=== PATIENT | male | born 1960 | race Caucasian/White ===

== ENCOUNTER 2018-04-04 10:37 | Emergency (ER) | payer SELFPAY ==
[2018-04-04 10:41] VITALS: BP 135/67; PULSE 75; RESP 18; TEMP 36.8; O2SAT 100
--- NOTE | 2018-04-04 11:01 | DI.RAD_ITS ---
SYMPTOMS/DIAGNOSIS: RIGHT AND LEFT-SIDED CHEST PAIN S/P FALL 4 DAYS AGO, LEFT LATERAL RIB PAIN, RIGHT MILD ANTERIOR RIB PAIN, ? FX CHEST X-RAY, PA AND LATERAL: Comparison is 06/05/17. The heart size and pulmonary vasculature are within normal limits. The lungs show no evidence of congestive heart failure or pneumonia. There are again seen bilateral old healed rib fractures. Degenerative changes are seen in the spine. IMPRESSION: No acute pulmonary process.
[2018-04-04] MEDS: Bupivacaine 0.25% Pres-Free 30 ML VIAL (12:28)
--- NOTE | 2018-04-04 12:47 | W.ED.GENAD ---
Discharge Plan Disposition Patient Disposition: HOME Condition: Good Discharge Details Chief Complaint: Chest/Rib Clinical Impression: Closed rib fracture, Chest pain, Pneumonia Primary Care Provider: Salvador Cabrera ED Provider: Nathan Nolasco Home Meds and New Rx's Prescriptions: New acetaminophen [Mapap Extra Strength] 500 MG tablet 1,000 mg PO Q6H 5 Days Qty: 60 RF: 0 lidocaine [Lidoderm] 1 PATCH patch 1 patch Topical Q24H Qty: 4 RF: 0 ibuprofen [Motrin IB] 200 MG tablet 600 mg PO Q6H 5 Days Qty: 60 RF: 0 azithromycin 250 mg tablet See Rx Instructions .ROUTE .COMPLEX Qty: 6 RF: 0 No Action esomeprazole magnesium [Nexium] 20 MG capsule,delayed release(DR/EC) 40 mg PO BID RF: 0 ondansetron HCl 4 MG tablet 4 mg PO Q8H PRN Qty: 90 RF: 1 Discharge Instructions Instructions: Rib Fracture (ED), Pneumonia (ED) Additional Instructions: Please take the medication as directed. Please use the incentive spirometer as directed. If you notice any worsening of your symptoms, or any new symptoms such as vomiting, diarrhea, fever, chills, shortness of breath, chest pain, numbness, weakness, or fainting , please return immediately to the emergency department for reevaluation. Please follow up with your primary care provider as soon as possible for reassessment and reevaluation. As always, it was a pleasure participating in your medical care today. Referrals: Salvador Cabrera MD [Primary Care Provider] - Discharge Data Discharge Date/Time-TO BE ENTERED AT DEPARTURE: 04/04/18 13:11 Medical Decision Making This is a very pleasant 57-year-old male who presents with 2 weeks of coughing then subsequent fall, notable bilateral chest pain concerning for rib fracture. Physical exam demonstrates reproducible rib wall tenderness on the lateral aspects bilaterally, some evidence of bruising, no crepitus. Chest x-ray shows no evidence of pneumothorax, or significant infiltrate, however with the patient's crackles and symptoms of productive green sputum and concern for potential community-acquired pneumonia made worse by his rib pain. There is evidence of old rib fractures, and clinically the patient demonstrates concern for acute rib fractures. We will start the patient on an antibiotic for community-acquired pneumonia made worse by his splinting, as well as consult anesthesia for rib block. Anesthesia did come and evaluate the patient performed with rib block, the patient had complete resolution of his rib pain. He feels much better at this time. Respiratory did discuss with the patient incentive spirometry techniques, and the patient was sent home with 1. Patient will be encouraged to continue NSAID therapy, as well as use Lidoderm patch as needed. We discussed red flags which to return, and the importance of taking the antibiotic, and the importance of close follow-up with his PCP. I have extensively reviewed the treatment plan and discharge instructions with the patient. I have addressed all patient concerns at this time. The patient was made aware of what symptoms to monitor for that would warrant a return to the emergency department. Discussed the plan with the patient, they demonstrate verbal understanding and agreement with our assessment and plan at this time. HPI General Date/Time Provider Initiated Documentation: 04/04/18 10:48. HPI Narrative: This is a pleasant 57-year-old male who presents for evaluation of rib pain. Patient states that about 1-2 weeks ago he developed a mild cough, had some productive green sputum, he had no systemic fever chills, chest pain or shortness of breath at that time, however roughly 4-5 days ago he was walking slipped and fell on his anterior chest. He did not hit his head or have any loss of consciousness however he noted significant rib pain on both sides immediately after this event. Since then he has had notable pain with inspiration, reproducible pain and bruising on both sides of his chest, and is concerned for rib fracture. He denies any significant zayra hemoptysis, fever, chills, numbness tingling or weakness. He does admit some continued productive green sputum. He denies any active IV or illicit drug or tobacco use. He denies any other complaints. Symptoms are made worse with palpation, deep breathing, and movement, improved by nothing, including Tylenol or Motrin. 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 He denies any pertinent family history recent surgical history. Related Data Home Medications Medication Instructions Recorded Confirmed esomeprazole magnesium [Nexium] 40 mg PO BID tab-cap 04/06/14 04/04/18 ondansetron HCl 4 mg PO Q8H PRN #90 tab-cap 09/30/17 acetaminophen [Mapap Extra 1,000 mg PO Q6H 5 Days #60 tab 04/04/18 Strength] azithromycin See Rx Instructions .ROUTE 04/04/18 .COMPLEX #6 tab ibuprofen [Motrin Ib] 600 mg PO Q6H 5 Days #60 tab 04/04/18 lidocaine [Lidoderm] 1 patch TOPICAL Q24H #4 patch 04/04/18 Previous Rx's Medication Instructions Recorded ondansetron HCl 4 mg PO Q8H PRN #90 tab-cap 09/30/17 acetaminophen [Mapap Extra 1,000 mg PO Q6H 5 Days #60 tab 04/04/18 Strength] azithromycin See Rx Instructions .ROUTE 04/04/18 .COMPLEX #6 tab ibuprofen [Motrin Ib] 600 mg PO Q6H 5 Days #60 tab 04/04/18 lidocaine [Lidoderm] 1 patch TOPICAL Q24H #4 patch 04/04/18 Allergies Allergy/AdvReac Type Severity Reaction Status Date / Time sertraline AdvReac Severe SEVERE Unverified 04/04/18 10:45 WORSENING OF DEPRESSION General Stated Complaint: Chest/Rib NEEMA: 3 Review of Systems Review of Systems All systems reviewed & are unremarkable except as noted in HPI and below PFSH Repair of inguinal hernia Vasectomy Family History Mother Neoplasm Father Diabetes Essential hypertension Neoplasm Sister No problems noted. Social History Smoking/Tobacco Use Status: Never Exam Narrative Exam Narrative: 1.Const: Well-nourished, Well-developed, appearing stated age 2.Eyes: PERRL, no conjunctival injection, and symmetrical lids. 3.ENT: Atraumatic external nose and ears. Moist MM. Neck: Symmetric, trachea midline, No thyromegaly. 4.CVS: +S1/S2, No murmurs or gallops. Peripheral pulses 2+ and equal in all extremities. Brisk capillary refill in all extremities. 5.RESP: Slightly painful respiratory effort secondary to musculoskeletal lateral rib pain, minimal crackles in the bases bilaterally, reproducible tenderness on the lateral ribs over ribs 7 8 on the left, and 6 and 7 on the right. Bruising is present in these areas. No evidence of crepitus. Airway clear, no obstructions. No abrasions or ecchymosis. Chest movement symmetric with respirations.Trachea midline. No crepitus. No step offs. No paradoxical movements. No rhonchi, wheezing or stridor. Breath sound symmetric. No Sucking chest wounds. 6.GI: Soft, Nontender/Nondistended, No hepatosplenomegaly. No guarding or rebound. 7.MSK: Normocephalic/Atraumatic, Extremities w/o deformity or ttp No cyanosis or clubbing, Normal movement of all extremities 8.Skin: Warm, Dry. No rashes or lesions. 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 Sensation grossly intact, no focal neurologic deficits. 10.Psych: (AAO) x3. Appropriate mood and affect Course Vital Signs Temperature 36.8 C 04/04/18 10:41 Pulse 75 04/04/18 10:41 Respiratory Rate 18 04/04/18 10:41 Blood Pressure 135/67 04/04/18 10:41 Pulse Oximetry 100 04/04/18 10:41 Temperature 36.8 C 04/04/18 10:41 Pulse 75 04/04/18 10:41 Respiratory Rate 18 04/04/18 10:41 Respiratory Effort 04/04/18 10:46 Respiratory Depth Normal 04/04/18 10:46 Respiratory Pattern Normal 04/04/18 10:46 Blood Pressure 135/67 04/04/18 10:41 Blood Pressure Position Sitting 04/04/18 10:41 Pulse Oximetry 100 04/04/18 10:41 Pain Level 8 04/04/18 10:46
[2018-04-04] MEDS: Ketorolac 15 MG/ML VIAL IM (13:00)
[2018-04-04] MEDS: Lidocaine 5% Patch 1 PATCH TP (13:00)
[2018-04-04 13:11] VITALS: BP 135/67; PULSE 75; RESP 18; TEMP 36.8; O2SAT 100
== END 2018-04-04 13:11 | disposition home or self-care (01) ==
PROVIDERS: Emergency Provider Student in an Organized Health Care Education/Training Program; PCP Family Medicine
DX: R07.81 Pleurodynia (principal); J18.9 Pneumonia, unspecified organism; S22.43XD Multiple fractures of ribs, bilateral, subsequent encounter for fracture with routine healing; W01.0XXD Fall on same level from slipping, tripping and stumbling without subsequent striking against object, subsequent encounter
CPT/HCPCS: 99284; 71046; J1885

== ENCOUNTER 2018-04-26 13:27 | Emergency (ER) | payer SELFPAY ==
[2018-04-26 13:48] VITALS: BP 129/76; PULSE 100; RESP 15; TEMP 36.2; O2SAT 99
--- NOTE | 2018-04-26 15:05 | DI.RAD_ITS ---
SYMPTOM/DIAGNOSIS: TRAUMA, LT RIB AND TAILBONE PAIN, H/O FALL LEFT RIBS AND PA AND LATERAL CHEST: Comparison is made with 04/04/18. Heart size and pulmonary vasculature are within normal limits. The lungs are clear and well expanded. No effusions or pneumothoraces are identified. There are old bilateral rib fractures. No acute rib fracture is seen. The spine appears stable with an old compression deformity at T 12. IMPRESSION: No acute abnormality. No acute left rib fracture. SACRUM AND COCCYX: No acute fracture or dislocation is identified. IMPRESSION: No acute abnormality.
--- NOTE | 2018-04-26 15:16 | ED.GENADUL_ITS ---
Discharge Plan Disposition Patient Disposition: HOME Condition: Stable Discharge Details Chief Complaint: Chest/Rib Clinical Impression: Chronic anemia, Elevated bilirubin, Hypokalemia, Rib pain, Coccyx pain Primary Care Provider: Salvador Cabrera ED Provider: Baryden Steinberg Home Meds and New Rx's Prescriptions: Continued esomeprazole magnesium [Nexium] 20 MG capsule,delayed release(DR/EC) 40 mg PO BID RF: 0 lidocaine [Lidoderm] 1 PATCH patch 1 patch Topical Q24H Qty: 4 RF: 0 Discontinued azithromycin 250 mg tablet See Rx Instructions .ROUTE .COMPLEX Qty: 6 RF: 0 Discharge Instructions Instructions: Hypokalemia (ED), Anemia (ED), Chest Wall Pain (ED), Alcohol Use Disorder (ED) Additional Instructions: Please return immediately to the emergency department if you develop any new or worsening symptoms or if you become otherwise concerned. It is extremely important that you make an appointment to be seen by your primary care doctor next week in follow-up for this visit. Please call [phone] if you have any difficulty establishing this appointment for next week. Please stop drinking alcohol. Referrals: Salvador Cabrera MD [Primary Care Provider] - Discharge Data Discharge Date/Time-TO BE ENTERED AT DEPARTURE: 04/26/18 17:34 Medical Decision Making <Vicenta Hoyt MD - Last Filed: 05/01/18 16:02> Jelani Jean-Baptiste is a 57 y/o man with h/o anxiety, depression, heavy etoh use who presented to the emergency department with left rib pain and tailbone after fall one week ago, also with several days of vomiting. Pt is well and non-toxic on exam. Left lateral rib TTP and coccyx TTP without skin changes. Abd exam benign. Concern for pancreatitis, gastritis, metabolic/lyte derangement, dehydration, rib fx, coccyx fx, other. Doubt ACS. Exam/hx not c/w sepsis, significant UGIB, appendicitis, other acute emergent intra-abdominal or intracranial process, PE, acute aortic process. Plan for EKG, CXR/rib films, coccyx film, screening labs, IVF hydration, IV zofran. Will monitor and reassess. Labs show chronic anemia, elevated bilirubin, hypokalemia. KCl administered. xrays okay. Lengthy discussion with Pt that abnl bilirubin, LFTs likely related to alcohol use. Pt counseled to stop drinking etoh immediately, and to RTED for withdrawal symptoms. IVF still running. Pt reports feeling much improved. Plan for PO challenge, finish IVF. Pt signed out to Amilcar Steinberg at time of shift change with IVF, PO challenge pending. Prior to my signout lengthy discussion with Pt re: RTED precautions and importance of outpt f/u with PCP. He verbalizes understanding of the plan and is amenable. Medical Records Medical records reviewed: Yes I reviewed the patient's medical records. Imaging Data Radiologic Study: Attestation: I personally reviewed and interpreted this imaging study as follows: Radiologist's impression: LEFT RIBS AND PA AND LATERAL CHEST: Comparison is made with 04/04/18. Heart size and pulmonary vasculature are within normal limits. The lungs are clear and well expanded. No effusions or pneumothoraces are identified. There are old bilateral rib fractures. No acute rib fracture is seen. The spine appears stable with an old compression deformity at T 12. IMPRESSION: No acute abnormality. No acute left rib fracture. SACRUM AND COCCYX: No acute fracture or dislocation is identified. IMPRESSION: No acute abnormality. Lab Data Lab results reviewed: Yes I reviewed the patient's lab results. Laboratory Tests Range/Units 04/26/18 04/26/18 04/26/18 15:35 15:35 15:45 WBC (4.4-10.8) k/cumm 7.40 RBC (4.50-6.00) m/cumm 4.78 Hgb (13.5-17.5) g/dL 9.3 L Hct (40.0-50.0) % 33.3 L MCV (80-95) fL 69.7 L MCH (27.0-33.0) pg 19.5 L MCHC (32.0-36.0) g/dL 27.9 L RDW (11.8-14.1) % 19.8 H Plt Count (130-400) x1000/uL 117 L MPV Not Applicable Immature Gran % 0.0 Neutrophils % 60.0 Lymphocytes % 25.0 Monocytes % 9.0 Eosinophils % 0.0 Basophils % 0.0 Absolute Neutrophils (1.2-6.7) k/cumm 4.66 Band Neutrophils % 3.0 Absolute Lymphocytes (1.2-3.4) k/cumm 2.00 Absolute Monocytes (0.11-0.7) k/cumm 0.67 Absolute Eosinophils (0.0-0.7) k/cumm 0.00 Absolute Basophils (0.0-0.2) k/cumm 0.00 Metamyelocytes % 1.0 Differential Comment Manual differential Atypical Lymphocytes 2 RBC Morphology See below Polychromasia Present Hypochromasia 2+ Poikilocytosis 2+ Anisocytosis 2+ Microcytosis 3+ Sodium (136-145) mmol/L 135 L Potassium (3.5-5.1) mmol/L 3.2 L Chloride (98-107) mmol/L 96 L Carbon Dioxide (21.0-32.0) mmol/L 30.7 Anion Gap (3-11) mmol/L 8.3 BUN (7-18) mg/dL 11 Creatinine (0.70-1.30) mg/dL 0.96 Estimated GFR/1.73 m2 (mL/min/1.73m2) >= 60.00 Glucose (70-100) mg/dL 91 Calcium (8.5-10.1) mg/dL 9.3 Total Bilirubin (0.2-1.0) mg/dL 2.0 H AST (15-37) U/L 50 H ALT (12-78) U/L 44 Alkaline Phosphatase (46-116) U/L 137 H Troponin I (0.00-0.06) ng/mL < 0.02 Total Protein (6.4-8.2) g/dL 8.6 H Albumin (3.4-5.0) g/dL 3.9 Lipase (73-393) U/L 158 Urine Color (Yellow) Vanessa Urine Clarity Clear Urine pH (5-8) 7.0 Ur Specific [place] (1.005-1.025) 1.015 Urine Protein (Negative) mg/dL 30 H Urine Ketones (Negative) mg/dL Trace H Urine Blood (Negative) Negative Urine Nitrite (Negative) Negative Urine Bilirubin (Negative) Moderate H Urine Urobilinogen (Up TO 0.2) EU/dL 4.0 H Ur Leukocyte Esterase (Negative) Negative Urine RBC (0-2) 0-2 Urine WBC (0-5) HPF 3-5 Ur Epithelial Cells (Negative) HPF Rare Urine Crystals (Negative) HPF Negative Urine Bacteria (Negative) HPF Rare Urine Casts (Negative) LPF 10-20 hyaline Urine Mucus (Negative) Moderate Urine Other (Negative) Negative Ur Culture Indicated? No Urine Glucose (Negative) mg/dL Negative Path Cons Comment ECG Data Attestation: I personally reviewed and interpreted this ECG (s) as follows: Interpretation: EKG shows sinus rhythm at 84 with normal axis, no acute ischemic changes, nondiagnostic EKG HPI <Vicenta Hoyt MD - Last Filed: 05/01/18 16:02> General Mode of arrival: ambulatory . Date/Time Provider Initiated Documentation: 04/26/18 14:19 . Limitations to Documentation: no limitations . Information obtained by: patient, RN notes reviewed and old records reviewed . HPI Narrative: Jelani Jean-Baptiste is a 57 y/o man with h/o anxiety, depression, GERD, heavy etoh use presenting to the emergency department with rib pain and vomiting. Pt reports that he was seen here 04/04 after fall on ice, diagnosed with rib fx. Pt reports that approx one week ago he again slipped on ice, and has been having new left-sided rib pain since fall. Also cedillo been having tail bone pain since fall. Pt also reports that in the past few days he has been vomiting multiple times. Pt reports that he had several episodes of bloody vomit, but has had no blood in his vomit since, last emesis today. Pt reports that he has not been able to keep food down. He denies diarrhea. Drinks several vodka drinks per night, but denies withdrawal symptoms or dependence when he stops drinking. He denies abd pain, chest pain, headache, fevers, SOB, cough. No recent travel. Related Data Home Medications Medication Instructions Recorded Confirmed esomeprazole magnesium [Nexium] 40 mg PO BID tab-cap 04/06/14 04/04/18 lidocaine [Lidoderm] 1 patch TOPICAL Q24H #4 patch 04/04/18 Previous Rx's Medication Instructions Recorded lidocaine [Lidoderm] 1 patch TOPICAL Q24H #4 patch 04/04/18 Allergies Allergy/AdvReac Type Severity Reaction Status Date / Time sertraline AdvReac Severe SEVERE Unverified 04/26/18 13:56 WORSENING OF DEPRESSION General Stated Complaint: Chest/Rib NEEMA: 3 Review of Systems <Vicenta Hoyt MD - Last Filed: 05/01/18 16:02> Review of Systems Constitutional: denies fevers Eyes: denies eye pain ENT: denies facial pain, dental pain, sore throat Cardiovascular: denies chest pain, edema, reports left rib pain Respiratory: denies SOB, cough GI: denies abdominal pain, diarrhea, reports vomiting : denies flank pain MSK: denies back pain, neck pain, arthralgias, myalgias, reports tailbone pain Skin: denies rash Neuro: denies headaches, n/t, weakness PFSH <Vicenta Hoyt MD - Last Filed: 05/01/18 16:02> Surgical History Repair of inguinal hernia Vasectomy Family History Mother Neoplasm Father Diabetes Essential hypertension Neoplasm Sister No problems noted. Social History Smoking/Tobacco Use Status: Never Exam <Vicenta Hoyt MD - Last Filed: 05/01/18 16:02> Narrative Exam Narrative: Constitutional: well and [id number], pleasant, conversing normally HENT: head atraumatic, normocephalic normal inspection, mucous membranes moist Eyes: conjunctiva normal, sclera normal, pupils 3mm b/l Neck: no stridor, normal ROM, trachea midline Chest: normal inspection, TTP over left lateral ribs without crepitus, skin changes, or deformity Resp: normal work of breathing, LCTAB Cardio: normal rate, normal rhythm, no murmur appreciated GI: abdomen soft, non-tender, non-distended Back: normal inspection, no rash, no lumbar TTP, TTP over inferior sacrum/coccyx, no deformity or skin changes Skin: warm, dry, normal color, no rash Neuro: alert, not altered, grossly non-focal, normal tone Ext: no edema Psych: normal mood, normal affect, normal behavior Course <Vicenta Hoyt MD - Last Filed: 05/01/18 16:02> Vital Signs Temperature 36.2 C L 04/26/18 13:48 Pulse 100 H 04/26/18 13:48 Respiratory Rate 15 04/26/18 13:48 Blood Pressure 129/76 04/26/18 13:48 Pulse Oximetry 99 04/26/18 13:48 Temperature 36.2 C L 04/26/18 13:48 Temperature Source Temporal Artery Scan 04/26/18 13:48 Pulse 100 H 04/26/18 13:48 Respiratory Rate 15 04/26/18 13:48 Respiratory Effort Non-Labored 04/26/18 13:55 Blood Pressure 129/76 04/26/18 13:48 Blood Pressure Position Sitting 04/26/18 13:48 Pulse Oximetry 99 04/26/18 13:48 Oxygen Delivery Method Room Air 04/26/18 13:48 Oxygen Flow Rate 0 04/26/18 13:48 Pain Level 8 04/26/18 13:48 Sign Out <Vicenta Hoyt MD - Last Filed: 05/01/18 16:02> Sign Out Data: Sign Out Comment: Patient signed out to Amilcar Steinberg at time of shift change with remainder of IV fluid hydration, p.o. challenge pending. Anticipate discharge home as already discussed with patient. Last updated by Vicenta Hoyt MD at 04/26/18 17:11 Post-Handoff Eval: IV fluids were finished by staff midwife/apprenticeship director and a p.o. challenge patient. Patient states that p.o. challenge went well and states improvement of symptoms. Discharge already prepared by Maria Alejandra Hoyt and see her note for physical exam and previous care and workup.
[2018-04-26] MEDS: Normal Saline 1,000 ML 1000 ML IV (15:33)
[2018-04-26] MEDS: Ondansetron 4 MG/2 ML VIAL IVP (15:33)
--- NOTE | 2018-04-26 15:36 | NUR.NOTE ---
patient medicated per MD order Nursing Note:
[2018-04-26 15:42] LABS: Abs Immature Grans 0.01 k/cumm (0.0-0.09); HCT 33.3 % (40.0-50.0); HGB 9.3 g/dL (13.5-17.5); Mean Corp. HGB Concentration 27.9 g/dL (32.0-36.0); Mean Corpuscular Hemoglobin 19.5 pg (27.0-33.0); Mean Corpuscular Volume 69.7 fL (80-95); RBC 4.78 m/cumm (4.50-6.00); RBC Distribution Width 19.8 % (11.8-14.1)
[2018-04-26 15:53] LABS: Bilirubin Moderate (Negative); Blood Negative (Negative); Clarity Clear; Glucose Negative (Negative); Ketones Trace mg/dL (Negative); Leukocyte Esterase Negative (Negative); Nitrite Negative (Negative); Specific Gravity 1.015 (1.005-1.025)
[2018-04-26 16:05] LABS: ALT 44 U/L (12-78); AST 50 U/L (15-37); Albumin 3.9 g/dL (3.4-5.0); Alkaline Phosphatase 137 U/L (46-116); Anion Gap 8.3 mmol/L (3-11); BUN 11 mg/dL (7-18); CO2 30.7 mmol/L (21.0-32.0); CREATININE 0.96 mg/dL (0.70-1.30); Calcium 9.3 mg/dL (8.5-10.1); Chloride 96 mmol/L (98-107); Glucose 91 mg/dL (70-100); Lipase 158 U/L (73-393); Potassium 3.2 mmol/L (3.5-5.1); Sodium 135 mmol/L (136-145); Total Protein 8.6 g/dL (6.4-8.2)
[2018-04-26 16:06] LABS: Troponin I < 0.02 ng/mL (0.00-0.06)
[2018-04-26 16:14] LABS: Absolute Monocyte Count 0.67 k/cumm (0.11-0.7); Absolute Neutrophil Count 4.66 k/cumm (1.2-6.7); Atypical Lymphocytes % 2
[2018-04-26 16:15] LABS: Anisocytosis 2+; Diff Comment Manual Differential
[2018-04-26 16:16] LABS: Hypochromasia 2+; Microcytosis 3+; Poikilocytes 2+; Polychromasia Present
[2018-04-26 16:18] LABS: Platelet Count 117 x1000/uL (130-400)
[2018-04-26 16:22] LABS: Bacteria Rare HPF (Negative); Crystals Negative HPF (Negative); Epithelial Cells Rare HPF (Negative); Mucus Moderate (Negative); Other Cells Negative (Negative); RBC 0-2 (0-2)
[2018-04-26 16:23] LABS: C & S Indicated? No; Casts 10-20 Hyaline LPF (Negative)
[2018-04-26 16:26] VITALS: BP 133/77; PULSE 78; RESP 18; TEMP 37; O2SAT 96
--- NOTE | 2018-04-26 16:37 | DI.VRAD_ITS ---
EXAM: XR Left Ribs, 2 Views EXAM DATE/TIME: 04/26/2018 4:10 PM CLINICAL HISTORY: 57 years old, male; Pain; Chest wall pain; Left; Patient HX: Trauma, left rib pain TECHNIQUE: XR Left ribs 2 views. COMPARISON: CR LEFT RIBS TO INCLUDE CXR 05/12/2013 8:13 AM FINDINGS: Bones/joints: No displaced acute fracture. Bilateral old rib fractures. Soft tissues: Normal. IMPRESSION: No displaced acute fractures. EXAM: XR Chest, 2 Views EXAM DATE/TIME: 04/26/2018 4:10 PM CLINICAL HISTORY: 57 years old, male; Pain; Chest wall pain; Left; Patient HX: Trauma, left rib pain TECHNIQUE: XR of the chest, 2 views. COMPARISON: CR LEFT RIBS TO INCLUDE CXR 05/12/2013 8:13 AM FINDINGS: Lungs: 2 mm calcified granuloma in the left upper lobe. Pleural space: No pneumothorax. No consolidations. Heart/Mediastinum: Unremarkable. No cardiomegaly. Bones/joints: Chronic right sixth and seventh rib fractures. Mild degenerative changes of the spine. Old left fourth, fifth, sixth, seventh and eighth rib fractures. Other findings: IMPRESSION: No acute abnormality. Chronic bilateral rib fractures. Dictated and Authenticated by: Curtis Rothman MD. Ordering:FER Yadav MD
--- NOTE | 2018-04-26 16:40 | DI.VRAD_ITS ---
EXAM: XR Sacrum and Coccyx, 2 or More Views EXAM DATE/TIME: 04/26/2018 4:13 PM CLINICAL HISTORY: 57 years old, male; Pain; Pain in coccyx area; Patient HX: Trauma, tailbone pain TECHNIQUE: XR XR of the sacrum and coccyx, 2 or more views. COMPARISON: CT CHEST ABD PELVIS WITH CONTRAST 06/06/2017 12:59 AM FINDINGS: Bones/joints: Degenerative changes of bilateral hip joints. No acute fracture. No dislocation. Soft tissues: Normal. IMPRESSION: No acute abnormality. Dictated and Authenticated by: Curtis Rothman MD. Ordering:FER Yadav MD
[2018-04-26] MEDS: Potassium Chloride 20 MEQ TABCR 40 MEQ PO (16:51)
--- NOTE | 2018-04-26 16:53 | NUR.NOTE ---
patient medicated per MD order Nursing Note:
[2018-04-26] MEDS: Pantoprazole 40 MG VIAL IVP (17:01)
--- NOTE | 2018-04-26 17:02 | NUR.NOTE ---
patient medicated per MD order Nursing Note:
[2018-04-26] MEDS: Ondansetron O.D.T. 4 MG TABEF PO (17:04)
--- NOTE | 2018-04-26 17:21 | NUR.NOTE ---
patient tolerating po challenge Nursing Note:
--- NOTE | 2018-04-29 07:47 | PDOC.ERCMPRO ---
Care Management Progress Note 05/01-Dr. Prosper Hoyt requested assistance with PCP f/u (Dr Perez) within one week for anemia/bilirubin. Referral faxed to [facility] this morning.
== END 2018-04-26 17:34 | disposition home or self-care (01) ==
PROVIDERS: Student in an Organized Health Care Education/Training Program; Emergency Provider Nurse Practitioner Family; PCP Family Medicine
DX: D64.9 Anemia, unspecified (principal); R52 Pain, unspecified; E80.7 Disorder of bilirubin metabolism, unspecified; E87.6 Hypokalemia; R07.81 Pleurodynia; R10.10 Upper abdominal pain, unspecified
CPT/HCPCS: 80053; 83690; 93005; 96361; 96374; 96375; 99285; 71046; 71100; 72220; 81003; 81015; 84484; 85025; 93010; J2405

== ENCOUNTER 2018-09-22 09:32 | Emergency (ER) | payer SELFPAY ==
[2018-09-22] VITALS (57 sets, daily range): BP systolic 145–177; BP diastolic 71–117; PULSE 81–123; RESP 11–31; TEMP 37; O2SAT 91–100
--- NOTE | 2018-09-22 09:35 | DI.COMBO_ITS ---
SYMPTOM/DIAGNOSIS: LT CHEST PAIN, ELEVATED D DIMER, ? PE PA AND LATERAL CHEST: There are multiple old bilateral healed rib fractures and left proximal clavicle fracture. The lungs are clear and well expanded. No pleural effusion is seen. CONCLUSION: No evidence of acute disease. PE CHEST CT: CT angiography was performed with multi slice acquisition and multi planar and 3D reconstruction. CT angiography of the chest was performed with intravenous infusion of 70 cc's of Omnipaque 350. Images obtained through the upper abdomen show apparent hepatic steatosis. There is a hiatal hernia and there is questionable wall thickening of the esophagus. No mediastinal or hilar adenopathy. Lungs are generally clear with mild dependent atelectasis. No evidence of pulmonary embolic disease or major thoracic aortic abnormality. Tracheobronchial tree appears intact. CONCLUSION: No evidence of pulmonary embolic disease. Incidental note of hepatic steatosis.
--- NOTE | 2018-09-22 09:35 | W.ED.GENAD ---
Discharge Plan Disposition Patient Disposition: HOME Condition: Stable Discharge Details Chief Complaint: Chest Pain Clinical Impression: Chest wall pain, Alcohol abuse, Depression, Chronic anemia, Thrombocytopenia Primary Care Provider: Salvador Cabrera ED Provider: Beba Davila Home Meds and New Rx's Prescriptions: New lidocaine [Lidoderm] 5 % adhesive patch,medicated 1 patch TP DAILY PRN (Reason: pain) Qty: 15 RF: 0 Continued esomeprazole magnesium [Nexium] 20 MG capsule,delayed release(DR/EC) 40 mg PO BID RF: 0 Discharge Instructions Instructions: Depression (ED), Abuse of Alcohol (ED), Anemia (ED), Chest Wall Pain (ED) Additional Instructions: Alternate Tylenol and Motrin as needed and directed for pain. Call your primary care doctor tomorrow to schedule follow-up appointment for reevaluation and for recheck of your hemoglobin and platelets. Be sure to safely stop drinking alcohol under the supervision of the physician or detoxification center. Simi from [facility] services will follow up with you on Sunday. Return immediately to the emergency department if you develop any worsening or new concerning symptoms. Discharge Data Discharge Physician: Beba Davila Medical Decision Making 58-year-old male with a history of anxiety, depression, GERD who presents with left anterior chest pain and diarrhea since yesterday. Left-sided chest pain worse with deep breath, movement and palpation. Denies fever, cough, shortness of breath or injury. Also later admitted to depression for the last 5 months and occasional thoughts of suicide. Denies plan or active thoughts of suicide at present. EKG on arrival noted a rate of 106, sinus tachycardia, no acute ST findings. Suspect most likely his chest pain appears musculoskeletal, or may be associated with anxiety or depression. Due to pleuritic component, will check screening labs, d-dimer, chest x-ray, uds. Will give a dose of Ativan, Toradol and bolus IV fluids. Patient is agreeable to mental health screening evaluation after medically cleared. 1050 --labs reviewed. Hemoglobin 9, has been low in the past and appears stable. Platelets 98, low compared to previous. D-dimer 759. Potassium 3.2. Mag 1.5. Troponin negative. Will replete potassium and send for CT chest to rule out PE. 1300 --CT chest negative for PE or dissection. Patient states he feels better. Still complaining of some left-sided chest pain which is worse with movement and palpation. Troponin negative x2. Appears muscular skeletal. Will place a Lidoderm patch. Patient is medically cleared. Will call mental health for evaluation. 1630 --mental health evaluated patient at bedside and feel that he is safe for discharge home. Patient admits to thoughts of suicide but does not have a plan and is not actively suicidal. Patient is not receptive to outpatient therapy but did discuss with Simi at bedside and is open to further discussion with him regarding issues currently in his life including his unemployment and his alcohol abuse. Patient is feeling better and feels good to go home. Patient now relates he was vomiting yesterday which he thinks is due to his alcohol. His chest is tender to palpation and appears musculoskeletal. Repeat EKG no acute findings. Discussed that this could be due to chest wall strain, costochondritis. He is instructed to alternate Tylenol and Motrin. We will send home with Lidoderm patch. Plan is for Simi to follow-up with patient at home on Sunday. Patient is instructed to call his primary care doctor tomorrow to schedule a follow-up appointment for reevaluation and for recheck of his hemoglobin and platelets. Medical Records Medical records reviewed: Yes I reviewed the patient's medical records. Imaging Data Radiologic Study: Radiologist's impression: XR Chest, 2 Views EXAM DATE/TIME: 09/22/2018 9:36 AM CLINICAL HISTORY: 58 years old, male; Signs and symptoms; Other: Chest pain, R/O acute disease TECHNIQUE: Imaging protocol: XR of the chest, 2 views. COMPARISON: CR XR CHEST 2V PA LATERAL 04/04/2018 11:19 AM FINDINGS: Lungs: Unremarkable. No consolidation. Pleural space: Unremarkable. No pleural effusion. No pneumothorax. Heart/Mediastinum: Unremarkable. No cardiomegaly. Bones/joints: Stable bilateral healed rib fractures. IMPRESSION: No acute findings. Radiologic Study #2: Radiologist's impression: CT Angiography Chest With Contrast EXAM DATE/TIME: 09/22/2018 10:57 AM CLINICAL HISTORY: 58 years old, male; Signs and symptoms; Other: L chest pain, elevated d dimer, R/O pe TECHNIQUE: Imaging protocol: Axial computed tomographic angiography images of the chest with intravenous contrast using CT angiography protocol. Coronal and sagittal reformatted images were created and reviewed. 3D rendering: MIP reconstructed images were created and reviewed. Radiation optimization: All CT scans at this facility use at least one of these dose optimization techniques: automated exposure control; mA and/or kV adjustment per patient size (includes targeted exams where dose is matched to clinical indication); or iterative reconstruction. Contrast material: OMNIPAQUE 350; Contrast volume: 70 ml; Contrast route: IV; COMPARISON: CR XR CHEST 2V PA LATERAL 09/22/2018 10:54 AM FINDINGS: Pulmonary arteries: No pulmonary embolus or aortic dissection. Aorta: Normal. No aortic aneurysm. No aortic dissection. Lungs: Normal. No consolidation. No masses. Pleural space: Normal. No pneumothorax. No pleural effusion. Heart: Normal. No cardiomegaly. No pericardial effusion. Liver: Fatty infiltration of the liver. Lymph nodes: Unremarkable. No enlarged lymph nodes. Bones/joints: Stable bilateral healed rib fractures. Soft tissues: Unremarkable. Other findings: Examination is limited secondary to motion artifact. IMPRESSION: 1. Examination is limited secondary to motion artifact. 2. No pulmonary embolus or aortic dissection. 3. Fatty infiltration of the liver. ECG Data Attestation: I personally reviewed and interpreted this ECG (s) as follows: Interpretation: #1 -- Rate of 106, sinus, no acute ST elevation or depression. QTc 459. QRS 104. #2 -- Rate of 81, sinus, no acute ST elevation or depression, QTC 457, QRS 104. HPI General Mode of arrival: ambulatory. Date/Time Provider Initiated Documentation: 09/22/18 09:33. Limitations to Documentation: no limitations. Information obtained by: patient. HPI Narrative: Patient is a 58-year-old male with a history of anxiety, depression, GERD who presents with left-sided chest pain since yesterday. Describes pain as constant, sharp, without radiation and worse with deep breath, movement and palpation and better with rest. He also admits the pain is worse with coughing. States the pain is currently 9/10. He denies any fever, significant cough, shortness of breath, nausea, vomiting or dizziness. He denies any known injury. Denies any recent travel, recent surgery, leg pain or swelling. He also states he started with diarrhea yesterday and has had 3 episodes of watery brown diarrhea yesterday and 3 episodes today. Patient states he has not been eating and drinking as much as usual due to depression for the last 5 months. He states he has occasional thoughts of suicide but denies any active suicidality and denies any plan. He states he had a previous suicide attempt 4 to 5 years ago which he attempted to hang himself, but states he was not able to follow through with the plan due to thinking of his family and the repercussions. Related Data Home Medications Medication Instructions Recorded Confirmed esomeprazole magnesium [Nexium] 40 mg PO BID tab-cap 04/06/14 09/22/18 lidocaine [Lidoderm] 1 patch TP DAILY PRN #15 each 09/22/18 Previous Rx's Medication Instructions Recorded lidocaine [Lidoderm] 1 patch TP DAILY PRN #15 each 09/22/18 Allergies Allergy/AdvReac Type Severity Reaction Status Date / Time sertraline AdvReac Severe SEVERE Verified 09/22/18 09:40 WORSENING OF DEPRESSION General NEEMA: 3 Review of Systems Review of Systems All systems reviewed & are unremarkable except as noted in HPI and below Constitutional Reports as per HPI, Denies chills and Denies fever(s) Eyes Denies blurry vision ENT Denies dizziness, Denies sore throat and Denies throat swelling Cardiovascular Reports chest pain and Denies dyspnea Respiratory Denies cough and Denies dyspnea Gastrointestinal Denies abdominal pain, Reports diarrhea and Denies vomiting Genitourinary Denies hematuria and Denies dysuria Musculoskeletal Denies back pain and Denies numbness Integumentary/Breasts Denies lesions and Denies rash Neurologic Denies dizziness, Denies focal weakness and Denies numbness Psychiatric Reports depression Allergic/Immunologic Denies throat swelling [facility] Medical History Anxiety (Chronic) Depression (Chronic) GERD (gastroesophageal reflux disease) (Chronic) Surgical History H/O vasectomy (Acute) History of colon resection (Chronic) History of hernia repair (Chronic) Repair of inguinal hernia Vasectomy Family History Mother Neoplasm Father Diabetes Essential hypertension Neoplasm Sister No problems noted. Social History Smoking/Tobacco Use Status: Never Alcohol Intake: current Alcohol Intake frequency: 3 or more drinks per day Drug use: Occasionally Substance use type: marijuana Do you feel safe at home: Yes Do you feel safe in your relationship?: Yes Exam Const General: cooperative, healthy appearing and no acute distress [facility] Head: normal to inspection Face and sinus: normal facial exam Eyes General: appearance normal, both eyes and all related structures EOM: EOM intact bilaterally Neck Neck: normal visual inspection and No submandibular swelling Lymphatic: no lymphadenopathy noted Chest Chest: normal inspection of the chest and tenderness (Tenderness to palp left anterior chest. No trauma, infection, or rash) Resp Effort & Inspection: normal respiratory effort and able to speak in complete sentences Auscultation: clear to auscultation bilaterally Cardio Rate: regular rate Rhythm: regular rhythm GI Inspection: normal to inspection Palpation: soft, not firm, not rigid and nontender Auscultation: normal bowel sounds Back/Spine/Pelvis Thoracic/Lumbar Spine: thoracic and lumbar spine normal to inspection Skin General skin exam: no rashes or lesions noted Neuro General: alert, awake and oriented x3 Cognition: normal cognition Speech: speech normal Motor: muscle tone normal throughout Sensory Exam: no sensory deficits noted Extrem General: normal to inspection, full ROM, normal capillary refill, no calf tenderness bilaterally and no edema Psych Appearance: grossly normal Mental Status: mental status grossly normal Speech and Movement: speech and movement normal Affect: blunted
--- NOTE | 2018-09-22 09:36 | NUR.NOTE ---
yesterday morning pt developed left sided chest pain that has gradually progressed to an 8/10 pt describes pain as sharp and states that deep breaths make pain worse. pt also notes that he developed lose stools yesterday
[2018-09-22 10:11] LABS: Abs Immature Grans 0.02 k/cumm (0.0-0.09); Absolute Basophil Count 0.04 k/cumm (0.0-0.2); Absolute Eosinophil Count 0.01 k/cumm (0.0-0.7); Absolute Lymphocyte Count 0.87 k/cumm (1.2-3.4); Absolute Monocyte Count 0.96 k/cumm (0.11-0.7); Absolute Neutrophil Count 6.87 k/cumm (1.2-6.7); Basophils % 0.5; Eosinophils % 0.1; Immature Grans % 0.2; Lymphocytes % 9.9; Mean Corp. HGB Concentration 28.1 g/dL (32.0-36.0); Mean Corpuscular Hemoglobin 19.6 pg (27.0-33.0); Mean Corpuscular Volume 69.7 fL (80-95); Monocytes % 10.9; Neutrophils % 78.4; RBC 4.59 m/cumm (4.50-6.00); RBC Distribution Width 20.9 % (11.8-14.1); White Blood Cell Count 8.77 k/cumm (4.4-10.8)
[2018-09-22 10:19] LABS: ALT 51 U/L (12-78); AST 104 U/L (15-37); Albumin 3.4 g/dL (3.4-5.0); Alkaline Phosphatase 210 U/L (46-116); Anion Gap 16.8 mmol/L (3-11); BUN 5 mg/dL (7-18); Bilirubin, Total 1.2 mg/dL (0.2-1.0); CO2 23.2 mmol/L (21.0-32.0); CREATININE 0.89 mg/dL (0.70-1.30); Calcium 8.4 mg/dL (8.5-10.1); Chloride 98 mmol/L (98-107); Glucose 176 mg/dL (70-100); Magnesium 1.5 mg/dL (1.8-2.4); Potassium 3.2 mmol/L (3.5-5.1); Sodium 138 mmol/L (136-145); Total Protein 8.1 g/dL (6.4-8.2)
[2018-09-22 10:25] LABS: Troponin I < 0.02 ng/mL (0.00-0.06)
[2018-09-22] MEDS: Normal Saline 1,000 ML 1000 ML IV (10:38)
[2018-09-22] MEDS: LORazepam 0.5 MG TAB PO (10:38)
[2018-09-22] MEDS: Ketorolac 30 MG/ML VIAL IVP (10:38)
[2018-09-22 10:39] LABS: ETHANOL BLOOD 19.4 mg/dL (<3); Platelet Count 98 x1000/uL (130-400)
--- NOTE | 2018-09-22 10:39 | NUR.NOTE ---
pt states that he currently has no plan to harm himself and feels safe in room. PT in highly visible room Nursing Note:
[2018-09-22 10:42] LABS: D-Dimer 759 ng/mlFEU (<500)
[2018-09-22 10:46] LABS: Hypochromasia 3+; Microcytosis 3+
[2018-09-22] MEDS: Omnipaque 350 MG/ML 100 ML BTL IJ (11:16)
[2018-09-22] MEDS: Normal Saline Flush 10 ML SYR IVP (11:17)
--- NOTE | 2018-09-22 11:35 | DI.VRAD_ITS ---
EXAM: XR Chest, 2 Views EXAM DATE/TIME: 09/22/2018 9:36 AM CLINICAL HISTORY: 58 years old, male; Signs and symptoms; Other: Chest pain, R/O acute disease TECHNIQUE: Imaging protocol: XR of the chest, 2 views. COMPARISON: CR XR CHEST 2V PA LATERAL 04/04/2018 11:19 AM FINDINGS: Lungs: Unremarkable. No consolidation. Pleural space: Unremarkable. No pleural effusion. No pneumothorax. Heart/Mediastinum: Unremarkable. No cardiomegaly. Bones/joints: Stable bilateral healed rib fractures. IMPRESSION: No acute findings. Dictated and Authenticated by: Huseyin Bey MD. Ordering:BRIDGER Yoder MD
[2018-09-22] MEDS: Potassium Chloride 20 MEQ TABCR 40 MEQ PO (11:38)
--- NOTE | 2018-09-22 11:39 | DI.VRAD_ITS ---
EXAM: CT Angiography Chest With Contrast EXAM DATE/TIME: 09/22/2018 10:57 AM CLINICAL HISTORY: 58 years old, male; Signs and symptoms; Other: L chest pain, elevated d dimer, R/O pe TECHNIQUE: Imaging protocol: Axial computed tomographic angiography images of the chest with intravenous contrast using CT angiography protocol. Coronal and sagittal reformatted images were created and reviewed. 3D rendering: MIP reconstructed images were created and reviewed. Radiation optimization: All CT scans at this facility use at least one of these dose optimization techniques: automated exposure control; mA and/or kV adjustment per patient size (includes targeted exams where dose is matched to clinical indication); or iterative reconstruction. Contrast material: OMNIPAQUE 350; Contrast volume: 70 ml; Contrast route: IV; COMPARISON: CR XR CHEST 2V PA LATERAL 09/22/2018 10:54 AM FINDINGS: Pulmonary arteries: No pulmonary embolus or aortic dissection. Aorta: Normal. No aortic aneurysm. No aortic dissection. Lungs: Normal. No consolidation. No masses. Pleural space: Normal. No pneumothorax. No pleural effusion. Heart: Normal. No cardiomegaly. No pericardial effusion. Liver: Fatty infiltration of the liver. Lymph nodes: Unremarkable. No enlarged lymph nodes. Bones/joints: Stable bilateral healed rib fractures. Soft tissues: Unremarkable. Other findings: Examination is limited secondary to motion artifact. IMPRESSION: 1. Examination is limited secondary to motion artifact. 2. No pulmonary embolus or aortic dissection. 3. Fatty infiltration of the liver. Dictated and Authenticated by: Huseyin Bey MD. Ordering:BRIDGER Yoder MD
[2018-09-22 12:39] LABS: *AMPHETAMINES SCREEN URINE Negative (Negative); *BARBITURATES SCREEN URINE Negative (Negative); *BENZODIAZEPINES SCREEN URINE Negative (Negative); Cannabinoids THC POSITIVE (Negative); Cocaine Screen,Urine Negative (Negative); METHADONE URINE SCREEN Negative (Negative); OPIATES URINE SCREEN Negative (Negative); Tricyclic Antidepressants Negative (Negative)
[2018-09-22 13:05] LABS: Troponin I < 0.02 ng/mL (0.00-0.06)
[2018-09-22] MEDS: Lidocaine 5% Patch 1 PATCH TP (13:45)
--- NOTE | 2018-09-22 15:18 | PDOC.MHCN ---
Date of service: 09/22/18 Time of Service: 15:19 Mental Health Crisis Note Presenting Issue How did you arrive at the ED and why did you come: Patient drives himself to the ER due to chest pains. Once at the hospital, he shares with the ER doctor that he has been depressed and has been having suicidal thoughts for several months. Precipitating Factors Patient admits to a history of intermittent depression. He states that his depression has worsened since winter when he became unable to work due to an injury to his ribs. He admits that he now thinks of suicide on a regular basis but denies intent or plan and is able to contract for safety. He talks about several stressors in his life but is future-oriented, has good support from his mom and his adult son, and names his two grandsons (2 and 3 years old) as a reason to live, saying that he wants to be around to see them grow up. Disposition BEHAVIOR: Cooperative. EYE CONTACT: Good. MOOD: Depressed. AFFECT: Anxious. APPETITE: Reported as ok. SLEEP(trouble falling/staying asleep: Reports difficulty sleeping at night. Plan Patient is returning home. Patient is not interested in a voluntary psych placement at this time. He also has no interest in outpatient therapy, as he has been in therapy in the past and has not found it particularly helpful. He does, however, accept case management services, so at my request Simi Mcclellan, [facility] embedded mend worker, comes by the hospital to meet with patient, as he will be providing the case management. Patient is also given contact information for [facility] emergency services and he agrees to call as needed. Signature Clinician's Name/Title: Yvonne Pavon BA, [facility] L[employer] G[employer]er
--- NOTE | 2018-09-22 15:31 | PDOC.MHCN_ITS ---
Date of service: 09/22/18 Time of Service: 15:19 Mental Health Crisis Note Presenting Issue How did you arrive at the ED and why did you come: Patient drives himself to the ER due to chest pains. Once at the hospital, he shares with the ER doctor that he has been depressed and has been having suicidal thoughts for several months. Precipitating Factors Patient admits to a history of intermittent depression. He states that his depression has worsened since winter when he became unable to work due to an injury to his ribs. He admits that he now thinks of suicide on a regular basis but denies intent or plan and is able to contract for safety. He talks about several stressors in his life but is future-oriented, has good support from his mom and his adult son, and names his two grandsons (2 and 3 years old) as a reason to live, saying that he wants to be around to see them grow up. Disposition BEHAVIOR: Cooperative. EYE CONTACT: Good. MOOD: Depressed. AFFECT: Anxious. APPETITE: Reported as ok. SLEEP(trouble falling/staying asleep: Reports difficulty sleeping at night. Plan Patient is returning home. Patient is not interested in a voluntary psych placement at this time. He also has no interest in outpatient therapy, as he has been in therapy in the past and has not found it particularly helpful. He does, however, accept case management services, so at my request Simi Mcclellan, [facility] embedded fat pressroom worker, comes by the hospital to meet with patient, as he will be providing the case management. Patient is also given contact information for [facility] emergency services and he agrees to call as needed. Signature Clinician's Name/Title: Yvonne Pavon BA, [facility] Consulting Utility [employer]
== END 2018-09-22 18:30 | disposition home or self-care (01) ==
PROVIDERS: Emergency Provider Physician Assistant; PCP Family Medicine
DX: R07.81 Pleurodynia (principal); F41.8 Other specified anxiety disorders; F10.10 Alcohol abuse, uncomplicated; R45.851 Suicidal ideations; D69.6 Thrombocytopenia, unspecified; D64.9 Anemia, unspecified
CPT/HCPCS: 36415; 71275; 80053; 80307; 93005; 96361; 96374; 99285; 71046; 80320; 83735; 84484; 85025; 85379; 93010; J1885; J3490

== ENCOUNTER 2019-10-02 17:59 | Inpatient (IN) | payer MEDICAID, SELFPAY ==
[2019-10-02] VITALS (54 sets, daily range): BP systolic 88–127; BP diastolic 34–111; PULSE 107–151; RESP 12–30; TEMP 36.4–37.1; O2SAT 86–100
[2019-10-02 18:31] LABS: Abs Immature Grans 0.02 k/cumm (0.0-0.09); Absolute Monocyte Count 2.14 k/cumm (0.11-0.7); Basophils % 0.2; Immature Grans % 0.1 %; Lymphocytes % 12.2; Mean Corp. HGB Concentration 27.4 g/dL (32.0-36.0); Mean Corpuscular Hemoglobin 19.8 pg (27.0-33.0); Mean Corpuscular Volume 72.2 fL (80-95); Monocytes % 11.6; Neutrophils % 75.9; RBC 2.73 m/cumm (4.50-6.00); RBC Distribution Width 24.8 % (11.8-14.1); White Blood Cell Count 18.42 k/cumm (4.4-10.8)
[2019-10-02 18:42] LABS: Absolute Basophil Count 0.04 k/cumm (0.0-0.2); Absolute Lymphocyte Count 2.25 k/cumm (1.2-3.4); Absolute Neutrophil Count 13.98 k/cumm (1.2-6.7)
[2019-10-02 18:44] LABS: INR 1.5 (0.9-1.1); PTT Activated 22.5 sec (21.0-31.4)
[2019-10-02 18:45] LABS: HCT 19.7 % (40.0-50.0); HGB 5.4 g/dL (13.5-17.5); Platelet Count 282 x1000/uL (130-400)
--- NOTE | 2019-10-02 18:45 | DI.CT_ITS ---
EXAM: CT CHEST PE ABD PELVIS W CLINICAL HISTORY: vomiting blood, black tarry stools TECHNIQUE: Imaging Protocol: Axial computed tomography images with coronal and sagittal reformatted images were created and reviewed CONTRAST MATERIAL: Intravenous: Omnipaque 350 Contrast volume:100 mL Oral: No COMPARISON: CT CHEST ABD PELVIS WITH CONTRAST from 06/05/2017 CT CHEST ABD PELVIS WITH CONTRAST from 06/05/[address] CHEST PE CTA from 09/22/2018 FINDINGS: CHEST: Tracheobronchial tree: Patent where visualized. Mediastinum and Shreya: No dominant adenopathy or fluid collection. There is a small hiatal hernia. Pulmonary parenchyma: No consolidation or dominant measurable mass. No architectural distortion. Mini mal basilar atelectasis. Pleura: No effusion or pneumothorax. Heart: The heart is not dilated. No coronary artery calcifications are seen. No significant pericardi al effusion. Aorta: Thoracic aorta non-dilated. No aneurysm or dissection. Pulmonary arteries: Examination is limited by patient motion artifact. No central pulmonary embolus is identified. Lymph nodes: Within normal limits. Bones:Old left rib fractures. No acute abnormality. ABDOMEN: Liver: Liver has a nodular contour suggesting hepatic cirrhosis. Hepatomegaly. Also are scattered a reas of decreased attenuation throughout the liver and multiple hepatic masses are suspected. There is a 1.5 discrete mass in the lateral segment of the left lobe of the liver. Portal, Superior Mesenteric, and Splenic Veins: Unremarkable. Gallbladder and Biliary Tract: No radiodense calculus or dilation. Pancreas: Normal density, no abnormal calcifications or inflammatory process. Spleen: Splenomegaly. No splenic mass. Adrenals: No masses seen. Kidneys: Normal size, contour and axis. No radiodense stones or obstructive uropathy. No masses seen. Abdominal Aorta: Abdominal portion non-dilated. Atherosclerosis. Bowel: Postsurgical changes are seen in the mid sigmoid colon. There is colonic diverticulosis but n o evidence of acute diverticulitis. There is a duodenal diverticulum adjacent to the head of the rhoades creas. There is mild asymmetric wall thickening at the right posterolateral rectum (series 11, image 80). No evidence of bowel obstruction. Appendix is unremarkable. Peritoneal Cavity: No ascites, collection or mesenteric inflammatory response. Abdominal varices are present. There is mild fat stranding in the periaortic retroperitoneal region at the level of the ce liac axis and inferior mesenteric artery takeoff. Small retroperitoneal lymph nodes are seen. Lymph Nodes: Within normal limits. Bones: Degenerative changes are present. Scattered lucencies are seen in the bones particularly the pelvis. Soft Tissues: Findings of a prior right inguinal hernia repair are seen. PELVIS: Bladder: There is diffuse mild thickening of the wall of the urinary bladder. This may be due to und erdistention or chronic bladder outlet obstruction secondary to the enlarged prostate gland. Reproductive Organs: The prostate gland is enlarged and impinges upon the base of the urinary bladder . There is a 0.8 cm hypodense nodule in the superior aspect of the prostate gland. Lymph Nodes: Please see above. Bones: Please see above. IMPRESSION: 1. No evidence of pulmonary embolus, thoracic aortic dissection or aneurysm. 2. Findings of hepatic cirrhosis, splenomegaly and abdominal varices. 3. Hypodensities seen within the liver suspicious for metastatic disease. Primary hepatocellular car cinoma cannot be excluded. 4. Question of asymmetric mural thickening in the rectal wall. Mass versus adherent stool. Barium e nema and/or colonoscopy may be considered for further evaluation. 5. Questionable lucency seen within the bones and metastatic disease should be considered. 6. Enlarged prostate gland with findings suggestive of chronic bladder outlet obstruction. Urology c onsult may be considered. RADIATION DOSE DELIVERED: 839.5mGy.cm Total DLP 839.5mGy.cm Total DLP DATA REPOSITORY: All CT scans at this facility are submitted to the National Radiology Data Registry (NRDR) Dose Index Registry (DIR) with the [employer] [employer] (A[employer]). RADIATION OPTIMIZATION: All CT scans at this facility use at least one of these dose optimization te chniques: automated exposure control; mA and/or kV adjustment per patient size (includes targeted exa ms where dose is matched to clinical indication); or iterative reconstruction.
[2019-10-02 18:47] LABS: ALT 48 U/L (16-63); AST 75 U/L (15-37); Alkaline Phosphatase 101 U/L (46-116); BUN 23 mg/dL (7-18); Bilirubin, Total 3.8 mg/dL (0.2-1.0); Calcium 8.6 mg/dL (8.5-10.1); Chloride 94 mmol/L (98-107); Glucose 171 mg/dL (74-106); Magnesium 1.5 mg/dL (1.8-2.4); Potassium 3.1 mmol/L (3.5-5.1); Sodium 134 mmol/L (136-145); Total Protein 6.9 g/dL (6.4-8.2); Troponin I < 0.05 ng/mL (<0.06)
--- NOTE | 2019-10-02 18:51 | W.ED.GENAD ---
Discharge Plan Disposition Patient Disposition: [facility] INPATIENT Condition: Serious Discharge Details Chief Complaint: GI Bleed Clinical Impression: Acute GI bleeding, Acute anemia, Alcohol withdrawal, Abdominal malignancy Admit Date/Time: 10/02/19 20:54 Admit Provider: Schuyler Goodman Attending Provider: Schuyler Goodman Primary Care Provider: Salvador Cabrera ED Provider: Nathan Nolasco Discharge Data Discharge Date/Time-TO BE ENTERED AT DEPARTURE: 10/02/19 21:50 Medical Decision Making <Beba Davila DO - Last Filed: 10/04/19 19:28> 59-year-old male with a history of chronic daily alcohol abuse, anxiety, depression, GERD presents for hematemesis and black tarry stools for the past 2 days. Last hematemesis 2 days ago. Last alcoholic drink 2 days ago. He appears jaundiced. He is tachycardic. Patient had small amount of mucus spit up which was Gastroccult negative. Guaiac noted brown stool and negative. He has mild lower abdominal tenderness no rigidity or guarding. EKG notes a rate of 138, sinus with no acute ST ischemic changes. Differential diagnosis includes esophageal varices, alcoholic gastritis, anemia, diverticulitis, alcohol withdrawal, etc. Will place an IV, screening labs, CT chest abdomen pelvis, Protonix bolus and drip, Zofran, Ativan as needed for signs of alcohol withdrawal. Labs reviewed and note a white blood cell count of 18. Hemoglobin 5.4, hematocrit 19.7. Normal platelets. INR 1.5. Potassium 3.1. Anion gap 15. Magnesium 1.5. Normal troponin and lipase. Alcohol level negative. 2 units of PRBCs ordered. Case discussed with hospitalist Dr. Goodman regarding plan for admission for acute anemia in setting of GI bleed and suspected alcohol withdrawal. Admission pending results of CT chest abdomen and pelvis. Case endorsed to Dr. Nolasco to follow-up on CT results and call Dr. Goodman with results. Medical Records Medical records reviewed: Yes I reviewed the patient's medical records. ECG Data Attestation: I personally reviewed and interpreted this ECG (s) as follows: Interpretation: Rate of 138, sinus, no acute ST elevation or depression. DC 112. QTc 461. QRS 104. <aNthan Nolasco DO - Last Filed: 10/02/19 21:02> Patient was signed out to me by my colleague Dr. Beba Davila for final reassessment after CT scan results. CT scan results have returned which demonstrate notable concern for potential malignancy with metastases. No signs of an acute surgical process though. The patient remained stable and is currently receiving blood. The results were discussed with the patient as well as the hospitalist Dr. Goodman. The patient will be admitted to the ICU. Dr. Goodman will be placing orders. I have extensively reviewed the treatment plan with the patient. I have addressed all patient concerns at this time. I have also discussed the plan with the admitting physician and they agree with the current assessment and plan and have agreed to assume responsibility for the patient. All parties demonstrate verbal understanding and agreement with our assessment and plan at this time. IMPRESSION: 1. Motion artifact limits evaluation of the bibasilar subsegmental pulmonary arteries. Otherwise no pulmonary embolism. 2. No acute intrathoracic finding. 3. Irregular attenuation of the liver concerning for malignancy/metastases, better evaluated on CT of the abdomen and pelvis acquired concurrently 1. Nodular contour of the liver suggestive for cirrhosis with scattered mosaic hyperattenuation with multiple scattered areas of irregular hypodensity. Finding is concerning for malignancy to include hepatocellular carcinoma versus metastases. 2. Questionable asymmetric mural thickening versus adherent stool within the right posterolateral wall of the rectum. Correlation with colonoscopy as clinically warranted. Also noted are other possible areas of colonic mural thickening, however predominantly are associated with areas of underdistention and nonspecific. 3. Stranding of the periaortic retroperitoneal fat with few scattered areas of focal irregular retroperitoneal soft tissue concerning for adenopathy suggestive for retroperitoneal metastatic involvement. Correlate clinically. 4. Questionable areas of focal osseous lucency could represent focal osteopenia, however osseous lytic disease is not excluded. Correlate clinically. 5. Focal irregular soft tissue within the proximal right inguinal canal concerning for metastatic disease. 6. Splenomegaly with mild gastroesophageal varices. 7. Prostatomegaly with evidence of chronic bladder outlet obstruction. Correlate for history of BPH. Correlate with PSA to exclude malignancy. Thank you for allowing us to participate in the care of your patient. Dictated and Authenticated by: Alon Peters MD 10/02/2019 8:34 PM Eastern Time ([place] & [place] HPI <Beba Davila, - Last Filed: 10/04/19 19:28> General Mode of arrival: ambulatory. Date/Time Provider Initiated Documentation: 10/02/19 17:59. Limitations to Documentation: no limitations. Information obtained by: patient. HPI Narrative: Patient is a 59-year-old male with a history of alcohol abuse, anxiety, depression, GERD who presents for vomiting bright red blood with black stools for the past 3 days. Patient states he has been drinking 1/5 of vodka daily for the past year. He does admit to a chronic history of alcohol abuse but states I am done . He was last in rehab last summer. Patient states his last drink was 2 days ago. He denies any fever, chest pain, shortness of breath, abdominal pain, drug use. Related Data Home Medications Medication Instructions Recorded Confirmed esomeprazole magnesium [Nexium] 40 mg PO BID tab-cap 04/06/14 10/02/19 Allergies Allergy/AdvReac Type Severity Reaction Status Date / Time sertraline AdvReac Severe SEVERE Verified 10/02/19 18:11 WORSENING OF DEPRESSION General Stated Complaint: GI Bleed NEEMA: 3 Review of Systems <Beba Davila DO - Last Filed: 10/04/19 19:28> All systems reviewed & are unremarkable except as noted in HPI and below Constitutional Constitutional: Reports as per HPI, Denies chills and Denies fever(s) Eyes Eyes: Denies blurry vision ENT Ears, Nose, Mouth, and Throat: Denies dizziness, Denies sore throat and Denies throat swelling Cardiovascular Cardiovascular: Denies chest pain and Denies dyspnea Respiratory Respiratory: Denies cough and Denies dyspnea Gastrointestinal Gastrointestinal: Denies abdominal pain, Reports melena, Reports diarrhea, Reports vomiting and Reports hematemesis (bright red blood) Genitourinary Genitourinary: Denies hematuria and Denies dysuria Musculoskeletal Musculoskeletal: Denies back pain and Denies numbness Integumentary/Breasts Skin/Breast: Denies lesions and Denies rash Neurologic Neurologic: Denies dizziness, Denies localized weakness and Denies numbness Allergic/Immunologic Allergic/Immunologic: Denies throat swelling PFSH <Beba Davila DO - Last Filed: 10/04/19 19:28> Medical History Advanced hepatic cirrhosis (Acute) Alcohol abuse (Chronic) Alcohol dependence with withdrawal with complication (Acute) Alcoholic liver failure (Acute) Anxiety (Chronic) Depression (Chronic) GERD (gastroesophageal reflux disease) (Chronic) Metastatic neoplastic disease (Acute) Surgical History H/O vasectomy (Acute) History of colon resection (Chronic) due to diverticulitis; sigmoid History of hernia repair (Chronic) Repair of inguinal hernia Vasectomy Family History Mother Neoplasm Father Diabetes Essential hypertension Neoplasm Sister No problems noted. Social History Smoking/Tobacco Use Status: Never Alcohol Intake: current Alcohol Intake frequency: 3 or more drinks per day Drug use: Daily Substance use type: marijuana Do you feel safe at home: Yes Do you feel safe in your relationship?: Yes Exam <Beba Davila DO - Last Filed: 10/04/19 19:28> Const General: cooperative, uncomfortable and ill appearing chronically Orientation: alert, awake and oriented x3 HENMT Head: normal to inspection Face and sinus: normal facial exam Eyes General: appearance normal, both eyes and all related structures Sclera: scleral abnormality bilaterally other (icterus) EOM: EOM intact bilaterally Neck Neck: normal visual inspection and No submandibular swelling Lymphatic: no lymphadenopathy noted Chest Chest: normal inspection of the chest and no tenderness Resp Effort & Inspection: normal respiratory effort and able to speak in complete sentences Auscultation: clear to auscultation bilaterally Cardio Rate: regular rate Rhythm: regular rhythm GI Inspection: normal to inspection Palpation: soft, not firm, not rigid and tender suprapubicly Auscultation: hypoactive bowel sounds Rectal Exam: heme positive stool (brown colored stool) trace Skin General skin exam: jaundice Neuro General: patient alert, patient awake, patient oriented x3, moves all extremities, no meningeal signs and no focal motor deficits Cognition: normal cognition Speech: speech normal Motor: muscle tone normal throughout Sensory Exam: no sensory deficits noted Extrem General: normal to inspection, full ROM, capillary refill normal, no calf tenderness bilaterally and no edema Psych Appearance: grossly normal Mental Status: mental status grossly normal Speech and Movement: speech and movement normal Affect: normal affect Course <Beba Velasqueze, DO - Last Filed: 10/04/19 19:28> Vital Signs Vital signs: Vital Signs Temperature 97.5 F L 10/02/19 18:05 Pulse 142 H 10/02/19 18:05 Respiratory Rate 18 10/02/19 18:05 Blood Pressure 109/76 10/02/19 18:05 Pulse Oximetry 100 10/02/19 18:05 Temperature 97.5 F L 10/02/19 18:05 Temperature Source Tympanic 10/02/19 18:05 Pulse 142 H 10/02/19 18:05 Respiratory Rate 18 10/02/19 18:05 Respiratory Effort 10/02/19 18:11 Blood Pressure 109/76 10/02/19 18:05 Pulse Oximetry 100 10/02/19 18:05 Oxygen Delivery Method Room Air 10/02/19 18:05 Oxygen Flow Rate 0 10/02/19 18:05 Pain Level 1 10/02/19 18:05 Lab/Test Results Lab/Test Results: Laboratory Tests Range/Units 10/02/19 10/02/19 10/02/19 18:19 18:19 18:19 WBC (4.4-10.8) k/cumm 18.42 H RBC (4.50-6.00) m/cumm 2.73 L Hgb (13.5-17.5) g/dL 5.4 L* Hct (40.0-50.0) % 19.7 L* MCV (80-95) fL 72.2 L MCH (27.0-33.0) pg 19.8 L MCHC (32.0-36.0) g/dL 27.4 L RDW (11.8-14.1) % 24.8 H Plt Count (130-400) x1000/uL 282 MPV (8.0-11.0) fL Sodium (136-145) mmol/L 134 L Potassium (3.5-5.1) mmol/L 3.1 L Chloride (98-107) mmol/L 94 L Carbon Dioxide (21.0-32.0) mmol/L 25.0 Anion Gap (3-11) mmol/L 15.0 H BUN (7-18) mg/dL 23 H Creatinine (0.70-1.30) mg/dL 1.50 H Estimated GFR/1.73 m2 (mL/min/1.73m2) 47.90 Glucose (74-106) mg/dL 171 H Calcium (8.5-10.1) mg/dL 8.6 Magnesium (1.8-2.4) mg/dL 1.5 L Total Bilirubin (0.2-1.0) mg/dL 3.8 H AST (15-37) U/L 75 H ALT (16-63) U/L 48 Alkaline Phosphatase (46-116) U/L 101 Troponin I (<0.06) ng/mL < 0.05 Total Protein (6.4-8.2) g/dL 6.9 Albumin (3.4-5.0) g/dL 3.0 L Crossmatch See Detail Sign Out <Beba Davila DO - Last Filed: 10/04/19 19:28> Sign Out Data: Sign Out Comment: Follow-up on CT chest abdomen and pelvis. If negative for any acute surgical process requiring transfer, plan for admission here to ICU for acute GI bleed and alcohol withdrawal. Last updated by Beba Davila DO at 10/02/19 19:41
[2019-10-02 19:03] LABS: ETHANOL BLOOD < 3.0 mg/dL (<3)
[2019-10-02] MEDS: Normal Saline 1,000 ML 1000 ML IV (19:11)
[2019-10-02] MEDS: Ondansetron 4 MG/2 ML VIAL IVP (19:11)
[2019-10-02] MEDS: Pantoprazole 40 MG VIAL IVP (19:11)
[2019-10-02] MEDS: LORazepam 2 MG/ML VIAL 0.5 MG IVP (19:28)
[2019-10-02 19:36] LABS: Lipase 156 U/L (73-393)
[2019-10-02] MEDS: Omnipaque 350 MG/ML 100 ML BTL IJ (19:36)
[2019-10-02] MEDS: Normal Saline - Diluent 50 ML VIAL IV (19:37)
--- NOTE | 2019-10-02 20:35 | DI.VRAD_ITS ---
Addendum created by Alon Peters MD on 10/02/2019 8:46:17 PM EDT Findings were discussed with Dr. Nolasco at 10/02/2019 8:46 PM EDT. Initial report created on 10/02/2019 8:34:48 PM EDT PROCEDURE INFORMATION: Exam: CT Angiography Chest With Contrast Exam date and time: 10/02/2019 7:43 PM Age: 59 years old Clinical indication: Other: Vomiting blood, black tarry stool TECHNIQUE: Imaging protocol: Computed tomographic angiography of the chest with intravenous contrast. 3D rendering: MIP and/or 3D reconstructed images were created by the technologist. Radiation optimization: All CT scans at this facility use at least one of these dose optimization techniques: automated exposure control; mA and/or kV adjustment per patient size (includes targeted exams where dose is matched to clinical indication); or iterative reconstruction. Contrast material: OMNIPAQUE 350; Contrast volume: 100 ml; Contrast route: IV; COMPARISON: CT CHEST PE CTA 09/22/2018 11:05 AM FINDINGS: Pulmonary arteries: Pulmonary artery opacification is adequate. Motion artifact limits evaluation of the bibasilar subsegmental pulmonary arteries. Otherwise no pulmonary embolism. Aorta: No aortic aneurysm. No aortic dissection. Thyroid: No mass. Lungs: Evaluation of the lung bases is mildly limited secondary to motion or fact with suggestion of mild bibasilar atelectasis. Motion limits evaluation for small pulmonary nodule. Otherwise no pulmonary consolidation or mass. Pleural space: No pneumothorax. No pleural effusion. Heart: No cardiomegaly. No pericardial effusion. Mediastinal space: There is small hiatal hernia. Lymph nodes: Unremarkable. No pathologically enlarged thoracic lymph nodes. Liver: Diffuse hypoattenuation of the liver suggestive for fatty infiltration with mosaic attenuation as well as scattered areas of irregular hypoattention. Spleen: Spleen appears enlarged but incompletely visualized. Bones/joints: Multiple old, healed mildly displaced left posterolateral rib fractures. No acute osseous finding. Soft tissues: No focal abnormality. IMPRESSION: 1. Motion artifact limits evaluation of the bibasilar subsegmental pulmonary arteries. Otherwise no pulmonary embolism. 2. No acute intrathoracic finding. 3. Irregular attenuation of the liver concerning for malignancy/metastases, better evaluated on CT of the abdomen and pelvis acquired concurrently. PROCEDURE INFORMATION: Exam: CT Angiography Abdomen and Pelvis With Contrast Exam date and time: 10/02/2019 7:43 PM Age: 59 years old Clinical indication: Other: Vomiting blood, black tarry stool TECHNIQUE: Imaging protocol: Computed tomographic angiography of the abdomen and pelvis with intravenous contrast material. 3D rendering: MIP and/or 3D reconstructed images were created by the technologist. Radiation optimization: All CT scans at this facility use at least one of these dose optimization techniques: automated exposure control; mA and/or kV adjustment per patient size (includes targeted exams where dose is matched to clinical indication); or iterative reconstruction. COMPARISON: CT CHEST PE CTA 09/22/2018 11:05 AM FINDINGS: Mediastinum: Small hiatal hernia. Aorta: There are moderate scattered atherosclerotic calcifications of the abdominal aorta, no abdominal aortic aneurysm. Celiac trunk and mesenteric arteries: Mild scattered vascular calcifications proximally without significant stenosis or occlusion. No dissection. Renal arteries: No occlusion or significant stenosis. Mild vascular calcifications of the left renal artery. Right iliac arteries: No occlusion or significant stenosis. Mild to moderate vascular calcifications of the common right iliac artery. Left iliac arteries: No occlusion or significant stenosis. Mild to moderate vascular calcifications of the common left iliac artery. Other vascular: Mild gastroesophageal varices. Liver: There is diffuse hypoattenuation of the liver suggestive for fatty infiltration with nodular contour. There is mosaic attenuation of the liver with irregular enhancement and several scattered areas of more focal irregular hypodensity, for example within the medial left hepatic lobe. There is more focal ovoid hypodensity within the lateral left hepatic lobe measuring 1.5 cm. Gallbladder and bile ducts: Unremarkable. No calcified stones. No ductal dilation. Pancreas: Unremarkable. No mass. No ductal dilation. Spleen: Spleen is enlarged measuring up to 14.8 cm craniocaudad. No splenic mass. Adrenals: Unremarkable. No mass. Kidneys and ureters: Unremarkable. No solid mass. No hydronephrosis. Stomach and bowel: Duodenal diverticulum is present measuring up to approximately 2.2 cm in diameter. Postsurgical changes of prior left hemicolectomy with anastomosis in the left lower quadrant. There is mild focal mural thickening at the anastomosis, no evidence of obstruction. There is mild asymmetric mural thickening of the right posterolateral rectum (series 11, image 80) which could represent soft tissue mural thickening versus adherent stool. Mild scattered areas of mural thickening in the remainder of the colon, however corresponding to areas of underdistention, nonspecific finding. No bowel obstruction. Appendix: Within normal limits. Intraperitoneal space: No free air. No significant fluid collection. Retroperitoneal space: There is stranding of the periaortic retroperitoneal fat at the level of the celiac access with focal irregular soft tissue at the superior mesenteric artery axis (series 11, image 34). Additional stranding of the retroperitoneal fat is noted extending along the inferior mesenteric artery and within the retroperitoneal pelvic fat. Lymph nodes: No pathologically enlarged mesenteric lymph nodes. See retroperitoneal space findings for additional discussion. Bladder: There is diffuse nonfocal mural thickening of the bladder suggestive for chronic bladder outlet obstruction, correlate with history. Reproductive: Prostate gland is enlarged measuring 5.4 cm transverse by 4.0 cm AP by 5.0 cm craniocaudad with prominent impression upon the posterior, inferior bladder. Within the superior left anterior prostate gland there is focal oval hypodense nodule measuring 8 mm (series 11, image 82) Bones/joints: There are subtle scattered areas of focal trabecular lucency involving the pelvis (for example right ilium series 11, image 63) and left maryse sacrum (series 11, image 66). No acute fracture. Soft tissues: There is focal irregular soft tissue within the proximal right inguinal canal with surrounding stranding measuring approximately 2.3 cm long axis by 1.7 cm short axis. Trace/mild fat projects within the inguinal canals. IMPRESSION: 1. Nodular contour of the liver suggestive for cirrhosis with scattered mosaic hyperattenuation with multiple scattered areas of irregular hypodensity. Finding is concerning for malignancy to include hepatocellular carcinoma versus metastases. 2. Questionable asymmetric mural thickening versus adherent stool within the right posterolateral wall of the rectum. Correlation with colonoscopy as clinically warranted. Also noted are other possible areas of colonic mural thickening, however predominantly are associated with areas of underdistention and nonspecific. 3. Stranding of the periaortic retroperitoneal fat with few scattered areas of focal irregular retroperitoneal soft tissue concerning for adenopathy suggestive for retroperitoneal metastatic involvement. Correlate clinically. 4. Questionable areas of focal osseous lucency could represent focal osteopenia, however osseous lytic disease is not excluded. Correlate clinically. 5. Focal irregular soft tissue within the proximal right inguinal canal concerning for metastatic disease. 6. Splenomegaly with mild gastroesophageal varices. 7. Prostatomegaly with evidence of chronic bladder outlet obstruction. Correlate for history of BPH. Correlate with PSA to exclude malignancy. Dictated and Authenticated by: Alon Peters MD. Ordering:BRIDGER Yoder MD
[2019-10-02] MEDS: MAGNESIUM SULFATE 1 GM/100 ML BAG IVPB (20:38)
[2019-10-02] MEDS: POTASSIUM CHLORIDE 20 MEQ/100 ML BAG 50 MEQ IVPB (20:39)
--- NOTE | 2019-10-02 20:51 | W.PM.HP.N ---
Date of service: 10/02/19 Time of Service: 20:51 Assessment and Plan Assessment and plan (1) Acute GI bleeding: Start date: 10/02/19 Status: Acute Assessment and plan: This is a 59-year-old gentleman with an acute upper GI bleed and acute blood loss anemia which is symptomatic upon admission to the ED but improving with now receiving his second unit of packed red blood cells. He will receive 4 units of packed red blood cells per surgery recommendations with follow-up lab in the morning. Surgery was consulted and will see the patient with probable EGD at least to evaluate his upper GI bleed and whether he has esophageal varices with his chronic alcohol use and liver changes on imaging. He appears to not be actively bleeding with brown a negative stool tested in the ED and slides but being a negative in the ED. His tachycardia has resolved and her blood pressure is more stable. He also feels better. We will continue treatment of his nausea and advance to clear fluids at the patient's request but he should minimize the volume of his intake overnight. He is a full code. (2) Acute anemia: Start date: 10/02/19 Status: Acute Assessment and plan: Transfused with 4 units of packed red blood cells with surgical consultation for the morning. Follow-up lab as we transfuse. (3) Alcohol withdrawal: Start date: 10/02/19 Status: Acute Assessment and plan: Patient will be placed on a CIWA protocol and electrolyte replacement will be ongoing with follow-up lab. Qualifiers: Complication of substance-induced condition: with unspecified complication Qualified Code(s): F10.239 - Alcohol dependence with withdrawal, unspecified (4) Metastatic neoplastic disease: Start date: 10/02/19 Status: Acute Assessment and plan: Patient has no previous history of neoplasms and imaging is suggestive of an intra-abdominal metastatic process possibly also involving bone. Surgery has done some screening cancer markers and ordered hep C screening. I will add a PSA to the testing. Eventually once patient stabilizes we need to try to obtain tissue diagnosis which will aid in follow-up. The patient is a full code and wants to pursue treatment and states that he will will stop drinking alcohol at this point having gone through rehabilitation last summer and motivation increased with his recent events. Prognosis is still poor for change in behavior and with the extent of the metastatic disease on initial imaging. History of Present Illness History of Present Illness Chief Complaint: Weakness with recent hematemesis Narrative: This is a 59-year-old gentleman who chronically drinks vodka and had been drinking 1/5 of vodka daily for the past year. 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 He states that 2 days prior to admission a vomited copious amounts of blood filling the toilet several times. His last drink of alcohol was 2 days ago as well. Since that episode he has been passing dark tarry stools but in the ED he had brown heme-negative stool tested. He also had slight spit up but was heme-negative. He denies any abdominal discomfort but is nauseated and felt very weak as if he was having a stroke on the day of admission. He was very orthostatic but denies any diaphoresis. Was short of breath. He has had no peripheral edema. He has not noted any bleeding in his stool prior to this other than occasional emesis after drinking with strings of mucus blood-tinged. He has had about a 10 pound weight loss which is unexplained over the last couple of months but thought this was secondary to drinking and not eating as well as not working with some decreased appetite. He denies any abdominal pain, no change in urinary or bowel habits and denies any significant bloating. In the ED he received 1 unit of packed red blood cells and had to receive O+ rather than O- because of blood bank shortages. He to have some slight nausea but has been keeping clear fluids down. He has noted that his skin appears more jaundiced recently and especially over the last 2 days after his bout of hematemesis. He is a non-smoker. He did increase his Nexium recently because of his symptoms. Patient denies any focal neurological symptoms though he did feel that he was having a stroke but was more of a presyncopal sensation with his blood loss. Review of Systems Narrative: 13 point review of systems otherwise unrevealing or stable. The patient denies any heartburn with his nausea. [facility] Medical History Advanced hepatic cirrhosis (Acute) Alcohol abuse (Chronic) Alcohol dependence with withdrawal with complication (Acute) Alcoholic liver failure (Acute) Anxiety (Chronic) Depression (Chronic) GERD (gastroesophageal reflux disease) (Chronic) Metastatic neoplastic disease (Acute) Surgical History H/O vasectomy (Acute) History of colon resection (Chronic) due to diverticulitis; sigmoid History of hernia repair (Chronic) Repair of inguinal hernia Vasectomy Family History Mother Neoplasm Father Diabetes Essential hypertension Neoplasm Sister No problems noted. Social History Smoking/Tobacco Use Status: Never Alcohol Intake: current Alcohol Intake frequency: 3 or more drinks per day Drug use: Daily Substance use type: marijuana Do you feel safe at home: Yes Do you feel safe in your relationship?: Yes Meds Home Medications and Allergies Home Medications Medication Instructions Recorded Confirmed Type esomeprazole magnesium [Nexium] 40 mg PO BID tab-cap 04/06/14 10/02/19 History Allergies Allergy/AdvReac Type Severity Reaction Status Date / Time sertraline AdvReac Severe SEVERE Verified 10/02/19 18:11 WORSENING OF DEPRESSION Exam Narrative Exam Narrative: General: Patient appears appropriate for age but with flattened affect and monotonous slow voice. He is in no acute distress. He has good eye contact. He is alert and oriented to person place and time. Skin: Slightly icteric and pale, warm and dry with no rashes noted. HEENT: Normocephalic, eyes with pupils equal and reactive to light symmetrically, extraocular movement intact and sclera slightly icteric with pale conjunctival. Oropharynx with slightly dry oral mucosa which is pale without exudates or lesions. Dentition fair. External ears normal. External nose normal. Neck: Supple without JVD. Lungs: Clear to auscultation and percussion with adventitious sounds. Normal inspiratory to expiratory phase ratio. Back: Stooped posture without CVA tenderness. Heart: Tachycardic rate with normal rhythm, 2/6 systolic ejection murmur over left sternal border with no gallops or rubs. Abdomen: Slightly protuberant in contour, soft and nontender to palpation without palpable hepatosplenomegaly. Bowel sounds are positive but decreased in all quadrants. No guarding. No palpable masses. Genitalia: Circumcised penis, testicles appear normal with normal scrotum. Rectal: Exam deferred. Brown stool was obtained in the ED and tested heme negative. Extremities: Without clubbing, cyanosis or edema with peripheral pulses intact. No joint swelling with fair range of motion all joints. Neuro: Cranial nerves II through XII was intact, no focal motor deficits and no tremors. Psych: Depressed mood,the patient not appearing anxious but slightly pressured speech with monotonous tone as mentioned, remote and recent memory intact. Results Imaging Imaging Studies: Exam: CT Angiography Chest With Contrast Exam date and time: 10/02/2019 7:43 PM Age: 59 years old Clinical indication: Other: Vomiting blood, black tarry stool TECHNIQUE: Imaging protocol: Computed tomographic angiography of the chest with intravenous contrast. 3D rendering: MIP and/or 3D reconstructed images were created by the technologist. Radiation optimization: All CT scans at this facility use at least one of these dose optimization techniques: automated exposure control; mA and/or kV adjustment per patient size (includes targeted exams where dose is matched to clinical indication); or iterative reconstruction. Contrast material: OMNIPAQUE 350; Contrast volume: 100 ml; Contrast route: IV; COMPARISON: CT CHEST PE CTA 09/22/2018 11:05 AM FINDINGS: Pulmonary arteries: Pulmonary artery opacification is adequate. Motion artifact limits evaluation of the bibasilar subsegmental pulmonary arteries. Otherwise no pulmonary embolism. Aorta: No aortic aneurysm. No aortic dissection. Thyroid: No mass. Lungs: Evaluation of the lung bases is mildly limited secondary to motion or fact with suggestion of mild bibasilar atelectasis. Motion limits evaluation for small pulmonary nodule. Otherwise no pulmonary consolidation or mass. Pleural space: No pneumothorax. No pleural effusion. Heart: No cardiomegaly. No pericardial effusion. Mediastinal space: There is small hiatal hernia. Lymph nodes: Unremarkable. No pathologically enlarged thoracic lymph nodes. Liver: Diffuse hypoattenuation of the liver suggestive for fatty infiltration with mosaic attenuation as well as scattered areas of irregular hypoattention. Spleen: Spleen appears enlarged but incompletely visualized. Bones/joints: Multiple old, healed mildly displaced left posterolateral rib fractures. No acute osseous finding. Soft tissues: No focal abnormality. IMPRESSION: 1. Motion artifact limits evaluation of the bibasilar subsegmental pulmonary arteries. Otherwise no pulmonary embolism. 2. No acute intrathoracic finding. 3. Irregular attenuation of the liver concerning for malignancy/metastases, better evaluated on CT of the abdomen and pelvis acquired concurrently. PROCEDURE INFORMATION: Exam: CT Angiography Abdomen and Pelvis With Contrast Exam date and time: 10/02/2019 7:43 PM Age: 59 years old Clinical indication: Other: Vomiting blood, black tarry stool TECHNIQUE: Imaging protocol: Computed tomographic angiography of the abdomen and pelvis with intravenous contrast material. 3D rendering: MIP and/or 3D reconstructed images were created by the technologist. Radiation optimization: All CT scans at this facility use at least one of these dose optimization techniques: automated exposure control; mA and/or kV adjustment per patient size (includes targeted exams where dose is matched to clinical indication); or iterative reconstruction. COMPARISON: CT CHEST PE CTA 09/22/2018 11:05 AM FINDINGS: Mediastinum: Small hiatal hernia. Aorta: There are moderate scattered atherosclerotic calcifications of the abdominal aorta, no abdominal aortic aneurysm. Celiac trunk and mesenteric arteries: Mild scattered vascular calcifications proximally without significant stenosis or occlusion. No dissection. Renal arteries: No occlusion or significant stenosis. Mild vascular calcifications of the left renal artery. Right iliac arteries: No occlusion or significant stenosis. Mild to moderate vascular calcifications of the common right iliac artery. Left iliac arteries: No occlusion or significant stenosis. Mild to moderate vascular calcifications of the common left iliac artery. Other vascular: Mild gastroesophageal varices. Liver: There is diffuse hypoattenuation of the liver suggestive for fatty infiltration with nodular contour. There is mosaic attenuation of the liver with irregular enhancement and several scattered areas of more focal irregular hypodensity, for example within the medial left hepatic lobe. There is more focal ovoid hypodensity within the lateral left hepatic lobe measuring 1.5 cm. Gallbladder and bile ducts: Unremarkable. No calcified stones. No ductal dilation. Pancreas: Unremarkable. No mass. No ductal dilation. Spleen: Spleen is enlarged measuring up to 14.8 cm craniocaudad. No splenic mass. Adrenals: Unremarkable. No mass. Kidneys and ureters: Unremarkable. No solid mass. No hydronephrosis. Stomach and bowel: Duodenal diverticulum is present measuring up to approximately 2.2 cm in diameter. Postsurgical changes of prior left hemicolectomy with anastomosis in the left lower quadrant. There is mild focal mural thickening at the anastomosis, no evidence of obstruction. There is mild asymmetric mural thickening of the right posterolateral rectum (series 11, image 80) which could represent soft tissue mural thickening versus adherent stool. Mild scattered areas of mural thickening in the remainder of the colon, however corresponding to areas of underdistention, nonspecific finding. No bowel obstruction. Appendix: Within normal limits. Intraperitoneal space: No free air. No significant fluid collection. Retroperitoneal space: There is stranding of the periaortic retroperitoneal fat at the level of the celiac access with focal irregular soft tissue at the superior mesenteric artery axis (series 11, image 34). Additional stranding of the retroperitoneal fat is noted extending along the inferior mesenteric artery and within the retroperitoneal pelvic fat. Lymph nodes: No pathologically enlarged mesenteric lymph nodes. See retroperitoneal space findings for additional discussion. Bladder: There is diffuse nonfocal mural thickening of the bladder suggestive for chronic bladder outlet obstruction, correlate with history. Reproductive: Prostate gland is enlarged measuring 5.4 cm transverse by 4.0 cm AP by 5.0 cm craniocaudad with prominent impression upon the posterior, inferior bladder. Within the superior left anterior prostate gland there is focal oval hypodense nodule measuring 8 mm (series 11, image 82) Bones/joints: There are subtle scattered areas of focal trabecular lucency involving the pelvis (for example right ilium series 11, image 63) and left maryse sacrum (series 11, image 66). No acute fracture. Soft tissues: There is focal irregular soft tissue within the proximal right inguinal canal with surrounding stranding measuring approximately 2.3 cm long axis by 1.7 cm short axis. Trace/mild fat projects within the inguinal canals. IMPRESSION: 1. Nodular contour of the liver suggestive for cirrhosis with scattered mosaic hyperattenuation with multiple scattered areas of irregular hypodensity. Finding is concerning for malignancy to include hepatocellular carcinoma versus metastases. 2. Questionable asymmetric mural thickening versus adherent stool within the right posterolateral wall of the rectum. Correlation with colonoscopy as clinically warranted. Also noted are other possible areas of colonic mural thickening, however predominantly are associated with areas of underdistention and nonspecific. 3. Stranding of the periaortic retroperitoneal fat with few scattered areas of focal irregular retroperitoneal soft tissue concerning for adenopathy suggestive for retroperitoneal metastatic involvement. Correlate clinically. 4. Questionable areas of focal osseous lucency could represent focal osteopenia, however osseous lytic disease is not excluded. Correlate clinically. 5. Focal irregular soft tissue within the proximal right inguinal canal concerning for metastatic disease. 6. Splenomegaly with mild gastroesophageal varices. 7. Prostatomegaly with evidence of chronic bladder outlet obstruction. Correlate for history of BPH. Correlate with PSA to exclude malignancy. Dictated and Authenticated by: Alon Peters MD. Labs Result diagrams: 10/02/19 18:19 10/02/19 18:19 Labs: Laboratory Results - last 24 hr 10/02/19 10/02/19 10/02/19 18:19 18:19 18:19 WBC 18.42 H RBC 2.73 L Hgb 5.4 L* Hct 19.7 L* MCV 72.2 L MCH 19.8 L MCHC 27.4 L RDW 24.8 H Plt Count 282 MPV PT 15.0 H INR 1.5 H APTT 22.5 Sodium 134 L Potassium 3.1 L Chloride 94 L Carbon Dioxide 25.0 Anion Gap 15.0 H BUN 23 H Creatinine 1.50 H Estimated GFR/1.73 m2 47.90 Glucose 171 H Calcium 8.6 Magnesium 1.5 L Total Bilirubin 3.8 H AST 75 H ALT 48 Alkaline Phosphatase 101 Troponin I < 0.05 Total Protein 6.9 Albumin 3.0 L Lipase Ethyl Alcohol Patient ABO/Rh Antibody Screen Crossmatch 10/02/19 10/02/19 10/02/19 18:19 18:19 18:19 WBC RBC Hgb Hct MCV MCH MCHC RDW Plt Count MPV PT INR APTT Sodium Potassium Chloride Carbon Dioxide Anion Gap BUN Creatinine Estimated GFR/1.73 m2 Glucose Calcium Magnesium Total Bilirubin AST ALT Alkaline Phosphatase Troponin I Total Protein Albumin Lipase 156 Ethyl Alcohol < 3.0 Patient ABO/Rh O Negative Antibody Screen Negative Crossmatch See Detail Last Vital Signs Temp 36.6 C 10/02/19 20:18 Pulse 126 H 10/02/19 20:18 Resp 20 10/02/19 20:18 BP 115/60 10/02/19 20:18 Pulse Ox 100 10/02/19 20:18 COVID-19 Screening In the past 14 days, have you traveled outside of [place] or [place]?: YES Had IN PERSON contact w/suspected or confirmed C-19 person: No
[2019-10-02 20:59] LABS: Anisocytosis 3+; Diff Comment RBC Morph Reviewed; Hypochromasia 2+; Microcytosis 3+
[2019-10-02 21:47] LABS: PHOSPHORUS 2.6 mg/dL (2.6-4.7)
[2019-10-02] MEDS: Acetaminophen 325 MG TAB PO (22:15)
--- NOTE | 2019-10-02 22:37 | W.SURGCON ---
Date of service: 10/03/19 Time of Service: 09:51 Assessment and Plan Assessment and plan (1) Metastatic neoplastic disease: Status: Acute (2) Acute GI bleeding: Status: Acute Assessment and plan: PPI drip Vit K EGD in am if hemodynamically stable/not w/ drawing- pt is already in w/drawls. Will see how his clinical condition is doing. prognosis is abysmal- between liver failure and cancer. Consider palliative consult will continue supportive care /resuscitation at this time. from a gi bleed standpoint- pt has been stable overnight. no active bleeding. received 4 units. labs are pd. plan egd w/ GETA for airway protection. Informed consent is obtained for the procedural (explained in simple layman's terms that the pt and/or family could understand) explaining risks vs benefits and alternatives to the procedure and consequences if we do not do the procedure and need/rational for the procedure. Risks include but are not limited to: bleeding, infection, perforation of esophagus, stomach, colon, small intestines, bronchus or trachea, or PTX. This would necessitate emergency surgery to repair the damage w/ possible ostomy; and other associated complications w/ the required surgery. Also complications of anesthesia including aspiration, CT/CVA/. (3) Acute anemia: Status: Acute (4) Alcohol withdrawal: Status: Acute Qualifiers: Complication of substance-induced condition: with unspecified complication Qualified Code(s): F10.239 - Alcohol dependence with withdrawal, unspecified (5) Gastroesophageal reflux disease: Status: Chronic (6) Hiatal hernia: Status: Chronic (7) Diverticulitis: Status: Resolved (8) Alcoholic liver failure: Status: Acute (9) Advanced hepatic cirrhosis: Status: Acute (10) Alcohol dependence with withdrawal with complication: Status: Acute History of Present Illness Narrative: pt admitted for GI bleed. Pt was vomiting BRB at home for 2 days. He has not vomited in 2 days. He had a stool in the ED that was hem neg. BP has been stable. From viewing his CT's- he appears to have lg tumor burden in the liver- primary is unknown. It does not appear to have been tested for Hep C . Patient did well overnight and had no active bleeding. He received 4 units of packed RBCs. Labs are pending this morning. He is not throwing up blood or passing any stools. His stool in the ER was guaiac negative. He is actively withdrawing from alcohol and cannot really give any history. I did have him sign consent for endoscopy today. From a bleeding standpoint he is hemodynamically stable for surgery. He is going to need general anesthesia for airway protection because he is withdrawing. From 2013 Gross Pathology: 1. Colonoscopy showed a widely-patent anastomosis. There was one sigmoid diverticulum in the remnant of the sigmoid, proximal to the anastomosis, but certainly no inflammation, no stricture, no polyps, no masses. Prep was adequate. 2. Upper endoscopy. Normal duodenum. The stomach was grossly unremarkable other than a small hiatal hernia. The EG junction was 34cm from the incisors. There was what appeared to be possible Varela's esophagus extending from 34cm to 25cm. There was no open ulceration. I did do circumferential biopsies extending up the length of this area, for a total of 10 biopsies. I then took additional biopsies in the proximal esophagus. Path: severe ulceration and esohpagitis He has a hx of gerd. He has had a sigmoid resection for diverticular dx. Consults Consult date: 10/02/19 Requesting physician: Nathan Nolasco Review of Systems Unobtainable due to mental status [facility] Medical History Advanced hepatic cirrhosis (Acute) Alcohol abuse (Chronic) Alcohol dependence with withdrawal with complication (Acute) Alcoholic liver failure (Acute) Anxiety (Chronic) Depression (Chronic) GERD (gastroesophageal reflux disease) (Chronic) Metastatic neoplastic disease (Acute) Surgical History H/O vasectomy (Acute) History of colon resection (Chronic) due to diverticulitis; sigmoid History of hernia repair (Chronic) Repair of inguinal hernia Vasectomy Family History Mother Neoplasm Father Diabetes Essential hypertension Neoplasm Sister No problems noted. Social History Smoking/Tobacco Use Status: Never Alcohol Intake: current Alcohol Intake frequency: 3 or more drinks per day Drug use: Daily Substance use type: marijuana Do you feel safe at home: Yes Do you feel safe in your relationship?: Yes Exam Const General: disheveled, frail appearing and ill appearing Nutritional Appearance: well nourished Orientation: awake and oriented to person [facility] Face and sinus: normal facial exam Mouth: oral mucosae normal Teeth and gingiva: poor dentition Eyes Sclera: scleral abnormality (Jaundiced and red) Resp Effort & Inspection: normal respiratory effort Other: Patient is nonverbal. He nodded understanding. He appears to understand. But is not speaking Cardio Rate: regular rate Rhythm: regular rhythm Skin Other: intact Neuro General: patient awake, oriented, moves all extremities and no focal motor deficits Cognition: abnormal cognition Speech: abnormal speech Gait: staggering Sensory Exam: graphesthesia intact bilaterally Other: tremulous. non verbal Extrem Other: no edema. muscle wasting. moving both arms. no focal neuro defitics. Results Last Vital Signs Temp 36.6 C 10/02/19 21:46 Pulse 116 H 10/02/19 21:46 Resp 18 10/02/19 21:46 BP 127/60 10/02/19 21:46 Pulse Ox 98 10/02/19 21:46 Labs Result diagrams: 10/03/19 09:00 10/03/19 01:35 Labs: Laboratory Results - last 24 hr 10/02/19 10/02/19 10/02/19 18:19 18:19 18:19 WBC 18.42 H RBC 2.73 L Hgb 5.4 L* Hct 19.7 L* MCV 72.2 L MCH 19.8 L MCHC 27.4 L RDW 24.8 H Plt Count 282 MPV Immature Gran % 0.1 Neutrophils % 75.9 Lymphocytes % 12.2 Monocytes % 11.6 Eosinophils % 0.0 Basophils % 0.2 Absolute Neutrophils 13.98 H Absolute Lymphocytes 2.25 Absolute Monocytes 2.14 H Absolute Eosinophils 0.00 Absolute Basophils 0.04 Differential Comment Rbc morph reviewed RBC Morphology See below Hypochromasia 2+ Anisocytosis 3+ Microcytosis 3+ PT 15.0 H INR 1.5 H APTT 22.5 Sodium 134 L Potassium 3.1 L Chloride 94 L Carbon Dioxide 25.0 Anion Gap 15.0 H BUN 23 H Creatinine 1.50 H Estimated GFR/1.73 m2 47.90 Glucose 171 H Calcium 8.6 Phosphorus Magnesium 1.5 L Total Bilirubin 3.8 H AST 75 H ALT 48 Alkaline Phosphatase 101 Troponin I < 0.05 Total Protein 6.9 Albumin 3.0 L Lipase Ethyl Alcohol Patient ABO/Rh Antibody Screen Crossmatch 10/02/19 10/02/19 10/02/19 18:19 18:19 18:19 WBC RBC Hgb Hct MCV MCH MCHC RDW Plt Count MPV Immature Gran % Neutrophils % Lymphocytes % Monocytes % Eosinophils % Basophils % Absolute Neutrophils Absolute Lymphocytes Absolute Monocytes Absolute Eosinophils Absolute Basophils Differential Comment RBC Morphology Hypochromasia Anisocytosis Microcytosis PT INR APTT Sodium Potassium Chloride Carbon Dioxide Anion Gap BUN Creatinine Estimated GFR/1.73 m2 Glucose Calcium Phosphorus Magnesium Total Bilirubin AST ALT Alkaline Phosphatase Troponin I Total Protein Albumin Lipase 156 Ethyl Alcohol < 3.0 Patient ABO/Rh O Negative Antibody Screen Negative Crossmatch See Detail 10/02/19 10/02/19 18:19 20:57 WBC RBC Hgb Hct MCV MCH MCHC RDW Plt Count MPV Immature Gran % Neutrophils % Lymphocytes % Monocytes % Eosinophils % Basophils % Absolute Neutrophils Absolute Lymphocytes Absolute Monocytes Absolute Eosinophils Absolute Basophils Differential Comment RBC Morphology Hypochromasia Anisocytosis Microcytosis PT Cancelled INR Cancelled APTT Sodium Potassium Chloride Carbon Dioxide Anion Gap BUN Creatinine Estimated GFR/1.73 m2 Glucose Calcium Phosphorus 2.6 Magnesium Total Bilirubin AST ALT Alkaline Phosphatase Troponin I Total Protein Albumin Lipase Ethyl Alcohol Patient ABO/Rh Antibody Screen Crossmatch
[2019-10-02] MEDS: Mylanta Suspension 30 ML CUP PO (22:38)
[2019-10-03] VITALS (73 sets, daily range): BP systolic 92–146; BP diastolic 32–75; PULSE 83–114; RESP 12–220; TEMP 36.1–37.5; O2SAT 14–100
[2019-10-03] MEDS: PHYTONADIONE 10 MG in Normal Saline 50 ML 200 MG IVPB (00:31)
[2019-10-03] MEDS: PANTOPRAZOLE 80 MG in Normal Saline 100 ML 10 MG IV ×3 (00:50→22:00)
[2019-10-03] MEDS: Mylanta Suspension 30 ML CUP PO (01:39)
[2019-10-03] MEDS: Ondansetron 4 MG/2 ML VIAL IVP (01:39)
[2019-10-03] MEDS: Normal Saline Flush 10 ML SYR IVP ×3 (01:40→22:03)
[2019-10-03 01:50] LABS: Mean Corp. HGB Concentration 29.9 g/dL (32.0-36.0); Mean Corpuscular Hemoglobin 21.5 pg (27.0-33.0); RBC 2.79 m/cumm (4.50-6.00); RBC Distribution Width 22.2 % (11.8-14.1); White Blood Cell Count 10.29 k/cumm (4.4-10.8)
[2019-10-03 01:59] LABS: HCT 20.1 % (40.0-50.0)
[2019-10-03] MEDS: POTASSIUM CHLORIDE 20 MEQ/100 ML BAG 50 MEQ IVPB ×2 (02:00→02:23)
[2019-10-03 02:02] LABS: Anion Gap 9.1 mmol/L (3-11); BUN 22 mg/dL (7-18); CO2 27.9 mmol/L (21.0-32.0); CREATININE 1.25 mg/dL (0.70-1.30); Calcium 7.4 mg/dL (8.5-10.1); Chloride 97 mmol/L (98-107); Estimated GFR 59.12 (mL/min/1.73m2); Glucose 113 mg/dL (74-106); Magnesium 1.7 mg/dL (1.8-2.4); Potassium 3.1 mmol/L (3.5-5.1); Sodium 134 mmol/L (136-145)
[2019-10-03 02:03] LABS: Platelet Count 119 x1000/uL (130-400)
[2019-10-03] MEDS: Normal Saline 1,000 ML 150 ML IV ×2 (02:24→18:54)
[2019-10-03 02:41] LABS: Bilirubin Negative (Negative); Blood Negative (Negative); Clarity Clear (Clear); Glucose Negative (Negative); Ketones Negative (Negative); Leukocyte Esterase Negative (Negative); Nitrite Negative (Negative); Specific Gravity <= 1.005 (1.005-1.025)
[2019-10-03] MEDS: LORazepam 2 MG/ML VIAL IVP ×2 (03:46→06:26)
[2019-10-03 04:21] LABS: *AMPHETAMINES SCREEN URINE Negative (Negative); *BARBITURATES SCREEN URINE Negative (Negative); *BENZODIAZEPINES SCREEN URINE Negative (Negative); Cannabinoids THC POSITIVE (Negative); Cocaine Screen,Urine POSITIVE (Negative); METHADONE URINE SCREEN Negative (Negative); OPIATES URINE SCREEN Negative (Negative)
[2019-10-03 04:24] LABS: Tricyclic Antidepressants Negative (Negative)
--- NOTE | 2019-10-03 08:17 | W.PM.PROGNOT ---
Date of Service Date of service: 10/03/19 Time of Service: 12:38 Assessment and Plan Assessment and plan (1) Anemia due to acute blood loss: Status: Acute Assessment and plan: S/p transfusion of 4 units of pRBCs. Checking H/H at 2 pm. Continue PPI. As above (2) Acute GI bleeding: Status: Resolved Assessment and plan: EGD without evidence of acute bleeding, though does have esophageal varices. For this reason, would benefit from being initiated on beta blockers once more hemodynamically stable. Will need GI referral. For now, continue PPI. No indication for octreotide at this time, per general surgery. Should he rebleed, an emergent transfer to a tertiary care facility should be pursued. (3) Alcoholic hepatitis without ascites: Status: Acute Assessment and plan: Maddrey score of 14.8 indicated good prognosis. No benefit from prednisolone at this time. Continue to monitor PT, Bili. (4) Alcohol withdrawal delirium: Status: Acute Assessment and plan: Continue to monitor in the ICU on CIWA with banana bag, prn ativan. (5) Hypoxia: Status: Acute Assessment and plan: Check CXR. (6) Metastatic neoplastic disease: Status: Acute Assessment and plan: Tumor markers ordered, pending, including PSA. Will need referral to [facility] for bx. (7) Cirrhosis of liver: Status: Chronic Assessment and plan: Alcoholic cirrhosis with portal hypertension, esophageal varices, coagulopathy, thrombocytopenia. Will check ammonia level. Absolutely must stop drinking. Will need GI follow up. (8) Esophageal varices: Status: Acute Assessment and plan: As above (9) Portal hypertension: Status: Chronic Assessment and plan: Will need to be started on beta blockers once more hemodynamically stable. (10) Urinary retention: Status: Acute Assessment and plan: S/p moya by urology. PSA pending. Start proscar. Add flomax once hemodynamically stable. (11) Enlarged prostate: Status: Acute Assessment and plan: As above (12) DVT prophylaxis: Status: Acute Assessment and plan: TEDs/SCDs. Chemical DVT ppx is contraindicated in setting of acute bleeding (13) Discharge planning issues: Status: Acute Assessment and plan: Full code. Consult palliative care. Poor prognosis. Keep in ICU. Total Critical Care Time 45 minutes. Will need malignancy workup on discharge and referral to GI on discharge. Subjective Subjective Interval history since last seen: S/p EGD today - no active bleeding, but does have esophageal varices. Recommended to be started on beta blockers when able, but if rebleeds, will need transfer. Esophageal biopsies were obtained. S/p 4 units pRBCs. No fever so far. Nursing notes O2 sats going down to 80's on room air - obtaining CXR. CIWA - 12 this am. 3 mg of IV ativan given. Sedated this am. Did not receive benadryl as premed. No vomiting or BM since being in the ICU. Denies dizziness, chest pain, shortness of breath, nausea, abdominal pain. Exam Narrative Exam Narrative: General: Sedated, arousable middle-aged male, confused, A&Ox2. He appears intoxicated. HEENT: EOMI, MMM Heart: RRR, no m/r/g Lungs: CTAB Abdomen: soft, nontender, nondistended Extremities: no e/c/c BLE's Objective Objective Clinical Data: Abnormal lab results 10/02/19 10/02/19 10/02/19 Range/Units 18:19 18:19 18:19 WBC 18.42 H (4.4-10.8) k/cumm RBC 2.73 L (4.50-6.00) m/cumm Hgb 5.4 L* (13.5-17.5) g/dL Hct 19.7 L* (40.0-50.0) % MCV 72.2 L (80-95) fL MCH 19.8 L (27.0-33.0) pg MCHC 27.4 L (32.0-36.0) g/dL RDW 24.8 H (11.8-14.1) % Plt Count (130-400) x1000/uL Absolute Neutrophils 13.98 H (1.2-6.7) k/cumm Absolute Monocytes 2.14 H (0.11-0.7) k/cumm PT 15.0 H (9.3-11.0) sec INR 1.5 H (0.9-1.1) Sodium 134 L (136-145) mmol/L Potassium 3.1 L (3.5-5.1) mmol/L Chloride 94 L (98-107) mmol/L Anion Gap 15.0 H (3-11) mmol/L BUN 23 H (7-18) mg/dL Creatinine 1.50 H (0.70-1.30) mg/dL Glucose 171 H (74-106) mg/dL Calcium (8.5-10.1) mg/dL Magnesium 1.5 L (1.8-2.4) mg/dL Total Bilirubin 3.8 H (0.2-1.0) mg/dL AST 75 H (15-37) U/L Albumin 3.0 L (3.4-5.0) g/dL Urine Urobilinogen (Up TO 0.2) EU/dL Urine Cocaine Screen (Negative) Ur THC Screen (Negative) Crossmatch 10/02/19 10/03/19 10/03/19 Range/Units 18:19 01:15 01:15 WBC (4.4-10.8) k/cumm RBC (4.50-6.00) m/cumm Hgb (13.5-17.5) g/dL Hct (40.0-50.0) % MCV (80-95) fL MCH (27.0-33.0) pg MCHC (32.0-36.0) g/dL RDW (11.8-14.1) % Plt Count (130-400) x1000/uL Absolute Neutrophils (1.2-6.7) k/cumm Absolute Monocytes (0.11-0.7) k/cumm PT (9.3-11.0) sec INR (0.9-1.1) Sodium (136-145) mmol/L Potassium (3.5-5.1) mmol/L Chloride (98-107) mmol/L Anion Gap (3-11) mmol/L BUN (7-18) mg/dL Creatinine (0.70-1.30) mg/dL Glucose (74-106) mg/dL Calcium (8.5-10.1) mg/dL Magnesium (1.8-2.4) mg/dL Total Bilirubin (0.2-1.0) mg/dL AST (15-37) U/L Albumin (3.4-5.0) g/dL Urine Urobilinogen 2.0 H (Up TO 0.2) EU/dL Urine Cocaine Screen Positive A (Negative) Ur THC Screen Positive A (Negative) Crossmatch See Detail 10/03/19 10/03/19 Range/Units 01:35 01:35 WBC (4.4-10.8) k/cumm RBC 2.79 L (4.50-6.00) m/cumm Hgb 6.0 L* (13.5-17.5) g/dL Hct 20.1 L* (40.0-50.0) % MCV 72.0 L (80-95) fL MCH 21.5 L (27.0-33.0) pg MCHC 29.9 L (32.0-36.0) g/dL RDW 22.2 H (11.8-14.1) % Plt Count 119 L D (130-400) x1000/uL Absolute Neutrophils (1.2-6.7) k/cumm Absolute Monocytes (0.11-0.7) k/cumm PT (9.3-11.0) sec INR (0.9-1.1) Sodium 134 L (136-145) mmol/L Potassium 3.1 L (3.5-5.1) mmol/L Chloride 97 L (98-107) mmol/L Anion Gap (3-11) mmol/L BUN 22 H (7-18) mg/dL Creatinine (0.70-1.30) mg/dL Glucose 113 H (74-106) mg/dL Calcium 7.4 L (8.5-10.1) mg/dL Magnesium 1.7 L (1.8-2.4) mg/dL Total Bilirubin (0.2-1.0) mg/dL AST (15-37) U/L Albumin (3.4-5.0) g/dL Urine Urobilinogen (Up TO 0.2) EU/dL Urine Cocaine Screen (Negative) Ur THC Screen (Negative) Crossmatch Vital Signs Temperature 37.0 C 10/03/19 03:17 Temperature Source Temporal Artery Scan 10/02/19 22:40 Pulse 98 H 10/03/19 04:31 Pulse 102 H 10/03/19 04:50 Respiratory Rate 13 10/03/19 03:46 Respiratory Effort 10/03/19 03:17 Respiratory Depth Normal 10/03/19 03:17 Respiratory Pattern Normal 10/03/19 03:17 Blood Pressure 101/67 10/03/19 04:31 Blood Pressure Mean 74 10/03/19 04:31 Pulse Oximetry 91 L 10/03/19 04:50 Oxygen Delivery Method Nasal Cannula 10/03/19 04:45 Oxygen Flow Rate 1 10/03/19 04:45 Pain Level 3 10/03/19 03:17 Intake & Output 10/02/19 10/02/19 10/03/19 11:59 23:59 11:59 Intake Total 483 / 483 930 / 930 Output Total 150 / 150 Balance 483 / 483 780 / 780 Weight 67.9 kg 69.1 kg Intake: IV 200 / 200 200 / 200 Oral 480 / 480 Blood Product 283 / 283 250 / 250 Rbc Leuko Reduced Unit 0 / 0 250 / 250 [id number] Rbc Leuko Reduced Unit 283 / 283 [id number] Output: Urine 150 / 150 Other: Urine Color Light Vanessa Urine Appearance Clear Urine Odor None Comment Pt says he feels too out of it to stand up to void. Emesis Description Bright Red Blood Voiding Methods Urinal Laboratory Results WBC 10.29 k/cumm (4.4-10.8) D 10/03/19 01:35 RBC 2.79 m/cumm (4.50-6.00) L 10/03/19 01:35 Hgb 6.0 g/dL (13.5-17.5) L* 10/03/19 01:35 Hct 20.1 % (40.0-50.0) L* 10/03/19 01:35 MCV 72.0 fL (80-95) L 10/03/19 01:35 MCH 21.5 pg (27.0-33.0) L 10/03/19 01:35 MCHC 29.9 g/dL (32.0-36.0) L 10/03/19 01:35 RDW 22.2 % (11.8-14.1) H 10/03/19 01:35 Plt Count 119 x1000/uL (130-400) L D 10/03/19 01:35 MPV fL (8.0-11.0) 10/03/19 01:35 Immature Gran % 0.1 % 10/02/19 18:19 Neutrophils % 75.9 10/02/19 18:19 Lymphocytes % 12.2 10/02/19 18:19 Monocytes % 11.6 10/02/19 18:19 Eosinophils % 0.0 10/02/19 18:19 Basophils % 0.2 10/02/19 18:19 Absolute Neutrophils 13.98 k/cumm (1.2-6.7) H 10/02/19 18:19 Absolute Lymphocytes 2.25 k/cumm (1.2-3.4) 10/02/19 18:19 Absolute Monocytes 2.14 k/cumm (0.11-0.7) H 10/02/19 18:19 Absolute Eosinophils 0.00 k/cumm (0.0-0.7) 10/02/19 18:19 Absolute Basophils 0.04 k/cumm (0.0-0.2) 10/02/19 18:19 Differential Comment Rbc morph reviewed 10/02/19 18:19 RBC Morphology See below 10/02/19 18:19 Hypochromasia 2+ 10/02/19 18:19 Anisocytosis 3+ 10/02/19 18:19 Microcytosis 3+ 10/02/19 18:19 PT Cancelled 10/02/19 20:57 INR Cancelled 10/02/19 20:57 APTT 22.5 sec (21.0-31.4) 10/02/19 18:19 Sodium 134 mmol/L (136-145) L 10/03/19 01:35 Potassium 3.1 mmol/L (3.5-5.1) L 10/03/19 01:35 Chloride 97 mmol/L (98-107) L 10/03/19 01:35 Carbon Dioxide 27.9 mmol/L (21.0-32.0) 10/03/19 01:35 Anion Gap 9.1 mmol/L (3-11) 10/03/19 01:35 BUN 22 mg/dL (7-18) H 10/03/19 01:35 Creatinine 1.25 mg/dL (0.70-1.30) 10/03/19 01:35 Estimated GFR/1.73 m2 59.12 (mL/min/1.73m2) 10/03/19 01:35 Glucose 113 mg/dL (74-106) H 10/03/19 01:35 Calcium 7.4 mg/dL (8.5-10.1) L 10/03/19 01:35 Phosphorus 2.6 mg/dL (2.6-4.7) 10/02/19 18:19 Magnesium 1.7 mg/dL (1.8-2.4) L 10/03/19 01:35 Total Bilirubin 3.8 mg/dL (0.2-1.0) H 10/02/19 18:19 AST 75 U/L (15-37) H 10/02/19 18:19 ALT 48 U/L (16-63) 10/02/19 18:19 Alkaline Phosphatase 101 U/L (46-116) 10/02/19 18:19 Troponin I < 0.05 ng/mL (<0.06) 10/02/19 18:19 Total Protein 6.9 g/dL (6.4-8.2) 10/02/19 18:19 Albumin 3.0 g/dL (3.4-5.0) L 10/02/19 18:19 Lipase 156 U/L (73-393) 10/02/19 18:19 Urine Color Yellow (Yellow) 10/03/19 01:15 Urine Clarity Clear (Clear) 10/03/19 01:15 Urine pH 5.0 (5-8) 10/03/19 01:15 Ur Specific [place] <= 1.005 (1.005-1.025) 10/03/19 01:15 Urine Protein Negative mg/dL (Negative) 10/03/19 01:15 Urine Ketones Negative mg/dL (Negative) 10/03/19 01:15 Urine Blood Negative (Negative) 10/03/19 01:15 Urine Nitrite Negative (Negative) 10/03/19 01:15 Urine Bilirubin Negative (Negative) 10/03/19 01:15 Urine Urobilinogen 2.0 EU/dL (Up TO 0.2) H 10/03/19 01:15 Ur Leukocyte Esterase Negative (Negative) 10/03/19 01:15 Urine Glucose Negative mg/dL (Negative) 10/03/19 01:15 Urine Opiates Screen Negative (Negative) 10/03/19 01:15 Urine Methadone Screen Negative (Negative) 10/03/19 01:15 Ur Barbiturates Screen Negative (Negative) 10/03/19 01:15 Ur Tricyclics Screen Negative (Negative) 10/03/19 01:15 Ur Amphetamines Screen Negative (Negative) 10/03/19 01:15 U Benzodiazepines Scrn Negative (Negative) 10/03/19 01:15 Urine Cocaine Screen Positive (Negative) A 10/03/19 01:15 Ur THC Screen Positive (Negative) A 10/03/19 01:15 Ethyl Alcohol < 3.0 mg/dL (<3) 10/02/19 18:19 Patient ABO/Rh O Negative 10/02/19 18:19 Antibody Screen Negative 10/02/19 18:19 Crossmatch See Detail 10/02/19 18:19
[2019-10-03 09:21] LABS: HCT 26.5 % (40.0-50.0); HGB 8.2 g/dL (13.5-17.5); Mean Corp. HGB Concentration 30.9 g/dL (32.0-36.0); Mean Corpuscular Hemoglobin 23.5 pg (27.0-33.0); Mean Corpuscular Volume 75.9 fL (80-95); RBC 3.49 m/cumm (4.50-6.00); RBC Distribution Width 23.9 % (11.8-14.1); White Blood Cell Count 7.48 k/cumm (4.4-10.8)
[2019-10-03 09:31] LABS: Platelet Count 102 x1000/uL (130-400)
[2019-10-03] MEDS: MULTIVITAMIN 10 ML, THIAMINE 100 MG, FOLIC ACID 1 MG in DEXTROSE 5%-0.45% SALINE 1,000 ML 150 ML IV (09:31)
[2019-10-03 09:45] LABS: INR 1.3 (0.9-1.1); Prothrombin Time 13.2 sec (9.3-11.0)
[2019-10-03] MEDS: Lidocaine 2% Jelly 11 ML SYR UR (09:47)
[2019-10-03 09:50] LABS: ALT 47 U/L (16-63); AST 73 U/L (15-37); Albumin 2.6 g/dL (3.4-5.0); Alkaline Phosphatase 86 U/L (46-116); Anion Gap 6.7 mmol/L (3-11); BUN 19 mg/dL (7-18); Bilirubin, Total 4.7 mg/dL (0.2-1.0); CO2 28.3 mmol/L (21.0-32.0); CREATININE 1.01 mg/dL (0.70-1.30); Calcium 7.5 mg/dL (8.5-10.1); Chloride 101 mmol/L (98-107); GGT 419 U/L (15-85); Glucose 107 mg/dL (74-106); Magnesium 1.8 mg/dL (1.8-2.4); Potassium 3.5 mmol/L (3.5-5.1); Sodium 136 mmol/L (136-145); Total Protein 5.9 g/dL (6.4-8.2)
--- NOTE | 2019-10-03 10:20 | INITIAL_ITS ---
- If Service Date Differs Date of service: 10/03/19 Time of Service: 10:20 Care Management Initial Assess REASON FOR HOSPITALIZATION:: Acute GI bleed with acute blood loss, anemia PAST MEDICAL HISTORY/PAST SURGICAL HISTORY:: Medical History . Advanced hepatic cirrhosis (Acute). Alcohol abuse (Chronic). Alcohol dependence with withdrawal with complication (Acute). Alcoholic liver failure (Acute). Anxiety (Chronic). Depression (Chronic). GERD (gastroesophageal reflux disease) (Chronic). Metastatic neoplastic disease (Acute). Surgical History . H/O vasectomy (Acute). History of colon resection (Chronic). due to diverticulitis; sigmoid. History of hernia repair (Chronic). Repair of inguinal hernia. Vasectomy PREVIOUS FUNCTIONAL STATUS/SOCIAL/FAMILY SUPPORTS:: Jelani lives in [place] with his son, Marlon. 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 He is indpendent with his ADL's currently. CURRENT FUNCTIONAL STATUS:: Jelani was in a procedure when CM attempted to meet with him. Later, he was somulent and was not able to engage in conversation with CM. CM spoke with his son, Marlon, who is not on a current HIPPA, therefore CM was unable to share information with him. Marlon reported that his father recently moved in with him and has not been doing well at home. He stated that his father has been unmotivated and acting depressed lately. He also stated that he wished his father did not drink so much. CM will complete a HIPPA with Jelani when he is able to communicate. CM will continue to follow. ADVANCE DIRECTIVES:: None on file. Has patient been provided with info about the portal/API?: No Did the patient sign up for the portal?: No CODE STATUS:: Full Code INSURANCE COVERAGE / FINANCIAL ISSUES:: Self Pay CURRENT HOME/COMMUNITY SERVICES/EQUIPMENT:: Jelani currently does not have equipment or services in the community. PRIMARY CARE PHYSICIAN:: Salvador Cabrera MD. [facility]. POTENTIAL DISCHARGE NEEDS:: Evaluations for further needs, follow up appointments. PATIENT/FAMILY EDUCATION NEEDS:: Review discharge instructions regarding activity levels and medications, discussion of self care needs including ask me three ANTICIPATED BARRIERS TO DISCHARGE:: None identified at this time. TRANSPORTATION:: Via private vehicle by family when ready. PLAN:: Jelani is being monitored in the ICU currently. He had an EGD today, which indicated no active bleeding, but he does have esophageal varices. He is actively withdrawing, and was not able to communicate with CM today. His plan is to be determined. It is recommended, per report, that he stop drinking alcohol. CM will discuss options and call livestock judging coach once he is able to communicate. CM will continue to follow.
[2019-10-03] MEDS: Lactated Ringers 1,000 ML 80 ML IV (11:20)
--- NOTE | 2019-10-03 11:40 | STOM_PTH ---
PATIENT: Jelani Jean-Baptiste LOC: ICU U#:[id number] AGE/SX: 59/M ROOM: ICU.222 RE10/02/[address]: Salvador Narayan : 1960 BED: A DIS: 10/06/2019 SPEC #: [id number] RECD: 10/03/19 12:46 STATUS: SOUMichelle REQ #: [id number] AMISH: 10/03/19 11:[address]: Schuyler Goodman DEPT: Surgical Specimen RECD BY: Giana Gold ENTERED: 10/03/19 12:47 SP TYPE: STOMACH OTHR DR: MD Zaid Carrasco Laura M Tissues: 1 - STOMACH BIOPSY 2 - ESOPHAGUS BIOPSY Procedures: GROSS AND MICRO LEVEL 4 Comments: [id number]
--- NOTE | 2019-10-03 11:51 | W.PM.ENDDOP ---
Date of service: 10/03/19 Time of Service: 11:51 Endoscopy Report DATE OF PROCEDURE: 10/03/19 PRE-OP DIAGNOSIS: Upper GI bleed POST-OP DIAGNOSIS: other (Esophageal varices. Mild esophagitis. Portal hypertensive gastropathy) PROCEDURE: EGD with gastric and distal esophageal biopsies SURGEON: Ira Chavez ANESTHESIA: JENN DISPOSITION: PACU INDICATIONS: This patient presented with hematemesis and a HgB of 5.4 He does consume alcohol. PROCEDURE DESCRIPTION: The patient was placed under general anesthetic. COVID testing is pending so full PPE was used. The endoscope was advanced into the esophagus under direct visualization. The scope was passed through the stomach and into the duodenum. There was no duodenitis or ulceration noted. The stomach showed generalized portal hypertensive gastropathy. No other abnormalities were seen on retroflexed view of the fundus and lesser curvature. Routine biopsies were taken from the gastric antrum. No old blood was present in the stomach. The GE junction was inspected and showed Grade II esophageal varices. There was no clot or active bleeding present. There was evidence of mild esophagitis and a small biopsy was carefully taken from the region without significant bleeding. There was no obvious malignancy. The scope was slowly withdrawn with no other esophageal lesions found. The patient tolerated the procedure well and was stable to recovery.
--- NOTE | 2019-10-03 12:22 | UCONE_ITS ---
Date of service: 10/03/19 Time of Service: 10:22 Assessment and Plan Assessment and plan (1) Urinary retention: Status: Acute Assessment and plan: We should be able to safely remove the catheter whenever it is no longer needed for his acute management. History of Present Illness History of Present Illness Chief Complaint: Urinary retention Narrative: This is a 59-year-old gentleman who is currently hospitalized with GI bleed. He has been identified as having urinary retention and the staff attempted to place a Heller catheter. Catheterization was not successful, so they asked if I could attempt to pass a Heller catheter. He has no prior history of urologic surgery. FORMERLY [facility] Medical History Advanced hepatic cirrhosis (Acute) Alcohol abuse (Chronic) Alcohol dependence with withdrawal with complication (Acute) Alcoholic liver failure (Acute) Anxiety (Chronic) Depression (Chronic) GERD (gastroesophageal reflux disease) (Chronic) Metastatic neoplastic disease (Acute) Surgical History H/O vasectomy (Acute) History of colon resection (Chronic) due to diverticulitis; sigmoid History of hernia repair (Chronic) Repair of inguinal hernia Vasectomy Family History Mother Neoplasm Father Diabetes Essential hypertension Neoplasm Sister No problems noted. Social History Smoking/Tobacco Use Status: Never Alcohol Intake: current Alcohol Intake frequency: 3 or more drinks per day Drug use: Daily Substance use type: marijuana Do you feel safe at home: Yes Do you feel safe in your relationship?: Yes Exam Narrative Exam Narrative: The patient was seen in his ICU bed. His genitalia was prepped. 2% Xylocaine jelly was instilled into the urethra to act as a local anesthetic. A 16 Korean coud? tipped catheter was passed through the urethra into the bladder. The catheter balloon was inflated with 10 cc of sterile water. Clear urine was obtained in the catheter bag. He tolerated the procedure well Results Last Vital Signs Temp 36.1 C L 10/03/19 08:00 Pulse 98 H 10/03/19 04:31 Resp 13 10/03/19 03:46 BP 101/67 10/03/19 04:31 Pulse Ox 91 L 10/03/19 04:50 Labs Result diagrams: 10/03/19 09:00 10/03/19 09:00 Labs: Laboratory Results - last 24 hr 10/02/19 10/02/19 10/02/19 18:19 18:19 18:19 WBC 18.42 H RBC 2.73 L Hgb 5.4 L* Hct 19.7 L* MCV 72.2 L MCH 19.8 L MCHC 27.4 L RDW 24.8 H Plt Count 282 MPV Immature Gran % 0.1 Neutrophils % 75.9 Lymphocytes % 12.2 Monocytes % 11.6 Eosinophils % 0.0 Basophils % 0.2 Absolute Neutrophils 13.98 H Absolute Lymphocytes 2.25 Absolute Monocytes 2.14 H Absolute Eosinophils 0.00 Absolute Basophils 0.04 Differential Comment Rbc morph reviewed RBC Morphology See below Hypochromasia 2+ Anisocytosis 3+ Microcytosis 3+ PT 15.0 H INR 1.5 H APTT 22.5 Sodium 134 L Potassium 3.1 L Chloride 94 L Carbon Dioxide 25.0 Anion Gap 15.0 H BUN 23 H Creatinine 1.50 H Estimated GFR/1.73 m2 47.90 Glucose 171 H Calcium 8.6 Phosphorus Magnesium 1.5 L Total Bilirubin 3.8 H GGT AST 75 H ALT 48 Alkaline Phosphatase 101 Troponin I < 0.05 Total Protein 6.9 Albumin 3.0 L Lipase Urine Color Urine Clarity Urine pH Ur Specific [place] Urine Protein Urine Ketones Urine Blood Urine Nitrite Urine Bilirubin Urine Urobilinogen Ur Leukocyte Esterase Urine Glucose Urine Opiates Screen Urine Methadone Screen Ur Barbiturates Screen Ur Tricyclics Screen Ur Amphetamines Screen U Benzodiazepines Scrn Urine Cocaine Screen Ur THC Screen Ethyl Alcohol Patient ABO/Rh Antibody Screen Crossmatch 10/02/19 10/02/19 10/02/19 18:19 18:19 18:19 WBC RBC Hgb Hct MCV MCH MCHC RDW Plt Count MPV Immature Gran % Neutrophils % Lymphocytes % Monocytes % Eosinophils % Basophils % Absolute Neutrophils Absolute Lymphocytes Absolute Monocytes Absolute Eosinophils Absolute Basophils Differential Comment RBC Morphology Hypochromasia Anisocytosis Microcytosis PT INR APTT Sodium Potassium Chloride Carbon Dioxide Anion Gap BUN Creatinine Estimated GFR/1.73 m2 Glucose Calcium Phosphorus Magnesium Total Bilirubin GGT AST ALT Alkaline Phosphatase Troponin I Total Protein Albumin Lipase 156 Urine Color Urine Clarity Urine pH Ur Specific [place] Urine Protein Urine Ketones Urine Blood Urine Nitrite Urine Bilirubin Urine Urobilinogen Ur Leukocyte Esterase Urine Glucose Urine Opiates Screen Urine Methadone Screen Ur Barbiturates Screen Ur Tricyclics Screen Ur Amphetamines Screen U Benzodiazepines Scrn Urine Cocaine Screen Ur THC Screen Ethyl Alcohol < 3.0 Patient ABO/Rh O Negative Antibody Screen Negative Crossmatch See Detail 10/02/19 10/02/19 10/03/19 18:19 20:57 01:15 WBC RBC Hgb Hct MCV MCH MCHC RDW Plt Count MPV Immature Gran % Neutrophils % Lymphocytes % Monocytes % Eosinophils % Basophils % Absolute Neutrophils Absolute Lymphocytes Absolute Monocytes Absolute Eosinophils Absolute Basophils Differential Comment RBC Morphology Hypochromasia Anisocytosis Microcytosis PT Cancelled INR Cancelled APTT Sodium Potassium Chloride Carbon Dioxide Anion Gap BUN Creatinine Estimated GFR/1.73 m2 Glucose Calcium Phosphorus 2.6 Magnesium Total Bilirubin GGT AST ALT Alkaline Phosphatase Troponin I Total Protein Albumin Lipase Urine Color Urine Clarity Urine pH Ur Specific [place] Urine Protein Urine Ketones Urine Blood Urine Nitrite Urine Bilirubin Urine Urobilinogen Ur Leukocyte Esterase Urine Glucose Urine Opiates Screen Negative Urine Methadone Screen Negative Ur Barbiturates Screen Negative Ur Tricyclics Screen Negative Ur Amphetamines Screen Negative U Benzodiazepines Scrn Negative Urine Cocaine Screen Positive A Ur THC Screen Positive A Ethyl Alcohol Patient ABO/Rh Antibody Screen Crossmatch 10/03/19 10/03/19 10/03/19 01:15 01:35 01:35 WBC 10.29 D RBC 2.79 L Hgb 6.0 L* Hct 20.1 L* MCV 72.0 L MCH 21.5 L MCHC 29.9 L RDW 22.2 H Plt Count 119 L D MPV Immature Gran % Neutrophils % Lymphocytes % Monocytes % Eosinophils % Basophils % Absolute Neutrophils Absolute Lymphocytes Absolute Monocytes Absolute Eosinophils Absolute Basophils Differential Comment RBC Morphology Hypochromasia Anisocytosis Microcytosis PT INR APTT Sodium 134 L Potassium 3.1 L Chloride 97 L Carbon Dioxide 27.9 Anion Gap 9.1 BUN 22 H Creatinine 1.25 Estimated GFR/1.73 m2 59.12 Glucose 113 H Calcium 7.4 L Phosphorus Magnesium 1.7 L Total Bilirubin GGT AST ALT Alkaline Phosphatase Troponin I Total Protein Albumin Lipase Urine Color Yellow Urine Clarity Clear Urine pH 5.0 Ur Specific [place] <= 1.005 Urine Protein Negative Urine Ketones Negative Urine Blood Negative Urine Nitrite Negative Urine Bilirubin Negative Urine Urobilinogen 2.0 H Ur Leukocyte Esterase Negative Urine Glucose Negative Urine Opiates Screen Urine Methadone Screen Ur Barbiturates Screen Ur Tricyclics Screen Ur Amphetamines Screen U Benzodiazepines Scrn Urine Cocaine Screen Ur THC Screen Ethyl Alcohol Patient ABO/Rh Antibody Screen Crossmatch 10/03/19 10/03/19 10/03/19 09:00 09:00 09:00 WBC 7.48 RBC 3.49 L Hgb 8.2 L D Hct 26.5 L D MCV 75.9 L D MCH 23.5 L MCHC 30.9 L RDW 23.9 H Plt Count 102 L MPV Immature Gran % Neutrophils % Lymphocytes % Monocytes % Eosinophils % Basophils % Absolute Neutrophils Absolute Lymphocytes Absolute Monocytes Absolute Eosinophils Absolute Basophils Differential Comment RBC Morphology Hypochromasia Anisocytosis Microcytosis PT 13.2 H INR 1.3 H APTT Sodium 136 Potassium 3.5 Chloride 101 Carbon Dioxide 28.3 Anion Gap 6.7 BUN 19 H Creatinine 1.01 Estimated GFR/1.73 m2 >= 60.00 Glucose 107 H Calcium 7.5 L Phosphorus Magnesium 1.8 Total Bilirubin 4.7 H GGT 419 H AST 73 H ALT 47 Alkaline Phosphatase 86 Troponin I Total Protein 5.9 L Albumin 2.6 L Lipase Urine Color Urine Clarity Urine pH Ur Specific [place] Urine Protein Urine Ketones Urine Blood Urine Nitrite Urine Bilirubin Urine Urobilinogen Ur Leukocyte Esterase Urine Glucose Urine Opiates Screen Urine Methadone Screen Ur Barbiturates Screen Ur Tricyclics Screen Ur Amphetamines Screen U Benzodiazepines Scrn Urine Cocaine Screen Ur THC Screen Ethyl Alcohol Patient ABO/Rh Antibody Screen Crossmatch
--- NOTE | 2019-10-03 12:36 | DI.RAD_ITS ---
EXAM: XR PORTABLE CHEST AP CLINICAL HISTORY: hypoxia, question of aspiration TECHNIQUE: 2D digital imaging was performed. COMPARISON: CR XR CHEST 2V PA LATERAL from 09/22/[address] CHEST PE ABD PELVIS W from 10/02/2019 FINDINGS: Limited examination due to poor inspiration and patient positioning. Cardiac silhouette is within normal limits. No pleural effusion or pneumothorax is identified. A left basilar infiltrate cannot be excluded. The right lung is clear. No acute osseous abnormality is identified. IMPRESSION: 1. Suboptimal examination. 2. Left basilar infiltrate cannot be excluded. DATA REPOSITORY: RADIATION DOSE DELIVERED:
--- NOTE | 2019-10-03 13:16 | W.NUTRFU ---
Date of service: 10/03/19 Time of Service: 13:16 Nutritional Follow up NOTE: 59 year old male admitted with acute GI bleed, acute anemia with ETOH withdrawl with advanced hepatic stenosis. Meds include MVI, thiamin, folic acid, D5. Labs include improving Hgb after blood transfution. Following clear liquid diet. At risk for nutritional decline. Will follow and make recommendations as warranted. Time Spent in Nutritional Counseling and Treatment: 0 time
[2019-10-03 14:18] LABS: HCT 23.8 % (40.0-50.0); HGB 7.3 g/dL (13.5-17.5)
[2019-10-03 14:20] LABS: COVID-19 RT-PCR UVMMC Result Negative (Negative)
[2019-10-03 14:31] LABS: Ammonia 33 umol/L (11-32)
[2019-10-03] MEDS: diphenhydrAMINE 25 MG CAP PO (18:24)
[2019-10-03] MEDS: Acetaminophen 325 MG TAB 650 MG PO (18:25)
[2019-10-04] VITALS (45 sets, daily range): BP systolic 107–143; BP diastolic 56–83; PULSE 83–118; RESP 14–32; TEMP 36.7–37.3; O2SAT 90–99
[2019-10-04] MEDS: Normal Saline 1,000 ML 150 ML IV ×2 (03:01→19:37)
[2019-10-04 07:10] LABS: Abs Immature Grans 0.01 k/cumm (0.0-0.09); Absolute Basophil Count 0.03 k/cumm (0.0-0.2); Absolute Eosinophil Count 0.05 k/cumm (0.0-0.7); Absolute Lymphocyte Count 1.39 k/cumm (1.2-3.4); Absolute Monocyte Count 0.73 k/cumm (0.11-0.7); Absolute Neutrophil Count 3.33 k/cumm (1.2-6.7); Basophils % 0.5; Eosinophils % 0.9; HCT 27.3 % (40.0-50.0); HGB 8.4 g/dL (13.5-17.5); Immature Grans % 0.2 %; Lymphocytes % 25.1; Mean Corp. HGB Concentration 30.8 g/dL (32.0-36.0); Monocytes % 13.2; Neutrophils % 60.1; RBC Distribution Width 23.1 % (11.8-14.1); White Blood Cell Count 5.54 k/cumm (4.4-10.8)
[2019-10-04 07:24] LABS: ALT 65 U/L (16-63); AST 127 U/L (15-37); Albumin 2.4 g/dL (3.4-5.0); Alkaline Phosphatase 90 U/L (46-116); Anion Gap 6.5 mmol/L (3-11); BUN 9 mg/dL (7-18); Bilirubin, Direct 2.32 mg/dL (0.00-0.20); CO2 25.5 mmol/L (21.0-32.0); CREATININE 0.89 mg/dL (0.70-1.30); Calcium 7.2 mg/dL (8.5-10.1); Chloride 100 mmol/L (98-107); Glucose 89 mg/dL (74-106); Magnesium 1.7 mg/dL (1.8-2.4); Potassium 3.2 mmol/L (3.5-5.1); Sodium 132 mmol/L (136-145); Total Protein 5.7 g/dL (6.4-8.2)
[2019-10-04 07:28] LABS: Anisocytosis 3+; Diff Comment Diff Reviewed; Hypochromasia 2+; Microcytosis 2+; Platelet Count 79 x1000/uL (130-400); Polychromasia Present
[2019-10-04 07:29] LABS: Poikilocytes 2+
[2019-10-04] MEDS: PANTOPRAZOLE 80 MG in Normal Saline 100 ML 10 MG IV ×2 (08:45→19:37)
[2019-10-04] MEDS: Finasteride 5 MG TAB PO (08:54)
[2019-10-04] MEDS: MAGNESIUM SULFATE 2 GM/50 ML BAG IVPB (10:01)
[2019-10-04] MEDS: Potassium Chloride 20 MEQ TABCR 40 MEQ PO ×2 (10:01→19:36)
[2019-10-04] MEDS: MULTIVITAMIN 10 ML, THIAMINE 100 MG, FOLIC ACID 1 MG in DEXTROSE 5%-0.45% SALINE 1,000 ML 150 ML IV (10:05)
--- NOTE | 2019-10-04 11:03 | W.PM.PROGNOT ---
Date of Service Date of service: 10/04/19 Time of Service: 11:04 Assessment and Plan Assessment and plan (1) Anemia due to acute blood loss: Status: Acute Assessment and plan: S/p transfusion of 4 units of pRBCs after admission on 10/02/2019. Hemoglobin and hematocrit stable since yesterday morning. Source appears to be upper GI bleed that has stopped, see below. (2) Acute GI bleeding: Status: Resolved Assessment and plan: EGD without evidence of acute bleeding, though does have esophageal varices. Given his history of vomiting large amount of blood in the presence of these varices, have to assume the major source of bleeding was variceal. Hypertension would benefit from beta blockers once more hemodynamically stable, though evidence suggest with decompensated cirrhosis beta-blockers may increase mortality. Will consult with GI, as he will need a plan for further assessment of a possible malignancy as well. For now, continue PPI. No indication for octreotide at this time, per general surgery. Should he rebleed, an emergent transfer to a tertiary care facility should be pursued as he would need a banding or coiling procedure for his varices. (3) Alcoholic hepatitis without ascites: Status: Acute Assessment and plan: I am not sure how much acute hepatitis there is, as labs do not seem to be improving with cessation of alcohol. His laboratory abnormalities may be due to chronic alcoholic cirrhosis Maddrey score of 14.8 indicated good prognosis either way. No benefit from prednisolone at this time. (4) Alcohol withdrawal delirium: Status: Acute Assessment and plan: Continue to monitor in the ICU on CIWA with banana bag, prn ativan. I am adding oxazepam per the withdrawal protocol orally now that his mental status has improved. (5) Hypoxia: Status: Acute Assessment and plan: Hypoxia has resolved. Chest x-ray could not exclude left basilar infiltrate, but does not have symptoms of pneumonia or pneumonitis currently. Continue to monitor. (6) Metastatic neoplastic disease: Status: Acute Assessment and plan: Tumor markers ordered, pending, including PSA. There is some suggestion of colonic thickening on the CAT scan, per make more sense with liver metastases and prostate cancer. I think we will start by having GI review CAT scan to assess the possibility of colonoscopy with biopsy, versus interventional radiology. (7) Cirrhosis of liver: Status: Chronic Assessment and plan: Alcoholic cirrhosis with portal hypertension, esophageal varices, coagulopathy, thrombocytopenia. Ammonia mildly elevated, but his mental status has improved and he does not clinically look like acute encephalopathy. We do not have recent lab testing to distinguish acute versus chronic liver disease, but the stability of his labs of the past 3 days do suggest that he does have stable chronic decompensated cirrhosis. His current child Romi Schmitz score is 9 or 10 depending on if you count mild encephalopathy. (8) Esophageal varices: Status: Acute Assessment and plan: As above (9) Portal hypertension: Status: Chronic Assessment and plan: Will consider beta-blockers now that more hemodynamically stable. (10) Urinary retention: Status: Acute Assessment and plan: S/p moya by urology. PSA pending. Finasteride was started yesterday but will take months for an effect. Will add tamsulosin hemodynamically stable. (11) Enlarged prostate: Status: Acute Assessment and plan: As above (12) DVT prophylaxis: Status: Acute Assessment and plan: TEDs/SCDs. Chemical DVT ppx is contraindicated in setting of acute bleeding (13) Discharge planning issues: Status: Acute Assessment and plan: Full code. Consult palliative care. Poor prognosis. He may be able to come out of the ICU if continues stable, by tomorrow morning Total Critical Care Time 50 minutes. Will need malignancy workup on discharge and referral to GI on discharge. Subjective Subjective Patient reports: tolerating liquids well; denies nausea, vomiting, shortness of breath and fever Interval history since last seen: 24-hour events: Continues black stools, no further vomiting blood. Patient states he is feeling a little better feels like he is getting over withdrawal. He is taking a clear diet and he is hungry. He needs to feel mildly lightheaded when sitting up. He is not feeling chest pain or palpitations or shortness of breath. Per nursing mental status is much improved. He states he does have a history of withdrawal seizure. He has had hallucinations in the setting of withdrawal in the past, not currently. He states he is very motivated to quit alcohol. He did have a therapist in [place] previously when he was living there with his mother. He states he had not been previously told he had cirrhosis. Exam Narrative Exam Narrative: General: Alert and oriented, able to have a coherent conversation, no slurring of speech or confusion evident. HEENT: EOMI, MMM, mild icterus Heart: RRR, no m/r/g Lungs: CTAB, normal effort Abdomen: soft, nontender, nondistended. No shifting dullness or other obvious signs of ascites. Extremities: no e/c/c BLE's Skin: Some bruises, no periumbilical varices or other vascular abnormalities. Subtle jaundice. Neurologic: No tremor or asterixis. Normal speech and coordination grossly this morning. Objective Objective Clinical Data: Abnormal lab results 10/02/19 10/03/19 10/03/19 Range/Units 18:19 14:09 14:09 RBC (4.50-6.00) m/cumm Hgb 7.3 L (13.5-17.5) g/dL Hct 23.8 L (40.0-50.0) % MCV (80-95) fL MCH (27.0-33.0) pg MCHC (32.0-36.0) g/dL RDW (11.8-14.1) % Plt Count (130-400) x1000/uL Absolute Monocytes (0.11-0.7) k/cumm Sodium (136-145) mmol/L Potassium (3.5-5.1) mmol/L Calcium (8.5-10.1) mg/dL Magnesium (1.8-2.4) mg/dL Total Bilirubin (0.2-1.0) mg/dL Conjugated Bilirubin (0.00-0.20) mg/dL AST (15-37) U/L ALT (16-63) U/L Ammonia 33 H (11-32) umol/L Total Protein (6.4-8.2) g/dL Albumin (3.4-5.0) g/dL Crossmatch See Detail 10/04/19 10/04/19 Range/Units 06:20 06:20 RBC 3.50 L (4.50-6.00) m/cumm Hgb 8.4 L (13.5-17.5) g/dL Hct 27.3 L (40.0-50.0) % MCV 78.0 L (80-95) fL MCH 24.0 L (27.0-33.0) pg MCHC 30.8 L (32.0-36.0) g/dL RDW 23.1 H (11.8-14.1) % Plt Count 79 L (130-400) x1000/uL Absolute Monocytes 0.73 H (0.11-0.7) k/cumm Sodium 132 L (136-145) mmol/L Potassium 3.2 L (3.5-5.1) mmol/L Calcium 7.2 L (8.5-10.1) mg/dL Magnesium 1.7 L (1.8-2.4) mg/dL Total Bilirubin 4.0 H (0.2-1.0) mg/dL Conjugated Bilirubin 2.32 H (0.00-0.20) mg/dL AST 127 H (15-37) U/L ALT 65 H (16-63) U/L Ammonia (11-32) umol/L Total Protein 5.7 L (6.4-8.2) g/dL Albumin 2.4 L (3.4-5.0) g/dL Crossmatch Vital Signs Temperature 36.7 C 10/04/19 07:42 Temperature Source Temporal Artery Scan 10/04/19 07:42 Pulse 93 H 10/04/19 08:20 Pulse 100 H 10/04/19 08:01 Respiratory Rate 23 10/04/19 08:20 Respiratory Effort 10/04/19 08:20 Respiratory Depth Normal 10/04/19 08:20 Respiratory Pattern Normal 10/04/19 08:20 Blood Pressure 136/78 10/04/19 08:00 Blood Pressure Mean 90 10/04/19 08:00 Blood Pressure Position Supine 10/04/19 07:15 Pulse Oximetry 95 10/04/19 08:20 Oxygen Delivery Method Room Air 10/04/19 08:20 Oxygen Flow Rate 0 10/04/19 08:20 Pain Level 1 10/04/19 07:15 Intake & Output 10/03/19 10/03/19 10/04/19 11:59 23:59 11:59 Intake Total 2212.333 / 4863.533 2651.2 / 4863.533 2340 / 2340 Output Total 650 / 1275 625 / 1275 250 / 250 Balance 1562.333 / 3588.533 2026.2 / 3588.533 2089 / 2089 Weight 69.1 kg Intake: IV 1482.333 / 3393.533 1911.2 / 3393.533 2100 / 2100 Oral 480 / 720 240 / 720 240 / 240 Blood Product 250 / 750 500 / 750 Rbc Leuko Reduced Unit 500 / 500 [id number] Rbc Leuko Reduced Unit 250 / 250 [id number] Other 0 / 0 Rbc Leuko Reduced Unit 0 / 0 [id number] Output: Urine 650 / 1275 625 / 1275 250 / 250 Other: Urine Color Dark Vanessa Dark Vanessa Dark Vanessa Urine Appearance Clots Sediment Clear Urine Odor None Comment Pt says he feels too out of it to stand up to void. bladder scan 50 ml moya cath patent and draining. Stool Occult Blood Positive Stool Size Small Stool Characteristics Soft Black Voiding Methods Urinal Laboratory Results WBC 5.54 k/cumm (4.4-10.8) 10/04/19 06:20 RBC 3.50 m/cumm (4.50-6.00) L 10/04/19 06:20 Hgb 8.4 g/dL (13.5-17.5) L 10/04/19 06:20 Hct 27.3 % (40.0-50.0) L 10/04/19 06:20 MCV 78.0 fL (80-95) L 10/04/19 06:20 MCH 24.0 pg (27.0-33.0) L 10/04/19 06:20 MCHC 30.8 g/dL (32.0-36.0) L 10/04/19 06:20 RDW 23.1 % (11.8-14.1) H 10/04/19 06:20 Plt Count 79 x1000/uL (130-400) L 10/04/19 06:20 MPV fL (8.0-11.0) 10/04/19 06:20 Immature Gran % 0.2 % 10/04/19 06:20 Neutrophils % 60.1 10/04/19 06:20 Lymphocytes % 25.1 10/04/19 06:20 Monocytes % 13.2 10/04/19 06:20 Eosinophils % 0.9 10/04/19 06:20 Basophils % 0.5 10/04/19 06:20 Absolute Neutrophils 3.33 k/cumm (1.2-6.7) 10/04/19 06:20 Absolute Lymphocytes 1.39 k/cumm (1.2-3.4) 10/04/19 06:20 Absolute Monocytes 0.73 k/cumm (0.11-0.7) H 10/04/19 06:20 Absolute Eosinophils 0.05 k/cumm (0.0-0.7) 10/04/19 06:20 Absolute Basophils 0.03 k/cumm (0.0-0.2) 10/04/19 06:20 Differential Comment Diff reviewed 10/04/19 06:20 RBC Morphology See below 10/04/19 06:20 Polychromasia Present 10/04/19 06:20 Hypochromasia 2+ 10/04/19 06:20 Poikilocytosis 2+ 10/04/19 06:20 Anisocytosis 3+ 10/04/19 06:20 Microcytosis 2+ 10/04/19 06:20 PT 13.2 sec (9.3-11.0) H 10/03/19 09:00 INR 1.3 (0.9-1.1) H 10/03/19 09:00 APTT 22.5 sec (21.0-31.4) 10/02/19 18:19 Sodium 132 mmol/L (136-145) L 10/04/19 06:20 Potassium 3.2 mmol/L (3.5-5.1) L 10/04/19 06:20 Chloride 100 mmol/L (98-107) 10/04/19 06:20 Carbon Dioxide 25.5 mmol/L (21.0-32.0) 10/04/19 06:20 Anion Gap 6.5 mmol/L (3-11) 10/04/19 06:20 BUN 9 mg/dL (7-18) D 10/04/19 06:20 Creatinine 0.89 mg/dL (0.70-1.30) 10/04/19 06:20 Estimated GFR/1.73 m2 >= 60.00 (mL/min/1.73m2) 10/04/19 06:20 Glucose 89 mg/dL (74-106) 10/04/19 06:20 Calcium 7.2 mg/dL (8.5-10.1) L 10/04/19 06:20 Phosphorus 2.6 mg/dL (2.6-4.7) 10/02/19 18:19 Magnesium 1.7 mg/dL (1.8-2.4) L 10/04/19 06:20 Total Bilirubin 4.0 mg/dL (0.2-1.0) H 10/04/19 06:20 Conjugated Bilirubin 2.32 mg/dL (0.00-0.20) H 10/04/19 06:20 GGT 419 U/L (15-85) H 10/03/19 09:00 AST 127 U/L (15-37) H 10/04/19 06:20 ALT 65 U/L (16-63) H 10/04/19 06:20 Alkaline Phosphatase 90 U/L (46-116) 10/04/19 06:20 Ammonia 33 umol/L (11-32) H 10/03/19 14:09 Troponin I < 0.05 ng/mL (<0.06) 10/02/19 18:19 Total Protein 5.7 g/dL (6.4-8.2) L 10/04/19 06:20 Albumin 2.4 g/dL (3.4-5.0) L 10/04/19 06:20 Lipase 156 U/L (73-393) 10/02/19 18:19 Urine Color Yellow (Yellow) 10/03/19 01:15 Urine Clarity Clear (Clear) 10/03/19 01:15 Urine pH 5.0 (5-8) 10/03/19 01:15 Ur Specific [place] <= 1.005 (1.005-1.025) 10/03/19 01:15 Urine Protein Negative mg/dL (Negative) 10/03/19 01:15 Urine Ketones Negative mg/dL (Negative) 10/03/19 01:15 Urine Blood Negative (Negative) 10/03/19 01:15 Urine Nitrite Negative (Negative) 10/03/19 01:15 Urine Bilirubin Negative (Negative) 10/03/19 01:15 Urine Urobilinogen 2.0 EU/dL (Up TO 0.2) H 10/03/19 01:15 Ur Leukocyte Esterase Negative (Negative) 10/03/19 01:15 Urine Glucose Negative mg/dL (Negative) 10/03/19 01:15 Urine Opiates Screen Negative (Negative) 10/03/19 01:15 Urine Methadone Screen Negative (Negative) 10/03/19 01:15 Ur Barbiturates Screen Negative (Negative) 10/03/19 01:15 Ur Tricyclics Screen Negative (Negative) 10/03/19 01:15 Ur Amphetamines Screen Negative (Negative) 10/03/19 01:15 U Benzodiazepines Scrn Negative (Negative) 10/03/19 01:15 Urine Cocaine Screen Positive (Negative) A 10/03/19 01:15 Ur THC Screen Positive (Negative) A 10/03/19 01:15 Ethyl Alcohol < 3.0 mg/dL (<3) 10/02/19 18:19 COVID-19 PCR Negative (Negative) 10/02/19 21:37 Nasopharyn COVID-19 PCR Not Applicable 10/02/19 21:37 Ref Test Perform Site [facility] lab 10/02/19 21:37 Patient ABO/Rh O Negative 10/02/19 18:19 Antibody Screen Negative 10/02/19 18:19 Crossmatch See Detail 10/02/19 18:19
[2019-10-04] MEDS: Tamsulosin 0.4 MG CAPCR PO (11:51)
--- NOTE | 2019-10-04 12:05 | PGE_ITS ---
Date of Service Date of service: 10/04/19 Time of Service: 12:05 Assessment and Plan Assessment and plan (1) Esophageal varices: Status: Acute Assessment and plan: No evidence of ongoing bleeding Will advance to soft diet Tentative plan is for evaluation of liver abnormality as outpatient. Next step will be based on hospitalist discussion with GI. Subjective Subjective Interval history since last seen: Patient has no new complaints No significant abdominal pain Tolerating clears No hematemesis Stools are still dark Exam Narrative Exam Narrative: No distress, more alert than yesterday Abdomen soft, non tender Objective Objective Clinical Data: Abnormal lab results 10/02/19 10/03/19 10/03/19 Range/Units 18:19 14:09 14:09 RBC (4.50-6.00) m/cumm Hgb 7.3 L (13.5-17.5) g/dL Hct 23.8 L (40.0-50.0) % MCV (80-95) fL MCH (27.0-33.0) pg MCHC (32.0-36.0) g/dL RDW (11.8-14.1) % Plt Count (130-400) x1000/uL Absolute Monocytes (0.11-0.7) k/cumm Sodium (136-145) mmol/L Potassium (3.5-5.1) mmol/L Calcium (8.5-10.1) mg/dL Magnesium (1.8-2.4) mg/dL Total Bilirubin (0.2-1.0) mg/dL Conjugated Bilirubin (0.00-0.20) mg/dL AST (15-37) U/L ALT (16-63) U/L Ammonia 33 H (11-32) umol/L Total Protein (6.4-8.2) g/dL Albumin (3.4-5.0) g/dL Crossmatch See Detail 10/04/19 10/04/19 Range/Units 06: 06:20 RBC 3.50 L (4.50-6.00) m/cumm Hgb 8.4 L (13.5-17.5) g/dL Hct 27.3 L (40.0-50.0) % MCV 78.0 L (80-95) fL MCH 24.0 L (27.0-33.0) pg MCHC 30.8 L (32.0-36.0) g/dL RDW 23.1 H (11.8-14.1) % Plt Count 79 L (130-400) x1000/uL Absolute Monocytes 0.73 H (0.11-0.7) k/cumm Sodium 132 L (136-145) mmol/L Potassium 3.2 L (3.5-5.1) mmol/L Calcium 7.2 L (8.5-10.1) mg/dL Magnesium 1.7 L (1.8-2.4) mg/dL Total Bilirubin 4.0 H (0.2-1.0) mg/dL Conjugated Bilirubin 2.32 H (0.00-0.20) mg/dL AST 127 H (15-37) U/L ALT 65 H (16-63) U/L Ammonia (11-32) umol/L Total Protein 5.7 L (6.4-8.2) g/dL Albumin 2.4 L (3.4-5.0) g/dL Crossmatch Vital Signs Temperature 98.1 F 10/04/19 07:42 Temperature Source Temporal Artery Scan 10/04/19 07:42 Pulse 93 H 10/04/19 08:20 Pulse 100 H 10/04/19 08:01 Respiratory Rate 23 10/04/19 08:20 Respiratory Effort 10/04/19 08:20 Respiratory Depth Normal 10/04/19 08:20 Respiratory Pattern Normal 10/04/19 08:20 Blood Pressure 136/78 10/04/19 08:00 Blood Pressure Mean 90 10/04/19 08:00 Blood Pressure Position Supine 10/04/19 07:15 Pulse Oximetry 95 10/04/19 08:20 Oxygen Delivery Method Room Air 10/04/19 08:20 Oxygen Flow Rate 0 10/04/19 08:20 Pain Level 1 10/04/19 07:15 Intake & Output 10/03/19 10/04/19 10/04/19 23:59 11:59 23:59 Intake Total 2651.2 / 4863.533 2340 / 2340 Output Total 625 / 1275 250 / 250 Balance 2026.2 / 3588.533 2089 / 2089 Intake: IV 1911.2 / 3393.533 2100 / 2100 Oral 240 / 720 240 / 240 Blood Product 500 / 750 Rbc Leuko Reduced Unit 500 / 500 [id number] Other 0 / 0 Rbc Leuko Reduced Unit 0 / 0 [id number] Output: Urine 625 / 1275 250 / 250 Other: Urine Color Dark Vanessa Dark Vanessa Urine Appearance Sediment Clear Comment bladder scan 50 ml moya cath patent and draining. Stool Occult Blood Positive Stool Size Small Stool Characteristics Soft Black Laboratory Results WBC 5.54 k/cumm (4.4-10.8) 10/04/19 06:20 RBC 3.50 m/cumm (4.50-6.00) L 10/04/19 06:20 Hgb 8.4 g/dL (13.5-17.5) L 10/04/19 06:20 Hct 27.3 % (40.0-50.0) L 10/04/19 06:20 MCV 78.0 fL (80-95) L 10/04/19 06:20 MCH 24.0 pg (27.0-33.0) L 10/04/19 06:20 MCHC 30.8 g/dL (32.0-36.0) L 10/04/19 06:20 RDW 23.1 % (11.8-14.1) H 10/04/19 06:20 Plt Count 79 x1000/uL (130-400) L 10/04/19 06:20 MPV fL (8.0-11.0) 10/04/19 06:20 Immature Gran % 0.2 % 10/04/19 06:20 Neutrophils % 60.1 10/04/19 06:20 Lymphocytes % 25.1 10/04/19 06:20 Monocytes % 13.2 10/04/19 06:20 Eosinophils % 0.9 10/04/19 06:20 Basophils % 0.5 10/04/19 06:20 Absolute Neutrophils 3.33 k/cumm (1.2-6.7) 10/04/19 06:20 Absolute Lymphocytes 1.39 k/cumm (1.2-3.4) 10/04/19 06:20 Absolute Monocytes 0.73 k/cumm (0.11-0.7) H 10/04/19 06:20 Absolute Eosinophils 0.05 k/cumm (0.0-0.7) 06/13/20 06:20 Absolute Basophils 0.03 k/cumm (0.0-0.2) 10/04/19 06:20 Differential Comment Diff reviewed 10/04/19 06:20 RBC Morphology See below 10/04/19 06:20 Polychromasia Present 10/04/19 06:20 Hypochromasia 2+ 10/04/19 06:20 Poikilocytosis 2+ 10/04/19 06:20 Anisocytosis 3+ 10/04/19 06:20 Microcytosis 2+ 10/04/19 06:20 PT 13.2 sec (9.3-11.0) H 10/03/19 09:00 INR 1.3 (0.9-1.1) H 10/03/19 09:00 APTT 22.5 sec (21.0-31.4) 10/02/19 18:19 Sodium 132 mmol/L (136-145) L 10/04/19 06:20 Potassium 3.2 mmol/L (3.5-5.1) L 10/04/19 06:20 Chloride 100 mmol/L (98-107) 10/04/19 06:20 Carbon Dioxide 25.5 mmol/L (21.0-32.0) 10/04/19 06:20 Anion Gap 6.5 mmol/L (3-11) 10/04/19 06:20 BUN 9 mg/dL (7-18) D 10/04/19 06:20 Creatinine 0.89 mg/dL (0.70-1.30) 10/04/19 06:20 Estimated GFR/1.73 m2 >= 60.00 (mL/min/1.73m2) 10/04/19 06:20 Glucose 89 mg/dL (74-106) 10/04/19 06:20 Calcium 7.2 mg/dL (8.5-10.1) L 10/04/19 06:20 Phosphorus 2.6 mg/dL (2.6-4.7) 10/02/19 18:19 Magnesium 1.7 mg/dL (1.8-2.4) L 10/04/19 06:20 Total Bilirubin 4.0 mg/dL (0.2-1.0) H 10/04/19 06:20 Conjugated Bilirubin 2.32 mg/dL (0.00-0.20) H 10/04/19 06:20 GGT 419 U/L (15-85) H 10/03/19 09:00 AST 127 U/L (15-37) H 10/04/19 06:20 ALT 65 U/L (16-63) H 10/04/19 06:20 Alkaline Phosphatase 90 U/L (46-116) 10/04/19 06:20 Ammonia 33 umol/L (11-32) H 10/03/19 14:09 Troponin I < 0.05 ng/mL (<0.06) 10/02/19 18:19 Total Protein 5.7 g/dL (6.4-8.2) L 10/04/19 06:20 Albumin 2.4 g/dL (3.4-5.0) L 10/04/19 06:20 Lipase 156 U/L (73-393) 10/02/19 18:19 Urine Color Yellow (Yellow) 10/03/19 01:15 Urine Clarity Clear (Clear) 10/03/19 01:15 Urine pH 5.0 (5-8) 10/03/19 01:15 Ur Specific [place] <= 1.005 (1.005-1.025) 10/03/19 01:15 Urine Protein Negative mg/dL (Negative) 10/03/19 01:15 Urine Ketones Negative mg/dL (Negative) 10/03/19 01:15 Urine Blood Negative (Negative) 10/03/19 01:15 Urine Nitrite Negative (Negative) 10/03/19 01:15 Urine Bilirubin Negative (Negative) 10/03/19 01:15 Urine Urobilinogen 2.0 EU/dL (Up TO 0.2) H 10/03/19 01:15 Ur Leukocyte Esterase Negative (Negative) 10/03/19 01:15 Urine Glucose Negative mg/dL (Negative) 10/03/19 01:15 Urine Opiates Screen Negative (Negative) 10/03/19 01:15 Urine Methadone Screen Negative (Negative) 10/03/19 01:15 Ur Barbiturates Screen Negative (Negative) 10/03/19 01:15 Ur Tricyclics Screen Negative (Negative) 10/03/19 01:15 Ur Amphetamines Screen Negative (Negative) 10/03/19 01:15 U Benzodiazepines Scrn Negative (Negative) 10/03/19 01:15 Urine Cocaine Screen Positive (Negative) A 10/03/19 01:15 Ur THC Screen Positive (Negative) A 10/03/19 01:15 Ethyl Alcohol < 3.0 mg/dL (<3) 10/02/19 18:19 COVID-19 PCR Negative (Negative) 10/02/19 21:37 Nasopharyn COVID-19 PCR Not Applicable 10/02/19 21:37 Ref Test Perform Site [facility] lab 10/02/19 21:37 Patient ABO/Rh O Negative 10/02/19 18:19 Antibody Screen Negative 10/02/19 18:19 Crossmatch See Detail 10/02/19 18:19
--- NOTE | 2019-10-04 14:34 | CMPROGNOTE_ITS ---
- If Service Date Differs Date of service: 10/04/19 Time of Service: 14:34 Care Management Progress Note S/O: Jelani was sitting up in bed when CM met with him. He reported that he is not feeling great, and he expressed regret for his actions that have attributed to his current medical state. CM expressed empathy, and also discussed options in the community to help him stop drinking alcohol. He reported that he is not planning to drink again. CM offered a resource recovery engineer, and other local resources. He stated that he has a connection with someone from a previous hospital admission in [facility], and he has his business card in his wallet. He plans to reach out to him once he is discharged. CM will continue to offer support and options while he remains at [facility]. CM assisted him in completing a new HIPPA form, as his on file was out dated. CM will continue to follow. A: Jelani is a 59 year old male admitted to [facility] on 10/02/19 with Acute GI bleeding, anemia, alcohol withdrawal. P: Jelani continues to be monitored at ICU level of care. Per report, his GI bleed has stopped. If he begins to bleed again, he will need an emergent transfer, per report. He is being observed while actively withdrawing from alcohol use. Anticipate he will discharge once medically cleared. CM faxed a referral to [employer] for assistance with insurance, as he is in self pay status. He will follow up with his PCP and discharge plan of care. CM will continue to follow and support discharge planning considerations.
--- NOTE | 2019-10-04 14:40 | PHA.REVIEW ---
Pharmacy Admission Review - Admission Clinical Review (Last Reviewed 10/03/19 @ 09:51 by Tracy Mar DO) Hypoxia (Acute) Discharge planning issues (Acute) DVT prophylaxis (Acute) Alcoholic hepatitis without ascites (Acute) Alcohol withdrawal delirium (Acute) Enlarged prostate (Acute) Anemia due to acute blood loss (Acute) Esophageal varices (Acute) Urinary retention (Acute) Alcohol dependence with withdrawal with complication (Acute) Advanced hepatic cirrhosis (Acute) Alcoholic liver failure (Acute) Metastatic neoplastic disease (Acute) Acute anemia (Acute) Alcohol withdrawal (Acute) sertraline Adverse Reaction (Severe, Verified 10/02/19 18:11) SEVERE WORSENING OF DEPRESSION Height 5 ft 6 in Weight 69.1 kg - Renal Dosing Renal Dosing: BUN 9 mg/dL (7-18) D 10/04/19 06:20 Creatinine 0.89 mg/dL (0.70-1.30) 10/04/19 06:20 Medications needing adjustments: Reviewed - Anticoagulation Anticoagulation: Hgb 8.4 g/dL (13.5-17.5) L 10/04/19 06:20 Hct 27.3 % (40.0-50.0) L 10/04/19 06:20 Plt Count 79 x1000/uL (130-400) L 10/04/19 06:20 INR 1.3 (0.9-1.1) H 10/03/19 09:00 Creatinine 0.89 mg/dL (0.70-1.30) 10/04/19 06:20 DVT Prohphylaxis: N/A (C/I in setting of acute GI bleed; TEDs/SCDs only) Therapeutic Anticoagulation: N/A - Opiate Usage Evaluate Pain Scale/Pains Meds: N/A - Relevant Labs Sodium 132 mmol/L (136-145) L 10/04/19 06:20 Potassium 3.2 mmol/L (3.5-5.1) L 10/04/19 06:20 Chloride 100 mmol/L (98-107) 10/04/19 06:20 Phosphorus 2.6 mg/dL (2.6-4.7) 10/02/19 18:19 Magnesium 1.7 mg/dL (1.8-2.4) L 10/04/19 06:20 Electrolytes, C-Reactive P, ESR: Reviewed (40 meq K+ given orraly; 2 grams Mag given IV; receving daily banana bag + NS IV fluids) - DM Control DM Control: Glucose 89 mg/dL (74-106) 10/04/19 06:20 Insulin Dosing: N/A - Heart Failure/OH Heart Failure/OH: Troponin I < 0.05 ng/mL (<0.06) 10/02/19 18:19 EF%, TRUNG's, B-Blockers, Diuretics: Reviewed (metoprolol to be started once hemodynamically stable (for portal htn)) - BP Control BP Control: Blood Pressure [Right Arm] 118/82 Blood Pressure 114/75 Blood Pressure 113/78 Blood Pressure 107/63 Blood Pressure 136/78 Blood Pressure 130/69 Blood Pressure 135/78 Blood Pressure 134/73 Blood Pressure 143/76 Blood Pressure 131/64 If elevated: Reviewed - IV to PO Switch IV Medications: Reviewed (just restarting PO meds today 10/03, will inquire about switching banana bag to PO components 10/04) - Home Meds Home Med List reviewed: Reviewed - Current meds Current Medication Order Review: Intervened (dc'd some ANES orders) - Comments Comments/Follow Ups: Protonix drip continues as of 10/03
[2019-10-04] MEDS: Ondansetron 4 MG/2 ML VIAL IVP (19:37)
[2019-10-04] MEDS: Normal Saline Flush 10 ML SYR IVP (19:37)
[2019-10-04] MEDS: Mylanta Suspension 30 ML CUP PO (19:37)
[2019-10-04] MEDS: Acetaminophen 325 MG TAB PO (19:48)
[2019-10-05] VITALS (26 sets, daily range): BP systolic 113–136; BP diastolic 59–79; PULSE 87–105; RESP 12–28; TEMP 36.6–37; O2SAT 84–97
[2019-10-05] MEDS: Normal Saline 1,000 ML 150 ML IV (02:33)
[2019-10-05] MEDS: PANTOPRAZOLE 80 MG in Normal Saline 100 ML 10 MG IV (05:30)
[2019-10-05 07:18] LABS: HCT 28.1 % (40.0-50.0); HGB 8.5 g/dL (13.5-17.5); Mean Corp. HGB Concentration 30.2 g/dL (32.0-36.0); Mean Corpuscular Hemoglobin 24.4 pg (27.0-33.0); Mean Corpuscular Volume 80.5 fL (80-95); RBC 3.49 m/cumm (4.50-6.00); White Blood Cell Count 4.72 k/cumm (4.4-10.8)
[2019-10-05 07:23] LABS: Anion Gap 7.7 mmol/L (3-11); BUN 6 mg/dL (7-18); CO2 24.3 mmol/L (21.0-32.0); CREATININE 0.81 mg/dL (0.70-1.30); Calcium 7.4 mg/dL (8.5-10.1); Chloride 102 mmol/L (98-107); Glucose 102 mg/dL (74-106); Magnesium 2.1 mg/dL (1.8-2.4); Potassium 3.4 mmol/L (3.5-5.1); Sodium 134 mmol/L (136-145)
[2019-10-05 07:54] LABS: Platelet Count 67 x1000/uL (130-400)
[2019-10-05] MEDS: Potassium Chloride 20 MEQ TABCR 40 MEQ PO ×2 (08:31→21:11)
[2019-10-05] MEDS: Finasteride 5 MG TAB PO (08:31)
[2019-10-05] MEDS: Tamsulosin 0.4 MG CAPCR PO (08:32)
--- NOTE | 2019-10-05 10:10 | PDOC.CMPRO ---
- If Service Date Differs Date of service: 10/05/19 Time of Service: 10:10 Care Management Progress Note S/O: Jelani was lying in bed when CM met with him. He reported that he is improving, but that he feels very bloated today. Per report, he will be transferred to the med/surge floor today. CM will follow up on [employer] referral tomorrow in order to obtain health insurance for access to care. CM will continue to follow. A: Jelani is a 59 year old male admitted to [facility] on 10/02/19 with Acute GI bleeding, anemia, alcohol withdrawal. P: Jelani continues to be monitored at ICU level of care. Per report, his GI bleed has stopped. If he begins to bleed again, he will need an emergent transfer, per report. He is being observed while actively withdrawing from alcohol use. Anticipate he will discharge once medically cleared. CM faxed a referral to [employer] for assistance with insurance, as he is in self pay status. He will follow up with his PCP and discharge plan of care. CM will continue to follow and support discharge planning considerations.
[2019-10-05] MEDS: Thiamine 100 MG TAB PO (10:17)
[2019-10-05] MEDS: Folic Acid 1 MG TAB PO (10:18)
[2019-10-05] MEDS: Multivitamin TAB 1 TAB PO (10:18)
--- NOTE | 2019-10-05 11:19 | PGE_ITS ---
Date of Service Date of service: 10/05/19 Time of Service: 11:19 Assessment and Plan Assessment and plan (1) Anemia due to acute blood loss: Status: Acute Assessment and plan: S/p transfusion of 4 units of pRBCs after admission on 10/02/2019. Hemoglobin and hematocrit to be stable since then. Source appears to be upper GI bleed that has stopped, see below. (2) Alcohol dependence with withdrawal with complication: Status: Acute Assessment and plan: Is highly motivated to stop drinking. We will try to connect him with mental health resources here. Of the medical therapies, acamprosate may be the only medical option given his liver disease, but he feels like he will be able to stay sober on his own. (3) Acute GI bleeding: Status: Resolved Assessment and plan: EGD without evidence of acute bleeding, though does have esophageal varices. Given his history of vomiting large amount of blood in the presence of these varices, have to assume the major source of bleeding was variceal. Given his lack of ascites and high risk for bleeding, I will initiate nonselective beta-daniela therapy. For now, continue PPI, who twice daily dosing. Should he rebleed, an emergent transfer to a tertiary care facility should be pursued as he would need a banding or coiling procedure for his varices. (4) Alcoholic hepatitis without ascites: Status: Acute Assessment and plan: I am not sure how much acute hepatitis there is, as labs do not seem to be improving with cessation of alcohol. His laboratory abnormalities may be due to chronic alcoholic cirrhosis Maddrey score of 14.8 indicated good prognosis either way. No benefit from prednisolone at this time. (5) Alcohol withdrawal delirium: Status: Acute Assessment and plan: He is no longer scoring on CIWA while this morning. We will continue to monitor over the next day before discontinuation of the protocol, but I do not think he is at high risk for going into delirium tremens or having a seizure. (6) Hypoxia: Status: Acute Assessment and plan: Hypoxia has resolved. Chest x-ray could not exclude left basilar infiltrate, but does not have symptoms of pneumonia or pneumonitis currently. Continue to monitor. (7) Metastatic neoplastic disease: Status: Acute Assessment and plan: Tumor markers ordered, pending, including PSA. There is some suggestion of colonic thickening on the CAT scan, per make more sense with liver metastases and prostate cancer. I think we will start by having GI review CAT scan to assess the possibility of colonoscopy with biopsy, versus interventional radiology. (8) Cirrhosis of liver: Status: Chronic Assessment and plan: Alcoholic cirrhosis with portal hypertension, esophageal varices, coagulopathy, thrombocytopenia. Ammonia mildly elevated, but his mental status has improved and he does not clinically look like acute encephalopathy. We do not have recent lab testing to distinguish acute versus chronic liver disease, but the stability of his labs of the past 3 days do suggest that he does have stable chronic decompensated cirrhosis. His current child Romi Schmitz score is 9 or 10 depending on if you count mild encephalopathy. (9) Esophageal varices: Status: Acute Assessment and plan: As above (10) Portal hypertension: Status: Chronic Assessment and plan: Will start beta-blockers now that more hemodynamically stable. (11) Urinary retention: Status: Acute Assessment and plan: Now on finasteride and tamsulosin. We were able to remove the Moya and he is voiding on his own currently. Continue to monitor. (12) Enlarged prostate: Status: Acute Assessment and plan: As above (13) DVT prophylaxis: Status: Acute Assessment and plan: TEDs/SCDs. Chemical DVT ppx is contraindicated in setting of acute bleeding (14) Discharge planning issues: Status: Acute Assessment and plan: Full code. Consult palliative care. Poor prognosis. Transfer to floor today. We will get a PT consult for safety. For discharge. He also needs to apply for medical insurance. Will need malignancy workup on discharge and referral to GI on discharge. Subjective Subjective Patient reports: tolerating liquids well; denies nausea, vomiting, shortness of breath and fever Interval history since last seen: 24 hours: No longer scoring on alcohol withdrawal protocol Jelani states he is feeling a little better. He still feels generally fatigued. Stools are still black, but more formed this morning. No gross blood in the stool. His stomach feels full no little bloated after eating well yesterday, but not nauseous and not vomiting. He had some burning in the left groin after Moya removed, but not severe. No fevers. No chest pain or shortness of breath. He still little lightheaded when getting up. He is hesitant about being able to take care of himself when he goes home due to his weakness. Exam Narrative Exam Narrative: General: Alert and oriented, able to have a coherent conversation, no slurring of speech or confusion evident. HEENT: EOMI, MMM, mild icterus Heart: RRR, no m/r/g Lungs: CTAB, normal effort Abdomen: soft, nontender, softly distended. No shifting dullness or other obvious signs of ascites. Extremities: no e/c/c BLE's Skin: Some bruises, no periumbilical varices or other vascular abnormalities. Subtle jaundice. Neurologic: No tremor or asterixis. Normal speech and coordination grossly this morning. Objective Objective Clinical Data: Abnormal lab results 10/05/19 10/05/19 Range/Units 06:15 06:15 RBC 3.49 L (4.50-6.00) m/cumm Hgb 8.5 L (13.5-17.5) g/dL Hct 28.1 L (40.0-50.0) % MCH 24.4 L (27.0-33.0) pg MCHC 30.2 L (32.0-36.0) g/dL RDW 24.0 H (11.8-14.1) % Plt Count 67 L (130-400) x1000/uL Sodium 134 L (136-145) mmol/L Potassium 3.4 L (3.5-5.1) mmol/L BUN 6 L (7-18) mg/dL Calcium 7.4 L (8.5-10.1) mg/dL Vital Signs Temperature 36.8 C 10/05/19 08:38 Temperature Source Temporal Artery Scan 10/05/19 08:38 Pulse 101 H 10/05/19 08:13 Pulse 105 H 10/05/19 08:13 Respiratory Rate 28 H 10/05/19 08:13 Respiratory Effort 10/05/19 08:38 Respiratory Depth Normal 10/05/19 08:38 Respiratory Pattern Normal 10/05/19 08:38 Blood Pressure 119/75 10/05/19 08:13 Blood Pressure Mean 84 10/05/19 08:13 Blood Pressure Position Supine 10/05/19 08:38 Pulse Oximetry 96 10/05/19 08:38 Oxygen Delivery Method Room Air 10/05/19 08:38 Oxygen Flow Rate 0 10/05/19 08:38 Pain Level 1 10/05/19 08:38 Intake & Output 10/04/19 10/04/19 10/05/19 11:59 23:59 11:59 Intake Total 2340 / 4111.200 1771.200 / 4111.200 2235.0 / 2235.0 Output Total 250 / 730 480 / 730 500 / 500 Balance 0 / 3381.200 1291.200 / 3381.200 1735.0 / 1735.0 Weight 69.1 kg Intake: IV 2100 / 3261.200 1161.200 / 3261.200 2235.0 / 2235.0 Oral 240 / 850 610 / 850 Output: Urine 250 / 730 480 / 730 500 / 500 Other: Urine Color Dark Vanessa Dark Vanessa Dark Vanessa Brown Urine Appearance Clear Clear Urine Odor None Comment moya cath patent and draining. est urine- mixed with stool - cath removed as pt had increasing lower abdomen\lt side groin pain and demanded cath removal. pain has decreased since removal. bladder scanned for ammounts 150-under three hundred Stool Occult Blood Positive Positive Stool Size Small Small Small Stool Characteristics Soft Soft Soft Black Formed Formed Black Laboratory Results WBC 4.72 k/cumm (4.4-10.8) 10/05/19 06:15 RBC 3.49 m/cumm (4.50-6.00) L 10/05/19 06:15 Hgb 8.5 g/dL (13.5-17.5) L 10/05/19 06:15 Hct 28.1 % (40.0-50.0) L 10/05/19 06:15 MCV 80.5 fL (80-95) 10/05/19 06:15 MCH 24.4 pg (27.0-33.0) L 10/05/19 06:15 MCHC 30.2 g/dL (32.0-36.0) L 10/05/19 06:15 RDW 24.0 % (11.8-14.1) H 10/05/19 06:15 Plt Count 67 x1000/uL (130-400) L 10/05/19 06:15 MPV fL (8.0-11.0) 10/05/19 06:15 Immature Gran % 0.2 % 10/04/19 06:20 Neutrophils % 60.1 10/04/19 06:20 Lymphocytes % 25.1 10/04/19 06:20 Monocytes % 13.2 10/04/19 06:20 Eosinophils % 0.9 10/04/19 06:20 Basophils % 0.5 10/04/19 06:20 Absolute Neutrophils 3.33 k/cumm (1.2-6.7) 10/04/19 06:20 Absolute Lymphocytes 1.39 k/cumm (1.2-3.4) 10/04/19 06:20 Absolute Monocytes 0.73 k/cumm (0.11-0.7) H 10/04/19 06:20 Absolute Eosinophils 0.05 k/cumm (0.0-0.7) 10/04/19 06:20 Absolute Basophils 0.03 k/cumm (0.0-0.2) 10/04/19 06:20 Differential Comment Diff reviewed 10/04/19 06:20 RBC Morphology See below 10/04/19 06:20 Polychromasia Present 10/04/19 06:20 Hypochromasia 2+ 10/04/19 06:20 Poikilocytosis 2+ 10/04/19 06:20 Anisocytosis 3+ 10/04/19 06:20 Microcytosis 2+ 10/04/19 06:20 PT 13.2 sec (9.3-11.0) H 10/03/19 09:00 INR 1.3 (0.9-1.1) H 10/03/19 09:00 APTT 22.5 sec (21.0-31.4) 10/02/19 18:19 Sodium 134 mmol/L (136-145) L 10/05/19 06:15 Potassium 3.4 mmol/L (3.5-5.1) L 10/05/19 06:15 Chloride 102 mmol/L (98-107) 10/05/19 06:15 Carbon Dioxide 24.3 mmol/L (21.0-32.0) 10/05/19 06:15 Anion Gap 7.7 mmol/L (3-11) 10/05/19 06:15 BUN 6 mg/dL (7-18) L 10/05/19 06:15 Creatinine 0.81 mg/dL (0.70-1.30) 10/05/19 06:15 Estimated GFR/1.73 m2 >= 60.00 (mL/min/1.73m2) 10/05/19 06:15 Glucose 102 mg/dL (74-106) 10/05/19 06:15 Calcium 7.4 mg/dL (8.5-10.1) L 10/05/19 06:15 Phosphorus 2.6 mg/dL (2.6-4.7) 10/02/19 18:19 Magnesium 2.1 mg/dL (1.8-2.4) 10/05/19 06:15 Total Bilirubin 4.0 mg/dL (0.2-1.0) H 10/04/19 06:20 Conjugated Bilirubin 2.32 mg/dL (0.00-0.20) H 10/04/19 06:20 GGT 419 U/L (15-85) H 10/03/19 09:00 AST 127 U/L (15-37) H 10/04/19 06:20 ALT 65 U/L (16-63) H 10/04/19 06:20 Alkaline Phosphatase 90 U/L (46-116) 10/04/19 06:20 Ammonia 33 umol/L (11-32) H 10/03/19 14:09 Troponin I < 0.05 ng/mL (<0.06) 10/02/19 18:19 Total Protein 5.7 g/dL (6.4-8.2) L 10/04/19 06:20 Albumin 2.4 g/dL (3.4-5.0) L 10/04/19 06:20 Lipase 156 U/L (73-393) 10/02/19 18:19 Urine Color Yellow (Yellow) 10/03/19 01:15 Urine Clarity Clear (Clear) 10/03/19 01:15 Urine pH 5.0 (5-8) 10/03/19 01:15 Ur Specific [place] <= 1.005 (1.005-1.025) 10/03/19 01:15 Urine Protein Negative mg/dL (Negative) 10/03/19 01:15 Urine Ketones Negative mg/dL (Negative) 10/03/19 01:15 Urine Blood Negative (Negative) 10/03/19 01:15 Urine Nitrite Negative (Negative) 10/03/19 01:15 Urine Bilirubin Negative (Negative) 10/03/19 01:15 Urine Urobilinogen 2.0 EU/dL (Up TO 0.2) H 10/03/19 01:15 Ur Leukocyte Esterase Negative (Negative) 10/03/19 01:15 Urine Glucose Negative mg/dL (Negative) 10/03/19 01:15 Urine Opiates Screen Negative (Negative) 10/03/19 01:15 Urine Methadone Screen Negative (Negative) 10/03/19 01:15 Ur Barbiturates Screen Negative (Negative) 10/03/19 01:15 Ur Tricyclics Screen Negative (Negative) 10/03/19 01:15 Ur Amphetamines Screen Negative (Negative) 10/03/19 01:15 U Benzodiazepines Scrn Negative (Negative) 10/03/19 01:15 Urine Cocaine Screen Positive (Negative) A 10/03/19 01:15 Ur THC Screen Positive (Negative) A 10/03/19 01:15 Ethyl Alcohol < 3.0 mg/dL (<3) 10/02/19 18:19 COVID-19 PCR Negative (Negative) 10/02/19 21:37 Nasopharyn COVID-19 PCR Not Applicable 10/02/19 21:37 Ref Test Perform Site [facility] lab 10/02/19 21:37 Patient ABO/Rh O Negative 10/02/19 18:19 Antibody Screen Negative 10/02/19 18:19 Crossmatch See Detail 10/02/19 18:19
[2019-10-05] MEDS: Acetaminophen 325 MG TAB PO ×3 (11:25→21:11)
[2019-10-05] MEDS: Simethicone 80 MG CHEW PO ×2 (15:46→21:11)
[2019-10-05] MEDS: Normal Saline Flush 10 ML SYR IVP ×2 (15:46→21:11)
[2019-10-05] MEDS: Pantoprazole 40 MG VIAL IVP (21:11)
[2019-10-06 07:03] LABS: HCT 31.4 % (40.0-50.0); HGB 9.2 g/dL (13.5-17.5); Mean Corp. HGB Concentration 29.3 g/dL (32.0-36.0); Mean Corpuscular Hemoglobin 24.1 pg (27.0-33.0); Mean Corpuscular Volume 82.2 fL (80-95); RBC 3.82 m/cumm (4.50-6.00); RBC Distribution Width 25.4 % (11.8-14.1); White Blood Cell Count 6.86 k/cumm (4.4-10.8)
[2019-10-06 07:45] LABS: Platelet Count 95 x1000/uL (130-400)
[2019-10-06 08:00] VITALS: TEMP 36.9; O2SAT 98
[2019-10-06] MEDS: Pantoprazole 40 MG VIAL IVP (08:04)
[2019-10-06] MEDS: Multivitamin TAB 1 TAB PO (08:05)
[2019-10-06] MEDS: Finasteride 5 MG TAB PO (08:05)
[2019-10-06] MEDS: Tamsulosin 0.4 MG CAPCR PO (08:05)
[2019-10-06] MEDS: Thiamine 100 MG TAB PO (08:05)
[2019-10-06] MEDS: Normal Saline Flush 10 ML SYR IVP (08:05)
[2019-10-06] MEDS: Folic Acid 1 MG TAB PO (08:05)
[2019-10-06 08:18] VITALS: BP 129/74; PULSE 93; O2SAT 96
--- NOTE | 2019-10-06 08:35 | IN_ITS ---
Date of service: 10/06/19 Time of Service: 08:35 PT Notes Visit Reasons: ACUTE GI BLEED W/ACUTE BLOOD LOSS ANEMIA,ALCOHOL W Physical Therapy Inpatient Initial Evaluation Date: 10/06/2019 Referring Doctor: Salvador Narayan MD PT Orders: PT CONSULT: 59-year-old with GI bleed, cirrhosis, weak. Considering discharge 10/05, safety? Precautions: Fall. Standard. Activity as tolerated. Patient Profile/Admitting Diagnosis: Jelani is a 59-year-old male who presented to the ED on 10/02/2019 which complains of vomiting with blood, black tarry stools that started 2 days prior to admission. Patient is diagnosed with acute GI bleed, acute anemia due to acute blood loss, EtOH withdrawal delirium, metastatic neoplastic disease, EtOH dependence, EtOH hepatitis, hypoxia, esophageal varices, urinary retention and enlarged prostate. Referral for skilled physical therapy is received today to assess for safety of discharge planning. PMHX: Medical History Advanced hepatic cirrhosis (Acute) Alcohol abuse (Chronic) Alcohol dependence with withdrawal with complication (Acute) Alcoholic liver failure (Acute) Anxiety (Chronic) Depression (Chronic) GERD (gastroesophageal reflux disease) (Chronic) Metastatic neoplastic disease (Acute) Surgical History H/O vasectomy (Acute) History of colon resection (Chronic) due to diverticulitis; sigmoid History of hernia repair (Chronic) Repair of inguinal hernia Vasectomy Social History/Home Situation: Lives alone in a private home with 4 steps to enter with rails on both sides. Son prepares meals and helps with laundry. . 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 He is independent with all aspects of ADLs prior to admissio n. Equipment Owned/DME: None Subjective: Patient is agreeable to a PT evaluation today. He denies pain, chest pain, and dizziness throughout PT session. Objective: General Observation: Telemetry monitoring in place. Mental Status: Alert and oriented x4 Pain: None reported ROM: Right Upper Extremity: Shoulder Flexion WFL. Shoulder abduction WFL. Elbow flexion WFL. Wrist flexion WFL. Opening and closing of hand WFL. Left Upper Extremity: Shoulder Flexion WFL. Shoulder abduction WFL. Elbow flexion WFL. Wrist flexion WFL. Opening and closing of hand WFL. Right Lower Extremity: Hip flexion WFL. Hip abduction WFL. Knee flexion WFL. Ankle dorsiflexion WFL. Ankle plantarflexion WFL. Left Lower Extremity: Hip flexion WFL. Hip abduction WFL. Knee flexion WFL. Ankle dorsiflexion WFL. Ankle plantarflexion WFL. Strength: Right Upper Extremity: Shoulder flexors 5/5. Shoulder abductors 5/5. Elbow flexors 5/5. Elbow extensors 5/5. Corporate Webmaster strong. Left Upper Extremity: Shoulder flexors 5/5. Shoulder abductors 5/5. Elbow flexors 5/5. Elbow extensors 5/5. Corporate Webmaster strong. Right Lower Extremity: Hip flexors 5/5. Hip abductors 5/5. Knee flexors 5/5. Knee extensors 5/5. Ankle dorsiflexors 5/5. Ankle plantarflexors 5/5. Left Lower Extremity:Hip flexors 5/5. Hip abductors 5/5. Knee flexors 5/5. Knee extensors 5/5. Ankle dorsiflexors 5/5. Ankle plantarflexors 5/5. Sensation: Intact as to pain and pressure on bilateral lower extremities. Bed Mobility/Transfers: Rolling independent Supine to sit independent Sit to supine independent Sit to stand independent Stand to sit independent Bed to chair independent Chair to bed independent Gait: Patient tolerated level surface ambulation of 520 feet without an assistive device with normal gait pattern. No SOB. No LOB. Balance: Static Sitting: Normal Dynamic Sitting: Normal Static Standing: Normal Dynamic Standing: Good Special Tests: Mobility Limitations Standardized Measure [facility] 6 clicks Basic Mobility Inpatient Short Form: Raw Score: 24 CMS Score: 0% deficit Informed Consent/Education: Patient instructed in purpose of PT consult and plan of care. Assessment: Jelani has symmetric range of motion and strength level on both sides. He is independent with all mobility ADL performance without the need of an assistive ambulatory device. No skilled services are needed. Patient may di scharge once medically cleared with no equipment needs at this time Patient is assessed as a 03891 low complexity based on the following: History: 59 [id number] with impairment level findings, functional limitations, and past medical history as indicated above Examination: No demonstrable impairment in strength, balance, and mobility level with underlying impairments and functional limitations as documented above Presentation: Stable Decision Makin low complexity Goals: N/A. PT consult only. Plan of Care/Treatment Plan: N/A. PT consult only. DISCHARGE RECOMMENDATIONS: Home when medically cleared. No equipment needs at this time TREATMENT CODE/TIME: 60985 x 26 minutes beginning at 8:35 AM. Thank you very much for this referral. Mary Dickinson PT, DPT, CLT [facility] [place], [place]
[2019-10-06 10:16] LABS: CEA 1.5 ng/mL (See Note)
[2019-10-06 10:18] LABS: PSA, Diagnostic 5.6 ng/mL (0.0-3.5)
[2019-10-06] MEDS: Nadolol 40 MG TAB PO (11:00)
[2019-10-06] MEDS: Potassium Chloride 20 MEQ TABCR 40 MEQ PO (11:00)
[2019-10-06 11:37] LABS: Hepatitis C Ab w Rflx HCV PCR Negative (Negative)
[2019-10-06 11:45] LABS: AFP Tumor Marker <2.5 ng/mL (<8.1)
--- NOTE | 2019-10-06 12:39 | DSE_ITS ---
Date of service: 10/06/19 Time of Service: 12:39 DS: Diagnosis Discharge Diagnosis (1) Anemia due to acute blood loss: Status: Acute (2) Alcohol dependence with withdrawal with complication: Status: Acute (3) Acute GI bleeding: Status: Resolved (4) Alcoholic hepatitis without ascites: Status: Acute (5) Alcohol withdrawal delirium: Status: Acute (6) Hypoxia: Status: Acute (7) Metastatic neoplastic disease: Status: Acute (8) Cirrhosis of liver: Status: Chronic (9) Esophageal varices: Status: Acute (10) Portal hypertension: Status: Chronic (11) Urinary retention: Status: Acute (12) Enlarged prostate: Status: Acute (13) DVT prophylaxis: Status: Acute (14) Discharge planning issues: Status: Acute Discharge Plan Disposition Patient Disposition: HOME Condition: Serious Discharge Details Chief Complaint: GI Bleed Clinical Impression: Acute GI bleeding, Acute anemia, Alcohol withdrawal, Abdominal malignancy Reason For Visit: ACUTE GI BLEED W/ACUTE BLOOD LOSS ANEMIA,ALCOHOL W Admit Date/Time: 10/02/19 20:54 Admit Provider: Schuyler Goodman Attending Provider: Schuyler Goodman Primary Care Provider: Salvador Cabrera ED Provider: Nathan Nolasco Hospital Course Hospital Course: 59-year-old gentleman with active severe alcohol use disorder who presented after vomiting large amounts of red blood for 2 days. He also had tarry stools. Hemoglobin on admission was 5.4, and he was transfused 4 units packed red blood cells. Endoscopy was performed and showed gastric and esophageal varices, but no active bleed. His hemoglobin was stable around 8-9 after the initial transfusion. Continue to pass black stools, but they became more normal- appearing. Patient was treated for alcohol withdrawal with lorazepam per protocol. His symptoms resolved after about 48 hours. His cocaine was also positive. He felt, he could avoid alcohol and other liver toxins, and understands the severity of his disease. He was not previously aware of a cirrhosis diagnosis. Patient was abuse of the first 2 days of admission. This was likely related to acute alcohol intoxication and his illness. His ammonia was slightly elevated at 33, and he may have mild hepatic cephalopathy. An of the abdomen pelvis was done which confirmed the clinical picture of cirrhosis. It also showed likely metastatic disease with multiple irregularities in the liver, possible mural thickening in the rectum, bladder wall thickening, retroperitoneal adenopathy, osseous lucencies in the spine, soft tissue irregularity in the right inguinal canal, and prostate enlargement with an 8 mm nodule. Patient understands he likely has some sort of malignancy, and will need a biopsy and follow-up appropriate with hematology/oncology. PSA was 5.6. CEA was 1.5, low risk. AFP and hepatitis C antibody with reflex was pending. The patient's Child Romi Schmitz score was 10 based on his labs and mild encephalopathy. He should have follow-up with gastroenterology to consider banding or other intervention on his varices, and help guide management of his cirrhosis and liver masses. He was started on nadolol to treat the portal hypertension, this can be titrated up as tolerated. He did not have ascites or significant peripheral edema. Exam was consistently low and was replaced along with magnesium. He was discharged on oral supplementation. He had some mild burning discomfort in the left groin after Heller removed. Was moving his bowels and urinating. He does have what feels like an inguinal hernia, but this did not seem to be the source of his pain. Holter a couple of service but no like she wants she does have noninfected mood, blood 7 state when overtreated most worried, tiny subsegmental I question reason to be tachycardic and not like I would remind you Concerns and started a new counselor and so you could you could message will benefit note but I would feel has been starting carvedilol I started the Cardizem on top of can hold off on the that he possibly had. He did not know he will be yes otitis has had been eating for 5 days and like clear calcific procalcitonin is below this count is this is like and is been on IV Dilaudid per week is under slight ventilator still here she had seen no problem he I think probably worse case that would be that no current heart block denial because 3. Try to treat this may best be to I probably would start this for and make sure skin appointments were wounds Home Meds and New Rx's Prescriptions: New acetaminophen [Tylenol] 325 mg Tablet 650 mg PO Q4H PRN PRNQty: 100 RF: 0 multivitamin [Multiple Vitamins] Tablet 1 tab PO DAILY Qty: 90 RF: 3 potassium chloride [Klor-Con M20] 20 mEq Tablet,Er Particles/Crystals 20 meq PO DAILY Qty: 30 RF: 1 tamsulosin 0.4 mg Capsule 0.4 mg PO DAILY Qty: 30 RF: 2 nadolol [Corgard] 40 mg Tablet 40 mg PO DAILY Qty: 30 RF: 2 finasteride 5 mg Tablet 5 mg PO DAILY Qty: 30 RF: 2 Continued esomeprazole magnesium [Nexium] 20 MG capsule,delayed release(DR/EC) 40 mg PO BID Qty: 60 RF: 0 Discharge Instructions Instructions: Gastrointestinal Bleeding (DC), Cirrhosis (DC) Additional Instructions: Avoid all alcohol. It is important to continue the stomach medication at least until you are seen by the specialist at [facility]. You should also avoid ibuprofen and other similar medications called NSAIDs. You can take up to 2000 mg of acetaminophen (Tylenol) a day. Nadolol is to decrease risk of bleeding. On the ambulance immediately if you vomit blood or get new blood in your stools again. The finasteride and tamsulosin are to shrink your prostate and help you urinate. [place] [place] (Esophageal varices with acute hemorrhage, need to banding. New diagnosis alcoholic cirrhosis, liver masses. HCC versus metastatic disease.) Activity:: Activity as Tolerated Equipment/Supplies:: No Equipment Needed Diet:: As Tolerated Discharge Orders Discharge Orders: Discharge Order (Routine); Ordered 10/06/19 Ordered By: Salvador Narayan Other Ambulatory Orders: Complete Blood Count w/Diff (Routine) Location: None Selected Ordered By: Salvador Narayan Comprehensive Metabolic Panel (Routine) Timeframe: 1 Week Location: None Selected Ordered By: Salvador Narayan Discharge Data Discharge Date/Time-TO BE ENTERED AT DEPARTURE: 10/06/19 11:50 DS: Summary Status at Discharge Functional status at discharge: independent ambulation Overall status at discharge: patient is back to baseline Mental Status: mental status grossly normal Speech and Movement: speech and movement normal Mood: congruent mood Affect: normal affect Exam Narrative Exam Narrative: General: Alert and oriented, able to have a coherent conversation, no slurring of speech or confusion. HEENT: EOMI, MMM, mild icterus Heart: RRR, no m/r/g Lungs: CTAB, normal effort Abdomen: soft, nontender, softly and mildly distended. No fluid wave or other obvious signs of ascites. Left inguinal exam with bulge with Valsalva, nontender. Normal genitals. Extremities: no e/c/c BLE's Skin: Some bruises, no periumbilical varices or other vascular abnormalities. Subtle jaundice. Neurologic: No tremor or asterixis. Normal speech and coordination grossly this morning. Psych Mental Status: mental status grossly normal Speech and Movement: speech and movement normal Mood: congruent mood Affect: normal affect DS: Data Vitals/I&O Vitals and I&O: Vital Signs Temperature 36.9 C 10/06/19 08:00 Temperature Source Temporal Artery Scan 10/06/19 08:00 Pulse 93 H 10/06/19 08:18 Pulse Rhythm Regular 10/06/19 08:00 Pulse 94 H 10/05/19 11:00 Respiratory Rate 12 10/05/19 16:05 Respiratory Effort 10/06/19 08:00 Respiratory Depth Normal 10/06/19 08:00 Respiratory Pattern Normal 10/06/19 08:00 Blood Pressure 129/74 10/06/19 08:18 Blood Pressure Mean 87 10/06/19 08:18 Blood Pressure Position Supine 10/05/19 08:38 Pulse Oximetry 96 10/06/19 08:18 Oxygen Delivery Method Room Air 10/06/19 08:00 Oxygen Flow Rate 0 10/06/19 08:00 Pain Level 0 10/05/19 16:46 Intake & Output 10/05/19 10/06/19 10/06/19 23:59 11:59 23:59 Intake Total 620 / 2855.0 Output Total 250 / 850 1000 / 1000 Balance 370 / 2005.0 -1000 / -1000 Intake: IV 20 / 2255.0 Oral 600 / 600 Output: Urine 250 / 850 1000 / 1000 Other: Urine Color Dark Vanessa Light Vanessa Urine Appearance Clear Clear Urine Odor None Stool Occult Blood Negative Negative Stool Size Moderate Moderate Stool Characteristics Soft Soft Formed Formed Brown Voiding Methods Urinal Data Completed and Pending Labs on day of discharge: Labs from last 24 hours 10/06/19 10/03/19 10/03/19 06:40 09:00 09:00 WBC 6.86 D RBC 3.82 L Hgb 9.2 L Hct 31.4 L MCV 82.2 MCH 24.1 L MCHC 29.3 L RDW 25.4 H Plt Count 95 L MPV Tumor Marker AFP Carcinoembryonic Ag Prostate Specific Ag 5.6 H Hepatitis C Antibody Negative 10/03/19 09:00 WBC RBC Hgb Hct MCV MCH MCHC RDW Plt Count MPV Tumor Marker AFP <2.5 Carcinoembryonic Ag 1.5 Prostate Specific Ag Hepatitis C Antibody PFS Medical History Advanced hepatic cirrhosis (Acute) Alcohol abuse (Chronic) Alcohol dependence with withdrawal with complication (Acute) Alcoholic liver failure (Acute) Anxiety (Chronic) Depression (Chronic) GERD (gastroesophageal reflux disease) (Chronic) Metastatic neoplastic disease (Acute) Surgical History H/O vasectomy (Acute) History of colon resection (Chronic) due to diverticulitis; sigmoid History of hernia repair (Chronic) Repair of inguinal hernia Vasectomy Family History Mother Neoplasm Father Diabetes Essential hypertension Neoplasm Sister No problems noted. Social History Smoking/Tobacco Use Status: Never Alcohol Intake: current Alcohol Intake frequency: 3 or more drinks per day Drug use: Daily Substance use type: marijuana Do you feel safe at home: Yes Do you feel safe in your relationship?: Yes
--- NOTE | 2019-10-06 14:29 | PDOC.CMDIS ---
- If Service Date Differs Date of service: 10/06/19 Time of Service: 14:29 LACE Index Scoring Tool - Questions: Length of Stay (in days): 4 - 6 Acuity (Admit via E.D.?): Yes Comorbidities: Liver or Renal Disease, Metastatic Solid Tumor E.D. Visits: 1 - Answers: Total Score: 13 Risk of Readmission: High Risk Care Management Discharge Reason for Hospitalization: Acute GI bleed with acute blood loss, anemia Discharge Plan: Jelani will return home with his son, Marlon. Marlon will drive him home via private vehicle. LAVERN followed up with Leanna today, and assisted by having him sign a consent form in order for them to complete and send in his [facility] application. Due to access to care, they anticipate that he will have his policy in place by tomorrow. Jelani declined talking to the assistant women's basketball coach, as he stated that he is already connected to a assistant women's basketball coach. Jelani will follow up with his PCP and discharge plan of care. Jelani is happy to be returning home. Patient/Family Education Needs: Review discharge instructions regarding activity levels and medications, discussion of self care needs and goals of care.
== END 2019-10-06 11:50 | disposition home or self-care (01) | DRG 378 ==
LOC: ER 21:51 → ICU 21:53
PROVIDERS: Internal Medicine; Physician Assistant; Surgery; Admitting Provider Family Medicine; Emergency Provider Student in an Organized Health Care Education/Training Program; PCP Family Medicine; Visit Provider Family Medicine
PROC: 0DJ68ZZ Inspection of Stomach, Via Natural or Artificial Opening Endoscopic (ICD-10-PCS; CPT 43235; principal; 2019-10-03 10:30)
DX: K92.2 Gastrointestinal hemorrhage, unspecified (principal); D62 Acute posthemorrhagic anemia; F10.239 Alcohol dependence with withdrawal, unspecified; C79.89 Secondary malignant neoplasm of other specified sites; K76.6 Portal hypertension; F10.231 Alcohol dependence with withdrawal delirium; K70.30 Alcoholic cirrhosis of liver without ascites; K72.90 Hepatic failure, unspecified without coma; K70.10 Alcoholic hepatitis without ascites; I85.10 Secondary esophageal varices without bleeding; K31.89 Other diseases of stomach and duodenum; R09.02 Hypoxemia; Z03.818 Encounter for observation for suspected exposure to other biological agents ruled out; E83.42 Hypomagnesemia; E87.6 Hypokalemia; R33.9 Retention of urine, unspecified; N40.0 Benign prostatic hyperplasia without lower urinary tract symptoms; K21.0 Gastro-esophageal reflux disease with esophagitis; Z71.3 Dietary counseling and surveillance; I10 Essential (primary) hypertension; Y90.0 Blood alcohol level of less than 20 mg/100 ml
CPT/HCPCS: 43239; 36415; 36430; 71275; 74177; 80048; 80053; 80076; 80307; 83690; 85027; 86803; 86850; 86900; 86901; 86920; 88305; 93005; 96361; 96365; 96368; 96375; 97162; 99223; 99231; 99233; 99239; 99254; 99285; 99291; U0003; 71045; 80320; 81003; 82105; 82140; 82378; 82977; 83735; 84100; 84153; 84484; 85014; 85018; 85025; 85610; 85730; 93010; J2001; J2060; J2405; J2704; J3430; J3475; J3480; J3490; P9016

== ENCOUNTER 2020-01-02 08:54 | Inpatient (IN) | payer MEDICAID, SELFPAY ==
[2020-01-02] VITALS (160 sets, daily range): BP systolic 93–167; BP diastolic 52–110; PULSE 81–138; RESP 11–46; TEMP 36–37.1; O2SAT 90–100
--- NOTE | 2020-01-02 09:00 | RT.EKG_ITS ---
APPROVED REPORT Exam: Resting ECG Patient Location: E HR:120 bpm ECG Measurements Heart Rate 120 AXIS [place] 160 P 29 QRSd 94 QRS -29 QT 331 T 33 QTc 468 Conclusion Sinus tachycardia...rate> 99 Low voltage, precordial leads...precordial leads <1.0mV
--- NOTE | 2020-01-02 09:09 | DI.CT_ITS ---
EXAM: CT CHEST/ABD/PEL W CLINICAL HISTORY: Left rib pain, GI bleed. TECHNIQUE: Imaging Protocol: Axial computed tomography images with coronal and sagittal reformatted images were created and reviewed CONTRAST MATERIAL: Intravenous: Omnipaque 350 Contrast volume:100 Oral: no COMPARISON: CT CT CHEST PE ABD PELVIS W from 10/02/2019 FINDINGS: CHEST: The heart size is normal. There are no pleural or pericardial effusions. There are multiple old and subacute left rib fractures. No acute fracture is identified. There is no evidence of pneumothorax , pleural or pericardial effusion. No infiltrate is seen. Tracheobronchial tree appears intact. ABDOMEN: Liver: Enlarged heterogeneous, cirrhotic appearing liver. Stable low-density lesion left lobe. Gallbladder and biliary tract: No radiodense calculus or dilation. Pancreas: Normal density, no abnormal calcifications or inflammatory process. Spleen: Stable splenic enlargement. Kidneys: Normal size, contour and axis. No radiodense stones or obstructive uropathy. No masses seen. Adrenal glands: No masses seen. Aorta: Abdominal portion non-dilated. Lymph nodes: Within normal limits. PELVIS: Bladder: Symmetric distention, no gross wall thickening. Bowel: No obstruction or bowel wall thickening. Esophageal varices. Thickened distal esophagus. Div erticulum of the descending duodenum. Normal appendix. Mild colonic diverticulosis. No evidence of diverticulitis. Peritoneal cavity: Increased ascites seen around the liver when compared to the previous exam. Soft tissues: Prior right inguinal hernia repair. Small fatty containing left inguinal hernia. Bones: Stable mild L1 compression fracture. No acute fractures in the spine or pelvis. Reproductive organs: Enlarged prostate. IMPRESSION: Small amount of ascites. Cirrhotic appearing liver. Esophageal varices. Old left rib fractures. N o acute abnormality in the chest. RADIATION DOSE DELIVERED: Total DLP DATA REPOSITORY: All CT scans at this facility are submitted to the National Radiology Data Registry (NRDR) Dose Index Registry (DIR) with the [employer] (ACR). RADIATION OPTIMIZATION: All CT scans at this facility use at least one of these dose optimization te chniques: automated exposure control; mA and/or kV adjustment per patient size (includes targeted exa ms where dose is matched to clinical indication); or iterative reconstruction.
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
[2020-01-02] MEDS: Normal Saline 100 ML 500 ML (09:36)
[2020-01-02] MEDS: Ondansetron 4 MG/2 ML VIAL IVP (09:36)
[2020-01-02] MEDS: Normal Saline 1,000 ML 1000 ML IV (09:36)
[2020-01-02] MEDS: Pantoprazole 40 MG VIAL 80 MG IVP (09:36)
[2020-01-02 09:37] LABS: Abs Immature Grans 0.04 10^3/uL (0.0-0.06); Absolute Basophil Count 0.08 10^3/uL (0.0-0.2); Absolute Eosinophil Count 0.02 10^3/uL (0.0-0.7); Absolute Lymphocyte Count 1.33 10^3/uL (1.2-3.4); Absolute Monocyte Count 0.96 10^3/uL (0.1-0.8); Absolute Neutrophil Count 8.94 10^3/uL (1.2-6.7); Basophils % 0.7; Eosinophils % 0.2; HCT 29.3 % (40.0-50.0); HGB 8.4 g/dL (13.5-17.5); Immature Grans % 0.4; Lymphocytes % 11.7; MCHC 28.7 % (32.0-36.0); MCV 80.3 fL (80-95); Monocytes % 8.4; Neutrophils % 78.6; Nucleated RBC 0 %; RBC 3.65 10^6/uL (4.36-5.78); RDW 24.4 % (11.8-14.1); RDW-SD 67.5 fL; WBC 11.37 10^3/uL (4.4-10.8)
[2020-01-02 09:47] LABS: INR 1.4 (0.9-1.1); Prothrombin Time 13.8 sec (9.3-11.0)
[2020-01-02 09:53] LABS: Anisocytosis 3+; Diff Comment RBC Morph Reviewed; Hypochromasia 3+; Macrocytosis 1+; Microcytosis 1+; Platelet Count 97 10^3/uL (130-400); Polychromasia Present
[2020-01-02 09:54] LABS: Poikilocytes 1+
[2020-01-02 09:56] LABS: ALT 30 U/L (16-63); AST 67 U/L (15-37); Albumin 2.7 g/dL (3.4-5.0); Alkaline Phosphatase 199 U/L (46-116); Anion Gap 8.9 mmol/L (3-11); BUN 13 mg/dL (7-18); Bilirubin, Total 4.3 mg/dL (0.2-1.0); CO2 26.1 mmol/L (21.0-32.0); CREATININE 0.87 mg/dL (0.70-1.30); Calcium 8.5 mg/dL (8.5-10.1); Chloride 95 mmol/L (98-107); Glucose 136 mg/dL (74-106); Lipase 75 U/L (73-393); Magnesium 1.2 mg/dL (1.8-2.4); Potassium 3.2 mmol/L (3.5-5.1); Sodium 130 mmol/L (136-145)
[2020-01-02 09:57] LABS: Troponin I < 0.05 ng/mL (<0.06)
[2020-01-02] MEDS: Normal Saline Flush 10 ML SYR IVP (10:00)
[2020-01-02] MEDS: Normal Saline - Diluent 50 ML VIAL IV (10:01)
[2020-01-02] MEDS: Omnipaque 350 MG/ML 100 ML BTL IJ (10:02)
--- NOTE | 2020-01-02 12:30 | RT.EKG_ITS ---
APPROVED REPORT Exam: Resting ECG Patient Location: E HR:109 bpm ECG Measurements Heart Rate 109 AXIS [place] 159 P 42 QRSd 101 QRS -10 QT 351 T 42 QTc 472 Conclusion Sinus tachycardia...rate 109, narrow complex qrs without st elev
[2020-01-02 13:20] LABS: Troponin I < 0.05 ng/mL (<0.06)
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
--- NOTE | 2020-01-02 15:41 | INITIAL_ITS ---
- If Service Date Differs Date of service: 01/02/20 Time of Service: 16:01 Care Management Initial Assess REASON FOR HOSPITALIZATION:: GI Bleed PAST MEDICAL HISTORY/PAST SURGICAL HISTORY:: acute GI bleeding, advanced hepatic cirrhosis, alcohol abuse, alcohol dependence with withdrawal with complication, alcoholic liver failure, anxiety, depression, GERD, vasectomy, colon resection, hernia repair, inguinal repair, vasectomy PREVIOUS FUNCTIONAL STATUS/SOCIAL/FAMILY SUPPORTS:: Jelani lives in [place] with his son, Marlon. 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 He is independent with ADLs in the community. CURRENT FUNCTIONAL STATUS:: Jelani was lying in bed when CM met with him. He remembered working with Care Management earlier in the year and reported [facility] saved my life, as he was unable to afford extremely expensive medications. He was pleasant in interaction and shared no additional concerns at this time. ADVANCE DIRECTIVES:: None on file. Has patient been provided with info about the portal/API?: No Did the patient sign up for the portal?: No CODE STATUS:: Full Code INSURANCE COVERAGE / FINANCIAL ISSUES:: Self Pay CURRENT HOME/COMMUNITY SERVICES/EQUIPMENT:: Jelani currently does not have equipment or services in the community. PRIMARY CARE PHYSICIAN:: Salvador Cabrera MD. [facility]. POTENTIAL DISCHARGE NEEDS:: Evaluations for further needs, follow up appointments. PATIENT/FAMILY EDUCATION NEEDS:: Review discharge instructions regarding activity levels and medications, discussion of self care needs including ask me three ANTICIPATED BARRIERS TO DISCHARGE:: None identified at this time. TRANSPORTATION:: Via private vehicle by family when ready. PLAN:: Jelani is being monitored in the ICU currently. He is on CIWA protocol at this time due to prior withdrawal at [facility]. It is recommended, per report, that he stop drinking alcohol. CM will discuss options and call resource recovery engineer in the event Jelani is agreeable.
[2020-01-02 16:03] LABS: HCT 23.1 % (40.0-50.0)
[2020-01-02 16:05] LABS: HGB 6.6 g/dL (13.5-17.5)
[2020-01-02] MEDS: MAGNESIUM SULFATE 2 GM/50 ML BAG IVPB (16:42)
[2020-01-02] MEDS: Acetaminophen 325 MG TAB 650 MG PO (17:36)
[2020-01-02] MEDS: Propranolol 10 MG TAB PO (21:54)
[2020-01-02] MEDS: Magnesium Oxide 400 MG TAB PO (21:54)
[2020-01-02] MEDS: LORazepam 1 MG TAB PO/SL (22:10)
[2020-01-02 22:54] LABS: Bilirubin Small (Negative); Blood Negative (Negative); Clarity Clear (Clear); Glucose Negative (Negative); Ketones Negative (Negative); Leukocyte Esterase Negative (Negative); Nitrite Negative (Negative); Specific Gravity 1.015 (1.005-1.025); pH 5.5 (5-8)
[2020-01-02 23:34] LABS: HCT 24.1 % (40.0-50.0); HGB 7.1 g/dL (13.5-17.5)
[2020-01-03] VITALS (43 sets, daily range): BP systolic 97–119; BP diastolic 47–80; PULSE 77–98; RESP 16–30; TEMP 36.3–36.8; O2SAT 85–98
[2020-01-03] MEDS: LORazepam 1 MG TAB PO/SL (00:52)
[2020-01-03 06:13] LABS: Abs Immature Grans 0.02 10^3/uL (0.0-0.06); Absolute Basophil Count 0.04 10^3/uL (0.0-0.2); Absolute Eosinophil Count 0.15 10^3/uL (0.0-0.7); Absolute Lymphocyte Count 1.09 10^3/uL (1.2-3.4); Absolute Monocyte Count 0.72 10^3/uL (0.1-0.8); Basophils % 0.7; Eosinophils % 2.7; HCT 22.7 % (40.0-50.0); Immature Grans % 0.4; Lymphocytes % 19.4; MCH 24.4 pg (27.0-33.0); MCV 81.4 fL (80-95); Monocytes % 12.8; Nucleated RBC 0 %; Platelet Count 65 10^3/uL (130-400); RBC 2.79 10^6/uL (4.36-5.78); RDW 24.6 % (11.8-14.1); RDW-SD 71.5 fL; WBC 5.62 10^3/uL (4.4-10.8)
[2020-01-03 06:22] LABS: HGB 6.8 g/dL (13.5-17.5); INR 1.4 (0.9-1.1); Prothrombin Time 13.8 sec (9.3-11.0)
[2020-01-03 06:30] LABS: ALT 24 U/L (16-63); AST 96 U/L (15-37); Albumin 2.1 g/dL (3.4-5.0); Alkaline Phosphatase 140 U/L (46-116); Anion Gap 7.5 mmol/L (3-11); BUN 9 mg/dL (7-18); Bilirubin, Total 3.8 mg/dL (0.2-1.0); CO2 24.5 mmol/L (21.0-32.0); CREATININE 0.84 mg/dL (0.70-1.30); Calcium 7.5 mg/dL (8.5-10.1); Chloride 101 mmol/L (98-107); Glucose 92 mg/dL (74-106); Magnesium 1.7 mg/dL (1.8-2.4); Potassium 3.6 mmol/L (3.5-5.1); Sodium 133 mmol/L (136-145)
[2020-01-03] MEDS: diphenhydrAMINE 50 MG/ML VIAL 25 MG IVP (06:50)
[2020-01-03] MEDS: Acetaminophen 500 MG TAB 1000 MG PO (06:50)
[2020-01-03 06:51] LABS: Anisocytosis 3+; Diff Comment RBC Morph Reviewed; Hypochromasia 2+; Macrocytosis 1+; Microcytosis 1+; Polychromasia Present
[2020-01-03 06:52] LABS: Poikilocytes 1+
[2020-01-03 07:44] LABS: COVID-19 RT-PCR UVMMC Result Negative (Negative)
[2020-01-03] MEDS: Magnesium Oxide 400 MG TAB PO (09:02)
[2020-01-03] MEDS: Tamsulosin 0.4 MG CAPCR PO (09:02)
[2020-01-03] MEDS: Propranolol 10 MG TAB PO (09:02)
[2020-01-03] MEDS: Spironolactone 50 MG TAB 100 MG PO (09:02)
[2020-01-03] MEDS: Normal Saline Flush 10 ML SYR IVP (09:03)
[2020-01-03] MEDS: Finasteride 5 MG TAB PO (09:03)
--- NOTE | 2020-01-03 10:49 | PHA.REVIEW ---
Pharmacy Admission Review - Admission Clinical Review (Last Reviewed 01/02/20 @ 14:30 by Migue Saravia MD) Hypokalemia (Acute) Hypomagnesemia (Acute) Upper GI bleed (Acute) Alcoholism (Acute) Anemia due to acute blood loss (Acute) Alcoholic liver failure (Acute) sertraline Adverse Reaction (Severe, Verified 01/02/20 09:03) SEVERE WORSENING OF DEPRESSION Height 5 ft 6 in Weight 69.4 kg - Renal Dosing Renal Dosing: BUN 9 mg/dL (7-18) 01/03/20 05:40 Creatinine 0.84 mg/dL (0.70-1.30) 01/03/20 05:40 Medications needing adjustments: Reviewed (CRCL ~85ML/MIN) - Anticoagulation Anticoagulation: Hgb 6.8 g/dL (13.5-17.5) L* 01/03/20 05:40 Hct 22.7 % (40.0-50.0) L 01/03/20 05:40 Plt Count 65 10^3/uL (130-400) L 01/03/20 05:40 INR 1.4 (0.9-1.1) H 01/03/20 05:40 Creatinine 0.84 mg/dL (0.70-1.30) 01/03/20 05:40 DVT Prohphylaxis: N/A (ANEMIA) Therapeutic Anticoagulation: N/A - Opiate Usage Scheduled Bowel Reg ordered if on Opiates?: No - Relevant Labs Sodium 133 mmol/L (136-145) L 01/03/20 05:40 Potassium 3.6 mmol/L (3.5-5.1) 01/03/20 05:40 Chloride 101 mmol/L (98-107) 01/03/20 05:40 Magnesium 1.7 mg/dL (1.8-2.4) L 01/03/20 05:40 Electrolytes, C-Reactive P, ESR: Reviewed (Na and Mag coming up) - DM Control DM Control: Glucose 92 mg/dL (74-106) 01/03/20 05:40 Insulin Dosing: N/A - Heart Failure/RI Heart Failure/RI: Troponin I < 0.05 ng/mL (<0.06) 01/02/20 12:46 - BP Control BP Control: Blood Pressure [Left Arm] 110/72 Blood Pressure 99/47 Blood Pressure 110/70 Blood Pressure 105/59 Blood Pressure 104/66 Blood Pressure 103/62 Blood Pressure 114/66 Blood Pressure 106/60 Blood Pressure 103/64 Blood Pressure 99/59 Blood Pressure 119/60 Blood Pressure 113/60 Blood Pressure 108/56 Blood Pressure 107/56 Blood Pressure 110/54 Blood Pressure 102/61 Blood Pressure 110/63 Blood Pressure 102/60 Blood Pressure 102/60 Blood Pressure 108/51 Blood Pressure 110/60 Blood Pressure 97/80 Blood Pressure 97/59 Blood Pressure 107/76 Blood Pressure 113/67 Blood Pressure 102/78 Blood Pressure 111/66 Blood Pressure 99/67 Blood Pressure 167/110 Blood Pressure 100/52 Blood Pressure 148/87 If elevated: N/A - Qtc Review If Elevated: N/A - IV to PO Switch IV Medications: Reviewed (octreotide infusion, CIWA med IV/PO) - Home Meds Home Med List reviewed: Reviewed (esomeprazole, furosemide not ordered) - Current meds Current Medication Order Review: Reviewed - Comments Comments/Follow Ups: octreotide infusion continues for now. to consult with [facility] pt may need procedure that requires transfer to another facility
[2020-01-03 12:01] LABS: HCT 27.8 % (40.0-50.0)
--- NOTE | 2020-01-03 13:12 | PGE_ITS ---
Date of Service Date of service: 01/03/20 Time of Service: 13:12 Assessment and Plan Assessment and plan (1) Upper GI bleed: Status: Acute Assessment and plan: Awaiting callback from [facility] but does not sound hopeful that there will be a bed available for transfer. I will reach out to [facility]. Repeat hemoglobin came up to 8 g after another unit of packed red cells given this morning. He continues to have melanotic stools which suggest continued upper GI bleeding. Patient remains on octreotide drip along with IV Protonix. (2) Anemia due to acute blood loss: Status: Acute Assessment and plan: See upper GI bleed (3) Alcoholism: Status: Acute Assessment and plan: Long-standing Last drink was the day prior to admission H/O withdrawal + cirrhosis CIWA precautions. (4) Alcoholic liver failure: Status: Acute Assessment and plan: CT shows mild ascites. Bilirubin 4.4 (4.7 on 10/03/2019) No evidence of SBP Child-Schmitz score of 10 (same as previous admission) (5) Hypomagnesemia: Status: Acute Assessment and plan: Magnesium is better today at 1.7 but still below normal. We will start him on oral supplementation along with another dose of IV magnesium. (6) Hypokalemia: Status: Acute Assessment and plan: Oral replacement and monitor repeat potassium is now up to 3.6. (7) Depressive disorder: Status: Chronic Assessment and plan: On no current psychiatric medications No clinical evidence of severe depression currently Subjective Subjective Interval history since last seen: 59-year-old male with a history of alcoholism and cirrhosis and portal hypertension along with history of varices for which she has had multiple EGD and banding. Patient is a known patient [facility] and last had an EGD with banding of his varices approximately 4 weeks ago. He was admitted yesterday with a acute GI bleeding. Onset was evening 2 days ago when she had hematemesis and subsequent melanotic stools. Patient continues to pass melanotic stools he has had 4 bowel movements this morning. His hemoglobin on admission yesterday was 6.6 g and he was transfused 1 unit of packed red blood cells yesterday which only brought his hemoglobin up to 7.1 g yesterday evening. This morning his hemoglobin dropped down to 6.8 g. Nurses transfuse him another unit of packed red blood cells bring his hemoglobin up to 8 g. He is still mildly hypotensive with systolic pressures in the high 90s. However he is asymptomatic from this. He does have some left-sided chest wall pain along the left posterior lateral upper rib cage. He states that a friend his was horsing around with him and tackled him landing on top of him and the patient landed on top of his grandchild Spring galvan. Patient denies any shortness of breath or dizziness. He does describe some intermittent left-sided chest pains with left arm pain that has had off and on for years. He reportedly had a stress test in the remote past that was negative. His EKG on admission demonstrated sinus tachycardia with no ischemic ST or T wave changes. Troponin I levels were normal x2 sets yesterday both being less than 0.05. Since admission he has not had a hematemesis. I spoke with the transfer center at [facility] to discuss potential transfer for evaluation by GI service as I feel the patient is going to need another EGD and esophageal banding. [facility] transfer center indicated that they have no medical or ICU beds available at this time. However they will talk with their supervisor money room and get back to me. In the event that they do not have a bed I will reach out to [facility] for transfer. Until that time patient will be maintained on an octreotide drip as well as IV Protonix. Exam Narrative Exam Narrative: Middle-age male who appears to be jaundiced and icteric. He is alert and oriented person place time circumstance in no acute distress. Lungs are clear to auscultation Heart regular rate and rhythm Abdomen is soft nontender no guarding or rebound tenderness. He has active bowel sounds. His abdomen is distended and firm. There is suggestion of ascites. I could not palpate hepatosplenomegaly. Extremities without peripheral cyanosis or edema. No asterixis Objective Objective Clinical Data: Abnormal lab results 01/02/20 01/02/20 01/02/20 Range/Units 09:19 15:50 22:49 RBC (4.36-5.78) 10^6/uL Hgb 6.6 L* (13.5-17.5) g/dL Hct 23.1 L D (40.0-50.0) % MCH (27.0-33.0) pg MCHC (32.0-36.0) % RDW (11.8-14.1) % Plt Count (130-400) 10^3/uL Absolute Lymphocytes (1.2-3.4) 10^3/uL PT (9.3-11.0) sec INR (0.9-1.1) Sodium (136-145) mmol/L Calcium (8.5-10.1) mg/dL Magnesium (1.8-2.4) mg/dL Total Bilirubin (0.2-1.0) mg/dL AST (15-37) U/L Alkaline Phosphatase (46-116) U/L Total Protein (6.4-8.2) g/dL Albumin (3.4-5.0) g/dL Urine Bilirubin Small H (Negative) Urine Urobilinogen 2.0 H (Up TO 0.2) EU/dL Crossmatch See Detail 01/02/20 01/03/20 01/03/20 Range/Units 23:27 05:40 05:40 RBC 2.79 L (4.36-5.78) 10^6/uL Hgb 7.1 L 6.8 L* (13.5-17.5) g/dL Hct 24.1 L 22.7 L (40.0-50.0) % MCH 24.4 L (27.0-33.0) pg MCHC 30.0 L (32.0-36.0) % RDW 24.6 H (11.8-14.1) % Plt Count 65 L (130-400) 10^3/uL Absolute Lymphocytes 1.09 L (1.2-3.4) 10^3/uL PT (9.3-11.0) sec INR (0.9-1.1) Sodium 133 L (136-145) mmol/L Calcium 7.5 L (8.5-10.1) mg/dL Magnesium 1.7 L (1.8-2.4) mg/dL Total Bilirubin 3.8 H (0.2-1.0) mg/dL AST 96 H (15-37) U/L Alkaline Phosphatase 140 H (46-116) U/L Total Protein 6.0 L (6.4-8.2) g/dL Albumin 2.1 L (3.4-5.0) g/dL Urine Bilirubin (Negative) Urine Urobilinogen (Up TO 0.2) EU/dL Crossmatch 01/03/20 01/03/20 Range/Units 05:40 11:55 RBC (4.36-5.78) 10^6/uL Hgb 8.0 L (13.5-17.5) g/dL Hct 27.8 L D (40.0-50.0) % MCH (27.0-33.0) pg MCHC (32.0-36.0) % RDW (11.8-14.1) % Plt Count (130-400) 10^3/uL Absolute Lymphocytes (1.2-3.4) 10^3/uL PT 13.8 H (9.3-11.0) sec INR 1.4 H (0.9-1.1) Sodium (136-145) mmol/L Calcium (8.5-10.1) mg/dL Magnesium (1.8-2.4) mg/dL Total Bilirubin (0.2-1.0) mg/dL AST (15-37) U/L Alkaline Phosphatase (46-116) U/L Total Protein (6.4-8.2) g/dL Albumin (3.4-5.0) g/dL Urine Bilirubin (Negative) Urine Urobilinogen (Up TO 0.2) EU/dL Crossmatch Vital Signs Temperature 36.4 C L 01/03/20 11:43 Temperature Source Temporal Artery Scan 01/03/20 11:43 Pulse 78 01/03/20 11:40 Pulse 80 01/03/20 11:00 Respiratory Rate 21 01/03/20 11:40 Respiratory Effort Non-Labored 01/03/20 11:43 Respiratory Depth Normal 01/03/20 11:43 Respiratory Pattern Normal 01/03/20 11:43 Blood Pressure 99/47 L 01/03/20 10:37 Blood Pressure Mean 60 01/03/20 10:37 Blood Pressure Position Supine 01/03/20 03:02 Pulse Oximetry 97 01/03/20 11:40 Oxygen Delivery Method Room Air 01/03/20 11:40 Oxygen Flow Rate 0 01/03/20 11:40 Pain Level 7 01/03/20 11:43 Comment 01/02/20 08:59 Intake & Output 01/02/20 01/03/20 01/03/20 23:59 11:59 23:59 Intake Total 725.5 / 1975.5 1356 / 1356 Output Total 400 / 500 150 / 150 Balance 325.5 / 1475.5 1206 / 1206 Weight 69.4 kg Intake: IV 300.5 / 1550.5 505 / 505 Oral 75 / 75 477 / 477 Blood Product 250 / 250 274 / 274 Rbc Leuko Reduced Unit 274 / 274 [id number] Rbc Leuko Reduced Unit 250 / 250 [id number] Other 100 / 100 100 / 100 Rbc Leuko Reduced Unit 100 / 100 [id number] Rbc Leuko Reduced Unit 100 / 100 [id number] Output: Urine 350 / 350 150 / 150 Stool 50 / 50 Other: Urine Color Dark Vanessa Light Vanessa Urine Appearance Clear Clear Urine Odor Strong Comment Collecting UA now. Denies issues at this time Pt reports burning with urination when starting a stream. Has been going on at home also Stool Occult Blood Positive Positive Positive Stool Size Small Moderate Moderate Stool Characteristics Soft Soft Soft Black Black Voiding Methods Urinal Bedside Commode Laboratory Results WBC 5.62 10^3/uL (4.4-10.8) D 01/03/20 05:40 RBC 2.79 10^6/uL (4.36-5.78) L 01/03/20 05:40 Hgb 8.0 g/dL (13.5-17.5) L 01/03/20 11:55 Hct 27.8 % (40.0-50.0) L D 01/03/20 11:55 MCV 81.4 fL (80-95) 01/03/20 05:40 MCH 24.4 pg (27.0-33.0) L 01/03/20 05:40 MCHC 30.0 % (32.0-36.0) L 01/03/20 05:40 RDW 24.6 % (11.8-14.1) H 01/03/20 05:40 Plt Count 65 10^3/uL (130-400) L 01/03/20 05:40 MPV fL (8.0-11.0) 01/03/20 05:40 Immature Gran % 0.4 01/03/20 05:40 Neutrophils % 64.0 01/03/20 05:40 Lymphocytes % 19.4 01/03/20 05:40 Monocytes % 12.8 01/03/20 05:40 Eosinophils % 2.7 01/03/20 05:40 Basophils % 0.7 01/03/20 05:40 Nucleated RBC % 0 % 01/03/20 05:40 Absolute Neutrophils 3.60 10^3/uL (1.2-6.7) 01/03/20 05:40 Absolute Lymphocytes 1.09 10^3/uL (1.2-3.4) L 01/03/20 05:40 Absolute Monocytes 0.72 10^3/uL (0.1-0.8) 01/03/20 05:40 Absolute Eosinophils 0.15 10^3/uL (0.0-0.7) 01/03/20 05:40 Absolute Basophils 0.04 10^3/uL (0.0-0.2) 01/03/20 05:40 RBC Morphology See below 01/03/20 05:40 Polychromasia Present 01/03/20 05:40 Hypochromasia 2+ 01/03/20 05:40 Poikilocytosis 1+ 01/03/20 05:40 Anisocytosis 3+ 01/03/20 05:40 Microcytosis 1+ 01/03/20 05:40 Macrocytosis 1+ 01/03/20 05:40 PT 13.8 sec (9.3-11.0) H 01/03/20 05:40 INR 1.4 (0.9-1.1) H 01/03/20 05:40 Sodium 133 mmol/L (136-145) L 01/03/20 05:40 Potassium 3.6 mmol/L (3.5-5.1) 01/03/20 05:40 Chloride 101 mmol/L (98-107) 01/03/20 05:40 Carbon Dioxide 24.5 mmol/L (21.0-32.0) 01/03/20 05:40 Anion Gap 7.5 mmol/L (3-11) 01/03/20 05:40 BUN 9 mg/dL (7-18) 01/03/20 05:40 Creatinine 0.84 mg/dL (0.70-1.30) 01/03/20 05:40 Estimated GFR/1.73 m2 >= 60.00 (mL/min/1.73m2) 01/03/20 05:40 Glucose 92 mg/dL (74-106) 01/03/20 05:40 Calcium 7.5 mg/dL (8.5-10.1) L 01/03/20 05:40 Magnesium 1.7 mg/dL (1.8-2.4) L 01/03/20 05:40 Total Bilirubin 3.8 mg/dL (0.2-1.0) H 01/03/20 05:40 AST 96 U/L (15-37) H 01/03/20 05:40 ALT 24 U/L (16-63) 01/03/20 05:40 Alkaline Phosphatase 140 U/L (46-116) H 01/03/20 05:40 Troponin I < 0.05 ng/mL (<0.06) 01/02/20 12:46 Total Protein 6.0 g/dL (6.4-8.2) L 01/03/20 05:40 Albumin 2.1 g/dL (3.4-5.0) L 01/03/20 05:40 Lipase 75 U/L (73-393) 01/02/20 09:19 Urine Color Yellow (Yellow) 01/02/20 22:49 Urine Clarity Clear (Clear) 01/02/20 22:49 Urine pH 5.5 (5-8) 01/02/20 22:49 Ur Specific [place] 1.015 (1.005-1.025) 01/02/20 22:49 Urine Protein Negative mg/dL (Negative) 01/02/20 22:49 Urine Ketones Negative mg/dL (Negative) 01/02/20 22:49 Urine Blood Negative (Negative) 01/02/20 22:49 Urine Nitrite Negative (Negative) 01/02/20 22:49 Urine Bilirubin Small (Negative) H 01/02/20 22:49 Urine Urobilinogen 2.0 EU/dL (Up TO 0.2) H 01/02/20 22:49 Ur Leukocyte Esterase Negative (Negative) 01/02/20 22:49 Urine Glucose Negative mg/dL (Negative) 09/11/20 22:49 COVID-19 PCR Negative (Negative) 01/02/20 11:44 Nasopharyn COVID-19 PCR Not Applicable 01/02/20 11:44 Ref Test Perform Site [facility] lab 01/02/20 11:44 Patient ABO/Rh O Negative 01/02/20 09:19 Antibody Screen Negative 01/02/20 09:19 Crossmatch See Detail 01/02/20 09:19
[2020-01-03] MEDS: Pantoprazole 40 MG VIAL IVP (14:07)
[2020-01-03] MEDS: MAGNESIUM SULFATE 2 GM/50 ML BAG IVPB (14:08)
--- NOTE | 2020-01-03 14:54 | W.PM.DS.N ---
Date of service: 01/03/20 Time of Service: 14:54 DS: Diagnosis Discharge Diagnosis (1) Upper GI bleed: Status: Acute Asessment and Plan: Presumably secondary to variceal bleeding. Patient to be kept n.p.o. and arrangements have been made for transfer to [facility] to the ICU Blue team under the service of Dr. Donohue. GI service will be consulted for EGD and potential variceal banding. Patient has been maintained on octreotide drip along with IV Protonix. (2) Anemia due to acute blood loss: Status: Acute Asessment and Plan: Hemoglobin improved after second unit of packed red cells was given today. Will need close monitoring as the patient is continued to have frequent melanotic stools. (3) Alcoholism: Status: Chronic Asessment and Plan: Upon discharge patient should be referred into an outpatient abstinence program (4) Alcoholic liver failure: Status: Acute (5) Hypomagnesemia: Status: Acute Asessment and Plan: Patient was treated with IV and oral potassium replacement with correction of his magnesium level to 1.7 from his admission level 1.2. (6) Hypokalemia: Status: Acute Asessment and Plan: Patient presented with a potassium level of 3.2 on admission that is been corrected to a level of 3.6 with IV and oral replacement. (7) Depressive disorder: Status: Chronic Asessment and Plan: Patient is not currently exhibiting any depression symptoms and not having any suicidal ideation. This is been a chronic issue and he is not currently on any antidepressants. He previously had side effects from sertraline. Discharge Plan Disposition Patient Disposition: [facility] Condition: Stable Discharge Details Reason For Visit: GI BLEED Admit Date/Time: 01/02/20 11:32 Admit Provider: Migue Saravia Attending Provider: Migue Saravia Primary Care Provider: [facility] Course Hospital Course: 59-year-old male with a history of alcoholic cirrhosis, portal hypertension, esophageal varices, previous upper GI bleed with subsequent variceal banding, depression, anxiety. Patient had been admitted to [facility] October 01/2020 through October 13, 2019 for upper GI bleeding for which she was transfused and transferred to [facility] where he underwent esophageal banding. Subsequently underwent repeat EGD with banding about 4 weeks ago. He now presented to the emergency department with episode of hematemesis and watery melanotic stools. See admission H&P for details. He also reports an incidental episode when she was horsing around with a roommate 2 days prior to admission and fell and landed on his grandsons [employer] truck causing some chest wall injury. Evaluation emergency department demonstrated a significant anemia with a hemoglobin of 8.4 g which later dropped down to 6.6 g. He was transfused 1 unit of packed red cells and came up to a hemoglobin of 7.1 g last night. This morning his hemoglobin dropped down to 6.8 g and he was transfused another unit of packed red cells bringing his hemoglobin up to 8 g. He is continued to have watery melanotic stools but has had no further episodes of hematemesis. He denies any abdominal pain or nausea or vomiting. He has had no fever or rigors. CBC on admission demonstrated normal white count of 11,300 but is since dropped down to 5600. He has a thrombocytopenia of 65,000 this morning his baseline level is 97,000. CT of his abdomen and pelvis were remarkable for small amount ascites along with cirrhosis of the liver and esophageal varices and old left rib fractures. Because of his recurrent drop in his hemoglobin along with continued melanotic stools concern is been raised that he still has some active upper GI bleeding ongoing. I spoke with [facility] transfer center and discussed the case with the ICU fellow as well as the GI fellow on-call. They are in agreement with accepting the patient for transfer for an EGD and potential variceal banding. Patient's been maintained on octreotide drip and IV Protonix and after my discussion with the GI fellow ceftriaxone 1 g IV was given prophylactically for SBP although he has no evidence for peritonitis. Patient is agreeable to transfer to [facility]. Patient is currently stable although with blood pressures are running on the lower side running 99/50. After transfusion his heart rate is in the 80s in sinus rhythm. He remains afebrile with a pulse oximetry 97% on room air. Home Meds and New Rx's Prescriptions: No Action propranolol 10 mg tablet 10 mg PO BID Qty: 60 RF: 3 spironolactone 100 mg tablet 100 mg PO DAILY Qty: 30 RF: 2 furosemide 40 mg tablet 40 mg PO DAILY Qty: 90 RF: 4 acetaminophen [Tylenol] 325 mg Tablet 650 mg PO Q4H PRN PRNQty: 100 RF: 0 multivitamin [Multiple Vitamins] Tablet 1 tab PO DAILY Qty: 90 RF: 3 potassium chloride [Klor-Con M20] 20 mEq Tablet,Er Particles/Crystals 20 meq PO DAILY Qty: 30 RF: 1 tamsulosin 0.4 mg Capsule 0.4 mg PO DAILY Qty: 30 RF: 2 finasteride 5 mg Tablet 5 mg PO DAILY Qty: 30 RF: 2 esomeprazole magnesium [Nexium] 20 MG capsule,delayed release(DR/EC) 40 mg PO BID Qty: 60 RF: 0 Discharge Instructions Instructions: Gastrointestinal Bleeding (DC), Alcohol Dependence (DC), Esophageal Banding (DC) Activity:: Bedrest Diet:: Other Discharge Orders Discharge Orders: Discharge Order (Routine); Ordered 01/03/20 Ordered By: Joey Macias DS: Summary Status at Discharge Functional status at discharge: independent ambulation Overall status at discharge: patient is not back to baseline Mental Status: mental status grossly normal Speech and Movement: speech and movement normal Mood: congruent mood Affect: normal affect Exam Narrative Exam Narrative: Middle-age male who appears to be jaundiced and icteric. He is alert and oriented person place time circumstance in no acute distress. Lungs are clear to auscultation Heart regular rate and rhythm Abdomen is soft nontender no guarding or rebound tenderness. He has active bowel sounds. His abdomen is distended and firm. There is suggestion of ascites. I could not palpate hepatosplenomegaly. Extremities without peripheral cyanosis or edema. No asterixis Psych Mental Status: mental status grossly normal Speech and Movement: speech and movement normal Mood: congruent mood Affect: normal affect DS: Data Vitals/I&O Vitals and I&O: Vital Signs Temperature 36.4 C L 01/03/20 11:43 Temperature Source Temporal Artery Scan 01/03/20 11:43 Pulse 78 01/03/20 11:40 Pulse 87 01/03/20 14:00 Respiratory Rate 25 H 01/03/20 14:00 Respiratory Effort Non-Labored 01/03/20 11:43 Respiratory Depth Normal 01/03/20 11:43 Respiratory Pattern Normal 01/03/20 11:43 Blood Pressure 99/47 L 01/03/20 10:37 Blood Pressure Mean 60 01/03/20 10:37 Blood Pressure Position Supine 01/03/20 03:02 Pulse Oximetry 97 01/03/20 11:40 Oxygen Delivery Method Room Air 01/03/20 11:40 Oxygen Flow Rate 0 01/03/20 11:40 Pain Level 7 01/03/20 11:43 Comment 01/02/20 08:59 Intake & Output 01/02/20 01/03/20 01/03/20 23:59 11:59 23:59 Intake Total 725.5 / 1975.5 1356 / 1356 Output Total 400 / 500 150 / 150 Balance 325.5 / 1475.5 1206 / 1206 Weight 69.4 kg Intake: IV 300.5 / 1550.5 505 / 505 Oral 75 / 75 477 / 477 Blood Product 250 / 250 274 / 274 Rbc Leuko Reduced Unit 274 / 274 [id number] Rbc Leuko Reduced Unit 250 / 250 [id number] Other 100 / 100 100 / 100 Rbc Leuko Reduced Unit 100 / 100 [id number] Rbc Leuko Reduced Unit 100 / 100 [id number] Output: Urine 350 / 350 150 / 150 Stool 50 / 50 Other: Urine Color Dark Vanessa Light Vanessa Urine Appearance Clear Clear Urine Odor Strong Comment Collecting UA now. Denies issues at this time Pt reports burning with urination when starting a stream. Has been going on at home also Stool Occult Blood Positive Positive Positive Stool Size Small Moderate Moderate Stool Characteristics Soft Soft Soft Black Black Voiding Methods Urinal Bedside Commode Data Completed and Pending Labs on day of discharge: Labs from last 24 hours 01/03/20 01/03/20 01/03/20 11:55 05:40 05:40 WBC RBC Hgb 8.0 L Hct 27.8 L D MCV MCH MCHC RDW Plt Count MPV Immature Gran % Neutrophils % Lymphocytes % Monocytes % Eosinophils % Basophils % Nucleated RBC % Absolute Neutrophils Absolute Lymphocytes Absolute Monocytes Absolute Eosinophils Absolute Basophils RBC Morphology Polychromasia Hypochromasia Poikilocytosis Anisocytosis Microcytosis Macrocytosis PT 13.8 H INR 1.4 H Sodium 133 L Potassium 3.6 Chloride 101 Carbon Dioxide 24.5 Anion Gap 7.5 BUN 9 Creatinine 0.84 Estimated GFR/1.73 m2 >= 60.00 Glucose 92 Calcium 7.5 L Magnesium 1.7 L Total Bilirubin 3.8 H AST 96 H ALT 24 Alkaline Phosphatase 140 H Total Protein 6.0 L Albumin 2.1 L Urine Color Urine Clarity Urine pH Ur Specific [place] Urine Protein Urine Ketones Urine Blood Urine Nitrite Urine Bilirubin Urine Urobilinogen Ur Leukocyte Esterase Urine Glucose COVID-19 [facility] COVID-[facility] Ref Test Perform Site Patient ABO/Rh Antibody Screen Crossmatch 01/03/20 01/02/20 01/02/20 05:40 23:27 22:49 WBC 5.62 D RBC 2.79 L Hgb 6.8 L* 7.1 L Hct 22.7 L 24.1 L MCV 81.4 MCH 24.4 L MCHC 30.0 L RDW 24.6 H Plt Count 65 L MPV Immature Gran % 0.4 Neutrophils % 64.0 Lymphocytes % 19.4 Monocytes % 12.8 Eosinophils % 2.7 Basophils % 0.7 Nucleated RBC % 0 Absolute Neutrophils 3.60 Absolute Lymphocytes 1.09 L Absolute Monocytes 0.72 Absolute Eosinophils 0.15 Absolute Basophils 0.04 RBC Morphology See below Polychromasia Present Hypochromasia 2+ Poikilocytosis 1+ Anisocytosis 3+ Microcytosis 1+ Macrocytosis 1+ PT INR Sodium Potassium Chloride Carbon Dioxide Anion Gap BUN Creatinine Estimated GFR/1.73 m2 Glucose Calcium Magnesium Total Bilirubin AST ALT Alkaline Phosphatase Total Protein Albumin Urine Color Yellow Urine Clarity Clear Urine pH 5.5 Ur Specific [place] 1.015 Urine Protein Negative Urine Ketones Negative Urine Blood Negative Urine Nitrite Negative Urine Bilirubin Small H Urine Urobilinogen 2.0 H Ur Leukocyte Esterase Negative Urine Glucose Negative COVID-19 PCR [facility] COVID-19 PCR Ref Test Perform Site Patient ABO/Rh Antibody Screen Crossmatch 01/02/20 01/02/20 01/02/20 15:50 11:44 09:19 WBC RBC Hgb 6.6 L* Hct 23.1 L D MCV MCH MCHC RDW Plt Count MPV Immature Gran % Neutrophils % Lymphocytes % Monocytes % Eosinophils % Basophils % Nucleated RBC % Absolute Neutrophils Absolute Lymphocytes Absolute Monocytes Absolute Eosinophils Absolute Basophils RBC Morphology Polychromasia Hypochromasia Poikilocytosis Anisocytosis Microcytosis Macrocytosis PT INR Sodium Potassium Chloride Carbon Dioxide Anion Gap BUN Creatinine Estimated GFR/1.73 m2 Glucose Calcium Magnesium Total Bilirubin AST ALT Alkaline Phosphatase Total Protein Albumin Urine Color Urine Clarity Urine pH Ur Specific [place] Urine Protein Urine Ketones Urine Blood Urine Nitrite Urine Bilirubin Urine Urobilinogen Ur Leukocyte Esterase Urine Glucose COVID-19 PCR Negative Nasopharyn COVID-19 PCR Not Applicable Ref Test Perform Site [facility] lab Patient ABO/Rh O Negative Antibody Screen Negative Crossmatch See Detail PFSH Medical History Acute GI bleeding Advanced hepatic cirrhosis Alcohol abuse Alcohol dependence with withdrawal with complication Alcoholic liver failure Anxiety Depression GERD (gastroesophageal reflux disease) Surgical History H/O vasectomy History of colon resection due to diverticulitis; sigmoid History of hernia repair Repair of inguinal hernia Vasectomy Family History Mother Neoplasm Father Diabetes Essential hypertension Neoplasm Sister No problems noted. Social History Smoking/Tobacco Use Status: Never Alcohol Intake: current Alcohol Intake frequency: 3 or more drinks per day Drug use: Daily Substance use type: marijuana Do you feel safe at home: Yes Do you feel safe in your relationship?: Yes
[2020-01-03] MEDS: cefTRIAXone 1 GM/50 ML BAG IVPB (15:00)
== END 2020-01-03 17:01 | disposition short-term general hospital (02) | DRG 432 ==
LOC: ER 09:36 → ICU 13:03
PROVIDERS: Internal Medicine; Admitting Provider Family Medicine; Emergency Provider Registered Nurse Emergency; PCP Nurse Practitioner; Visit Provider Family Medicine
DX: K70.31 Alcoholic cirrhosis of liver with ascites (principal); I85.11 Secondary esophageal varices with bleeding; D62 Acute posthemorrhagic anemia; F10.20 Alcohol dependence, uncomplicated; E83.42 Hypomagnesemia; E87.6 Hypokalemia; K70.40 Alcoholic hepatic failure without coma; F32.9 Major depressive disorder, single episode, unspecified; I95.9 Hypotension, unspecified; R07.89 Other chest pain
CPT/HCPCS: 36415; 36430; 74177; 80053; 83690; 86850; 86900; 86901; 86920; 93005; 96361; 96365; 96366; 96368; 96375; 99223; 99233; 99239; 99285; U0003; 71260; 81003; 82272; 83735; 84484; 85014; 85018; 85025; 85610; 93010; J0696; J1200; J2354; J2405; J3490; P9016

== ENCOUNTER 2020-01-20 13:33 | Emergency (ER) | payer MEDICAID, SELFPAY ==
[2020-01-20] VITALS (14 sets, daily range): BP systolic 103–139; BP diastolic 60–98; PULSE 116–140; RESP 12–34; TEMP 36.3; O2SAT 85–99
--- NOTE | 2020-01-20 13:30 | RT.EKG_ITS ---
APPROVED REPORT Exam: Resting ECG Patient Location: E HR:137 bpm ECG Measurements Heart Rate 137 AXIS SC 143 P 46 QRSd 96 QRS -41 QT 293 T 32 QTc 444 Conclusion Sinus tachycardia...rate 137. Multiform ventricular premature complexes...short R-R, variable morphology Left axis deviation. Low voltage, precordial leads.. poor baseline
[2020-01-20] MEDS: Normal Saline 1,000 ML 1000 ML IV (14:04)
[2020-01-20] MEDS: FAMOTIDINE 20 MG/50 ML BAG 100 MG IVPB (14:05)
[2020-01-20] MEDS: Ondansetron 4 MG/2 ML VIAL IVP (14:10)
[2020-01-20] MEDS: Pantoprazole 40 MG VIAL 80 MG IVP (14:10)
--- NOTE | 2020-01-20 14:13 | NUR.NOTE ---
pt updated on plan of care. Dark colored red/black emesis noted,Nursing Note:
[2020-01-20 14:14] LABS: ETHANOL BLOOD 162.3 mg/dL (<3)
[2020-01-20] MEDS: LORazepam 2 MG/ML VIAL 1 MG IVP (14:20)
[2020-01-20 14:22] LABS: INR 1.4 (0.9-1.1); Prothrombin Time 13.9 sec (9.3-11.0)
[2020-01-20 14:25] LABS: ALT 34 U/L (16-63); AST 106 U/L (15-37); Albumin 2.5 g/dL (3.4-5.0); Alkaline Phosphatase 253 U/L (46-116); Anion Gap 15.7 mmol/L (3-11); BUN 11 mg/dL (7-18); Bilirubin, Total 3.1 mg/dL (0.2-1.0); CO2 21.3 mmol/L (21.0-32.0); CREATININE 0.82 mg/dL (0.70-1.30); Chloride 101 mmol/L (98-107); Glucose 162 mg/dL (74-106); Lipase 173 U/L (73-393); Magnesium 1.5 mg/dL (1.8-2.4); Potassium 3.5 mmol/L (3.5-5.1); Sodium 138 mmol/L (136-145); Total Protein 7.6 g/dL (6.4-8.2)
[2020-01-20 14:26] LABS: Troponin I < 0.05 ng/mL (<0.06)
[2020-01-20 14:27] LABS: Abs Immature Grans 0.05 10^3/uL (0.0-0.06); Absolute Basophil Count 0.08 10^3/uL (0.0-0.2); Absolute Eosinophil Count 0.01 10^3/uL (0.0-0.7); Absolute Lymphocyte Count 1.59 10^3/uL (1.2-3.4); Absolute Monocyte Count 0.69 10^3/uL (0.1-0.8); Absolute Neutrophil Count 8.16 10^3/uL (1.2-6.7); Basophils % 0.8; Eosinophils % 0.1; HCT 27.2 % (40.0-50.0); HGB 8.1 g/dL (13.5-17.5); Immature Grans % 0.5; MCH 24.2 pg (27.0-33.0); MCHC 29.8 % (32.0-36.0); MCV 81.2 fL (80-95); Monocytes % 6.5; Neutrophils % 77.1; Nucleated RBC 0 %; RBC 3.35 10^6/uL (4.36-5.78); RDW-SD 65.2 fL; WBC 10.58 10^3/uL (4.4-10.8)
[2020-01-20 14:33] LABS: Anisocytosis 3+; Diff Comment PLT Morph Reviewed; Hypochromasia 2+; Microcytosis 2+; Platelet Count 78 10^3/uL (130-400); Polychromasia Present
[2020-01-20 14:34] LABS: Poikilocytes 1+
--- NOTE | 2020-01-20 14:39 | W.ED.GENAD ---
Discharge Plan Disposition Patient Disposition: [facility] Condition: Serious Discharge Details Clinical Impression: Upper GI bleed Primary Care Provider: Angella Deal ED Provider: Joey Macedo Home Meds and New Rx's Prescriptions: No Action propranolol 10 mg tablet 10 mg PO BID Qty: 60 RF: 3 spironolactone 100 mg tablet 100 mg PO DAILY Qty: 30 RF: 2 furosemide 40 mg tablet 40 mg PO DAILY Qty: 90 RF: 4 acetaminophen [Tylenol] 325 mg Tablet 650 mg PO Q4H PRN PRNQty: 100 RF: 0 multivitamin [Multiple Vitamins] Tablet 1 tab PO DAILY Qty: 90 RF: 3 potassium chloride [Klor-Con M20] 20 mEq Tablet,Er Particles/Crystals 20 meq PO DAILY Qty: 30 RF: 1 tamsulosin 0.4 mg Capsule 0.4 mg PO DAILY Qty: 30 RF: 2 finasteride 5 mg Tablet 5 mg PO DAILY Qty: 30 RF: 2 esomeprazole magnesium [Nexium] 20 MG capsule,delayed release(DR/EC) 40 mg PO BID Qty: 60 RF: 0 Medical Decision Making 59-year-old gentleman with known cirrhosis, alcohol abuse, varices, presents with bright red vomit x3 today. He appears anxious, pulse in the 140s, and is dry heaving. Will immediately establish 2 lines IV access, give IV fluid, lactated Ringer's, octreotide, Protonix, Zantac, Zofran. Will obtain CBC, CMP, type and screen, lipase, INR, PTT, urinalysis. Case immediately discussed with Dr. Montiel. Patient continues to vomit, given 10 IV Reglan. He has vomited a total of 10 ounces of bright red blood He was also given Ativan for potential withdrawal. Heart rate is now 116, pressure 104/63. Laboratory values reveal a white blood cell count of 10.58 hemoglobin 8.1 hematocrit 27.2 platelet count 78. This appears to be near baseline. INR 1.4. Potassium 3.5, BUN 11 with a creatinine of 0.82, GFR greater than 60. Glucose 162 calcium 8, magnesium 1.5 total bili 3.1 AST 106 ALT 34, alk phosphatase 253. Patient did receive improvement of his symptoms with Reglan. Patient appears to have a upper GI bleed, will require endoscopy and GI consultation. I placed a call to [facility], I was able to speak with the fellow and they recommended initiating 1 g ceftriaxone. Patient will be admitted to the critical care team, Dr. Solis All appropriate paperwork initiated. It appears as though our EMS team cannot transfer a patient with infusion of octreotide. Will DC the octreotide during transfer so that transfer is not delayed. Medical Records Medical records reviewed: Yes I reviewed the patient's medical records. Lab Data Lab results reviewed: Yes I reviewed the patient's lab results. Lab results narrative: Laboratory Tests Range/Units 01/20/20 01/20/20 01/20/20 13:47 13:50 13:50 WBC (4.4-10.8) 10^3/uL 10.58 RBC (4.36-5.78) 10^6/uL 3.35 L Hgb (13.5-17.5) g/dL 8.1 L Hct (40.0-50.0) % 27.2 L MCV (80-95) fL 81.2 MCH (27.0-33.0) pg 24.2 L MCHC (32.0-36.0) % 29.8 L RDW (11.8-14.1) % 22.0 H Plt Count (130-400) 10^3/uL 78 L MPV (8.0-11.0) fL Immature Gran % 0.5 Neutrophils % 77.1 Lymphocytes % 15.0 Monocytes % 6.5 Eosinophils % 0.1 Basophils % 0.8 Nucleated RBC % % 0 Absolute Neutrophils (1.2-6.7) 10^3/uL 8.16 H Absolute Lymphocytes (1.2-3.4) 10^3/uL 1.59 Absolute Monocytes (0.1-0.8) 10^3/uL 0.69 Absolute Eosinophils (0.0-0.7) 10^3/uL 0.01 Absolute Basophils (0.0-0.2) 10^3/uL 0.08 RBC Morphology See below Polychromasia Present Hypochromasia 2+ Poikilocytosis 1+ Anisocytosis 3+ Microcytosis 2+ PT (9.3-11.0) sec INR (0.9-1.1) Sodium Cancelled 138 Potassium Cancelled 3.5 Chloride Cancelled 101 Carbon Dioxide Cancelled 21.3 Anion Gap Cancelled 15.7 H BUN Cancelled 11 Creatinine Cancelled 0.82 Estimated GFR/1.73 m2 Cancelled >= 60.00 Glucose Cancelled 162 H Calcium Cancelled 8.0 L Magnesium (1.8-2.4) mg/dL 1.5 L Total Bilirubin Cancelled 3.1 H AST Cancelled 106 H ALT Cancelled 34 Alkaline Phosphatase Cancelled 253 H Troponin I (<0.06) ng/mL < 0.05 Total Protein Cancelled 7.6 Albumin Cancelled 2.5 L Lipase (73-393) U/L 173 Ethyl Alcohol (<3) mg/dL Patient ABO/Rh Antibody Screen Range/Units 01/20/20 01/20/20 01/20/20 13:50 13:50 13:56 WBC (4.4-10.8) 10^3/uL RBC (4.36-5.78) 10^6/uL Hgb (13.5-17.5) g/dL Hct (40.0-50.0) % MCV (80-95) fL MCH (27.0-33.0) pg MCHC (32.0-36.0) % RDW (11.8-14.1) % Plt Count (130-400) 10^3/uL MPV (8.0-11.0) fL Immature Gran % Neutrophils % Lymphocytes % Monocytes % Eosinophils % Basophils % Nucleated RBC % % Absolute Neutrophils (1.2-6.7) 10^3/uL Absolute Lymphocytes (1.2-3.4) 10^3/uL Absolute Monocytes (0.1-0.8) 10^3/uL Absolute Eosinophils (0.0-0.7) 10^3/uL Absolute Basophils (0.0-0.2) 10^3/uL RBC Morphology Polychromasia Hypochromasia Poikilocytosis Anisocytosis Microcytosis PT (9.3-11.0) sec 13.9 H INR (0.9-1.1) 1.4 H Sodium Potassium Chloride Carbon Dioxide Anion Gap BUN Creatinine Estimated GFR/1.73 m2 Glucose Calcium Magnesium (1.8-2.4) mg/dL Total Bilirubin AST ALT Alkaline Phosphatase Troponin I (<0.06) ng/mL Total Protein Albumin Lipase (73-393) U/L Ethyl Alcohol (<3) mg/dL 162.3 Patient ABO/Rh O Negative Antibody Screen Negative ECG Data Attestation: I personally reviewed and interpreted this ECG (s) as follows: Interpretation: Please see official report by Dr. Montiel. Sinus tachycardia, ventricular rate of 137. HPI General Mode of arrival: ambulatory. Date/Time Provider Initiated Documentation: 01/20/20 13:47. Limitations to Documentation: no limitations. Information obtained by: patient. HPI Narrative: This is a 59-year-old gentleman with history of esophageal varices, GI bleeding, advanced hepatic cirrhosis, alcohol abuse, anxiety, depression, GERD, presenting to the ER today reporting nausea and vomiting that began earlier today. He reports that he has vomited a total of 3 times and the vomiting was associate with bright red blood. He denies any coffee-ground emesis, black tarry stools, or bright red blood in his stools. He reports that his heart feels like it is going fast and he has generalized weakness but denies headache, chest pain, shortness of breath, abdominal pain, constipation, diarrhea, numbness, tingling, weakness. He does report drinking a substantial and of alcohol over the past 24 hours, unsure of his exact consumption. Patient did have banding performed at [facility] over the summer and was recently transferred to [facility] on 01-01 for GI bleeding. Related Data Home Medications Medication Instructions Recorded Confirmed acetaminophen [Tylenol] 650 mg PO Q4H PRN PRN #100 tab 10/06/19 01/02/20 esomeprazole magnesium [Nexium] 40 mg PO BID #60 tab-cap 10/06/19 01/02/20 finasteride 5 mg PO DAILY #30 tab 10/06/19 01/02/20 multivitamin [Multiple Vitamins] 1 tab PO DAILY #90 tab 10/06/19 01/02/20 potassium chloride [Klor-Con M20] 20 meq PO DAILY #30 tab 10/06/19 01/02/20 tamsulosin 0.4 mg PO DAILY #30 cap 10/06/19 01/02/20 propranolol 10 mg tablet 10 mg PO BID #60 tab 10/08/19 01/02/20 spironolactone 100 mg tablet 100 mg PO DAILY #30 tab 10/08/19 01/02/20 furosemide 40 mg tablet 40 mg PO DAILY #90 tab 10/09/19 01/02/20 Previous Rx's Medication Instructions Recorded acetaminophen [Tylenol] 650 mg PO Q4H PRN PRN #100 tab 10/06/19 esomeprazole magnesium [Nexium] 40 mg PO BID #60 tab-cap 10/06/19 finasteride 5 mg PO DAILY #30 tab 10/06/19 multivitamin [Multiple Vitamins] 1 tab PO DAILY #90 tab 10/06/19 potassium chloride [Klor-Con M20] 20 meq PO DAILY #30 tab 10/06/19 tamsulosin 0.4 mg PO DAILY #30 cap 10/06/19 propranolol 10 mg tablet 10 mg PO BID #60 tab 10/08/19 spironolactone 100 mg tablet 100 mg PO DAILY #30 tab 10/08/19 furosemide 40 mg tablet 40 mg PO DAILY #90 tab 10/09/19 Allergies Allergy/AdvReac Type Severity Reaction Status Date / Time sertraline AdvReac Severe SEVERE Verified 01/20/20 13:44 WORSENING OF DEPRESSION General Stated Complaint: GI Bleed NEEMA: 3 Review of Systems Constitutional Constitutional: Denies fatigue, Denies fever(s), Denies headache(s) and Reports weakness (Mild, generalized) Eyes Eyes: Denies change in vision ENT Ears, Nose, Mouth, and Throat: Denies headache(s) and Denies neck pain Cardiovascular Cardiovascular: Denies chest pain and Denies dyspnea Respiratory Respiratory: Denies cough and Denies dyspnea Gastrointestinal Gastrointestinal: Denies abdominal pain, Denies melena, Denies hematochezia, Denies coffee ground emesis, Denies constipation, Denies diarrhea, Reports nausea, Reports vomiting and Reports hematemesis Genitourinary Genitourinary: Denies hematuria Musculoskeletal Musculoskeletal: Denies back pain, Denies neck pain, Denies numbness and Denies tingling Integumentary/Breasts Skin/Breast: Denies rash Neurologic Neurologic: Denies headache(s), Denies numbness, Denies tingling and Reports weakness (Mild, generalized) Endocrine Endocrine: Denies fatigue Hematologic/Lymphatic Hematologic/Lymphatic: Denies easy bleeding and Reports easy bruising [facility] Medical History Acute GI bleeding Advanced hepatic cirrhosis Alcohol abuse Alcohol dependence with withdrawal with complication Alcoholic liver failure Anxiety Depression GERD (gastroesophageal reflux disease) Surgical History H/O vasectomy History of colon resection due to diverticulitis; sigmoid History of hernia repair Repair of inguinal hernia Vasectomy Family History Mother Neoplasm Father Diabetes Essential hypertension Neoplasm Sister No problems noted. Social History Smoking/Tobacco Use Status: Never Alcohol Intake: current Alcohol Intake frequency: 3 or more drinks per day Drug use: Daily Substance use type: marijuana Do you feel safe at home: Yes Do you feel safe in your relationship?: Yes Exam Const General: cooperative, comfortable, no acute distress, in distress and anxious Orientation: alert, awake and oriented x3 HENMT Head: normal to inspection, normocephalic and atraumatic Face and sinus: normal facial exam Mouth: moist mucous membranes Throat: posterior oropharynx normal Eyes Conjunctivae: conjunctivae normal Sclera: sclerae normal Neck Neck: normal visual inspection, full ROM, trachea midline, supple and nontender Resp Effort & Inspection: normal respiratory effort and able to speak in complete sentences Auscultation: clear to auscultation bilaterally Cardio Rate: tachycardic (140s) Rhythm: regular rhythm GI Inspection: normal to inspection and other (Patient dry heaving) Palpation: soft, not firm, no guarding, not rigid and nontender Auscultation: normal bowel sounds Back/Spine/Pelvis Back: No back tenderness Skin General skin exam: no rashes or lesions noted Neuro General: patient alert, patient awake, patient oriented x3, moves all extremities and no focal motor deficits Cognition: normal cognition Speech: speech normal Motor: muscle tone normal throughout and strength 5/5 throughout Sensory Exam: no sensory deficits noted Extrem General: normal to inspection, full ROM and capillary refill normal Psych Appearance: grossly normal Mental Status: mental status grossly normal Course Vital Signs Vital signs: Vital Signs Temperature 36.3 C L 01/20/20 13:40 Pulse 140 H 01/20/20 13:40 Respiratory Rate 16 01/20/20 13:40 Blood Pressure 139/78 01/20/20 13:40 Pulse Oximetry 99 01/20/20 13:40 Temperature 36.3 C L 01/20/20 13:40 Temperature Source Tympanic 09/29/20 13:40 Pulse 132 H 01/20/20 14:28 Pulse 140 H 01/20/20 14:20 Respiratory Rate 18 01/20/20 14:28 Blood Pressure 103/68 01/20/20 14:28 Blood Pressure Mean 76 01/20/20 14:16 Blood Pressure Position Sitting 01/20/20 13:40 Pulse Oximetry 95 01/20/20 14:28 Oxygen Delivery Method Room Air 01/20/20 14:28 Oxygen Flow Rate 0 01/20/20 14:28 Pain Level 0 01/20/20 13:40 Comment 01/20/20 13:40 Lab/Test Results Lab/Test Results: Laboratory Tests Range/Units 01/20/20 01/20/20 01/20/20 13:47 13:50 13:50 WBC (4.4-10.8) 10^3/uL 10.58 RBC (4.36-5.78) 10^6/uL 3.35 L Hgb (13.5-17.5) g/dL 8.1 L Hct (40.0-50.0) % 27.2 L MCV (80-95) fL 81.2 MCH (27.0-33.0) pg 24.2 L MCHC (32.0-36.0) % 29.8 L RDW (11.8-14.1) % 22.0 H Plt Count (130-400) 10^3/uL 78 L MPV (8.0-11.0) fL Immature Gran % 0.5 Neutrophils % 77.1 Lymphocytes % 15.0 Monocytes % 6.5 Eosinophils % 0.1 Basophils % 0.8 Nucleated RBC % % 0 Absolute Neutrophils (1.2-6.7) 10^3/uL 8.16 H Absolute Lymphocytes (1.2-3.4) 10^3/uL 1.59 Absolute Monocytes (0.1-0.8) 10^3/uL 0.69 Absolute Eosinophils (0.0-0.7) 10^3/uL 0.01 Absolute Basophils (0.0-0.2) 10^3/uL 0.08 RBC Morphology See below Polychromasia Present Hypochromasia 2+ Poikilocytosis 1+ Anisocytosis 3+ Microcytosis 2+ PT (9.3-11.0) sec INR (0.9-1.1) Sodium Cancelled 138 Potassium Cancelled 3.5 Chloride Cancelled 101 Carbon Dioxide Cancelled 21.3 Anion Gap Cancelled 15.7 H BUN Cancelled 11 Creatinine Cancelled 0.82 Estimated GFR/1.73 m2 Cancelled >= 60.00 Glucose Cancelled 162 H Calcium Cancelled 8.0 L Magnesium (1.8-2.4) mg/dL 1.5 L Total Bilirubin Cancelled 3.1 H AST Cancelled 106 H ALT Cancelled 34 Alkaline Phosphatase Cancelled 253 H Troponin I (<0.06) ng/mL < 0.05 Total Protein Cancelled 7.6 Albumin Cancelled 2.5 L Lipase (73-393) U/L 173 Ethyl Alcohol (<3) mg/dL Range/Units 01/20/20 01/20/20 13:50 13:50 WBC (4.4-10.8) 10^3/uL RBC (4.36-5.78) 10^6/uL Hgb (13.5-17.5) g/dL Hct (40.0-50.0) % MCV (80-95) fL MCH (27.0-33.0) pg MCHC (32.0-36.0) % RDW (11.8-14.1) % Plt Count (130-400) 10^3/uL MPV (8.0-11.0) fL Immature Gran % Neutrophils % Lymphocytes % Monocytes % Eosinophils % Basophils % Nucleated RBC % % Absolute Neutrophils (1.2-6.7) 10^3/uL Absolute Lymphocytes (1.2-3.4) 10^3/uL Absolute Monocytes (0.1-0.8) 10^3/uL Absolute Eosinophils (0.0-0.7) 10^3/uL Absolute Basophils (0.0-0.2) 10^3/uL RBC Morphology Polychromasia Hypochromasia Poikilocytosis Anisocytosis Microcytosis PT (9.3-11.0) sec 13.9 H INR (0.9-1.1) 1.4 H Sodium Potassium Chloride Carbon Dioxide Anion Gap BUN Creatinine Estimated GFR/1.73 m2 Glucose Calcium Magnesium (1.8-2.4) mg/dL Total Bilirubin AST ALT Alkaline Phosphatase Troponin I (<0.06) ng/mL Total Protein Albumin Lipase (73-393) U/L Ethyl Alcohol (<3) mg/dL 162.3 Critical Care Time Critical Care Time Critical Care Time: Yes Total Critical Care Time: 45 Attestation: Upon my evaluation, this patient had a high probability of clinically significant, life-threatening deterioration due to their current medical conditions, which required my direct attention, intervention, and personal management. I have personally provided greater than 30 minutes of critical care time exclusive of the time spend on separately billable procedures. Time includes obtaining a history, examining the patient, pulse oximetry, review of laboratory data, radiology results, discussion with consultants, arranging urgent treatment with development of a management plan, evaluation of patient's response to treatment, and monitoring for potential decompensation. Interventions were performed as documented above.
[2020-01-20] MEDS: Metoclopramide 10 MG/2 ML VIAL IVP (14:42)
[2020-01-20] MEDS: Lactated Ringers 1,000 ML 1000 ML IV (15:01)
[2020-01-20] MEDS: cefTRIAXone 1 GM/50 ML BAG IVPB (15:19)
== END 2020-01-20 16:00 | disposition short-term general hospital (02) ==
PROVIDERS: Emergency Provider Physician Assistant; PCP Nurse Practitioner
DX: K92.2 Gastrointestinal hemorrhage, unspecified (principal); I85.01 Esophageal varices with bleeding; K92.0 Hematemesis; F10.20 Alcohol dependence, uncomplicated; Y90.6 Blood alcohol level of 120-199 mg/100 ml; K70.30 Alcoholic cirrhosis of liver without ascites
CPT/HCPCS: 36415; 80053; 83690; 86850; 86900; 86901; 93005; 96361; 96365; 96376; 99291; 80320; 83735; 84484; 85025; 85610; 93010; J0696; J2060; J2354; J2405; J2765

== ENCOUNTER 2020-02-04 10:27 | Outpatient (CLI) | payer MEDICAID, SELFPAY ==
[2020-02-04 12:33] LABS: Abs Immature Grans 0.02 10^3/uL (0.0-0.06); Absolute Eosinophil Count 0.12 10^3/uL (0.0-0.7); Absolute Lymphocyte Count 1.45 10^3/uL (1.2-3.4); Absolute Monocyte Count 1.01 10^3/uL (0.1-0.8); Absolute Neutrophil Count 4.19 10^3/uL (1.2-6.7); Basophils % 1.5; Eosinophils % 1.7; HCT 29.6 % (40.0-50.0); HGB 8.8 g/dL (13.5-17.5); Immature Grans % 0.3; MCH 24.6 pg (27.0-33.0); MCHC 29.7 % (32.0-36.0); MCV 82.7 fL (80-95); Monocytes % 14.7; Neutrophils % 60.8; Nucleated RBC 0 %; RBC 3.58 10^6/uL (4.36-5.78); RDW 21.5 % (11.8-14.1); RDW-SD 62.4 fL; WBC 6.89 10^3/uL (4.4-10.8)
[2020-02-04 12:57] LABS: INR 1.2 (0.9-1.1); Prothrombin Time 12.1 sec (9.3-11.0)
[2020-02-04 13:07] LABS: Anisocytosis 2+; Diff Comment PLT Morph Reviewed; Hypochromasia 2+; Microcytosis 2+; Platelet Count 96 10^3/uL (130-400); Poikilocytes 1+; Polychromasia Present
[2020-02-04 13:12] LABS: ALT 36 U/L (16-63); AST 104 U/L (15-37); Alkaline Phosphatase 195 U/L (46-116); Anion Gap 10.6 mmol/L (3-11); BUN 5 mg/dL (7-18); Bilirubin, Total 3.5 mg/dL (0.2-1.0); CO2 27.4 mmol/L (21.0-32.0); CREATININE 0.93 mg/dL (0.70-1.30); Chloride 95 mmol/L (98-107); Glucose 116 mg/dL (74-106); Magnesium 1.6 mg/dL (1.8-2.4); Sodium 133 mmol/L (136-145); Total Protein 8.3 g/dL (6.4-8.2); Vitamin B12 1099 pg/mL (193-986)
== END 2020-02-04 10:47 ==
PROVIDERS: PCP Nurse Practitioner; Visit Provider Emergency Medicine
DX: I10 Essential (primary) hypertension (principal); K92.2 Gastrointestinal hemorrhage, unspecified; F10.20 Alcohol dependence, uncomplicated
CPT/HCPCS: 36415; 80053; 82607; 83735; 85025; 85610

== ENCOUNTER 2020-02-18 08:45 | Emergency (ER) | payer MEDICAID, SELFPAY ==
[2020-02-18] VITALS (32 sets, daily range): BP systolic 118–151; BP diastolic 61–80; PULSE 108–147; RESP 12–28; TEMP 37.1–37.4; O2SAT 94–100
--- NOTE | 2020-02-18 08:45 | RT.EKG_ITS ---
APPROVED REPORT Exam: Resting ECG Patient Location: E HR:90 bpm ECG Measurements Heart Rate 90 AXIS MI 204 P 82 QRSd 103 QRS 60 QT 361 T 208 QTc 441 Conclusion Sinus rhythm...normal P axis, V-rate 60- 99 Ventricular tachycardia, unsustained...sequence of 3 or more V complexes Borderline prolonged MI interval...MI >202, V-rate 50- 90 Left atrial enlargement...P, P'>60mS, <-0.15mV V1 LVH with secondary repolarization abnormality...multi-LVH criteria, abnrm ST-T
--- NOTE | 2020-02-18 08:45 | RT.EKG_ITS ---
APPROVED REPORT Exam: Resting ECG Patient Location: E HR:135 bpm ECG Measurements Heart Rate 135 AXIS LA 140 P 54 QRSd 101 QRS -44 QT 300 T 42 QTc 451 Conclusion Pacemaker spikes or artifacts...timing non-diagnostic Sinus tachycardia...rate> 99 Left axis deviation...QRS axis (-30,-90)
--- NOTE | 2020-02-18 09:11 | ED.GENADUL_ITS ---
Discharge Plan Disposition Patient Disposition: [facility] Condition: Critical Discharge Details Clinical Impression: Esophageal varices, Alcohol withdrawal, Alcoholic liver failure, Upper GI bleed, Hypomagnesemia, Hypokalemia Primary Care Provider: Angella Deal ED Provider: Huseyin Koo Home Meds and New Rx's Prescriptions: No Action propranolol 10 mg tablet 10 mg PO BID Qty: 60 RF: 3 spironolactone 100 mg tablet 100 mg PO DAILY Qty: 30 RF: 2 mirtazapine [Remeron] 15 mg tablet 7.5 mg PO QHS Qty: 60 RF: 4 furosemide 40 mg tablet 40 mg PO DAILY Qty: 90 RF: 4 multivitamin [Multiple Vitamins] Tablet 1 tab PO DAILY Qty: 90 RF: 3 potassium chloride [Klor-Con M20] 20 mEq Tablet,Er Particles/Crystals 20 meq PO DAILY Qty: 30 RF: 1 tamsulosin 0.4 mg Capsule 0.4 mg PO DAILY Qty: 30 RF: 2 esomeprazole magnesium [Nexium] 20 MG capsule,delayed release(DR/EC) 40 mg PO BID Qty: 60 RF: 0 Medical Decision Making 59 yo male with hx of alcoholism, withknown varices and was treated at [facility] after transfer from here within the past month and had egd showing ledy farley tear, esophagitis and nonbleeding varices, who was sober since d/c until 4 days ago when he started to drink vodka again. He last had vodka yesterday morning per patient and later in the day started to have n/v with bright red blood. Denies fevers, abdominal pain, chest pain, dyspnea, cough. Has no abdominal tenderness, does appear anxious on exam and has mild tremors of both arms which I suspect could be from mild alcohol withdrawal. Has melana as well. Arrives with stable BP though tachycardic in the 130's. Will tx with bolus of IVF and also ativan, obtain labs and tx with protonix octreotide and ceftriaxone. labs show hgb of 6.9, mild low K and magnesium, he consents to transfusion of prbc's. Given his known variceal history will discuss transfer with [facility]. His bp remains stable and mental status stable, remains tachycardic with rates in the 120's now spoke with [facility] and they have accepted to their icu, Dr. Ha is accepting provider. Pt remains normotensive, normal mental status with HR in the 120's. He is agreeable with transfer Differential Diagnosis Differential Diagnosis: variceal bleed, esophagitis, ledy farley tear Medical Records Medical records reviewed: Yes I reviewed the patient's medical records. ECG Data Attestation: I personally reviewed and interpreted this ECG (s) as follows: Prior ECG tracings: not available for review Interpretation: sinus tachycardia, rate of 135, pr 140, qtc 451 HPI General Mode of arrival: ambulatory . Date/Time Provider Initiated Documentation: 02/18/20 08:51 . Limitations to Documentation: no limitations . Information obtained by: patient . History of Present Illness 59 year old M presents to the emergency department with the chief complaint of vomit blood, described as moderate, Patient started experiencing this day(s) (1) and it has been constant. No relieving factors improve symptom(s), No exacerbating factors reported . Patient did receive the following treatments prior to arrival, none Related Data Home Medications Medication Instructions Recorded Confirmed esomeprazole magnesium [Nexium] 40 mg PO BID #60 tab-cap 10/06/19 02/18/20 multivitamin [Multiple Vitamins] 1 tab PO DAILY #90 tab 10/06/19 02/18/20 potassium chloride [Klor-Con M20] 20 meq PO DAILY #30 tab 10/06/19 02/18/20 tamsulosin 0.4 mg PO DAILY #30 cap 10/06/19 02/18/20 propranolol 10 mg tablet 10 mg PO BID #60 tab 10/08/19 02/18/20 spironolactone 100 mg tablet 100 mg PO DAILY #30 tab 10/08/19 02/18/20 furosemide 40 mg tablet 40 mg PO DAILY #90 tab 10/09/19 02/18/20 mirtazapine 15 mg tablet 7.5 mg PO QHS #60 tab 02/04/20 02/18/20 Previous Rx's Medication Instructions Recorded esomeprazole magnesium [Nexium] 40 mg PO BID #60 tab-cap 10/06/19 multivitamin [Multiple Vitamins] 1 tab PO DAILY #90 tab 10/06/19 potassium chloride [Klor-Con M20] 20 meq PO DAILY #30 tab 10/06/19 tamsulosin 0.4 mg PO DAILY #30 cap 10/06/19 propranolol 10 mg tablet 10 mg PO BID #60 tab 10/08/19 spironolactone 100 mg tablet 100 mg PO DAILY #30 tab 10/08/19 furosemide 40 mg tablet 40 mg PO DAILY #90 tab 10/09/19 mirtazapine 15 mg tablet 7.5 mg PO QHS #60 tab 02/04/20 Allergies Allergy/AdvReac Type Severity Reaction Status Date / Time sertraline AdvReac Severe SEVERE Verified 02/04/20 09:37 WORSENING OF DEPRESSION General Stated Complaint: GI Bleed NEEMA: 2 Review of Systems All systems reviewed & are unremarkable except as noted in HPI and below Constitutional Constitutional: Denies chills and Denies fever(s) Cardiovascular Cardiovascular: Denies chest pain and Denies dyspnea Respiratory Respiratory: Denies cough and Denies dyspnea Gastrointestinal Gastrointestinal: Denies abdominal pain Musculoskeletal Musculoskeletal: Denies joint swelling Psychiatric Psychiatric: Denies depression [facility] Medical History Acute GI bleeding Advanced hepatic cirrhosis Alcohol abuse Alcohol dependence with withdrawal with complication Alcoholic liver failure Anxiety Depression GERD (gastroesophageal reflux disease) Surgical History H/O vasectomy History of colon resection due to diverticulitis; sigmoid History of hernia repair Repair of inguinal hernia Vasectomy Family History Mother Neoplasm Father Diabetes Essential hypertension Neoplasm Sister No problems noted. Social History Smoking/Tobacco Use Status: Never Smoking risk assessment performed?: Yes Alcohol Intake: current Alcohol Intake frequency: 3 or more drinks per day Alcohol type: hard liquor Drug use: Occasionally Substance use type: marijuana Do you feel safe at home: Yes Do you feel safe in your relationship?: Yes Exam Const General: anxious Orientation: alert HENMT Head: normal to inspection Ears: external ears normal General nose exam: external nose normal Mouth: moist mucous membranes Eyes General: appearance normal, both eyes and all related structures Neck Neck: normal visual inspection Resp Effort & Inspection: normal respiratory effort and able to speak in complete sentences Cardio Jugular venous pressure: no JVD Rate: tachycardic GI Palpation: soft Skin General skin exam: jaundice Neuro General: patient alert and patient oriented x3 Extrem General: normal to inspection Psych Mental Status: mental status grossly normal Course Vital Signs Vital signs: Vital Signs Temperature 37.1 C 02/18/20 08:56 Respiratory Rate 20 02/18/20 08:56 Blood Pressure 150/75 H 02/18/20 08:56 Pulse Oximetry 100 02/18/20 08:56 Temperature 37.1 C 02/18/20 08:56 Temperature Source Tympanic 02/18/20 08:56 Respiratory Rate 20 02/18/20 08:56 Respiratory Effort 02/18/20 09:03 Blood Pressure 150/75 H 02/18/20 08:56 Pulse Oximetry 100 02/18/20 08:56 Pain Level 8 02/18/20 08:56 Critical Care Time Critical Care Time Critical Care Time: Yes Total Critical Care Time: 60 (minutes) Attestation: time spent performing lab review, initiating blood transfusion and frequent reassessments in patient with upper gi bleed and potential to deteriorate at any time
[2020-02-18 09:17] LABS: Abs Immature Grans 0.06 10^3/uL (0.0-0.06); Absolute Basophil Count 0.07 10^3/uL (0.0-0.2); Absolute Lymphocyte Count 1.55 10^3/uL (1.2-3.4); Basophils % 0.5; HCT 24.1 % (40.0-50.0); Immature Grans % 0.4; Lactate 7.2 mmol/L (0.6-1.4); Lymphocytes % 10.6; MCH 23.3 pg (27.0-33.0); MCHC 28.6 % (32.0-36.0); MCV 81.4 fL (80-95); Monocytes % 7.5; Nucleated RBC 0 %; Platelet Count 136 10^3/uL (130-400); RBC 2.96 10^6/uL (4.36-5.78); RDW-SD 60.5 fL; WBC 14.63 10^3/uL (4.4-10.8)
[2020-02-18] MEDS: cefTRIAXone 1 GM/50 ML BAG IVPB (09:20)
[2020-02-18] MEDS: Pantoprazole 40 MG VIAL IVP (09:20)
[2020-02-18] MEDS: LORazepam 2 MG/ML VIAL IVP (09:20)
[2020-02-18] MEDS: Normal Saline 1,000 ML 1000 ML IV (09:21)
[2020-02-18 09:30] LABS: Absolute Neutrophil Count 11.85 10^3/uL (1.2-6.7)
[2020-02-18 09:31] LABS: HGB 6.9 g/dL (13.5-17.5)
[2020-02-18 09:33] LABS: Anisocytosis 2+; Diff Comment Diff Reviewed; Hypochromasia 2+; Microcytosis 1+; Poikilocytes 1+; Polychromasia Present
[2020-02-18 09:39] LABS: Ammonia 39 umol/L (11-32)
[2020-02-18 09:39] LABS: ALT 22 U/L (16-63); AST 54 U/L (15-37); Albumin 2.7 g/dL (3.4-5.0); Alkaline Phosphatase 143 U/L (46-116); BUN 17 mg/dL (7-18); Bilirubin, Direct 1.73 mg/dL (0.00-0.20); Bilirubin, Total 3.9 mg/dL (0.2-1.0); CREATININE 1.08 mg/dL (0.70-1.30); Chloride 100 mmol/L (98-107); Glucose 229 mg/dL (74-106); Lipase 85 U/L (73-393); Magnesium 1.4 mg/dL (1.8-2.4); Sodium 135 mmol/L (136-145); Total Protein 7.5 g/dL (6.4-8.2)
[2020-02-18 09:44] LABS: PTT Activated 26.1 sec (21.0-31.4); Prothrombin Time 14.4 sec (9.3-11.0); Troponin I < 0.05 ng/mL (<0.06)
[2020-02-18 09:46] LABS: ETHANOL BLOOD < 3.0 mg/dL (<3); Potassium 2.9 mmol/L (3.5-5.1)
[2020-02-18 09:51] LABS: INR 1.4 (0.9-1.1)
[2020-02-18] MEDS: MAGNESIUM SULFATE 2 GM/50 ML BAG IVPB (10:26)
[2020-02-18] MEDS: POTASSIUM CHLORIDE 10 MEQ/100 ML BAG 100 MEQ IVPB (10:26)
--- NOTE | 2020-02-18 11:23 | NUR.NOTE ---
PT AWAKE, ALERT. STABLE. 1ST UNIT [facility]BC INFUSING. NO S/SXS OF TRANSFUSION REACTION NOTED. PT AWAITING TRANSPORT TO [facility]. WILL CONT TO MONITOR.
== END 2020-02-18 12:10 | disposition short-term general hospital (02) ==
PROVIDERS: Emergency Provider Emergency Medicine; PCP Nurse Practitioner
DX: I85.01 Esophageal varices with bleeding (principal); F10.20 Alcohol dependence, uncomplicated; K70.40 Alcoholic hepatic failure without coma; K92.2 Gastrointestinal hemorrhage, unspecified; E83.42 Hypomagnesemia; E87.6 Hypokalemia
CPT/HCPCS: 36430; 80053; 83690; 86850; 86900; 86901; 86920; 93005; 96361; 96365; 96366; 96368; 96375; 99291; 80320; 81003; 82140; 82248; 83605; 83735; 84484; 85025; 85610; 85730; 93010; J0696; J2060; J2354; J3480; P9016

== ENCOUNTER 2020-03-15 04:37 | Outpatient (CLI) | payer MEDICAID, SELFPAY ==
[2020-03-15 10:00] LABS: HCT 27.9 % (40.0-50.0); HGB 8.2 g/dL (13.5-17.5); MCH 24.9 pg (27.0-33.0); MCHC 29.4 % (32.0-36.0); MCV 84.8 fL (80-95); RBC 3.29 10^6/uL (4.36-5.78); RDW 23.8 % (11.8-14.1); RDW-SD 71.9 fL; WBC 6.41 10^3/uL (4.4-10.8)
[2020-03-15 10:30] LABS: Platelet Count 87 10^3/uL (130-400)
[2020-03-15 11:36] LABS: ALT 24 U/L (16-63); AST 60 U/L (15-37); Albumin 2.6 g/dL (3.4-5.0); Alkaline Phosphatase 150 U/L (46-116); Anion Gap 11.9 mmol/L (3-11); BUN 4 mg/dL (7-18); Bilirubin, Total 1.6 mg/dL (0.2-1.0); CO2 24.1 mmol/L (21.0-32.0); CREATININE 0.82 mg/dL (0.70-1.30); Calcium 8.1 mg/dL (8.5-10.1); Chloride 109 mmol/L (98-107); Glucose 136 mg/dL (74-106); Potassium 3.7 mmol/L (3.5-5.1); Sodium 145 mmol/L (136-145); Total Protein 7.5 g/dL (6.4-8.2)
== END 2020-03-15 04:57 ==
PROVIDERS: PCP Nurse Practitioner; Visit Provider Physician Assistant Medical
DX: D62 Acute posthemorrhagic anemia (principal); I85.00 Esophageal varices without bleeding; K74.60 Unspecified cirrhosis of liver
CPT/HCPCS: 36415; 80053; 85027

== ENCOUNTER 2020-03-20 17:03 | Emergency (ER) | payer MEDICAID, SELFPAY ==
[2020-03-20] VITALS (34 sets, daily range): BP systolic 111–154; BP diastolic 62–87; PULSE 115–136; RESP 11–23; TEMP 37.2; O2SAT 83–98
--- NOTE | 2020-03-20 17:15 | DI.CT_ITS ---
EXAM: CT HEAD CERVICAL SPINE WO CLINICAL HISTORY: Fall, unknown LOC. TECHNIQUE: Imaging Protocol: Axial computed tomography images with coronal and sagittal reformatted images were created and reviewed COMPARISON: CT HEAD WITHOUT CONTRAST from 06/05/2017 FINDINGS: CT Head: There is a fracture of the right frontal sinus which was evident in May 2017. No acute skull fractures identified. Some fluid is noted in mastoid air cells on the right side. Left masto id air cells are clear. There is no evidence of intracranial hemorrhage, mass-effect, nor shift of m idline structures. There are no extra-axial fluid collections. The ventricles are not enlarged nor shifted in there is no blood within the ventricular system no within the basal cisterns. CT Cervical Spine: Bones: No acute fracture or subluxation. No facet malalignment evident. Multilevel degenerative face t joint changes. Multilevel chronic degenerative disc disease and anterior osteophytes. IMPRESSION: 1. No acute intracranial findings. 2. No evidence of acute cervical spine fracture, malalignment, nor acute compromise of the cervical s anibal canal. RADIATION DOSE DELIVERED: 1,233.63mGy.cm Total DLP DATA REPOSITORY: All CT scans at this facility are submitted to the National Radiology Data Registry (NRDR) Dose Index Registry (DIR) with the [employer] (ACR). RADIATION OPTIMIZATION: All CT scans at this facility use at least one of these dose optimization te chniques: automated exposure control; mA and/or kV adjustment per patient size (includes targeted exa ms where dose is matched to clinical indication); or iterative reconstruction.
--- NOTE | 2020-03-20 17:15 | RT.EKG_ITS ---
APPROVED REPORT Exam: Resting ECG Patient Location: E HR:130 bpm ECG Measurements Heart Rate 130 AXIS MN 147 P 19 QRSd 101 QRS -39 QT 305 T 23 QTc 450 Conclusion Sinus tachycardia...rate> 99 Left axis deviation...QRS axis (-30,-90) Low voltage, precordial leads...precordial leads <1.0mV Abnrm R prog, consider ASMI or lead placement...Q >30mS, diminished R, V1-V2 I have reviewed and interpreted ECG and agree with software generated interpretation.
--- NOTE | 2020-03-20 17:29 | W.ED.GENAD ---
Discharge Plan Disposition Patient Disposition: [facility] Condition: Stable Discharge Details Clinical Impression: Multiple fractures of ribs of right side, Upper GI bleed Primary Care Provider: Angella Deal ED Provider: Priscila Castrejon Home Meds and New Rx's Prescriptions: No Action propranolol 10 mg tablet 10 mg PO BID Qty: 60 RF: 3 finasteride 5 mg tablet 5 mg PO DAILY RF: 0 folic acid 1 mg tablet 1 mg PO DAILY RF: 0 mirtazapine 15 mg tablet 15 mg PO DAILY RF: 0 pantoprazole 40 mg tablet,delayed release (DR/EC) 40 mg PO DAILY RF: 0 potassium, sodium phosphates 280-160-250 mg powder in packet 2 packet PO QID RF: 0 thiamine mononitrate (vit B1) 100 mg tablet 100 mg PO DAILY RF: 0 multivitamin [Multiple Vitamins] Tablet 1 tab PO DAILY Qty: 90 RF: 3 tamsulosin 0.4 mg capsule 0.4 mg PO DAILY RF: 0 spironolactone 50 mg tablet 50 mg PO DAILY RF: 0 acamprosate 333 mg tablet,delayed release (DR/EC) 666 mg PO TID RF: 0 Medical Decision Making 1829: Patient actively having episode of emesis, it appears brown bilious material. Order Phenergan place. staff midwife informed me 300 cc of brown emesis, gastroccult positive. 185: Patient's O2 sats 87% on room air with a good Plath, placed on 2 L nasal cannula, portable chest x-ray called to rule out hemopneumo or pneumothorax, O2 sat on 2 L nasal cannula is 96%. Exam: XR Chest, 1 View Exam date and time: 03/20/2020 6:58 PM Age: 59 years old Clinical indication: Injury or trauma; Other: RT rib pain R/O pneumo; Crushing TECHNIQUE: Imaging protocol: XR of the chest Views: 1 view. COMPARISON: CT CHEST/ABD/PEL W 03/01/2020 09:49 FINDINGS: Lungs: Low lung volumes. Right middle lobe infiltrate. Left lower lobe and left upper lobe infiltrate. Pleural space: Blunted left lateral costophrenic angle. Heart/Mediastinum: Cardiomegaly. Bones/joints: Old right lateral posterior rib fractures. Old left lateral and posterior rib fractures. IMPRESSION: 1. Bilateral pneumonia. 2. Old bilateral rib fractures. Thank you for allowing us to participate in the care of your patient. Dictated and Authenticated by: Temitope Salazar MD CT thorax, Abd, pelvis, CTA IMPRESSION: 1. Cirrhotic liver. Distended gallbladder with pericholecystic fluid and thickened gallbladder wall. Splenomegaly. Ascites. Splenic varices. Esophageal varices. Hiatal hernia. Circumferential thickening of the 2nd and proximal 3rd portion of the duodenum with infiltration of the Periduodenal and peripancreatic fat. These findings are consistent with chronic hepatic disease such as cirrhosis. 2. Circumferential thickening colonic wall with pericolonic fat infiltration and surrounding fluid of concern for colitis. 3. Bibasilar infiltrates versus atelectasis. 4. Gastric fold thickening and enhancement with collapse of the gastric wall. 5. Additional findings as discussed above. TECHNIQUE: Imaging protocol: Computed tomography of the head without contrast. COMPARISON: CT HEAD WITHOUT CONTRAST 06/06/2017 12:37 AM FINDINGS: Brain: There is mild diffuse cerebral atrophy present, consistent with this patient's age. There is mild diffuse heterogeneity of the white matter attenuation, consistent with chronic white matter ischemic changes. Cerebral ventricles: The ventricular system demonstrates mild diffuse compensatory enlargement. Bones/joints: No acute fracture. Anterior right frontal fracture has healed since the comparison study. Paranasal sinuses: There are couple subcentimeter densities in the left maxillary sinus consistent with mucous retention cysts or polyps. Paranasal sinuses are otherwise clear. No air-fluid levels. Mastoid air cells: Visualized mastoid air cells are well aerated. Soft tissues: Unremarkable. IMPRESSION: No acute intracranial abnormality. PROCEDURE INFORMATION: Exam: CT Cervical Spine Without Contrast Exam date and time: 03/20/2020 7:26 PM Age: 59 years old Clinical indication: Injury or trauma; Concussion/head injury; Consciousness not specified; Patient HX: S/P fall unknown loc TECHNIQUE: Imaging protocol: Computed tomography images of the cervical spine without contrast. COMPARISON: CT HEAD WITHOUT CONTRAST 06/06/2017 12:37 AM FINDINGS: Bones/joints: There is reversal of the normal lordotic curvature similar to the comparison study likely due to degenerative changes. Discs/Spinal canal/Neural foramina: There is considerable degenerative disc disease from C3-C4 down through C6-C7. Mild retro listhesis of C3 on C4 and C6 on C7 is unchanged since the comparison study. There is variable mild to moderate neural foraminal narrowing. No marked neural foraminal narrowing or spinal stenosis. Soft tissues: Unremarkable. Lungs: Minimal right apical pleural thickening. IMPRESSION: 1. No acute findings. 2. Degenerative disc disease. 2104: Informed by staff midwife that sat is 93% on RA. [facility] gastroenterology paged for possible transfer. Patient complaining of right-sided rib torso pain, 50 mcg of fentanyl IV push ordered. 2112: Dr. Yuan with trauma does not reccommend blood transfusion at this time, discussed patient case in details with him he agrees to accept patient for transfer to the ED for trauma consult. Will discuss plan with patient. Patient verbalized understanding. HPI General Mode of arrival: ambulatory. Date/Time Provider Initiated Documentation: 03/20/20 17:19. Limitations to Documentation: no limitations (Patient is a poor historian). Information obtained by: patient. HPI Narrative: 59-year-old male presents to the ER chief complaint of fall last night approximately 4 feet onto his right side states that he fell off a deck. He is unsure if he lost consciousness. He said it was witnessed by his son. He does have a past medical history of esophageal varices and alcohol abuse. He is here complaining of right rib pain and hematemesis. He denies any neck or back pain. He does have right-sided abdominal pain. On initial exam he is tachycardic at a heart rate of 137, he is alert and oriented x3. He has a past medical history of decompensated alcoholic cirrhosis, alcoholism, GERD, esophageal varices, Varela's esophagus, portal hypertension, diverticulitis, partial colectomy, acute blood loss anemia, anxiety. Related Data Home Medications Medication Instructions Recorded Confirmed multivitamin [Multiple Vitamins] 1 tab PO DAILY #90 tab 10/06/19 03/20/20 propranolol 10 mg tablet 10 mg PO BID #60 tab 10/08/19 03/20/20 finasteride 5 mg tablet 5 mg PO DAILY 03/02/20 03/20/20 folic acid 1 mg tablet 1 mg PO DAILY 03/02/20 03/20/20 mirtazapine 15 mg tablet 15 mg PO DAILY 03/02/20 03/20/20 pantoprazole 40 mg tablet,delayed 40 mg PO DAILY 03/02/20 03/20/20 release potassium, sodium phosphates 280 2 packet PO QID 03/02/20 03/20/20 mg-160 mg-250 mg oral powder packet thiamine mononitrate (vit B1) 100 100 mg PO DAILY 03/02/20 03/20/20 mg tablet acamprosate 666 mg PO TID 03/20/20 03/20/20 spironolactone 50 mg PO DAILY 03/20/20 03/20/20 tamsulosin 0.4 mg PO DAILY 03/20/20 03/20/20 Previous Rx's Medication Instructions Recorded multivitamin [Multiple Vitamins] 1 tab PO DAILY #90 tab 10/06/19 propranolol 10 mg tablet 10 mg PO BID #60 tab 10/08/19 Allergies Allergy/AdvReac Type Severity Reaction Status Date / Time sertraline AdvReac Severe SEVERE Verified 03/20/20 17:40 WORSENING OF DEPRESSION General Stated Complaint: Chest/Rib NEEMA: 2 Review of Systems Narrative: Constitutional: Negative for weight loss, alert and oriented, well groomed, normal body habitus, appears comfortable. HEENT: Denies headaches, blurry vision, nasal discharge, sore throat, trouble swallowing. Chest: Denies chest pain, palpitations, irregular rhythm, hypertension. Respiratory: Denies Shortness of breath, cough, hemoptysis. GI: Denies diarrhea, constipation. Positive hematemesis, right upper quadrant abdominal pain. Nausea vomiting. : Denies dysuria, hematuria, flank pain, rectal bleeding. Neuro: Denies dizziness, blurry vision, weakness, syncope, headache or facial numbness. Hematologic: Denies intolerance to heat or cold, hair loss. [facility] Medical History Acute GI bleeding Advanced hepatic cirrhosis Alcohol abuse Alcohol dependence with withdrawal with complication Anxiety Depression GERD (gastroesophageal reflux disease) History of surgery Hernia repair. Vasectomy. Surgical History H/O vasectomy History of colon resection due to diverticulitis; sigmoid History of esophagogastroduodenoscopy 01/2020- [facility] History of hernia repair Repair of inguinal hernia Vasectomy Family History Mother Neoplasm Father Diabetes Essential hypertension Neoplasm Sister No problems noted. Social History Smoking/Tobacco Use Status: Never Smoking risk assessment performed?: Yes Alcohol Intake: current Alcohol Intake frequency: 3 or more drinks per day Alcohol type: hard liquor Drug use: Occasionally Substance use type: marijuana Do you feel safe at home: Yes Do you feel safe in your relationship?: Yes Exam Narrative Exam Narrative: Constitutional: Alert and oriented x3. Appears stated age. Normal body habitus. Head: Normocephalic, no signs of trauma. Eyes: Pupils PERRLA, Red reflex noted, EOM's intact. Eyelids symmetrical without lesions, discharge, or swelling. ENT: Bilateral TM's WNL, External ear normal to inspection, no mastoid TTP, swelling, or erythema, Nasal turbinates WNL, no nasal discharge. Normal dentition, Posterior pharynx WNL, no exudate. Chest: Tachycardia, Normal S1, S2, distal pulses intact. Resp: Lungs clear to auscultation bilaterally, no wheezes, rales, or rhonchi. Abdomen: Right upper quadrant tenderness to palpation. Musculoskeletal: Normal gait, 5/5 strength to all four extremities. Skin: No suspicious rashes or lesions. Capillary refill less than 2 sec. Appears jaundiced. Neurologic: Cranial nerves II-XII intact. Alert and oriented x 3. DTR's intact. Hematologic/Lymphatic: No ecchymosis, no lymphadenopathy. Course Vital Signs Vital signs: Vital Signs Temperature 37.2 C 03/20/20 17:17 Pulse 129 H 03/20/20 17:17 Respiratory Rate 21 03/20/20 17:17 Blood Pressure 154/82 H 03/20/20 17:17 Pulse Oximetry 98 03/20/20 17:17 Temperature 37.2 C 03/20/20 17:17 Temperature Source Temporal Artery Scan 03/20/20 17:17 Pulse 129 H 03/20/20 17:17 Respiratory Rate 21 03/20/20 17:17 Respiratory Effort Non-Labored 03/20/20 17:22 Blood Pressure 154/82 H 03/20/20 17:17 Blood Pressure Position Supine 03/20/20 17:17 Pulse Oximetry 98 03/20/20 17:17 Oxygen Delivery Method Room Air 03/20/20 17:17 Oxygen Flow Rate 0 03/20/20 17:17 Pain Level 10 03/20/20 17:17
[2020-03-20 17:44] LABS: Abs Immature Grans 0.03 10^3/uL (0.0-0.06); Absolute Basophil Count 0.05 10^3/uL (0.0-0.2); Absolute Eosinophil Count 0.01 10^3/uL (0.0-0.7); Absolute Lymphocyte Count 1.18 10^3/uL (1.2-3.4); Absolute Monocyte Count 0.91 10^3/uL (0.1-0.8); Absolute Neutrophil Count 5.01 10^3/uL (1.2-6.7); Basophils % 0.7; Eosinophils % 0.1; HCT 25.7 % (40.0-50.0); HGB 7.5 g/dL (13.5-17.5); Immature Grans % 0.4; Lymphocytes % 16.4; MCH 23.7 pg (27.0-33.0); MCHC 29.2 % (32.0-36.0); MCV 81.3 fL (80-95); Monocytes % 12.7; Neutrophils % 69.7; Nucleated RBC 0 %; Platelet Count 74 10^3/uL (130-400); RBC 3.16 10^6/uL (4.36-5.78); RDW 22.9 % (11.8-14.1); RDW-SD 67.7 fL; WBC 7.19 10^3/uL (4.4-10.8)
[2020-03-20] MEDS: Ondansetron 4 MG/2 ML VIAL IVP (17:46)
[2020-03-20] MEDS: Normal Saline 1,000 ML 1000 ML IV (17:46)
[2020-03-20] MEDS: MORPHine 10 MG/ML VIAL 2 MG IVP (17:47)
[2020-03-20 17:50] LABS: Magnesium 1.4 mg/dL (1.8-2.4)
[2020-03-20 17:52] LABS: INR 1.6 (0.9-1.1); Prothrombin Time 15.6 sec (9.3-11.0)
[2020-03-20 17:56] LABS: ALT 18 U/L (16-63); AST 61 U/L (15-37); Albumin 2.3 g/dL (3.4-5.0); Alkaline Phosphatase 136 U/L (46-116); Anion Gap 11.6 mmol/L (3-11); BUN 6 mg/dL (7-18); Bilirubin, Total 3.2 mg/dL (0.2-1.0); CO2 22.4 mmol/L (21.0-32.0); CREATININE 1.01 mg/dL (0.70-1.30); Calcium 7.9 mg/dL (8.5-10.1); Chloride 104 mmol/L (98-107); Glucose 144 mg/dL (74-106); Potassium 3.8 mmol/L (3.5-5.1); Sodium 138 mmol/L (136-145); Total Protein 7.3 g/dL (6.4-8.2)
[2020-03-20 18:03] LABS: Lipase 118 U/L (73-393)
[2020-03-20 18:04] LABS: Hypochromasia 1+; Microcytosis 1+
[2020-03-20 18:05] LABS: Ovalocytes 2+; Tear Drop Cells 2+
[2020-03-20 18:07] LABS: Diff Comment RBC Morph Reviewed
[2020-03-20] MEDS: Normal Saline 250 ML IV (18:15)
[2020-03-20] MEDS: Pantoprazole 40 MG VIAL 80 MG IVP (18:20)
--- NOTE | 2020-03-20 18:45 | DI.CT_ITS ---
EXAM: CT THORAX ABD/PEL CTA CLINICAL HISTORY: Trauma, hx esophageal bleed TECHNIQUE: Contrast few CT scan the chest, abdomen, and pelvis was performed COMPARISON: CT CT CHEST/ABD/PEL W from 01/02/2020 FINDINGS: CT scan chest with IV contrast: Lungs: Mild infiltrate noted in the basal segments of both lower lobes. No pleural effusions. No pn eumothorax. No significant focal findings in the trachea and mainstem bronchi. Mediastinum: No evidence of mediastinal hematoma. No thyroid findings. No hilar nor mediastinal fabio nopathy. No axillary adenopathy. Cardiac: Heart size normal. No pericardial effusion. Caliber of the thoracic aorta is within normal limits. No evidence of significant aortic trauma nor dissection. Osseous: There are acute fractures of the right 5th and 6th and 7th ribs. There are multiple nonacut e appearing fractures of left ribs, some healed and some incompletely healed. No fractures of the th oracic vertebral bodies evident. CT scan abdomen and pelvis with IV contrast: There is ascites and small mild-moderate. Liver is cirrhotic. No ominous focal hepatic mass identif ied. There is splenomegaly. The splenic and portal veins are patent. Collaterals also noted includ ing varices. Gallbladder appears somewhat distended. No obvious gallstones. CBD is not dilated but there appears to be some air in the lower CBD. No evidence of pancreatic mass no dilatation of the pancreatic flora t. There are no significant adrenal masses. No significant focal findings in the kidneys. No hydro nephrosis nor hydroureter nor obvious abnormality in the nondistended urinary bladder. In the pelvis aortoiliac segments are patent. There is no evidence of significant anterior abdominal wall hernia. No bowel obstruction. Prostate gland is slightly prominent and lobulated. Seminal ve sicles appear unremarkable. No evidence of acute diverticulitis. There is free fluid around the cec um which most probably related to the ascites as opposed to appendicitis. Visualized appendix does n ot appear thickened. IMPRESSION: 1. There are acute fractures of the right 5th, 6th, and 7th ribs. No pneumothorax. No prominent tal g contusion nor mediastinal hematoma. Aorta is intact. No pleural effusions. 2. There are multiple nonacute healed and partially healed fractures in the opposite-left ribcage. 3. Hepatic cirrhosis, splenomegaly, and ascites. Above described findings are consistent with portal venous hypertension including varices.
--- NOTE | 2020-03-20 18:45 | DI.RAD_ITS ---
EXAM: XR PORTABLE CHEST AP CLINICAL HISTORY: Right rib pain r/o pneumo. TECHNIQUE: 2D digital imaging was performed. COMPARISON: CR XR PORTABLE CHEST AP from 10/03/[address] THORAX ABD/PEL CTA from 03/20/2020 FINDINGS: Heart size normal. Mediastinum is not widened. There are acute appearing fractures of the right 5th a nd 6th ribs and 7th ribs. No pneumothorax. No obvious lung contusion. There are multiple healed fract ures on the opposite-left side as well as subacute appearing fractures on the left side. Also healed fracture of the left clavicle. Mild increased markings lateral left lung base. DATA REPOSITORY: RADIATION DOSE DELIVERED:
--- NOTE | 2020-03-20 19:00 | RT.EKG_ITS ---
APPROVED REPORT Exam: Resting ECG Patient Location: E HR:122 bpm ECG Measurements Heart Rate 122 AXIS GA 150 P 42 QRSd 100 QRS -4 QT 324 T 39 QTc 462 Conclusion Sinus tachycardia...rate> 99 Low voltage, precordial leads...precordial leads <1.0mV. No STEMI. I have reviewed and interpreted ECG and agree with software generated interpretation.
--- NOTE | 2020-03-20 19:05 | DI.VRAD_ITS ---
PROCEDURE INFORMATION: Exam: XR Chest, 1 View Exam date and time: 03/20/2020 6:58 PM Age: 59 years old Clinical indication: Injury or trauma; Other: RT rib pain R/O pneumo; Crushing TECHNIQUE: Imaging protocol: XR of the chest Views: 1 view. COMPARISON: CT CHEST/ABD/PEL W 03/01/2020 09:49 FINDINGS: Lungs: Low lung volumes. Right middle lobe infiltrate. Left lower lobe and left upper lobe infiltrate. Pleural space: Blunted left lateral costophrenic angle. Heart/Mediastinum: Cardiomegaly. Bones/joints: Old right lateral posterior rib fractures. Old left lateral and posterior rib fractures. IMPRESSION: 1. Bilateral pneumonia. 2. Old bilateral rib fractures. Dictated and Authenticated by: Temitope Salazar MD. Ordering:SATYA Francois MD
[2020-03-20] MEDS: Omnipaque 350 MG/ML 100 ML BTL IJ (19:27)
[2020-03-20] MEDS: Normal Saline - Diluent 50 ML VIAL IV (19:28)
--- NOTE | 2020-03-20 19:40 | NUR.NOTE ---
Nursing Note: Patient reports history of alcohol withdrawal, generally drinks a 5th of liquor a day. No alcohol intake since 03/19. Symptoms of withdrawal per patient are tactile hallucinations. Denies any other symptoms in the past.
--- NOTE | 2020-03-20 20:44 | DI.VRAD_ITS ---
PROCEDURE INFORMATION: Exam: CT Angiography Chest With Contrast Exam date and time: 03/20/2020 7:27 PM Age: 59 years old Clinical indication: Injury or trauma; Blunt trauma (contusions or hematomas); Other: Torso; Patient HX: S/P fall vomiting blood TECHNIQUE: Imaging protocol: Computed tomographic angiography of the chest with intravenous contrast. 3D rendering (Not supervised by radiologist): MIP and/or 3D reconstructed images were created by the technologist. COMPARISON: CT CHEST PE ABD PELVIS W 02/27/2020 19:43 FINDINGS: Pulmonary arteries: Normal. No pulmonary emboli. Aorta: Unremarkable. No aortic aneurysm. No aortic dissection. Lungs: Left lower lobe atelectasis versus infiltrate. Right lower lobe and right middle lobe atelectasis versus infiltrate. Pleural space: Bilateral pleural thickening. Heart: Cardiomegaly. Mediastinal space: Hiatal hernia. Paraesophageal varices. Lymph nodes: Unremarkable. No enlarged lymph nodes. Bones/joints: Multilevel degenerative changes of the thoracic spine. Degenerative changes of the base of the cervical spine. Old left posterior rib fractures. Old left lateral rib fractures which are incompletely healed. Acute or subacute right lateral rib fractures. Old right posterior rib fractures. Old anterior left clavicular fracture. Soft tissues: Unremarkable. IMPRESSION: 1. Bilateral reticular markings consistent with atelectasis or scar versus developing infiltrate. 2. Acute or subacute right lateral rib fractures. Multiple bilateral rib fractures of varying ages. 3. Circumferential thickening of the distal esophagus with paraesophageal varices. 4. Additional findings as discussed above. PROCEDURE INFORMATION: Exam: CT Angiography Abdomen and Pelvis With Contrast Exam date and time: 03/20/2020 7:27 PM Age: 59 years old Clinical indication: Injury or trauma; Blunt trauma (contusions or hematomas); Other: Torso; Patient HX: S/P fall vomiting blood TECHNIQUE: Imaging protocol: Computed tomographic angiography of the abdomen and pelvis with intravenous contrast material. 3D rendering (Not supervised by radiologist): MIP and/or 3D reconstructed images were created by the technologist. COMPARISON: CT CHEST PE ABD PELVIS W 02/27/2020 19:43 FINDINGS: Mediastinal space: Hiatal hernia. Paraesophageal varices. Aorta: No aortic aneurysm. No aortic dissection. Celiac trunk and mesenteric arteries: No occlusion or significant stenosis. Renal arteries: No occlusion or significant stenosis. Right iliac arteries: No occlusion or significant stenosis. Left iliac arteries: No occlusion or significant stenosis. Portal Venous System: Splenic varices. Liver: Nodular irregular liver consistent with cirrhosis. Gallbladder and bile ducts: Fluid around the liver and distended gallbladder. Pancreas: Unremarkable. No mass. No ductal dilation. Spleen: Splenomegaly. Adrenals: Unremarkable. No mass. Kidneys and ureters: Unremarkable. No solid mass. No hydronephrosis. Stomach and bowel: Infiltration of the mesenteric root and upper abdominal fat surrounding the pancreatic head and proximal body, the retroperitoneal fat, the duodenal bulb and 2nd portion of the duodenum and proximal 3rd portion of the duodenum. Fluid around the hepatic flexure with pericolonic fat infiltration and colonic wall thickening. Thickened colonic wall with pericolonic fat infiltration involving the rectum and sigmoid colon. Postsurgical changes of the sigmoid colon. Infiltration of the fat around the descending colon and proximal sigmoid colon. Appendix: No evidence of appendicitis. Intraperitoneal space: Ascites. Ascites descending into the pelvis. Retroperitoneal space: Infiltration of the anterior retroperitoneal fat, the right and left anterior perirenal, lateral conal fascia and erode is fascia. Lymph nodes: Unremarkable. No enlarged lymph nodes. Urinary bladder: Unremarkable. No mass. Reproductive: Enlarged prostate with symmetric seminal vesicles. Bones/joints: Atherosclerotic disease.Multilevel degenerative changes of the thoracic and lumbar spine. Compression deformity of lower thoracic and upper lumbar vertebra. Soft tissues: Fat distension of the inguinal canals. IMPRESSION: 1. Cirrhotic liver. Distended gallbladder with pericholecystic fluid and thickened gallbladder wall. Splenomegaly. Ascites. Splenic varices. Esophageal varices. Hiatal hernia. Circumferential thickening of the 2nd and proximal 3rd portion of the duodenum with infiltration of the Periduodenal and peripancreatic fat. These findings are consistent with chronic hepatic disease such as cirrhosis. 2. Circumferential thickening colonic wall with pericolonic fat infiltration and surrounding fluid of concern for colitis. 3. Bibasilar infiltrates versus atelectasis. 4. Gastric fold thickening and enhancement with collapse of the gastric wall. 5. Additional findings as discussed above. Dictated and Authenticated by: Temitope Salazar MD. Ordering:SATYA Francois MD
--- NOTE | 2020-03-20 20:59 | DI.VRAD_ITS ---
PROCEDURE INFORMATION: Exam: CT Head Without Contrast Exam date and time: 03/20/2020 7:26 PM Age: 59 years old Clinical indication: Injury or trauma; Concussion/head injury; Consciousness not specified; Patient HX: S/P fall unknown loc TECHNIQUE: Imaging protocol: Computed tomography of the head without contrast. COMPARISON: CT HEAD WITHOUT CONTRAST 06/06/2017 12:37 AM FINDINGS: Brain: There is mild diffuse cerebral atrophy present, consistent with this patient's age. There is mild diffuse heterogeneity of the white matter attenuation, consistent with chronic white matter ischemic changes. Cerebral ventricles: The ventricular system demonstrates mild diffuse compensatory enlargement. Bones/joints: No acute fracture. Anterior right frontal fracture has healed since the comparison study. Paranasal sinuses: There are couple subcentimeter densities in the left maxillary sinus consistent with mucous retention cysts or polyps. Paranasal sinuses are otherwise clear. No air-fluid levels. Mastoid air cells: Visualized mastoid air cells are well aerated. Soft tissues: Unremarkable. IMPRESSION: No acute intracranial abnormality. PROCEDURE INFORMATION: Exam: CT Cervical Spine Without Contrast Exam date and time: 03/20/2020 7:26 PM Age: 59 years old Clinical indication: Injury or trauma; Concussion/head injury; Consciousness not specified; Patient HX: S/P fall unknown loc TECHNIQUE: Imaging protocol: Computed tomography images of the cervical spine without contrast. COMPARISON: CT HEAD WITHOUT CONTRAST 06/06/2017 12:37 AM FINDINGS: Bones/joints: There is reversal of the normal lordotic curvature similar to the comparison study likely due to degenerative changes. Discs/Spinal canal/Neural foramina: There is considerable degenerative disc disease from C3-C4 down through C6-C7. Mild retro listhesis of C3 on C4 and C6 on C7 is unchanged since the comparison study. There is variable mild to moderate neural foraminal narrowing. No marked neural foraminal narrowing or spinal stenosis. Soft tissues: Unremarkable. Lungs: Minimal right apical pleural thickening. IMPRESSION: 1. No acute findings. 2. Degenerative disc disease. Dictated and Authenticated by: Samir Marin MD. Ordering:SATYA Francois MD
[2020-03-20] MEDS: fentaNYL 100 MCG/2 ML VIAL 50 MCG IVP (21:00)
[2020-03-20 21:10] LABS: Bilirubin Negative (Negative); Blood Negative (Negative); Clarity Clear (Clear); Glucose Negative (Negative); Ketones Negative (Negative); Leukocyte Esterase Negative (Negative); Nitrite Negative (Negative); Specific Gravity <= 1.005 (1.005-1.025); Urobilinogen 0.2 EU/dL (Up TO 0.2)
[2020-03-20 21:28] LABS: ETHANOL BLOOD 3.7 mg/dL (<3)
== END 2020-03-20 22:10 | disposition short-term general hospital (02) ==
PROVIDERS: Emergency Provider Registered Nurse Emergency; PCP Nurse Practitioner
DX: S22.41XA Multiple fractures of ribs, right side, initial encounter for closed fracture (principal); W17.89XA Other fall from one level to another, initial encounter; K92.2 Gastrointestinal hemorrhage, unspecified; R09.02 Hypoxemia; F10.20 Alcohol dependence, uncomplicated; K70.31 Alcoholic cirrhosis of liver with ascites; R10.11 Right upper quadrant pain; I85.10 Secondary esophageal varices without bleeding
CPT/HCPCS: 36415; 71275; 74177; 80053; 83690; 86850; 86900; 86901; 86920; 93005; 96361; 96365; 96366; 96375; 99285; 70450; 71045; 72125; 80320; 81003; 83735; 85025; 85610; 93010; J2270; J2354; J2405; J3010; J3490

== ENCOUNTER 2020-04-13 11:28 | Emergency (ER) | payer MEDICAID, SELFPAY ==
[2020-04-13] VITALS (46 sets, daily range): BP systolic 71–106; BP diastolic 44–68; PULSE 82–101; RESP 10–21; TEMP 36.6–36.7; O2SAT 100
--- NOTE | 2020-04-13 11:30 | RT.EKG_ITS ---
APPROVED REPORT Exam: Resting ECG Patient Location: E HR:90 bpm ECG Measurements Heart Rate 90 AXIS WY 197 P 26 QRSd 104 QRS 17 QT 376 T 40 QTc 461 Conclusion Sinus rhythm...normal P axis, V-rate 60- 99 I have reviewed and interpreted ECG and agree with software generated interpretation.
--- NOTE | 2020-04-13 11:33 | ED.GENADUL_ITS ---
Discharge Plan Disposition Patient Disposition: [facility] Condition: Critical Discharge Details Clinical Impression: Acute upper GI bleeding, History of esophageal varices, History of alcohol abuse, Acute on chronic anemia, Hypotension Primary Care Provider: Angella Deal ED Provider: Beba Davila Home Meds and New Rx's Prescriptions: No Action propranolol 10 mg tablet 10 mg PO BID Qty: 60 RF: 3 finasteride 5 mg tablet 5 mg PO DAILY RF: 0 folic acid 1 mg tablet 1 mg PO DAILY RF: 0 mirtazapine 15 mg tablet 15 mg PO DAILY RF: 0 pantoprazole 40 mg tablet,delayed release (DR/EC) 40 mg PO DAILY RF: 0 potassium, sodium phosphates 280-160-250 mg powder in packet 2 packet PO QID RF: 0 thiamine mononitrate (vit B1) 100 mg tablet 100 mg PO DAILY RF: 0 multivitamin [Multiple Vitamins] Tablet 1 tab PO DAILY Qty: 90 RF: 3 tamsulosin 0.4 mg capsule 0.4 mg PO DAILY RF: 0 spironolactone 50 mg tablet 50 mg PO DAILY RF: 0 acamprosate 333 mg tablet,delayed release (DR/EC) 666 mg PO TID RF: 0 acetaminophen 325 mg tablet 650 mg PO Q8H RF: 0 hydromorphone 2 mg tablet 6 mg PO Q8H PRN PRNRF: 0 lidocaine [Lidoderm] 5 % Adhesive Patch,Medicated 1 patch topical .X 12 HOURS RF: 0 furosemide 20 mg tablet 20 mg PO DAILY RF: 0 Medical Decision Making 1135 -- 59-year-old male with a history of decompensated alcoholic cirrhosis, chronic alcohol abuse, frequent episodes of acute anemia requiring blood transfusions related to acute GI bleeding related to his alcoholism and varices, recent variceal banding in September and November 2019 presents for hematemesis and maroon and black-colored tarry stools for the past 4 days. Blood pressure 97/46. Heart rate 90s. Afebrile. Rectal exam noted brown stool and guaiac strongly positive. Abdomen soft but diffusely tender. He is pale. Screening labs obtained shortly after arrival and hemoglobin 5. Lactate 4.3. Troponin negative. Will page [facility] for transfer. Dose of Protonix IV and drip ordered. Will order 2 units packed red blood cells and octreotide dose. 1200 -- BP 106/50 1255 --discussed with [facility] critical care - BP 98/50 --agrees with medication plan at this time. Recommends 1 g of ceftriaxone IV. Accepts p atient for transfer to the ICU. Accepting physician Dr. Alfredo. Awaiting bed placement, should be approximately 1 hour. 1305 --patient agreeable with plan. He has consented to blood products and t ransfer. BP 89/46. Heart rate 80s. Blood transfusion started. 1420 --blood pressure downtrending, 80s/40s. Once near finished first unit of blood and readjusted blood pressure cuff, blood pressure now 90/49. Patient states he feels better. He is denying any abdominal pain but abdomen appears soft and diffusely mildly tender. There is no free air on chest x-ray. Would not hold on additional CT imaging to delay transfer to [facility]. Called [facility] transfer center and discussed with Kyle and bed is now available. Also gave update regarding blood pressure to critical care attending. Medical Records Medical records reviewed: Yes I reviewed the patient's medical records. Imaging Data Radiologic Study: Radiologist's impression: XR PORTABLE CHEST AP CLINICAL HISTORY: vomiting blood, r/o acute disease TECHNIQUE: 2D digital imaging was performed. COMPARISON: CR,XR XR PORTABLE CHEST AP from 03/20/2020 FINDINGS: MEDIASTINUM: Normal. HEART: Normal. PULMONARY VASCULATURE: Normal. LUNGS: Clear. PLEURAL SPACE: No pleural effusion or pneumothorax. BONE:Multiple old left rib fractures are again noted. OTHER FINDINGS:Normal. IMPRESSION: No acute pulmonary findings. Lab Data Lab results reviewed: Yes I reviewed the patient's lab results. Labs: Laboratory Tests Range/Units 04/13/20 04/13/20 04/13/20 11:40 11:40 11:40 WBC (4.4-10.8) 10^3/uL 8.87 RBC (4.36-5.78) 10^6/uL 1.92 L Hgb (13.5-17.5) g/dL 5.0 L* Hct (40.0-50.0) % 17.3 L* MCV (80-95) fL 90.1 MCH (27.0-33.0) pg 26.0 L MCHC (32.0-36.0) % 28.9 L RDW (11.8-14.1) % 23.2 H Plt Count (130-400) 10^3/uL 151 MPV (8.0-11.0) fL 11.7 H Immature Gran % 0.5 Neutrophils % 60.6 Lymphocytes % 25.4 Monocytes % 10.5 Eosinophils % 2.3 Basophils % 0.7 Nucleated RBC % % 0 Absolute Neutrophils (1.2-6.7) 10^3/uL 5.39 Absolute Lymphocytes (1.2-3.4) 10^3/uL 2.25 Absolute Monocytes (0.1-0.8) 10^3/uL 0.93 H Absolute Eosinophils (0.0-0.7) 10^3/uL 0.20 Absolute Basophils (0.0-0.2) 10^3/uL 0.06 RBC Morphology See below Polychromasia Present Hypochromasia 2+ Poikilocytosis 1+ Anisocytosis 3+ PT (9.3-11.0) sec INR (0.9-1.1) APTT (21.0-27.5) sec VBG Lactate (0.6-1.4) mmol/L 4.3 H* Sodium (136-145) mmol/L 134 L Potassium (3.5-5.1) mmol/L 3.4 L Chloride (98-107) mmol/L 99 Carbon Dioxide (21.0-32.0) mmol/L 26.0 Anion Gap (3-11) mmol/L 9.0 BUN (7-18) mg/dL 11 Creatinine (0.70-1.30) mg/dL 1.06 Estimated GFR/1.73 m2 (mL/min/1.73m2) >= 60.00 Glucose (74-106) mg/dL 151 H Calcium (8.5-10.1) mg/dL 7.6 L Magnesium (1.8-2.4) mg/dL 1.5 L Total Bilirubin (0.2-1.0) mg/dL 2.0 H AST (15-37) U/L 59 H ALT (16-63) U/L 28 Alkaline Phosphatase (46-116) U/L 140 H Troponin I (<0.06) ng/mL < 0.05 Total Protein (6.4-8.2) g/dL 6.6 Albumin (3.4-5.0) g/dL 2.3 L Patient ABO/Rh Antibody Screen Crossmatch Range/Units 04/13/20 04/13/20 11:40 11:40 WBC (4.4-10.8) 10^3/uL RBC (4.36-5.78) 10^6/uL Hgb (13.5-17.5) g/dL Hct (40.0-50.0) % MCV (80-95) fL MCH (27.0-33.0) pg MCHC (32.0-36.0) % RDW (11.8-14.1) % Plt Count (130-400) 10^3/uL MPV (8.0-11.0) fL Immature Gran % Neutrophils % Lymphocytes % Monocytes % Eosinophils % Basophils % Nucleated RBC % % Absolute Neutrophils (1.2-6.7) 10^3/uL Absolute Lymphocytes (1.2-3.4) 10^3/uL Absolute Monocytes (0.1-0.8) 10^3/uL Absolute Eosinophils (0.0-0.7) 10^3/uL Absolute Basophils (0.0-0.2) 10^3/uL RBC Morphology Polychromasia Hypochromasia Poikilocytosis Anisocytosis PT (9.3-11.0) sec 16.1 H INR (0.9-1.1) 1.6 H APTT (21.0-27.5) sec 23.0 VBG Lactate (0.6-1.4) mmol/L Sodium (136-145) mmol/L Potassium (3.5-5.1) mmol/L Chloride (98-107) mmol/L Carbon Dioxide (21.0-32.0) mmol/L Anion Gap (3-11) mmol/L BUN (7-18) mg/dL Creatinine (0.70-1.30) mg/dL Estimated GFR/1.73 m2 (mL/min/1.73m2) Glucose (74-106) mg/dL Calcium (8.5-10.1) mg/dL Magnesium (1.8-2.4) mg/dL Total Bilirubin (0.2-1.0) mg/dL AST (15-37) U/L ALT (16-63) U/L Alkaline Phosphatase (46-116) U/L Troponin I (<0.06) ng/mL Total Protein (6.4-8.2) g/dL Albumin (3.4-5.0) g/dL Patient ABO/Rh O Negative Antibody Screen Negative Crossmatch See Detail ECG Data Attestation: I personally reviewed and interpreted this ECG (s) as follows: Interpretation: Rate of 90, sinus, no acute ST elevation or depression. IN 1 7. QRS 104. QTc 461. HPI General Mode of arrival: EMS . Date/Time Provider Initiated Documentation: 04/13/20 11:36 . Limitations to Documentation: no limitations . Information obtained by: patient . HPI Narrative: Patient is a 59-year-old male with a history of decompensated alcoholic cirrhosis, chronic alcohol abuse, frequent episodes of acute anemia requiring blood transfusions related to acute GI bleeding related to his alcoholism and varices, recent variceal banding in September and November 2019 at [facility] presents from [facility] for vomiting blood and bloody stools for the past 4 days. Patient was at [facility] today for a follow-up after his recent ED visit and [facility] admission for acute GI bleeding and fractured ribs status post fall while intoxicated. Patient states he vomited bright red blood 6 times Sunday which has improved to approximately 3 times daily since then. He states he has had approximately 3 dark red or black-colored stools daily for the past 4 days. He last had bloody vomiting and stools this morning. He admits to pain in my liver . Patient denies fever, chest pain, shortness of breath. Patient is being followed by [facility] GI with plans for possible TIPS procedure in the next few weeks. Related Data Home Medications Medication Instructions Recorded Confirmed multivitamin [Multiple Vitamins] 1 tab PO DAILY #90 tab 10/06/19 04/13/20 propranolol 10 mg tablet 10 mg PO BID #60 tab 10/08/19 04/13/20 finasteride 5 mg tablet 5 mg PO DAILY 03/02/20 04/13/20 folic acid 1 mg tablet 1 mg PO DAILY 03/02/20 04/13/20 mirtazapine 15 mg tablet 15 mg PO DAILY 03/02/20 04/13/20 pantoprazole 40 mg tablet,delayed 40 mg PO DAILY 03/02/20 04/13/20 release potassium, sodium phosphates 280 2 packet PO QID 03/02/20 04/13/20 mg-160 mg-250 mg oral powder packet thiamine mononitrate (vit B1) 100 100 mg PO DAILY 03/02/20 04/13/20 mg tablet acamprosate 666 mg PO TID 03/20/20 04/13/20 spironolactone 50 mg PO DAILY 03/20/20 04/13/20 tamsulosin 0.4 mg PO DAILY 03/20/20 04/13/20 acetaminophen 650 mg PO Q8H 04/13/20 04/13/20 furosemide 20 mg PO DAILY 04/13/20 04/13/20 hydromorphone 6 mg PO Q8H PRN PRN 04/13/20 04/13/20 lidocaine [Lidoderm] 1 patch TOPICAL .X 12 HOURS 04/13/20 04/13/20 Previous Rx's Medication Instructions Recorded multivitamin [Multiple Vitamins] 1 tab PO DAILY #90 tab 10/06/19 propranolol 10 mg tablet 10 mg PO BID #60 tab 10/08/19 Allergies Allergy/AdvReac Type Severity Reaction Status Date / Time sertraline AdvReac Severe SEVERE Verified 04/13/20 11:39 WORSENING OF DEPRESSION General NEEMA: 2 Review of Systems All systems reviewed & are unremarkable except as noted in HPI and below Constitutional Constitutional: Reports as per HPI, Denies chills and Denies fever(s) Eyes Eyes: Denies blurry vision ENT Ears, Nose, Mouth, and Throat: Denies dizziness, Denies sore throat and Denies throat swelling Cardiovascular Cardiovascular: Denies chest pain and Denies dyspnea Respiratory Respiratory: Denies cough and Denies dyspnea Gastrointestinal Gastrointestinal: Reports abdominal pain, Reports melena, Reports loose stools and Reports hematemesis Genitourinary Genitourinary: Denies hematuria and Denies dysuria Musculoskeletal Musculoskeletal: Denies back pain and Denies numbness Integumentary/Breasts Skin/Breast: Denies lesions and Denies rash Neurologic Neurologic: Denies dizziness, Denies localized weakness and Denies numbness Allergic/Immunologic Allergic/Immunologic: Denies throat swelling [facility] Medical History Acute GI bleeding Advanced hepatic cirrhosis Alcohol abuse Alcohol dependence with withdrawal with complication Anxiety Depression GERD (gastroesophageal reflux disease) History of surgery Hernia repair. Vasectomy. Surgical History H/O vasectomy History of colon resection due to diverticulitis; sigmoid History of esophagogastroduodenoscopy 01/2020- [facility] [place] History of hernia repair Repair of inguinal hernia Vasectomy Family History Mother Neoplasm Father Diabetes Essential hypertension Neoplasm Sister No problems noted. Social History Smoking/Tobacco Use Status: Never Smoking risk assessment performed?: Yes Alcohol Intake: current Alcohol Intake frequency: 3 or more drinks per day Alcohol type: hard liquor Drug use: Occasionally Substance use type: marijuana Details: Last ETOH 04/08/20 Do you feel safe at home: Yes Do you feel safe in your relationship?: Yes Exam Const General: ill appearing chronically Orientation: alert, awake and oriented x3 HENMT Head: normal to inspection Ears: hearing grossly normal bilaterally and external ears normal General nose exam: external nose normal Face and sinus: normal facial exam Mouth: oral mucosae normal Teeth and gingiva: dentition normal Throat: posterior oropharynx normal Eyes General: appearance normal, both eyes and all related structures Eyelids: eyelids normal Pupils: PERRL EOM: EOM intact bilaterally Neck Neck: normal visual inspection Lymphatic: no lymphadenopathy noted Chest Chest: normal inspection of the chest Resp Effort & Inspection: normal respiratory effort and able to speak in complete sentences Auscultation: clear to auscultation bilaterally Cardio Rate: regular rate Rhythm: regular rhythm GI Inspection: normal to inspection Palpation: soft, not firm, no guarding, no hepatosplenomegaly, no masses and tender (Diffuse, mild to moderate) Auscultation: hypoactive bowel sounds Skin General skin exam: pallor Neuro General: patient alert and patient awake Cognition: normal cognition Speech: speech normal Gait: normal gait Motor: muscle tone normal throughout Sensory Exam: no sensory deficits noted Extrem General: normal to inspection, full ROM, capillary refill normal and no edema Psych Appearance: grossly normal Mental Status: mental status grossly normal Speech and Movement: speech and movement normal Affect: normal affect Thought Process: normal Critical Care Time Critical Care Time Critical Care Time: Yes Total Critical Care Time: 60 Attestation: I spent 60 minutes of critical care time with this patient. This does not include time spent on separately reported billable procedures.
[2020-04-13 11:48] LABS: Abs Immature Grans 0.04 10^3/uL (0.0-0.06); Absolute Basophil Count 0.06 10^3/uL (0.0-0.2); Absolute Lymphocyte Count 2.25 10^3/uL (1.2-3.4); Absolute Monocyte Count 0.93 10^3/uL (0.1-0.8); Absolute Neutrophil Count 5.39 10^3/uL (1.2-6.7); Basophils % 0.7; Eosinophils % 2.3; Immature Grans % 0.5; Lymphocytes % 25.4; MCHC 28.9 % (32.0-36.0); MCV 90.1 fL (80-95); MPV 11.7 fL (8.0-11.0); Monocytes % 10.5; Neutrophils % 60.6; Nucleated RBC 0 %; Platelet Count 151 10^3/uL (130-400); RBC 1.92 10^6/uL (4.36-5.78); RDW 23.2 % (11.8-14.1); RDW-SD 74.3 fL; WBC 8.87 10^3/uL (4.4-10.8)
[2020-04-13 11:56] LABS: Lactate 4.3 mmol/L (0.6-1.4)
[2020-04-13 11:57] LABS: HCT 17.3 % (40.0-50.0)
--- NOTE | 2020-04-13 12:00 | DI.RAD_ITS ---
EXAM: XR PORTABLE CHEST AP CLINICAL HISTORY: vomiting blood, r/o acute disease TECHNIQUE: 2D digital imaging was performed. COMPARISON: CR,XR XR PORTABLE CHEST AP from 03/20/2020 FINDINGS: MEDIASTINUM: Normal. HEART: Normal. PULMONARY VASCULATURE: Normal. LUNGS: Clear. PLEURAL SPACE: No pleural effusion or pneumothorax. BONE:Multiple old left rib fractures are again noted. OTHER FINDINGS:Normal. IMPRESSION: No acute pulmonary findings. DATA REPOSITORY: RADIATION DOSE DELIVERED:
[2020-04-13 12:02] LABS: Anisocytosis 3+; Diff Comment RBC Morph Reviewed; Hypochromasia 2+; Poikilocytes 1+; Polychromasia Present
[2020-04-13 12:03] LABS: INR 1.6 (0.9-1.1); Prothrombin Time 16.1 sec (9.3-11.0)
[2020-04-13 12:11] LABS: ALT 28 U/L (16-63); AST 59 U/L (15-37); Albumin 2.3 g/dL (3.4-5.0); Alkaline Phosphatase 140 U/L (46-116); BUN 11 mg/dL (7-18); CREATININE 1.06 mg/dL (0.70-1.30); Calcium 7.6 mg/dL (8.5-10.1); Chloride 99 mmol/L (98-107); Glucose 151 mg/dL (74-106); Magnesium 1.5 mg/dL (1.8-2.4); Potassium 3.4 mmol/L (3.5-5.1); Sodium 134 mmol/L (136-145); Total Protein 6.6 g/dL (6.4-8.2)
[2020-04-13 12:12] LABS: Troponin I < 0.05 ng/mL (<0.06)
[2020-04-13] MEDS: Pantoprazole 40 MG VIAL IVP (12:15)
[2020-04-13] MEDS: Normal Saline 1,000 ML 125 ML IV (12:21)
[2020-04-13] MEDS: PANTOPRAZOLE 80 MG in Normal Saline 100 ML 10 MG IV (12:37)
[2020-04-13] MEDS: cefTRIAXone 1 GM/50 ML BAG IVPB (13:18)
[2020-04-13] MEDS: Ondansetron 4 MG/2 ML VIAL IVP (13:33)
[2020-04-13 14:16] LABS: Lipase 168 U/L (73-393)
--- NOTE | 2020-04-13 14:44 | NUR.NOTE ---
Nursing Note: 2nd unit began slightly over 20 minute release time. Blood bank aware. Emergent pt condition.
--- NOTE | 2020-04-13 14:50 | NUR.NOTE ---
Blood transfusion unit # [id number] was transferred to [facility] grievance and appeals coordinator to continue transfusion during transport
== END 2020-04-13 14:55 | disposition short-term general hospital (02) ==
PROVIDERS: Emergency Provider Physician Assistant; PCP Nurse Practitioner
DX: K92.2 Gastrointestinal hemorrhage, unspecified (principal); I85.00 Esophageal varices without bleeding; F10.10 Alcohol abuse, uncomplicated; I95.0 Idiopathic hypotension; K70.30 Alcoholic cirrhosis of liver without ascites; R19.5 Other fecal abnormalities; D62 Acute posthemorrhagic anemia
CPT/HCPCS: 36415; 36430; 80053; 83690; 86850; 86900; 86901; 86920; 93005; 96361; 96365; 96366; 96367; 96375; 99291; 71045; 83605; 83735; 84484; 85025; 85610; 85730; 93010; J0696; J2354; J2405; P9016

== ENCOUNTER 2020-06-17 03:01 | Outpatient (CLI) | payer MEDICAID, SELFPAY ==
[2020-06-17 12:37] LABS: INR 1.3 (0.9-1.1)
[2020-06-17 12:39] LABS: Abs Immature Grans 0.01 10^3/uL (0.0-0.06); Absolute Basophil Count 0.09 10^3/uL (0.0-0.2); Absolute Eosinophil Count 0.11 10^3/uL (0.0-0.7); Absolute Lymphocyte Count 1.42 10^3/uL (1.2-3.4); Absolute Monocyte Count 0.68 10^3/uL (0.1-0.8); Absolute Neutrophil Count 3.16 10^3/uL (1.2-6.7); Basophils % 1.6; HCT 33.8 % (40.0-50.0); HGB 9.8 g/dL (13.5-17.5); Immature Grans % 0.2; MCH 24.7 pg (27.0-33.0); MCV 85.4 fL (80-95); Monocytes % 12.4; Neutrophils % 57.8; Nucleated RBC 0 %; RBC 3.96 10^6/uL (4.36-5.78); RDW 20.7 % (11.8-14.1); RDW-SD 63.7 fL; WBC 5.47 10^3/uL (4.4-10.8)
[2020-06-17 13:05] LABS: ALT 38 U/L (16-63); AST 60 U/L (15-37); Albumin 3.1 g/dL (3.4-5.0); Alkaline Phosphatase 230 U/L (46-116); Anion Gap 10.1 mmol/L (3-11); Anisocytosis 2+; BUN 5 mg/dL (7-18); Bilirubin, Total 3.6 mg/dL (0.2-1.0); CO2 24.9 mmol/L (21.0-32.0); CREATININE 0.7 mg/dL (0.70-1.30); Chloride 104 mmol/L (98-107); Diff Comment Diff Reviewed; Glucose 106 mg/dL (74-106); Hypochromasia 2+; Platelet Count 42 10^3/uL (130-400); Potassium 3.9 mmol/L (3.5-5.1); Sodium 139 mmol/L (136-145)
[2020-06-17 13:06] LABS: Poikilocytes 2+
== END 2020-06-17 03:02 | disposition home or self-care (01) ==
PROVIDERS: PCP Nurse Practitioner; Visit Provider Physician Assistant Medical
DX: K70.31 Alcoholic cirrhosis of liver with ascites (principal)
CPT/HCPCS: 36415; 80053; 85027; 82565; 85025; 85610

== ENCOUNTER 2020-07-18 18:44 | Emergency (ER) | payer MEDICAID, SELFPAY ==
[2020-07-18] VITALS (36 sets, daily range): BP systolic 122–156; BP diastolic 63–80; PULSE 115–147; RESP 8–27; O2SAT 91–99
--- NOTE | 2020-07-18 18:45 | RT.EKG_ITS ---
APPROVED REPORT Exam: Resting ECG Patient Location: E HR:137 bpm ECG Measurements Heart Rate 137 AXIS ME 135 P -80 QRSd 91 QRS 0 QT 368 T 75 QTc 555 Conclusion Ectopic atrial tachycardia, unifocal...abnormal P axis, V-rate> 99 Inferior infarct, acute...ST>0.10mV, T upright, II III aVF Anteroseptal infarct, age indeterminate...Q >35mS, T neg, V1-V2 Prolonged QT interval...QTc >500mS. No STEMI. I have reviewed and interpreted ECG and agree with software generated interpretation.
--- NOTE | 2020-07-18 18:59 | W.ED.GENAD ---
Discharge Plan Disposition Patient Disposition: [facility] Condition: Critical Discharge Details Clinical Impression: Upper GI bleed, Alcohol withdrawal, Jaundice Primary Care Provider: Angella Deal ED Provider: Priscila Castrejon Home Meds and New Rx's Prescriptions: No Action tamsulosin 0.4 mg capsule 0.4 mg PO DAILY Qty: 90 RF: 4 mirtazapine 15 mg tablet 15 mg PO DAILY Qty: 90 RF: 4 pantoprazole 40 mg tablet,delayed release (DR/EC) 40 mg PO DAILY Qty: 90 RF: 4 thiamine mononitrate (vit B1) 100 mg tablet 100 mg PO DAILY Qty: 90 RF: 4 propranolol 10 mg tablet 10 mg PO BID Qty: 180 RF: 4 folic acid 1 mg tablet 1 mg PO DAILY Qty: 90 RF: 4 melatonin 3 mg capsule 3 mg PO HS PRNRF: 0 ferrous gluconate 324 mg (38 mg iron) tablet 324 mg PO TID Qty: 90 RF: 2 lactulose 10 gram/15 mL solution 30 ml PO DAILY PRNRF: 0 Cerovite Advanced Formula 18-400 mg-mcg tablet 1 tab PO DAILY RF: 0 acamprosate 333 mg tablet,delayed release (DR/EC) 666 mg PO TID RF: 0 acetaminophen 325 mg tablet 650 mg PO Q8H RF: 0 Discharge Data Discharge Date/Time-TO BE ENTERED AT DEPARTURE: 07/18/20 22:31 Medical Decision Making 59-year-old male presents to the ER with a chief complaint of vomiting blood. Upon initial exam patient is tachycardic with heart rate of 142, does appear jaundiced with scleral icterus, he states that he began vomiting bright red blood on he does admit to alcohol use on and Sunday. She states that now the vomit is more pink-tinged. He states that he is mid lower abdominal pain, sore throat from the emesis. He denies any dark stools but has not had a bowel movement since approximately Sunday or . He also states that he has not been taking his prescribed medications since last week. He has a past medical history of cirrhosis, GI bleeding, alcohol abuse, GERD. He was recently admitted [facility] for similar. According to record reviews had 6 episodes of acute GI bleeding in the last 6 months. GI specialist at [facility] Dr. Bell per daughter, she also reports that she has had some recent weight loss unknown amount. 1922: [facility] transfer center contacted regarding patient request for transfer, at this time we are pending labs imaging. At this time patient is actively vomiting what appears to be dark maroon-colored blood and coffee-ground emesis. States he has some throat tenderness no radiation into his chest, no chest pain at this time. EKG was reviewed by Beba Davila MD ER attending, please see her official report and review, EKG shows tachycardia possible ST elevation in the inferior leads, old EKG was available for review. 1932: WBC at this time is resulted shows a white blood cell count of 12.12, hemoglobin 12.1, hematocrit 40.7 MCH 24.4 RDW 21.3, platelet count 66, absolute neutrophils 10.21 monocytes 1.28. PT, type and screen, CMP, ethyl alcohol, troponin, lipase pending at this time. 1944: Critical result received from lab potassium 2.2, troponin 0.66, 1952: Spoke again with [facility] regarding patient for Transfer for cardiology and GI. 2022: Spoke with Dr. Aldana is a critical care fellow and Dr. Barnes at [facility] I did discuss patient case in details with them Dr. Aldana recommends another 10 to 20 mEq of potassium IV, accepting physician is Dr. Pacheco Kramer. Transfer center to call back with bed assignment. At this time diagnosis is acute on chronic upper GI bleed, alcohol abuse, decompensated alcoholic cirrhosis, possible alcohol withdrawal. 2122: At this time emesis has slowed, heart rate is 121, blood pressure is 154/66, discussed plan of care for transfer with patient he verbalizes understanding. I did previously discussed plan of care for transfer with Samreen his daughter. CT abdomen pelvis without contrast was ordered and resulted. Appears that patient has some new nondisplaced rib fractures over the right fifth through 10th ribs and the left posterior lateral 10th through 12th ribs. The previous varices are smaller in comparison to the December 2019 CT, no pneumothorax or hemothorax small sliding hiatal hernia. See below: IMPRESSION: 1. Multiple new nondisplaced rib fractures, as described above. Please note that imaging criteria for flail chest on the right are present with fractures of the right lateral 5th-10th ribs present. 2. No pneumothorax or hemothorax identified. 3. Small sliding hiatal hernia, as on prior study, with findings suggesting gastroesophageal reflux. IMPRESSION: 1. Findings of hepatic steatosis and cirrhosis. 2. Status post TIPS placement, with resolution of the prior ascites and marked improvement in small varices and decreased splenomegaly. 3. No evidence for acute bowel inflammation. No evidence of bowel obstruction. 4. No evidence of bowel perforation. 2143: Bed assignment given, ICU 3 [facility], unit staff arranging transportation, will speak with patient's daughter to update her. Patient states he is feeling somewhat better. 2151: CIWA score at this time is estimated at approximately 15 patient has received 2 mg of lorazepam IV thus far. Patient is not tremulous at this time he does report mild headache, and some mild visual hallucinations no auditory hallucinations he appears much more comfortable. 2199: EMS was in route for patient transport, with upon further questioning patient states that he did fall on Sunday in the driveway he does not remember any other falls at any other time recently. He is not complaining of any significant amount of chest wall pain at this time. Repeat troponin drawn heart rate is coming down slowly at 119 at this time. 2218: Plan transfer to [facility] at the time of this dictation patient hemodynamically stable. Alert and oriented awaiting EMS transport. HPI General Mode of arrival: wheelchair. Date/Time Provider Initiated Documentation: 07/18/20 18:47. Limitations to Documentation: no limitations. Information obtained by: patient, family, RN notes reviewed and old records reviewed. HPI Narrative: 59-year-old male presents to the ER with a chief complaint of vomiting blood. Upon initial exam patient is tachycardic with heart rate of 142, does appear jaundiced with scleral icterus, he states that he began vomiting bright red blood on he does admit to alcohol use on and Sunday. She states that now the vomit is more pink-tinged. He states that he is mid lower abdominal pain, sore throat from the emesis. He denies any dark stools but has not had a bowel movement since approximately Sunday or . He also states that he has not been taking his prescribed medications since last week. He has a past medical history of cirrhosis, GI bleeding, alcohol abuse, GERD. He was recently admitted [facility] for similar. According to record reviews had 6 episodes of acute GI bleeding in the last 6 months. Related Data Home Medications Medication Instructions Recorded Confirmed acamprosate 666 mg PO TID 03/20/20 07/18/20 acetaminophen 650 mg PO Q8H 04/13/20 07/18/20 folic acid 1 mg tablet 1 mg PO DAILY #90 tab 06/24/20 07/18/20 melatonin 3 mg capsule 3 mg PO HS PRN 06/24/20 07/18/20 mirtazapine 15 mg tablet 15 mg PO DAILY #90 tab 06/24/20 07/18/20 pantoprazole 40 mg tablet,delayed 40 mg PO DAILY #90 tab 06/24/20 07/18/20 release propranolol 10 mg tablet 10 mg PO BID #180 tab 06/24/20 07/18/20 tamsulosin 0.4 mg capsule 0.4 mg PO DAILY #90 cap 06/24/20 07/18/20 thiamine mononitrate (vit B1) 100 100 mg PO DAILY #90 tab 06/24/20 07/18/20 mg tablet ferrous gluconate 324 mg (38 mg 324 mg PO TID #90 tab 06/25/20 07/18/20 iron) tablet lactulose 30 ml PO DAILY PRN 07/18/20 07/18/20 [id number]-[id number] acid 1 tab PO DAILY 07/18/20 07/18/20 [Cerovite Advanced Formula] Previous Rx's Medication Instructions Recorded folic acid 1 mg tablet 1 mg PO DAILY #90 tab 06/24/20 mirtazapine 15 mg tablet 15 mg PO DAILY #90 tab 06/24/20 pantoprazole 40 mg tablet,delayed 40 mg PO DAILY #90 tab 06/24/20 release propranolol 10 mg tablet 10 mg PO BID #180 tab 06/24/20 tamsulosin 0.4 mg capsule 0.4 mg PO DAILY #90 cap 06/24/20 thiamine mononitrate (vit B1) 100 100 mg PO DAILY #90 tab 06/24/20 mg tablet ferrous gluconate 324 mg (38 mg 324 mg PO TID #90 tab 06/25/20 iron) tablet Allergies Allergy/AdvReac Type Severity Reaction Status Date / Time sertraline AdvReac Severe SEVERE Verified 07/18/20 18:54 WORSENING OF DEPRESSION General Stated Complaint: GI Bleed NEEMA: 2 Review of Systems Narrative: Constitutional: Negative for weight loss, alert and oriented, well groomed, normal body habitus, appears comfortable. HEENT: Denies trauma, headaches, blurry vision, nasal discharge, sore throat, trouble swallowing. Chest: Denies chest pain, palpitations, irregular rhythm, hypertension. Respiratory: Denies Shortness of breath, cough, hemoptysis. GI: Positive abdominal pain, nausea vomiting, hemataemesis,HX of GI Bleed with TIPS procedure : Denies dysuria, hematuria, flank pain, rectal bleeding. Neuro: Denies dizziness, blurry vision, weakness, syncope, headache or facial numbness. Hematologic: Denies easy bruising, intolerance to heat or cold, hair loss. [facility] Medical History Acute GI bleeding Advanced hepatic cirrhosis Alcohol abuse Alcohol dependence with withdrawal with complication Anxiety Depression GERD (gastroesophageal reflux disease) History of surgery Hernia repair. Vasectomy. Surgical History H/O vasectomy History of colon resection due to diverticulitis; sigmoid History of esophagogastroduodenoscopy 01/2020- [facility] History of hernia repair Repair of inguinal hernia Vasectomy Family History Mother Neoplasm Father Diabetes Essential hypertension Neoplasm Sister No problems noted. Social History Smoking/Tobacco Use Status: Never Smoking risk assessment performed?: Yes Alcohol Intake: current Alcohol Intake frequency: 3 or more drinks per day Alcohol type: hard liquor Drug use: Occasionally Substance use type: marijuana Details: 3/4 of a 5th of Vodka daily, last drink was sunday07/16/20 Do you feel safe at home: Yes Do you feel safe in your relationship?: Yes Exam Narrative Exam Narrative: Constitutional: Slightly confused, hard time remembering last few days. Appears older than stated age. Thin body habitus. Appears jaundiced from the waist up. Head: Normocephalic, no trauma. Eyes: Pupils PERRLA, Red reflex noted, EOM's intact. Scleral icterus noted eyelids symmetrical without lesions, discharge, or swelling. ENT: Bilateral TM's WNL, External ear normal to inspection, no mastoid TTP, swelling, or erythema, Nasal turbinates WNL, no nasal discharge. Normal dentition, Posterior pharynx WNL, no exudate. Chest: Tachycardia, normal S1, S2, distal pulses intact, questionable ST elevation in inferior leads. Resp: Lungs clear to auscultation bilaterally, no wheezes, rales, or rhonchi. Abdomen: Nondistended, guarding throughout abdomen, tenderness palpation to the mid bilateral lower quadrants. Actively having maroon emesis with coffee grounds. Upon rectal exam he does have some excoriation surrounding the rectum, no stools in the rectal vault. Musculoskeletal: Unable to assess gait, 5/5 strength to all four extremities. Skin: Jaundiced. Capillary refill less than 2 sec. Neurologic: Cranial nerves II-XII intact. Slightly confused, hard time remembering last few days, no focal neuro deficit no weakness. No facial droop.. Hematologic/Lymphatic: No ecchymosis, no lymphadenopathy. Course Vital Signs Vital signs: Vital Signs Pulse 138 H 07/18/20 18:49 Respiratory Rate 14 07/18/20 18:49 Blood Pressure 141/80 H 07/18/20 18:49 Pulse Oximetry 99 07/18/20 18:49 Temperature Source Skin 07/18/20 18:49 Pulse 138 H 07/18/20 18:49 Respiratory Rate 14 07/18/20 18:49 Blood Pressure 141/80 H 07/18/20 18:49 Blood Pressure Position Sitting 07/18/20 18:49 Pulse Oximetry 99 07/18/20 18:49 Oxygen Delivery Method Room Air 07/18/20 18:49 Oxygen Flow Rate 0 07/18/20 18:49 Pain Level 8 07/18/20 18:49 Critical Care Time Critical Care Time Critical Care Time: Yes Total Critical Care Time: 45 Attestation: I spent greater than 35 minutes addressing this patient's acute life threatening illness. This time was spent engaged in actions directly related to the patient's care. Failure to initiate these interventions would have likely resulted in clinically significant or life threatening deterioration in the patients condition.
[2020-07-18] MEDS: Normal Saline 1,000 ML 1000 ML IV (19:10)
[2020-07-18] MEDS: Ondansetron 4 MG/2 ML VIAL IVP (19:17)
[2020-07-18] MEDS: FAMOTIDINE 20 MG/50 ML BAG 100 MG IVPB (19:17)
[2020-07-18 19:20] LABS: Abs Immature Grans 0.05 10^3/uL (0.0-0.06); Absolute Basophil Count 0.02 10^3/uL (0.0-0.2); Absolute Eosinophil Count 0.01 10^3/uL (0.0-0.7); Absolute Monocyte Count 1.28 10^3/uL (0.1-0.8); Basophils % 0.2; Eosinophils % 0.1; HCT 40.7 % (40.0-50.0); HGB 12.1 g/dL (13.5-17.5); Immature Grans % 0.4; Lymphocytes % 4.5; MCH 24.4 pg (27.0-33.0); MCHC 29.7 % (32.0-36.0); MCV 82.1 fL (80-95); Monocytes % 10.6; Neutrophils % 84.2; Nucleated RBC 0 %; Platelet Count 66 10^3/uL (130-400); RBC 4.96 10^6/uL (4.36-5.78); RDW 21.3 % (11.8-14.1); RDW-SD 60.9 fL; WBC 12.12 10^3/uL (4.4-10.8)
[2020-07-18 19:21] LABS: Absolute Lymphocyte Count 0.55 10^3/uL (1.2-3.4); Absolute Neutrophil Count 10.21 10^3/uL (1.2-6.7)
--- NOTE | 2020-07-18 19:27 | NUR.NOTE ---
Nursing Note: Pt presents to ED without list of current medications, pt does not know what he takes and states that the pill bottles he takes them from are locked up in his truck and no one has access to them. Is a patient at [facility], was seen within the last 30 days in the office, states his medications have not changed since that visit. Medications were reconciled using [facility] list and what was picked up at the local pharmacy. Unsure of what he has taken today.
[2020-07-18] MEDS: Pantoprazole 40 MG VIAL 80 MG IVP (19:31)
[2020-07-18] MEDS: PANTOPRAZOLE 80 MG in Normal Saline 100 ML 10 MG IV (19:32)
[2020-07-18 19:36] LABS: PTT Activated 31.6 sec (21.0-27.5); Prothrombin Time 20.1 sec (9.3-11.0)
[2020-07-18 19:41] LABS: AST 85 U/L (15-37); Albumin 3.9 g/dL (3.4-5.0); Alkaline Phosphatase 211 U/L (46-116); Anion Gap 23.4 mmol/L (3-11); BUN 12 mg/dL (7-18); Bilirubin, Total 9.3 mg/dL (0.2-1.0); CO2 26.6 mmol/L (21.0-32.0); CREATININE 3.3 mg/dL (0.70-1.30); Calcium 10.3 mg/dL (8.5-10.1); Chloride 85 mmol/L (98-107); Estimated GFR 19.28 (mL/min/1.73m2); Glucose 246 mg/dL (74-106); Lipase 128 U/L (73-393); Magnesium 1.5 mg/dL (1.8-2.4); Sodium 135 mmol/L (136-145); Total Protein 9.7 g/dL (6.4-8.2)
[2020-07-18 19:44] LABS: Potassium 2.2 mmol/L (3.5-5.1)
[2020-07-18 19:46] LABS: Troponin I 0.66 ng/mL (<0.06)
--- NOTE | 2020-07-18 19:47 | DI.CT_ITS ---
EXAM: CT CHEST/ABD/PEL WO CLINICAL HISTORY: R/O Perforation, GI bleed. TECHNIQUE: Imaging Protocol: Axial computed tomography images with coronal and sagittal reformatted images were created and reviewed CONTRAST MATERIAL: Intravenous: None Oral: None COMPARISON: CT CT THORAX ABD/PEL CTA from 03/20/2020 FINDINGS: CHEST: LUNGS: Lungs are clear. There are no infiltrates, nodules, or pleural effusions. No pneumothorax.. MEDIASTINUM: There is no hilar nor mediastinal adenopathy. Visualized thyroid unremarkable.Esophagus is dilated and contains fluid. CARDIAC: Heart size is normal. There is no pericardial effusion.Caliber thoracic aorta is within nor mal limits. There is no obvious coronary artery calcification. OSSEOUS: There is a healed fracture of the medial aspect of the left clavicle again noted. There is a fracture of the right 5th rib again noted.. Also a fracture of the right 6th rib again noted. heal ing fracture of the right 7th rib noted. Healing fracture of the right 8th rib noted. Healing fract ure right 9th rib and 10th rib. No obvious fractures of the right 11th and 12th ribs. On the opposi te-left side there are multiple fractures in healing stages of all the ribs. However, the 9th rib ap pears to have a more acute appearing fracture, nondisplaced. Mild wedge compression fracture of L1 noted, unchanged. Chronic degenerative disc disease L2-3 level is also again noted. No sternal fracture. No lytic osseous lesions evident. ABDOMEN: There has been interval TIPS procedure with resolution of the ascites which was evident on the prior CT scan. LIVER: Liver is presently more hypodense implying steatosis. There is a suggestion of a possible nod ule in the left lobe measuring 1.7 x 1.5 cm, difficult to evaluate as the amount of contrast has been reduced on this study. Should be studied with MRI. GALLBLADDER/BILIARY: Mildly distended. No calculi. No gallbladder wall edema. CBD is not dilated. PANCREAS: No evidence of pancreatic mass nor dilatation of the pancreatic duct. SPLEEN: Splenomegaly is again noted. Perhaps minimally less than previous. ADRENALS: There are no significant adrenal masses. KIDNEYS: No calculi nor hydronephrosis. No solid renal masses. No cysts evident. ABDOMINAL AORTA: Abdominal aorta is not enlarged. LYMPH NODES: There is no retroperitoneal nor paraaortic adenopathy. ABDOMINAL WALL/GI: There is no bowel obstruction. No free air. There is a density at the level the right internal inguinal ring which measures approximately 1.9 by 2.5 cm. This is unchanged from prev ious. May be related to prior hernia repair. Similar finding is not seen on the opposite-left side. PELVIS: LYMPH NODES: There is no intrapelvic nor inguinal adenopathy. GI: No evidence of appendicitis.There has been partial sigmoid resection. No abnormality at this lev el. No obstruction. No abscess. No evidence of sigmoid diverticulitis. URINARY BLADDER: No calculi nor masses evident REPRODUCTIVE: Mildly enlarged prostate gland. OSSEOUS: No significant osseous lesions. IMPRESSION: 1. Compared to the most recent CT scan of 03/20/2020 there has been interval TIPS procedure with reso lution of the ascites and slight decrease in the amount of varices and splenomegaly. 2. Liver appears cirrhotic and there is suggestion of a left hepatic lobe nodule now evident. The li yolanda is now quite steatotic when compared to the prior study. There is a possibly that this nodular d ensity may just be part of this process but recommend alpha fetoprotein blood work and MRI. 3. There has been partial sigmoid resection. No evidence of diverticulitis at this time. 4. At the level of the right inguinal ring there is a density measuring 19 x 25 millimeters, unchange d from the prior study. This may be related to prior inguinal hernia repair and correlation with [facility] medical records is recommended. A similar finding is not seen on the opposite-left side. 5. Prostate gland is slightly enlarged. There is no obturator adenopathy. No intrapelvic adenopath y. 6. There are multiple fractures in the right ribcage involving the right 5th through 10th ribs, incl usive. Most rib previously present on the prior study. Some reveal mild healing. No gross displace ment at fracture sites. No pneumothorax or subcutaneous emphysema. There are also multiple healed r ib fractures on the opposite-left side, as described above. However 1 of the fracture sites in left ribs an acute appearance, this being a nondisplaced fracture of the left 9th rib. Despite all the ri b fractures, the lungs are clear. No evidence of lung contusion or pneumothorax nor pleural effusion . RADIATION DOSE DELIVERED: 885.53mGy.cm Total DLP DATA REPOSITORY: All CT scans at this facility are submitted to the National Radiology Data Registry (NRDR) Dose Index Registry (DIR) with the [employer] ([employer]). RADIATION OPTIMIZATION: All CT scans at this facility use at least one of these dose optimization te chniques: automated exposure control; mA and/or kV adjustment per patient size (includes targeted exa ms where dose is matched to clinical indication); or iterative reconstruction.
[2020-07-18] MEDS: LORazepam 2 MG/ML VIAL 0.5 MG IVP ×2 (19:48→22:01)
[2020-07-18 19:50] LABS: ALT 33 U/L (16-63)
[2020-07-18 20:04] LABS: ETHANOL BLOOD < 3.0 mg/dL (<3)
[2020-07-18] MEDS: POTASSIUM CHLORIDE 10 MEQ/100 ML BAG 100 MEQ IVPB ×2 (20:11→20:38)
[2020-07-18 20:17] LABS: Source Nasal/Nares
[2020-07-18 20:21] LABS: Anisocytosis 3+; Basophilic Stippling 1+; Hypochromasia 1+; Macrocytosis 1+; Microcytosis 1+; Polychromasia Present
[2020-07-18 20:22] LABS: Poikilocytes 2+
[2020-07-18] MEDS: LORazepam 2 MG/ML VIAL 1 MG IVP (20:37)
[2020-07-18] MEDS: MAGNESIUM SULFATE 1 GM/100 ML BAG IVPB (20:38)
--- NOTE | 2020-07-18 20:55 | DI.VRAD_ITS ---
Addendum created by Salvador Swanson MD on 07/18/2020 9:01:51 PM EDT: Findings were discussed with DARIEL SMITH at 07/18/2020 9:01 PM EDT. Initial report created on 07/18/2020 8:55:40 PM EDT: PROCEDURE INFORMATION: Exam: CT Chest Without Contrast; Diagnostic Exam date and time: 07/18/2020 7:51 PM Age: 59 years old Clinical indication: Nausea and vomiting; Abdominal pain; Generalized; Other: Not specified; Prior surgery; Surgery date: 6+ months; Surgery type: Hernia repair, colon resection, esophogastrduodenoscopy, vasectomy, ; patient HX: R/O perforation, gi bleed, vomiting; Additional info: HX of esophageal varices, cirrhosis, diverticulitis TECHNIQUE: Imaging protocol: Diagnostic computed tomography of the chest without contrast. Radiation optimization: All CT scans at this facility use at least one of these dose optimization techniques: automated exposure control; mA and/or kV adjustment per patient size (includes targeted exams where dose is matched to clinical indication); or iterative reconstruction. COMPARISON: CT CHEST/ABD/PEL W 01/02/2020 9:49 AM FINDINGS: Thyroid: The thyroid gland appears atrophic but otherwise unremarkable. Lungs: No pulmonary parenchymal airspace opacities are identified. The central airways are patent. There is no bronchiectasis or bronchiolectasis. Pleural spaces: There are no layering pleural effusions. No hemothorax is identified. There is no pneumothorax. Heart: Heart size is normal and there is no pericardial effusion. Mediastinal space: The prior lower paraesophageal varices have decreased in size and are now tiny. There is a small sliding hiatal hernia, as on prior study. There is mild fluid within the mid and lower esophagus suggesting gastroesophageal reflux. Aorta: Unremarkable. No aortic aneurysm. Lymph nodes: There is no thoracic adenopathy. Bones/joints: Again noted are multiple old healed left rib fractures. There is been partial healing of the nondisplaced left lateral 7th rib fracture on image 414. There are new nondisplaced fractures of the right lateral 5th-10th ribs as well as the left posterolateral 10th-12th ribs. Soft tissues: Unremarkable. IMPRESSION: 1. Multiple new nondisplaced rib fractures, as described above. Please note that imaging criteria for flail chest on the right are present with fractures of the right lateral 5th-10th ribs present. 2. No pneumothorax or hemothorax identified. 3. Small sliding hiatal hernia, as on prior study, with findings suggesting gastroesophageal reflux. PROCEDURE INFORMATION: Exam: CT Abdomen And Pelvis Without Contrast Exam date and time: 07/18/2020 7:51 PM Age: 59 years old Clinical indication: Nausea and vomiting; Abdominal pain; Generalized; Other: Not specified; Prior surgery; Surgery date: 6+ months; Surgery type: Hernia repair, colon resection, esophogastrduodenoscopy, vasectomy, ; patient HX: R/O perforation, gi bleed, vomiting; Additional info: HX of esophageal varices, cirrhosis, diverticulitis TECHNIQUE: Imaging protocol: Computed tomography of the abdomen and pelvis without contrast. Radiation optimization: All CT scans at this facility use at least one of these dose optimization techniques: automated exposure control; mA and/or kV adjustment per patient size (includes targeted exams where dose is matched to clinical indication); or iterative reconstruction. COMPARISON: CT CHEST/ABD/PEL W 01/02/2020 9:49 AM FINDINGS: Liver: There is diffusely decreased attenuation of the liver parenchyma, consistent with steatosis. The liver appears lobular, as on prior study, suggesting underlying cirrhotic change. There is a new TIPS in place from the right hepatic vein to the distal aspect of the portal vein. There is a stable 1.3 cm fluid density left hepatic lobe lesion on image 560, series 5, suggesting a cyst. Gallbladder and bile ducts: The gallbladder is distended but appears otherwise unremarkable without evidence for acute inflammation. No gallstones are identified. Pancreas: The pancreas is severely atrophic but otherwise appears unremarkable without focal lesion or evidence of acute inflammation. Spleen: The spleen has a length of 14.2 cm consistent with splenomegaly. This measured 16.2 cm on prior study. Adrenal glands: Normal. No mass. Kidneys and ureters: No renal or ureteral stones are identified. There is no hydronephrosis or hydroureter. Stomach and bowel: There is no evidence of small or large bowel inflammation. There is no evidence for bowel obstruction. There is anastomotic staple line involving the sigmoid colon without evidence for focal mass. There are scattered distal colonic diverticula without evidence for acute diverticulitis. Appendix: The appendix is well visualized and appears normal. Intraperitoneal space: The prior small ascites has resolved. There is no evidence for free intraperitoneal air. Retroperitoneal space: The prior regions fluid infiltration in the retroperitoneum and around the right colon have resolved. Vasculature: The aorta and iliac arteries demonstrate moderate atherosclerotic calcification without aneurysm formation. There are small omental varices which are decreased in size since prior study. The left upper quadrant varices on prior study are no longer present. Lymph nodes: Unremarkable. No enlarged lymph nodes. Urinary bladder: Unremarkable as visualized. Reproductive: Unremarkable as visualized. Bones/joints: There is a stable mild anterior wedge compression deformity of the L1 vertebra, chronic. There is moderate degenerative change at L2-L3, as on prior study. Soft tissues: There is focal small irregular region of fluid density along the superior aspect of the right inguinal canal, as on prior study, which may represent sequela of prior hernia repair. IMPRESSION: 1. Findings of hepatic steatosis and cirrhosis. 2. Status post TIPS placement, with resolution of the prior ascites and marked improvement in small varices and decreased splenomegaly. 3. No evidence for acute bowel inflammation. No evidence of bowel obstruction. 4. No evidence of bowel perforation. Dictated and Authenticated by: Salvador Swanson MD. Ordering:SATYA Francois MD
[2020-07-18] MEDS: Lactated Ringers 1,000 ML 1000 ML IV (21:00)
[2020-07-18] MEDS: Normal Saline 250 ML IV (22:01)
[2020-07-18 22:39] LABS: Troponin I 0.58 ng/mL (<0.06)
[2020-07-19 11:16] LABS: COVID-19 PCR Positive (Negative)
--- NOTE | 2020-07-19 11:31 | NUR.NOTE ---
Nursing Note: Faxed to [facility] COVID positive result. Kyra Muniz
== END 2020-07-18 22:31 | disposition short-term general hospital (02) ==
PROVIDERS: Emergency Provider Registered Nurse Emergency; PCP Nurse Practitioner
DX: U07.1 COVID-19 (principal); K92.2 Gastrointestinal hemorrhage, unspecified; K70.30 Alcoholic cirrhosis of liver without ascites; R17 Unspecified jaundice; E87.6 Hypokalemia; R77.8 Other specified abnormalities of plasma proteins; F10.10 Alcohol abuse, uncomplicated; S22.43XA Multiple fractures of ribs, bilateral, initial encounter for closed fracture; W19.XXXA Unspecified fall, initial encounter
CPT/HCPCS: 36415; 71250; 80053; 83690; 86850; 86900; 86901; 87635; 93005; 96361; 96365; 96366; 96367; 96368; 96375; 96376; 99291; 74176; 80320; 83735; 84484; 85025; 85610; 85730; 93010; J2060; J2405; J3475; J3480

== ENCOUNTER 2020-08-03 19:01 | Inpatient (IN) | payer MEDICAID, SELFPAY ==
[2020-08-03] VITALS (40 sets, daily range): BP systolic 80–125; BP diastolic 36–65; PULSE 77–97; RESP 16; TEMP 36.8; O2SAT 88–99
--- NOTE | 2020-08-03 19:00 | RT.EKG_ITS ---
APPROVED REPORT Exam: Resting ECG Patient Location: E HR:93 bpm ECG Measurements Heart Rate 93 AXIS LA 176 P 42 QRSd 96 QRS -10 QT 371 T 39 QTc 462 Conclusion Sinus rhythm...normal P axis, V-rate 60- 99 Ventricular trigeminy...trigeminy string>6 w/ V complexes
--- NOTE | 2020-08-03 19:29 | NUR.NOTE ---
Pt reports being positive COVID 12 days ago . Reports I haven't been feeling well since then. States body aches all over. Denies CP. Reports feels short of breath sometimes when I'm just sitting down. States has had fall within past few weeks and cracked some ribs on my left side. Pt reports not using spirometer and reports ongoing cough with green mucous production. Pt reports decrease appetite, states emesis few times a day and not hydrating, I don't like water. Skin jaundiced. Pt on full cardiac monitoring. Room air at 97% . No acute distress. Has random moaning with exhalations during triage and assessment, pt reports, my body just hurts. Pt reports gen weakness, states I don't get around well. Denies use of walker/cane. GCS 15.
[2020-08-03] MEDS: Acetaminophen 325 MG TAB 650 MG PO (19:58)
[2020-08-03] MEDS: Normal Saline 500 ML 1000 ML IV (19:58)
--- NOTE | 2020-08-03 19:58 | NUR.NOTE ---
Nursing Note: 2nd set cultures drawn Right hand by this RN.
[2020-08-03 20:05] LABS: Abs Immature Grans 0.02 10^3/uL (0.0-0.06); Absolute Basophil Count 0.13 10^3/uL (0.0-0.2); Absolute Eosinophil Count 0.18 10^3/uL (0.0-0.7); Absolute Monocyte Count 0.67 10^3/uL (0.1-0.8); Absolute Neutrophil Count 5.24 10^3/uL (1.2-6.7); Basophils % 1.4; Eosinophils % 1.9; HCT 30.8 % (40.0-50.0); HGB 9.3 g/dL (13.5-17.5); Immature Grans % 0.2; Lymphocytes % 33.2; MCH 25.3 pg (27.0-33.0); MCHC 30.2 % (32.0-36.0); MCV 83.7 fL (80-95); Monocytes % 7.2; Neutrophils % 56.1; Nucleated RBC 0 %; RBC 3.68 10^6/uL (4.36-5.78); RDW-SD 78.4 fL; WBC 9.34 10^3/uL (4.4-10.8)
[2020-08-03 20:06] LABS: Lactate 4.3 mmol/L (0.6-1.4)
--- NOTE | 2020-08-03 20:18 | ED.GENADUL_ITS ---
Discharge Plan Disposition Patient Disposition: [facility] INPATIENT Condition: Serious Discharge Details Chief Complaint: GenMedical Clinical Impression: Pneumonia, COVID-19 Admit Date/Time: 08/03/20 22:25 Admit Provider: Schuyler Goodman Attending Provider: Schuyler Goodman Primary Care Provider: Angella Deal ED Provider: Jarrett Hoyt Discharge Data Discharge Date/Time-TO BE ENTERED AT DEPARTURE: 08/03/20 23:50 Medical Decision Making 2029??59-year-old male with multiple medical problems including history of alcohol use disorder, prior withdrawal seizures, alcoholic cirrhosis, variceal hemorrhage now status post banding and TIPS March 2020, recent upper GI bleed secondary to esophagitis 07/18, recently diagnosed with Covid 07/18, here with malaise and generalized weakness, cough productive of green sputum, intermittent shortness of breath. Patient is saturating well and in no respiratory distress. He seems to have diminished breath sounds left lung. Consider pneumonia. Initial labs reviewed and lactate 4.3. I will initiate IV fluid rehydration. Considered pulmonary embolism. Patient has no lower extremity edema or calf tenderness. He is not tachycardic and not hypoxic. He does have some intermittent chest discomfort and shortness of breath in the setting of Covid that is concerning for pulmonary embolism. Plan to CT chest if creatinine acceptable. I reviewed prior record and recent creatinine was elevated. Awaiting results. Unfortunately patient will not be a candidate for anticoagulation if he does have a pulmonary origin given his recent GI bleeding. --Screening ECG was reviewed and interpreted by me: Please see report, reticular trigeminy --CT of the chest was interpreted by radiology: IMPRESSION: 1. No pulmonary embolism. 2. Mild scattered bilateral irregular ground-glass airspace opacities with a somewhat more peripheral distribution. Commonly reported imaging features of Covid-19 pneumonia are present. Other processes such as influenza pneumonia and organizing pneumonia, as can be seen with drug toxicity and connective tissue disease, can cause a similar imaging pattern. 3. Mural thickening of the esophagus with small hiatal hernia. Correlate clinically to exclude history of esophagitis and/or reflux. 4. Additional nonacute findings as above. Labs reviewed. Given weakness and comorbidities, plan to admit to treat pneumonia, consider aspiration ammonia, will treat with ceftriaxone and clindamycin. I called and spoke with the on-call hospitalist, Dr. Goodman, discussed ED presentation and course including diagnostics and treatment thus far, he will accept the patient for admission. Care transition to Dr. Goodman at time of admission. While patient has not demonstrated withdrawal symptoms yet, he is at risk given alcoholism, plan and speak with Dr. Goodman is for admission to the ICU given this concern. HPI General Mode of arrival: ambulatory . Date/Time Provider Initiated Documentation: 08/03/20 19:14 . Limitations to Documentation: no limitations . Information obtained by: patient . HPI Narrative: 59-year-old male with multiple medical problems including history of alcohol use disorder, alcoholic cirrhosis of the liver, portal hypertension, esophageal varices status post variceal banding and TIPS, seen here in the emergency department on 07/18/2020 with hematemesis, incidentally found to be positive for Covid, transferred to [facility] for further management, discharged from [facility] and has been home, now with increasing general malaise, body aches, decreased oral intake, cough productive of green sputum over the past 3 days, intermittent subjective fever over the past 3 days, intermittent shortness of breath. His chief complaint of general malaise is severe, constant, no modifiers. Hematemesis was evaluated at [facility] and thought to be secondary to esophagitis, antiacid was started and he has been taking this and has had no recurrent bleeding Related Data Home Medications Medication Instructions Recorded Confirmed folic acid 1 mg tablet 1 mg PO DAILY #90 tab 06/24/20 08/03/20 tamsulosin 0.4 mg capsule 0.4 mg PO DAILY #90 cap 06/24/20 08/03/20 thiamine mononitrate (vit B1) 100 100 mg PO DAILY #90 tab 06/24/20 08/03/20 mg tablet [id number]-[id number] acid 1 tab PO DAILY 07/18/20 08/03/20 [Cerovite Advanced Formula] fluoxetine 20 mg PO DAILY 08/03/20 08/03/20 acamprosate 666 mg PO TID 08/04/20 08/04/20 finasteride 5 mg PO DAILY 08/04/20 08/04/20 lactulose 20 g PO BID 08/04/20 08/04/20 melatonin 6 mg PO HS 08/04/20 08/04/20 pantoprazole 40 mg PO BID 08/04/20 08/04/20 Previous Rx's Medication Instructions Recorded folic acid 1 mg tablet 1 mg PO DAILY #90 tab 06/24/20 tamsulosin 0.4 mg capsule 0.4 mg PO DAILY #90 cap 06/24/20 thiamine mononitrate (vit B1) 100 100 mg PO DAILY #90 tab 06/24/20 mg tablet Allergies Allergy/AdvReac Type Severity Reaction Status Date / Time sertraline AdvReac Severe SEVERE Verified 08/03/20 19:15 WORSENING OF DEPRESSION General Stated Complaint: GenMedical NEEMA: 2 Review of Systems All systems reviewed & are unremarkable except as noted in HPI and below Constitutional Constitutional: Reports body ache(s), Reports fatigue, Reports fever(s), Reports lethargy, Reports malaise and Reports weakness Cardiovascular Cardiovascular: Denies leg edema and Reports dyspnea Respiratory Respiratory: Reports cough and Reports dyspnea Gastrointestinal Gastrointestinal: Denies abdominal pain, Reports nausea and Denies hematemesis Neurologic Neurologic: Reports weakness Endocrine Endocrine: Reports fatigue [facility] Medical History Acute GI bleeding Advanced hepatic cirrhosis Alcohol abuse Alcohol dependence with withdrawal with complication Anxiety COVID-19 Depression GERD (gastroesophageal reflux disease) History of surgery Hernia repair. Vasectomy. Liver failure with hepatic coma Surgical History H/O vasectomy History of colon resection due to diverticulitis; sigmoid History of esophagogastroduodenoscopy 01/2020- [facility] [place] History of hernia repair Repair of inguinal hernia Vasectomy Family History Mother Neoplasm Father Diabetes Essential hypertension Neoplasm Sister No problems noted. Social History Smoking/Tobacco Use Status: Never Smoking risk assessment performed?: Yes Alcohol Intake: current Alcohol Intake frequency: 3 or more drinks per day Alcohol type: hard liquor Drug use: Occasionally Substance use type: marijuana Details: 3/4 of a 5th of Vodka daily, last drink was sunday07/16/20 Do you feel safe at home: Yes Do you feel safe in your relationship?: Yes Exam Const General: cooperative, no acute distress and other (Fatigue) Orientation: alert HENMT Mouth: mucous membranes dry Eyes Conjunctivae: normal conjunctivae Sclera: scleral abnormality bilaterally (Icterus) Resp Effort & Inspection: able to speak in complete sentences, not labored and no respiratory distress Auscultation: diminished lung sounds on the left, no rales, no rhonchi and no wheezes Cardio Rate: regular rate and not tachycardic Rhythm: regular rhythm GI Palpation: soft, not firm, no guarding, no masses, not rigid and nontender Skin General skin exam: jaundice Neuro General: patient alert, patient awake, patient oriented x3 and tone normal Extrem General: no calf tenderness and no edema Psych Appearance: grossly normal Mental Status: mental status grossly normal Course Vital Signs Vital signs: Vital Signs Temperature 36.8 C 08/03/20 19:12 Pulse 95 H 08/03/20 19:12 Respiratory Rate 16 08/03/20 19:12 Blood Pressure 125/65 08/03/20 19:12 Pulse Oximetry 97 08/03/20 19:12 Temperature 36.8 C 08/03/20 19:12 Temperature Source Tympanic 08/03/20 19:12 Pulse 95 H 08/03/20 19:12 Respiratory Rate 16 08/03/20 19:22 Respiratory Effort 08/03/20 19:22 Respiratory Depth Normal 08/03/20 19:22 Respiratory Pattern Normal 08/03/20 19:22 Blood Pressure 125/65 08/03/20 19:12 Blood Pressure Position Sitting 08/03/20 19:12 Pulse Oximetry 97 08/03/20 19:12 Oxygen Delivery Method Room Air 08/03/20 19:12 Oxygen Flow Rate 0 08/03/20 19:12 Pain Level 6 08/03/20 19:12 Comment 08/03/20 19:12 Lab/Test Results Lab/Test Results: 08/03/20 19:40 Blood Blood Culture - Pending 08/03/20 19:55 Blood Blood Culture - Pending Laboratory Tests Range/Units 08/03/20 08/03/20 19:55 19:55 WBC (4.4-10.8) 10^3/uL 9.34 RBC (4.36-5.78) 10^6/uL 3.68 L Hgb (13.5-17.5) g/dL 9.3 L Hct (40.0-50.0) % 30.8 L MCV (80-95) fL 83.7 MCH (27.0-33.0) pg 25.3 L MCHC (32.0-36.0) % 30.2 L RDW (11.8-14.1) % 26.0 H VBG Lactate (0.6-1.4) mmol/L 4.3 H*
[2020-08-03 20:21] LABS: ALT 47 U/L (16-63); AST 247 U/L (15-37); Albumin 2.3 g/dL (3.4-5.0); Alkaline Phosphatase 214 U/L (46-116); Anion Gap 10.4 mmol/L (3-11); BUN 4 mg/dL (7-18); Bilirubin, Total 7.5 mg/dL (0.2-1.0); CO2 27.6 mmol/L (21.0-32.0); CREATININE 0.8 mg/dL (0.70-1.30); Chloride 106 mmol/L (98-107); Glucose 123 mg/dL (74-106); Potassium 3.1 mmol/L (3.5-5.1); Sodium 144 mmol/L (136-145); Total Protein 7.2 g/dL (6.4-8.2)
[2020-08-03 20:24] LABS: Anisocytosis 2+; Diff Comment RBC Morph Reviewed; Hypochromasia 1+; Platelet Count 60 10^3/uL (130-400); Polychromasia Present
[2020-08-03 20:25] LABS: Poikilocytes 1+
[2020-08-03 20:46] LABS: Troponin I < 0.05 ng/mL (<0.06)
--- NOTE | 2020-08-03 20:48 | DI.CT_ITS ---
EXAM: CT CHEST PE CTA CLINICAL HISTORY: cough, SOB, chest heaviness, covid +. TECHNIQUE: Imaging Protocol: CT angiography of the chest was performed using pulmonary embolus maribel col. Multi planar reconstructions were performed. CONTRAST MATERIAL: Intravenous: Omnipaque 350 Contrast volume: 80 cc COMPARISON: CT CT CHEST/ABD/PEL WO from 07/18/2020 FINDINGS: CHEST: PULMONARY ARTERIES: There are no intraluminal filling defects to suggest acute pulmonary emboli. LUNGS: There are patchy and ground-glass infiltrates bilaterally consistent with infectious/inflammat ory.. There are no pleural effusions. MEDIASTINUM: There is no hilar nor mediastinal adenopathy. Visualized thyroid unremarkable.Bilateral gynecomastia CARDIAC: Heart size is upper normal. There is no pericardial effusion.Caliber of the thoracic aorta is within normal limits. There is no significant shift of the interventricular septum. PARTIALLY VISUALIZED UPPERMOST ABDOMEN: Hepatic cirrhosis. There is a TIPS in place. Splenomegaly. No obvious ascites evident. OSSEOUS: Multiple bilateral healing rib fractures. No obvious acute fracture.. IMPRESSION: 1. No evidence of acute pulmonary emboli. No evidence of pulmonary infarction.However, there are edel ateral patchy infiltrates consistent with infectious/inflammatory etiology. Recommend testing for Co vid-19. 2. There are no pleural effusions. No intrathoracic adenopathy. 3. Multiple nonacute appearing bilateral rib fractures are noted. RADIATION DOSE DELIVERED: 401.86mGy.cm Total DLP DATA REPOSITORY: All CT scans at this facility are submitted to the National Radiology Data Registry (NRDR) Dose Index Registry (DIR) with the [employer] (A[employer]). RADIATION OPTIMIZATION: All CT scans at this facility use at least one of these dose optimization te chniques: automated exposure control; mA and/or kV adjustment per patient size (includes targeted exa ms where dose is matched to clinical indication); or iterative reconstruction.
[2020-08-03] MEDS: Omnipaque 350 MG/ML 100 ML BTL IV (21:03)
[2020-08-03] MEDS: Normal Saline - Diluent 50 ML VIAL IV (21:04)
[2020-08-03] MEDS: Normal Saline Flush 10 ML SYR IVP (21:05)
--- NOTE | 2020-08-03 21:52 | DI.VRAD_ITS ---
PROCEDURE INFORMATION: Exam: CTA Chest With Contrast Exam date and time: 08/03/2020 9:11 PM Age: 59 years old Clinical indication: Other: Cough, SOB, chest heaviness, covid +; Prior surgery; Surgery date: 6+ months; Additional info: Cough, SOB, chest heaviness, covid + TECHNIQUE: Imaging protocol: Computed tomographic angiography of the chest with contrast. 3D rendering (Not supervised by radiologist): MIP and/or 3D reconstructed images were created by the technologist. Radiation optimization: All CT scans at this facility use at least one of these dose optimization techniques: automated exposure control; mA and/or kV adjustment per patient size (includes targeted exams where dose is matched to clinical indication); or iterative reconstruction. Contrast material: OMNIPAQUE 350; Contrast volume: 80 ml; Contrast route: INTRAVENOUS (IV); COMPARISON: 1. CT THORAX ABD/PEL CTA 03/20/2020 7:[address] CHEST/ABD/PEL WO 07/18/2020 7:58:39 PM FINDINGS: Pulmonary arteries: Pulmonary artery opacification is adequate. No pulmonary embolism. Aorta: No aortic aneurysm. No aortic dissection. Thyroid: No mass. Lungs: There are mild scattered bilateral irregular ground-glass airspace opacities with a somewhat more peripheral distribution. Linear opacities within the right lung base are most consistent with subsegmental atelectasis. Pleural spaces: Unremarkable. No pneumothorax. No pleural effusion. Heart: No cardiomegaly or pericardial effusion. Mediastinal space: There is mural thickening of the esophagus with small hiatal hernia. Lymph nodes: Unremarkable. No pathologically enlarged lymph nodes. Liver: TIPS is present in the liver. There is nodular contour of the liver consistent with chronic hepatic disease/cirrhosis. Gallbladder and bile ducts: Gallbladder appears hydropic with indistinct appearance of the fat in the region of the gallbladder neck, similar to comparison. Spleen: Spleen appears enlarged. Intraperitoneal space: There is trace perihepatic ascites. Bones/joints: There are nondisplaced fractures of the lateral right 5th through 10th ribs with evidence of early healing changes with stable alignment to most recent comparison consistent with subacute fractures, correlate for appropriate history. There are multiple old healed left rib fractures. No new fracture compared to prior exam. Soft tissues: Mild asymmetric right gynecomastia. IMPRESSION: 1. No pulmonary embolism. 2. Mild scattered bilateral irregular ground-glass airspace opacities with a somewhat more peripheral distribution. Commonly reported imaging features of Covid-19 pneumonia are present. Other processes such as influenza pneumonia and organizing pneumonia, as can be seen with drug toxicity and connective tissue disease, can cause a similar imaging pattern. 3. Mural thickening of the esophagus with small hiatal hernia. Correlate clinically to exclude history of esophagitis and/or reflux. 4. Additional nonacute findings as above. Dictated and Authenticated by: Alon Peters MD. Ordering:GABRIEL Farias MD
[2020-08-03] MEDS: cefTRIAXone 1 GM/50 ML BAG IVPB (22:25)
--- NOTE | 2020-08-03 22:59 | W.PM.HP.N ---
Date of service: 08/03/20 Time of Service: 22:59 Assessment and Plan Assessment and plan (1) Pneumonia: Start date: 08/03/20 Status: Acute Assessment and plan: This is a 59-year-old gentleman who recently had sequela of chronic alcoholism and hospitalized at [facility] for upper GI bleed with ended up being esophagitis. He does a possible COVID-19 when presenting with these symptoms and now has progressed with pneumonia which appears to be secondary possibly associate with aspiration with his continued alcohol use. He will be covered with Rocephin and clindamycin IV with supportive care. Qualifiers: Laterality: bilateral Lung location: unspecified part of lung Pneumonia type: due to unspecified organism Qualified Code(s): J18.9 - Pneumonia, unspecified organism (2) COVID-19: Status: Acute Assessment and plan: Patient is now at least 12 days into his COVID-19 positive pneumonitis and his past the window for remdesivir but will be started on dexamethasone with other usual Covid 19 monitoring and treatment. He is not requiring high amounts of oxygen as of yet. (3) Alcoholic hepatitis without ascites: Status: Chronic Assessment and plan: Slightly worsened but chronic with continue supportive care. Repletion of electrolytes. (4) Alcoholism: Status: Chronic Assessment and plan: Continued alcohol use up to the day of readmission. Watch for alcohol withdrawal with CIWA protocol to be followed. (5) Alcoholic cirrhosis of liver with ascites: Status: Chronic Assessment and plan: Chronic with sequela and ongoing alcohol use. Monitor for alcohol withdrawal and monitor labs with supportive care. History of Present Illness History of Present Illness Chief Complaint: Malaise and cough with fever. Narrative: This is a 59-year-old male patient with history of multiple medical problems associate with alcohol use including alcoholic cirrhosis with small amount of ascites, portal hypertension status post TIPS procedure and banding of esophageal varices in March 2020 who presented to the ED 07/18/2020 with hematemesis and coincidentally was found to have positive COVID-19 testing. He was transferred [facility] for management of his hematemesis status post TIPS and esophageal varices banding and was found to have esophagitis treated with medical therapy and having no recurrence. The last 3 days the patient has been having increasing malaise with cough producing green sputum with increased volume of production as well as subjective fever and dyspnea. He was seen in the ED prior to admission and found to have progressive pneumonia possible aspiration pneumonia be started on Rocephin and clindamycin. His oxygen requirements were minimal and the patient had no measured fever in the ED. Patient offers no other complaints and gave verbal stories as to his last drink of alcohol with his alcohol level being positive. He is at risk for withdrawal from alcoholism. Review of Systems Narrative: 13 point review of systems otherwise unrevealing or stable. Patient is chronically ill with continued alcohol use. FOR[facility]LY [facility] Medical History Acute GI bleeding Advanced hepatic cirrhosis Alcohol abuse Alcohol dependence with withdrawal with complication Anxiety COVID-19 Depression GERD (gastroesophageal reflux disease) History of surgery Hernia repair. Vasectomy. Liver failure with hepatic coma Surgical History H/O vasectomy History of colon resection due to diverticulitis; sigmoid History of esophagogastroduodenoscopy 01/2020- [facility] History of hernia repair Repair of inguinal hernia Vasectomy Family History Mother Neoplasm Father Diabetes Essential hypertension Neoplasm Sister No problems noted. Social History Smoking/Tobacco Use Status: Never Smoking risk assessment performed?: Yes Alcohol Intake: current Alcohol Intake frequency: 3 or more drinks per day Alcohol type: hard liquor Drug use: Occasionally Substance use type: marijuana Details: 3/4 of a 5th of Vodka daily, last drink was sunday07/16/20 Do you feel safe at home: Yes Do you feel safe in your relationship?: Yes Meds Allergies and Home Medications Allergies Allergy/AdvReac Type Severity Reaction Status Date / Time sertraline AdvReac Severe SEVERE Verified 08/03/20 19:15 WORSENING OF DEPRESSION Home Medications Medication Instructions Recorded Confirmed Type acamprosate 666 mg PO TID 03/20/20 07/18/20 History acetaminophen 650 mg PO Q8H 04/13/20 08/03/20 History folic acid 1 mg tablet 1 mg PO DAILY #90 tab 06/24/20 08/03/20 Rx melatonin 3 mg capsule 3 mg PO HS PRN 06/24/20 08/03/20 History mirtazapine 15 mg tablet 15 mg PO DAILY #90 tab 06/24/20 08/03/20 Rx pantoprazole 40 mg tablet,delayed 40 mg PO DAILY #90 tab 06/24/20 08/03/20 Rx release propranolol 10 mg tablet 10 mg PO BID #180 tab 06/24/20 08/03/20 Rx tamsulosin 0.4 mg capsule 0.4 mg PO DAILY #90 cap 06/24/20 08/03/20 Rx thiamine mononitrate (vit B1) 100 100 mg PO DAILY #90 tab 06/24/20 08/03/20 Rx mg tablet ferrous gluconate 324 mg (38 mg 324 mg PO TID #90 tab 06/25/20 08/03/20 Rx iron) tablet lactulose 30 ml PO DAILY PRN 07/18/20 08/03/20 History qsejfzvvslhf-ogfv-[id number] acid 1 tab PO DAILY 07/18/20 08/03/20 History [Cerovite Advanced Formula] fluoxetine 20 mg PO DAILY 08/03/20 08/03/20 History Exam Narrative Exam Narrative: General: Patient appears older than stated age, sleeping at the time I examined him but easily aroused, flattened affect with poor eye contact and appears depressed. He is in no acute distress. He is alert and oriented at least to person place. HEENT: Normocephalic, coarsened facial features without edema, eyes with pupils equal and reactive to light symmetrically, extraocular movement intact and sclera icteric. Skin: Jaundice, decreased turgor with coarsened rough texture. Warm and dry. No rashes noted. Neck: Supple without JVD. Lungs: Bronchovesicular breath sounds diffusely, fine rales over right base with inspiration, increased expiratory phase but no expiratory wheeze and occasional rhonchi. Moist cough. Fair aeration in all maynard except right base. Heart: Regular rate and rhythm with no appreciable murmurs or gallops, borderline tachycardia. Abdomen: Obese contour, slightly protuberant but soft and nontender to palpation with no palpable hepatosplenomegaly. Bowel sounds positive all quadrants. Genitalia/rectal: Exam deferred. Extremities: Without clubbing, cyanosis or pitting edema. Peripheral pulses intact. Neuro: Cranial nerves II through XII grossly intact, no focalizing motor deficits. Psych: Depressed mood with flattened affect as mentioned. No abnormal thought processes. Remote and recent memory appear to be grossly intact with patient being a poor historian as to alcohol intake. He does not appear to be oriented perfectly to time and was drowsy at the time of exam. Results Imaging Imaging Studies: Exam: CTA Chest With Contrast Exam date and time: 08/03/2020 9:11 PM Age: 59 years old Clinical indication: Other: Cough, SOB, chest heaviness, covid +; Prior surgery; Surgery date: 6+ months; Additional info: Cough, SOB, chest heaviness, covid + COMPARISON: 1. CT THORAX ABD/PEL CTA 03/20/2020 7:[address] CHEST/ABD/PEL WO 07/18/2020 7:58:39 PM FINDINGS: Pulmonary arteries: Pulmonary artery opacification is adequate. No pulmonary embolism. Aorta: No aortic aneurysm. No aortic dissection. Thyroid: No mass. Lungs: There are mild scattered bilateral irregular ground-glass airspace opacities with a somewhat more peripheral distribution. Linear opacities within the right lung base are most consistent with subsegmental atelectasis. Pleural spaces: Unremarkable. No pneumothorax. No pleural effusion. Heart: No cardiomegaly or pericardial effusion. Mediastinal space: There is mural thickening of the esophagus with small hiatal hernia. Lymph nodes: Unremarkable. No pathologically enlarged lymph nodes. Liver: TIPS is present in the liver. There is nodular contour of the liver consistent with chronic hepatic disease/cirrhosis. Gallbladder and bile ducts: Gallbladder appears hydropic with indistinct appearance of the fat in the region of the gallbladder neck, similar to comparison. Spleen: Spleen appears enlarged. Intraperitoneal space: There is trace perihepatic ascites. Bones/joints: There are nondisplaced fractures of the lateral right 5th through 10th ribs with evidence of early healing changes with stable alignment to most recent comparison consistent with subacute fractures, correlate for appropriate history. There are multiple old healed left rib fractures. No new fracture compared to prior exam. Soft tissues: Mild asymmetric right gynecomastia. IMPRESSION: 1. No pulmonary embolism. 2. Mild scattered bilateral irregular ground-glass airspace opacities with a somewhat more peripheral distribution. Commonly reported imaging features of Covid-19 pneumonia are present. Other processes such as influenza pneumonia and organizing pneumonia, as can be seen with drug toxicity and connective tissue disease, can cause a similar imaging pattern. 3. Mural thickening of the esophagus with small hiatal hernia. Correlate clinically to exclude history of esophagitis and/or reflux. 4. Additional nonacute findings as above. Labs Result diagrams: 08/04/20 07:10 08/04/20 07:10 Labs: Laboratory Results - last 24 hr 08/03/20 08/03/20 08/03/20 19:55 19:55 19:55 WBC 9.34 RBC 3.68 L Hgb 9.3 L Hct 30.8 L MCV 83.7 MCH 25.3 L MCHC 30.2 L RDW 26.0 H Plt Count 60 L MPV Immature Gran % 0.2 Neutrophils % 56.1 Lymphocytes % 33.2 Monocytes % 7.2 Eosinophils % 1.9 Basophils % 1.4 Nucleated RBC % 0 Absolute Neutrophils 5.24 Absolute Lymphocytes 3.10 Absolute Monocytes 0.67 Absolute Eosinophils 0.18 Absolute Basophils 0.13 RBC Morphology See below Polychromasia Present Hypochromasia 1+ Poikilocytosis 1+ Anisocytosis 2+ VBG Lactate 4.3 H* Sodium 144 Potassium 3.1 L Chloride 106 Carbon Dioxide 27.6 Anion Gap 10.4 BUN 4 L Creatinine 0.8 Estimated GFR/1.73 m2 >= 60.00 Glucose 123 H Calcium 8.0 L Total Bilirubin 7.5 H AST 247 H ALT 47 Alkaline Phosphatase 214 H Troponin I < 0.05 Total Protein 7.2 Albumin 2.3 L Last Vital Signs Temp 36.8 C 08/03/20 19:12 Pulse 79 08/03/20 21:19 Resp 16 08/03/20 19:22 BP 108/51 L 08/03/20 21:19 Pulse Ox 94 08/03/20 21:19 COVID-19 Screening Have you, or household traveled for leisure in last 14 days?: No Had IN PERSON contact w/suspected or confirmed C-19 person: Yes
[2020-08-03] MEDS: POTASSIUM CHLORIDE 20 MEQ/100 ML BAG 50 MEQ IVPB (23:02)
[2020-08-03] MEDS: CLINDAMYCIN 600 MG/50 ML BAG 100 MG IVPB (23:40)
[2020-08-04] VITALS (45 sets, daily range): BP systolic 102–135; BP diastolic 44–90; PULSE 70–100; RESP 12–23; TEMP 36.3–36.6; O2SAT 89–99
[2020-08-04 00:36] LABS: PHOSPHORUS 2.5 mg/dL (2.6-4.7)
[2020-08-04 00:46] LABS: ETHANOL BLOOD 339.9 mg/dL (<3); Magnesium 1.8 mg/dL (1.8-2.4); TSH (W/Ref FT4) 2.36 uIU/mL (0.36-3.74)
--- NOTE | 2020-08-04 02:43 | NUR.NOTE ---
Pt reports his last alcoholic drink was on sunday07/30/20.Nursing Note:
[2020-08-04] MEDS: LORazepam 2 MG/ML VIAL IVP ×3 (04:53→23:54)
[2020-08-04] MEDS: CLINDAMYCIN 600 MG/50 ML BAG 100 MG IVPB (05:14)
[2020-08-04 07:29] LABS: Lactate 2.9 mmol/L (0.6-1.4)
[2020-08-04 07:32] LABS: Abs Immature Grans 0.01 10^3/uL (0.0-0.06); Absolute Basophil Count 0.05 10^3/uL (0.0-0.2); Absolute Eosinophil Count 0.11 10^3/uL (0.0-0.7); Absolute Lymphocyte Count 1.31 10^3/uL (1.2-3.4); Absolute Monocyte Count 0.41 10^3/uL (0.1-0.8); Absolute Neutrophil Count 2.77 10^3/uL (1.2-6.7); Basophils % 1.1; Eosinophils % 2.4; HCT 27.7 % (40.0-50.0); HGB 8.3 g/dL (13.5-17.5); Immature Grans % 0.2; Lymphocytes % 28.1; MCH 25.1 pg (27.0-33.0); MCV 83.7 fL (80-95); Monocytes % 8.8; Neutrophils % 59.4; Nucleated RBC 0 %; Platelet Count 32 10^3/uL (130-400); RBC 3.31 10^6/uL (4.36-5.78); RDW 25.8 % (11.8-14.1); RDW-SD 78.1 fL; WBC 4.66 10^3/uL (4.4-10.8)
[2020-08-04 07:41] LABS: INR 1.4 (0.9-1.1); Prothrombin Time 13.7 sec (9.3-11.0)
[2020-08-04 07:43] LABS: ALT 41 U/L (16-63); AST 199 U/L (15-37); Alkaline Phosphatase 191 U/L (46-116); Anion Gap 8.9 mmol/L (3-11); BUN 3 mg/dL (7-18); Bilirubin, Total 6.3 mg/dL (0.2-1.0); CO2 26.1 mmol/L (21.0-32.0); CREATININE 0.7 mg/dL (0.70-1.30); Calcium 7.4 mg/dL (8.5-10.1); Chloride 106 mmol/L (98-107); Glucose 91 mg/dL (74-106); Potassium 3.4 mmol/L (3.5-5.1); Sodium 141 mmol/L (136-145); Total Protein 6.5 g/dL (6.4-8.2)
[2020-08-04 08:09] LABS: Anisocytosis 3+; Diff Comment Diff Reviewed; Hypochromasia 2+; Microcytosis 2+
[2020-08-04 08:10] LABS: D-Dimer 609 ng/mlFEU (<500); Poikilocytes 2+
--- NOTE | 2020-08-04 08:25 | W.PM.PROGNOT ---
Date of Service Date of service: 08/04/20 Time of Service: 12:00 Assessment and Plan Assessment and plan (1) Pneumonia: Status: Acute Assessment and plan: Bacterial pneumonia superimposed on COVID-19 disease. Etiology: could be due to atelectasis due to rib fractures vs HCAP after recent hospitalization vs simple superinfection on top of COVID-19. Abx changed to vanco/zosyn. Await blood, sputum culture. At this point, no indication for decadron/remdesivir, and the patient had completed a full course of remdesivir at [facility]. Wean O2 as tolerated. Qualifiers: Pneumonia type: due to unspecified organism Laterality: bilateral Lung location: unspecified part of lung Qualified Code(s): J18.9 - Pneumonia, unspecified organism (2) COVID-19: Status: Acute Assessment and plan: I cannot declare the patient non-infectious due to the fact that he has immunosuppression. His diagnosis of COVID is from about 2 weeks ago (07/18). I think he needs to be re-tested. Will discuss with infection control. Keep on precautions for now. Completed remdesivir at [facility]. Encourage proning, IS, acapella. (3) Alcohol withdrawal: Status: Acute Assessment and plan: Monitor on CIWA with prn ativan. The patient is not a candidate for phenobarbital due to his hepatic disease. (4) Advanced hepatic cirrhosis: Status: Chronic Assessment and plan: w/ encephalopathy, coagulopathy, varices, thrombocytopenia, ascites, h/o variceal bleeding, s/p TIPS procedure. Low sodium diet. Continue lactulose. Avoid chemical DVT ppx. Monitor for bleeding (H/H stable so far). Consult palliative care. (5) Alcoholic hepatitis without ascites: Status: Chronic Assessment and plan: This is tail end of the disease - he had much more severe form of disease at [facility]. Today his discriminant function score is 18.7, indicating good prognosis. Will not start prednisolone at this time. Monitor. (6) Jaundice: Status: Chronic Assessment and plan: Due to above. As above. (7) Gastroesophageal reflux disease: Status: Chronic Assessment and plan: PPI BID. (8) Esophageal varices: Status: Chronic Assessment and plan: PPI BID (9) Thrombocytopenia: Status: Chronic Assessment and plan: Actually improved from plt count of 24 on d/c from [facility]. Avoid antiplatelet tx/chemical DVT ppx. (10) DVT prophylaxis: Status: Acute Assessment and plan: Contraindicated due to h/o recent GI bleeding, thrombocytopenia, coagulopathy, h/o esophageal varices. (11) Discharge planning issues: Status: Acute Assessment and plan: Full code Consult palliative care. Total Critical Care Time 1 hr. Subjective Subjective Interval history since last seen: Mr Jean-Baptiste still does not feel well. He reports pain in his left ribs (has fractures there). He is nauseated. Denies abdominal pain. Hungry. Abdominal distention is his baseline. Green sputum. O2 sat in the 80s overnight. 2L of O2. A&Ox3. CIWA 11 - got 3 mg of ativan overnight. Exam Narrative Exam Narrative: General: Pleasant jaundiced male, laying on his right side, A&Ox3, no tremors, cooperative, no dyspnea/tachypnea HEENT: EOMI, MMM, scleral icterus Heart: RRR, no m/r/g Lungs: Diminished breath sounds B Abdomen: soft, nontender, mildly distended, no obvious ascites Extremities: no edema BLE's. Objective Last Vital Signs Temp 36.4 C L 08/04/20 00:36 Pulse 86 08/04/20 00:01 Resp 18 08/04/20 00:40 BP 116/64 08/04/20 00:01 Pulse Ox 96 08/04/20 00:40 Laboratory Results - last 24 hr 08/03/20 08/03/20 08/03/20 19:55 19:55 19:55 WBC 9.34 RBC 3.68 L Hgb 9.3 L Hct 30.8 L MCV 83.7 MCH 25.3 L MCHC 30.2 L RDW 26.0 H Plt Count 60 L MPV Immature Gran % 0.2 Neutrophils % 56.1 Lymphocytes % 33.2 Monocytes % 7.2 Eosinophils % 1.9 Basophils % 1.4 Nucleated RBC % 0 Absolute Neutrophils 5.24 Absolute Lymphocytes 3.10 Absolute Monocytes 0.67 Absolute Eosinophils 0.18 Absolute Basophils 0.13 RBC Morphology See below Polychromasia Present Hypochromasia 1+ Poikilocytosis 1+ Anisocytosis 2+ Microcytosis PT INR D-Dimer VBG Lactate 4.3 H* Sodium 144 Potassium 3.1 L Chloride 106 Carbon Dioxide 27.6 Anion Gap 10.4 BUN 4 L Creatinine 0.8 Estimated GFR/1.73 m2 >= 60.00 Glucose 123 H Calcium 8.0 L Phosphorus Magnesium Total Bilirubin 7.5 H AST 247 H ALT 47 Alkaline Phosphatase 214 H Troponin I < 0.05 Total Protein 7.2 Albumin 2.3 L TSH Ethyl Alcohol 08/03/20 08/03/20 08/04/20 19:55 19:55 07:10 WBC RBC Hgb Hct MCV MCH MCHC RDW Plt Count MPV Immature Gran % Neutrophils % Lymphocytes % Monocytes % Eosinophils % Basophils % Nucleated RBC % Absolute Neutrophils Absolute Lymphocytes Absolute Monocytes Absolute Eosinophils Absolute Basophils RBC Morphology Polychromasia Hypochromasia Poikilocytosis Anisocytosis Microcytosis PT INR D-Dimer VBG Lactate Sodium 141 Potassium 3.4 L Chloride 106 Carbon Dioxide 26.1 Anion Gap 8.9 BUN 3 L Creatinine 0.7 Estimated GFR/1.73 m2 >= 60.00 Glucose 91 Calcium 7.4 L Phosphorus 2.5 L Magnesium 1.8 Total Bilirubin 6.3 H AST 199 H ALT 41 Alkaline Phosphatase 191 H Troponin I Total Protein 6.5 Albumin 2.0 L TSH 2.36 Ethyl Alcohol 339.9 08/04/20 08/04/20 08/04/20 07:10 07:10 07:10 WBC 4.66 D RBC 3.31 L Hgb 8.3 L Hct 27.7 L MCV 83.7 MCH 25.1 L MCHC 30.0 L RDW 25.8 H Plt Count 32 L MPV Immature Gran % 0.2 Neutrophils % 59.4 Lymphocytes % 28.1 Monocytes % 8.8 Eosinophils % 2.4 Basophils % 1.1 Nucleated RBC % 0 Absolute Neutrophils 2.77 Absolute Lymphocytes 1.31 Absolute Monocytes 0.41 Absolute Eosinophils 0.11 Absolute Basophils 0.05 RBC Morphology See below Polychromasia Hypochromasia 2+ Poikilocytosis 2+ Anisocytosis 3+ Microcytosis 2+ PT 13.7 H D INR 1.4 H D D-Dimer VBG Lactate 2.9 H* Sodium Potassium Chloride Carbon Dioxide Anion Gap BUN Creatinine Estimated GFR/1.73 m2 Glucose Calcium Phosphorus Magnesium Total Bilirubin AST ALT Alkaline Phosphatase Troponin I Total Protein Albumin TSH Ethyl Alcohol 08/04/20 07:10 WBC RBC Hgb Hct MCV MCH MCHC RDW Plt Count MPV Immature Gran % Neutrophils % Lymphocytes % Monocytes % Eosinophils % Basophils % Nucleated RBC % Absolute Neutrophils Absolute Lymphocytes Absolute Monocytes Absolute Eosinophils Absolute Basophils RBC Morphology Polychromasia Hypochromasia Poikilocytosis Anisocytosis Microcytosis PT INR D-Dimer 609 H VBG Lactate Sodium Potassium Chloride Carbon Dioxide Anion Gap BUN Creatinine Estimated GFR/1.73 m2 Glucose Calcium Phosphorus Magnesium Total Bilirubin AST ALT Alkaline Phosphatase Troponin I Total Protein Albumin TSH Ethyl Alcohol
[2020-08-04 08:39] LABS: C-Reactive Protein 1.25 mg/dL (0.0-0.3); LDH 230 U/L (85-227); Magnesium 1.5 mg/dL (1.8-2.4)
[2020-08-04] MEDS: FLUoxetine 20 MG CAP PO (08:54)
[2020-08-04] MEDS: Dexamethasone 4 MG TAB 6 MG PO (08:54)
[2020-08-04] MEDS: Zinc Sulfate 220 MG TAB PO (08:54)
[2020-08-04] MEDS: Tamsulosin 0.4 MG CAPCR PO (08:55)
[2020-08-04] MEDS: Propranolol 10 MG TAB PO ×2 (08:55→19:12)
[2020-08-04] MEDS: Pantoprazole 40 MG TABCR PO (08:55)
[2020-08-04] MEDS: Multivitamin TAB 1 TAB PO (08:55)
[2020-08-04] MEDS: Ascorbic Acid 500 MG TAB PO ×2 (08:55→19:12)
[2020-08-04] MEDS: Cholecalciferol (Vitamin D3) 1,000 UNIT TAB 4000 UNITS PO (08:55)
[2020-08-04] MEDS: THIAMINE 100 MG in Normal Saline 100 ML 200 MG IVPB (08:56)
[2020-08-04] MEDS: Folic Acid 1 MG TAB PO (08:56)
[2020-08-04] MEDS: Thiamine 100 MG TAB PO (08:56)
[2020-08-04] MEDS: POTASSIUM CHLORIDE 20 MEQ/100 ML BAG 50 MEQ IVPB ×2 (08:56→11:50)
[2020-08-04 09:00] LABS: Procalcitonin 0.1 ng/mL
--- NOTE | 2020-08-04 10:37 | PHACLINREV_ITS ---
Pharmacy Admission Review - Admission Clinical Review (Last Reviewed 08/03/20 @ 23:00 by Schuyler Goodman) Pneumonia (Acute) COVID-19 (Acute) sertraline Adverse Reaction (Severe, Verified 08/03/20 19:15) SEVERE WORSENING OF DEPRESSION Weight 67.1 kg COVID PNEUMONIA, ALCOHOLIC CIRRHOSIS - Comments Comments/Follow Ups: Patient Covid positive 07/18/20 diagnosed @ [facility], D-Dimer 609, CIWA 5 ; protocol on Lorazepam IVP (Phenobarb contraindicated w/Liver cirrhosis), treated @ [facility] for GI bleed and rec'd Remdesivir during that hospitalization. treating for HCAP Pneumonia, not COVID Pneumonia at this time. Anbx therapy changed today to Vanco/Zosyn. Follow H/H, CIWA, Anbx coverage, Blood cultures pending. Possible transfer back to [facility]. Currently on 1L oxygen w/Sats mostly mid 90's - Renal Dosing Renal Dosing: BUN 3 mg/dL (7-18) L 08/04/20 07:10 Creatinine 0.7 mg/dL (0.70-1.30) 08/04/20 07:10 Medications needing adjustments: Reviewed (CrCl~92ml/min) - Anticoagulation Anticoagulation: Hgb 8.3 g/dL (13.5-17.5) L 08/04/20 07:10 Hct 27.7 % (40.0-50.0) L 08/04/20 07:10 Plt Count 32 10^3/uL (130-400) L 08/04/20 07:10 INR 1.4 (0.9-1.1) H D 08/04/20 07:10 Creatinine 0.7 mg/dL (0.70-1.30) 08/04/20 07:10 DVT Prohphylaxis: N/A (GI bleed) - Opiate Usage Evaluate Pain Scale/Pains Meds: N/A - Relevant Labs Sodium 141 mmol/L (136-145) 08/04/20 07:10 Potassium 3.4 mmol/L (3.5-5.1) L 08/04/20 07:10 Chloride 106 mmol/L (98-107) 08/04/20 07:10 Phosphorus 2.5 mg/dL (2.6-4.7) L 08/03/20 19:55 Magnesium 1.5 mg/dL (1.8-2.4) L 08/04/20 07:10 C-Reactive Protein 1.25 mg/dL (0.0-0.3) H 08/04/20 07:10 Electrolytes, C-Reactive P, ESR: Reviewed (KCL 20meq IV x2, Mag not repleted at this time, Phos low, Procalcitonin 0.1, TSH in range, ALT in range, AST/AlkPhos elevated) - DM Control DM Control: Glucose 91 mg/dL (74-106) 08/04/20 07:10 Insulin Dosing: N/A - Heart Failure/WI Heart Failure/WI: Troponin I < 0.05 ng/mL (<0.06) 08/03/20 19:55 EF%, TRUNG's, B-Blockers, Diuretics: Reviewed (Propranolol (for GI bleed/varices)) - BP Control BP Control: Blood Pressure 135/90 Blood Pressure 113/68 Blood Pressure 111/64 Blood Pressure 124/77 Blood Pressure 127/63 Blood Pressure 117/68 Blood Pressure 111/44 Blood Pressure 116/64 Blood Pressure 113/59 Blood Pressure 94/42 Blood Pressure 89/43 Blood Pressure 90/48 If elevated: Reviewed - Qtc Review If Elevated: Reviewed (QTC 462 (Fluoxetine, Zofran)) - IV to PO Switch IV Medications: Reviewed (Pantoprazole IV Q12h, Antibiotics, Lorazepam for CIWA is IVP) - Home Meds Home Med List reviewed: Intervened ( forwarded [facility] discharge orders from 07/26/20 and home med list was updated, appropriate changes were made to current meds for this admission) - Current meds Current Medication Order Review: Reviewed (Due to Liver disease, APAP NTE 2gram/day) Antibiotic Activity - Pharmacy Antibiotic Review Pharmacy Antibiotic Activity: Abx regimen adjustment (Clinda/Doxy changed to Zosyn/Vanco) - Antibiotic Information Antibiotic Review Info: Zosyn/Vanco for HCAP
--- NOTE | 2020-08-04 10:39 | PDOC.CMIN ---
- If Service Date Differs Date of service: 08/04/20 Time of Service: 10:39 Care Management Initial Assess REASON FOR HOSPITALIZATION:: Pneumonia, Alcoholic cirrhosis, Covid 19 PAST MEDICAL HISTORY/PAST SURGICAL HISTORY:: Medical History. Acute GI bleeding. Advanced hepatic cirrhosis. Alcohol abuse. Alcohol dependence with withdrawal with complication. Anxiety. COVID-19. Depression. GERD (gastroesophageal reflux disease). History of surgery. Hernia repair. Vasectomy. Liver failure with hepatic coma. Surgical History. H/O vasectomy. History of colon resection. due to diverticulitis; sigmoid. History of esophagogastroduodenoscopy. 01/2020- [facility]. History of hernia repair. Repair of inguinal hernia. Vasectomy PREVIOUS FUNCTIONAL STATUS/SOCIAL/FAMILY SUPPORTS:: Jelani lives in [place] with his son, Marlon. 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 He is independent with ADLs in the community. CURRENT FUNCTIONAL STATUS:: Jelani is currently on precautions for Covid 19, therefore CM will not meet with him in person on this admission. Per MD, he may be transferred to [facility] later today, if indicated. He will be seen by Palliative care to discuss his code status, as well as if he is agreeable to transfer to tertiary care. CM will continue to follow. ADVANCE DIRECTIVES:: None on file. Palliative care consulted. Has patient been provided with info about the portal/API?: Yes Did the patient sign up for the portal?: Yes (previously) CODE STATUS:: Full Code INSURANCE COVERAGE / FINANCIAL ISSUES:: [employer] CURRENT HOME/COMMUNITY SERVICES/EQUIPMENT:: Jelani currently has ROBER RN, RN CLINICAL REVIEW. PRIMARY CARE PHYSICIAN:: Angella Deal POTENTIAL DISCHARGE NEEDS:: job coach, follow up appointments. PATIENT/FAMILY EDUCATION NEEDS:: Review discharge instructions, resources for alcohol cessation, discussion of self care needs and goals of care. ANTICIPATED BARRIERS TO DISCHARGE:: Jelani may require transfer to tertiary facility. TRANSPORTATION:: Dependent on disposition, via private vehicle if returning home. PLAN:: Jelani continues to be monitored at ICU level of care. He may require transfer to [facility], if indicated. He will be seen by Palliative care during this admission. CM will request a disaster recovery consultant reach out to Jelani, if he is agreeable. He will follow up with his PCP and discharge plan of care. CM will continue to follow.
[2020-08-04] MEDS: Ferrous Gluconate 324 MG TAB PO ×3 (11:49→21:13)
[2020-08-04] MEDS: Ondansetron 4 MG/2 ML VIAL IVP (12:05)
[2020-08-04 13:00] LABS: HCT 33.7 % (40.0-50.0); HGB 9.9 g/dL (13.5-17.5)
[2020-08-04 13:04] LABS: Ammonia 61 umol/L (11-32)
[2020-08-04] MEDS: PIPERACILLIN/TAZO 3.375 GM in Normal Saline 50 ML IVPB ×3 (13:14→23:54)
[2020-08-04] MEDS: VANCOMYCIN/WATER (PEG) 1.25 GM/250 ML BAG IV ×2 (14:03→21:13)
[2020-08-04] MEDS: Normal Saline Flush 10 ML SYR IVP ×2 (17:42→19:13)
[2020-08-04] MEDS: Lactulose 20 GM/30 ML CUP PO (19:12)
[2020-08-04] MEDS: Pantoprazole 40 MG VIAL IVP (19:12)
[2020-08-04] MEDS: Melatonin 3 MG TAB 6 MG PO (21:13)
[2020-08-05] VITALS (31 sets, daily range): BP systolic 93–141; BP diastolic 44–80; PULSE 64–87; RESP 8–24; TEMP 36.3–37.2; O2SAT 92–100
[2020-08-05] MEDS: PIPERACILLIN/TAZO 3.375 GM in Normal Saline 50 ML IVPB ×3 (05:34→17:42)
[2020-08-05] MEDS: VANCOMYCIN/WATER (PEG) 1.25 GM/250 ML BAG IV (06:50)
[2020-08-05 07:07] LABS: Abs Immature Grans 0.01 10^3/uL (0.0-0.06); Absolute Basophil Count 0.02 10^3/uL (0.0-0.2); Absolute Eosinophil Count 0.01 10^3/uL (0.0-0.7); Absolute Lymphocyte Count 0.75 10^3/uL (1.2-3.4); Absolute Monocyte Count 0.35 10^3/uL (0.1-0.8); Absolute Neutrophil Count 4.19 10^3/uL (1.2-6.7); Ammonia 46 umol/L (11-32); Basophils % 0.4; Eosinophils % 0.2; HCT 25.7 % (40.0-50.0); HGB 7.8 g/dL (13.5-17.5); Immature Grans % 0.2; Lymphocytes % 14.1; MCH 25.5 pg (27.0-33.0); MCHC 30.4 % (32.0-36.0); Monocytes % 6.6; Neutrophils % 78.5; Nucleated RBC 0 %; RBC 3.06 10^6/uL (4.36-5.78); RDW 24.4 % (11.8-14.1); RDW-SD 73.8 fL; WBC 5.33 10^3/uL (4.4-10.8)
[2020-08-05 07:12] LABS: Anion Gap 8.8 mmol/L (3-11); BUN 4 mg/dL (7-18); C-Reactive Protein 1.03 mg/dL (0.0-0.3); CO2 26.2 mmol/L (21.0-32.0); CREATININE 0.8 mg/dL (0.70-1.30); Calcium 8.3 mg/dL (8.5-10.1); Chloride 105 mmol/L (98-107); Creatine Kinase 37 U/L (39-308); Glucose 106 mg/dL (74-106); Magnesium 1.3 mg/dL (1.8-2.4); Potassium 4.1 mmol/L (3.5-5.1); Sodium 140 mmol/L (136-145)
[2020-08-05 07:29] LABS: Platelet Count 28 10^3/uL (130-400)
[2020-08-05 07:30] LABS: Anisocytosis 3+; Diff Comment Diff Reviewed; Hypochromasia 2+
[2020-08-05 07:31] LABS: Microcytosis 2+; Poikilocytes 1+
[2020-08-05 07:32] LABS: D-Dimer 1428 ng/mlFEU (<500)
[2020-08-05 07:49] LABS: Ferritin 66 ng/mL (26-388)
[2020-08-05 07:50] LABS: Vitamin D 25 Total 12.1 ng/mL (30-100)
[2020-08-05 07:54] LABS: Folate 19.6 ng/mL (8.6-20.0); Vitamin B12 1570 pg/mL (193-986)
--- NOTE | 2020-08-05 08:31 | PGE_ITS ---
Date of Service Date of service: 08/05/20 Time of Service: 15:07 Assessment and Plan Assessment and plan (1) Pneumonia: Status: Acute Assessment and plan: Bacterial pneumonia superimposed on COVID-19 disease. Etiology: could be due to atelectasis due to rib fractures vs HCAP after recent hospitalization vs simple superinfection on top of COVID-19. Continue vanco/zosyn. Await blood, sputum culture. Sputum culture has not yet been collected - I reordered it. At this point, no indication for decadron/remdesivir, and the patient had completed a full course of remdesivir at [facility]. Wean O2 as tolerated. Qualifiers: Pneumonia type: due to unspecified organism Laterality: bilateral Lung location: unspecified part of lung Qualified Code(s): J18.9 - Pneumonia, unspecified organism (2) COVID-19: Status: Acute Assessment and plan: Completed remdesivir at [facility]. Encourage proning, IS, acapella. Discussed with Infection control: Will test for COVID on 08/07 and 08/08. If negative on both tests, can d/c precautions. (3) Alcohol withdrawal: Status: Acute Assessment and plan: Monitor on CIWA with prn ativan. The only reason why the patient is still in the ICU. Low threshold to transfer out of the ICU to medsur floor if withdrawal symptoms are this well controlled. The patient is not a candidate for phenobarbital due to his hepatic disease. (4) Advanced hepatic cirrhosis: Status: Chronic Assessment and plan: w/ encephalopathy, coagulopathy, varices, thrombocytopenia, ascites, h/o variceal bleeding, s/p TIPS procedure. Low sodium diet. Increase dose of lactulose. Avoid chemical DVT ppx. Monitor for bleeding (H/H stable so far). Advance diet. Palliative care consulted. (5) Alcoholic hepatitis without ascites: Status: Chronic Assessment and plan: This is tail end of the disease - he had much more severe form of disease at [facility]. Good prognosis based on discriminant function score. Will not start prednisolone. Monitor. (6) Jaundice: Status: Chronic Assessment and plan: Due to above. As above. (7) Gastroesophageal reflux disease: Status: Chronic Assessment and plan: PPI BID. (8) Esophageal varices: Status: Chronic Assessment and plan: PPI BID (9) Thrombocytopenia: Status: Chronic Assessment and plan: at baseline. Monitor for bleeding. Low threshold for transfusion. (10) DVT prophylaxis: Status: Acute Assessment and plan: Contraindicated due to h/o recent GI bleeding, thrombocytopenia, coagulopathy, h/o esophageal varices. (11) Discharge planning issues: Status: Acute Assessment and plan: Full code Palliative care consulted. Subjective Subjective Interval history since last seen: Visit conducted via phone due to patient's hemodynamic stability and diagnosis of covid. The patient states he feels better today. He feels a little short of breath. He feels his chest is congested. His cough is productive of green sputum. He has pain in his entire abdomen, not in one specific spot. He has had diarrhea (on lactulose), heme negative. He says he thinks his abdominal pain is from hunger and is requesting food (has only had clears so far). Denies dizziness, chest pain. States his head doesn't feel quite right and it hasn't in a while. He blames it on his TIPs procedure. He knows the president is not Trump, but does not know his name. 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 He is otherwise A&Ox3. RE alcohol withdrawal, he is asymptomatic now. He needed ativan at 2354: got 3 mg of IV. 84% on RA while asleep (after got ativan). Did get put on O2. On Room air all day so far saturating in the 90s. Exam Narrative Exam Narrative: Exam done through window-door of the ICU/conversation on the phone. General: Pleasant jaundiced male, no evidence of tremors, no dyspnea, speaking in full sentences. HEENT: EOMI, MMM, Heart: SR on monitor Lungs: nonlabored breathing, no dyspnea/tachypnea, finishing sentences Abdomen: nondistended Extremities: no edema BLE's. Objective Last Vital Signs Temp 37.2 C 08/05/20 03:41 Pulse 67 08/05/20 06:01 Resp 17 08/05/20 06:01 BP 127/65 08/05/20 06:01 Pulse Ox 96 08/05/20 06:24 Laboratory Results - last 24 hr 08/04/20 08/04/20 08/04/20 07:10 07:10 07:10 WBC RBC Hgb Hct MCV MCH MCHC RDW Plt Count MPV Immature Gran % Neutrophils % Lymphocytes % Monocytes % Eosinophils % Basophils % Nucleated RBC % Absolute Neutrophils Absolute Lymphocytes Absolute Monocytes Absolute Eosinophils Absolute Basophils RBC Morphology Hypochromasia Poikilocytosis Anisocytosis Microcytosis D-Dimer Sodium Potassium Chloride Carbon Dioxide Anion Gap BUN Creatinine Estimated GFR/1.73 m2 Glucose Calcium Magnesium 1.5 L Ferritin Ammonia Lactate Dehydrogenase 230 H Creatine Kinase C-Reactive Protein 1.25 H Vitamin B12 25-OH Vitamin D Total Folate Procalcitonin 0.1 08/04/20 08/04/20 08/05/20 12:41 12:41 06:40 WBC RBC Hgb 9.9 L Hct 33.7 L D MCV MCH MCHC RDW Plt Count MPV Immature Gran % Neutrophils % Lymphocytes % Monocytes % Eosinophils % Basophils % Nucleated RBC % Absolute Neutrophils Absolute Lymphocytes Absolute Monocytes Absolute Eosinophils Absolute Basophils RBC Morphology Hypochromasia Poikilocytosis Anisocytosis Microcytosis D-Dimer Sodium 140 Potassium 4.1 D Chloride 105 Carbon Dioxide 26.2 Anion Gap 8.8 BUN 4 L Creatinine 0.8 Estimated GFR/1.73 m2 >= 60.00 Glucose 106 Calcium 8.3 L Magnesium 1.3 L Ferritin 66 Ammonia 61 H Lactate Dehydrogenase Creatine Kinase 37 L C-Reactive Protein 1.03 H Vitamin B12 25-OH Vitamin D Total Folate Procalcitonin 08/05/20 08/05/20 08/05/20 06:40 06:40 06:40 WBC 5.33 RBC 3.06 L Hgb 7.8 L D Hct 25.7 L D MCV 84.0 MCH 25.5 L MCHC 30.4 L RDW 24.4 H Plt Count 28 L* MPV Immature Gran % 0.2 Neutrophils % 78.5 Lymphocytes % 14.1 Monocytes % 6.6 Eosinophils % 0.2 Basophils % 0.4 Nucleated RBC % 0 Absolute Neutrophils 4.19 Absolute Lymphocytes 0.75 L Absolute Monocytes 0.35 Absolute Eosinophils 0.01 Absolute Basophils 0.02 RBC Morphology See below Hypochromasia 2+ Poikilocytosis 1+ Anisocytosis 3+ Microcytosis 2+ D-Dimer Sodium Potassium Chloride Carbon Dioxide Anion Gap BUN Creatinine Estimated GFR/1.73 m2 Glucose Calcium Magnesium Ferritin Ammonia Lactate Dehydrogenase Creatine Kinase C-Reactive Protein Vitamin B12 1570 H 25-OH Vitamin D Total 12.1 L Folate 19.6 Procalcitonin 08/05/20 08/05/20 06:40 06:40 WBC RBC Hgb Hct MCV MCH MCHC RDW Plt Count MPV Immature Gran % Neutrophils % Lymphocytes % Monocytes % Eosinophils % Basophils % Nucleated RBC % Absolute Neutrophils Absolute Lymphocytes Absolute Monocytes Absolute Eosinophils Absolute Basophils RBC Morphology Hypochromasia Poikilocytosis Anisocytosis Microcytosis D-Dimer 1428 H Sodium Potassium Chloride Carbon Dioxide Anion Gap BUN Creatinine Estimated GFR/1.73 m2 Glucose Calcium Magnesium Ferritin Ammonia 46 H Lactate Dehydrogenase Creatine Kinase C-Reactive Protein Vitamin B12 25-OH Vitamin D Total Folate Procalcitonin
[2020-08-05] MEDS: Propranolol 10 MG TAB PO ×2 (09:18→20:17)
[2020-08-05] MEDS: Cholecalciferol (Vitamin D3) 1,000 UNIT TAB 4000 UNITS PO (09:18)
[2020-08-05] MEDS: Zinc Sulfate 220 MG TAB PO (09:19)
[2020-08-05] MEDS: guaiFENesin 600 MG TABCR PO ×2 (09:19→20:18)
[2020-08-05] MEDS: Ascorbic Acid 500 MG TAB PO ×2 (09:19→20:17)
[2020-08-05] MEDS: Tamsulosin 0.4 MG CAPCR PO (09:19)
[2020-08-05] MEDS: Folic Acid 1 MG TAB PO (09:19)
[2020-08-05] MEDS: Finasteride 5 MG TAB PO (09:20)
[2020-08-05] MEDS: FLUoxetine 20 MG CAP PO (09:20)
[2020-08-05] MEDS: Ferrous Gluconate 324 MG TAB PO ×3 (09:20→21:44)
[2020-08-05] MEDS: Multivitamin TAB 1 TAB PO (09:20)
[2020-08-05] MEDS: Thiamine 100 MG TAB PO (09:20)
[2020-08-05] MEDS: Pantoprazole 40 MG VIAL IVP ×2 (09:20→20:19)
[2020-08-05] MEDS: Lactulose 20 GM/30 ML CUP PO ×2 (09:20→21:43)
[2020-08-05] MEDS: Normal Saline Flush 10 ML SYR IVP ×2 (09:22→20:18)
[2020-08-05 13:10] LABS: HCT 26.8 % (40.0-50.0)
[2020-08-05 13:30] LABS: Vancomycin, Trough 22.7 ug/mL (10.0-20.0)
[2020-08-05] MEDS: MAGNESIUM SULFATE 4 GM/100 ML BAG IVPB (15:20)
--- NOTE | 2020-08-05 16:57 | CMPROGNOTE_ITS ---
- If Service Date Differs Date of service: 08/05/20 Time of Service: 16:57 Care Management Progress Note S/O: Jelani remains on Covid 19 precautions, being treated and monitored in the ICU. Per RN, Jelani is doing well today, although he may continue to exhibit symptoms of withdrawal, and he is being monitored closely for this. CM was informed that he does not have copies of his [employer] insurance cards. CM verified his address, and asked for Leanna to obtain and send [employer] card to his home address. He was seen by Palliative care today, and wishes to remain full code. CM will continue to follow. A: Jelani is a 59 year old male admitted to [facility] on 08/03/20 with pneumonia, Covid 19, alcoholic cirrhosis. P: Jelani continues to be monitored at ICU level of care. He may require transfer to [facility] if indicated. He will be seen by Palliative care during this admission. CM will request a personal development coach reach out to Jelani, if he is agreeable. He will follow up with his PCP and discharge plan of care. CM will continue to follow.
[2020-08-05] MEDS: VANCOMYCIN/WATER (PEG) 1 GM/200 ML BAG IVPB (18:20)
--- NOTE | 2020-08-05 21:37 | PCNE_ITS ---
Date of service: 08/05/20 Time of Service: 13:37 History of Present Illness History of Present Illness Chief Complaint: goals of care, intro to pall care, etohism Narrative: I met with Jelani in the ICU where he is being treated for covid-19 and acute alcohol intoxication. His GLORY on Sunday night was 339. He is on a Clinical Withdrawal Assessment protocol with lorazepam. He cannot have phenobarbital due to drug interactions. He is already less jaundiced than he was on admission, per nursing and per Jelani himself, He is trying to get on disability. He already has medicaid. He's living with his son, who helps take care of him and he is supposed to take care of the house. When he is not actively drinking, he does housework and cooking. He has not had a paycheck in over a year, partially due to COVID and partially due to his reactivated alcholism. He has tried to quite several times in the past. He's been in a few rehabs, both locally and away. He's never been sober for long, unfortunately. He tells me he understands that if he returns to drinking, he will . He's been surprised to find himself recovering from COVID. He feels as if he's been given another lease on life and he better not screw it up. We talked about his alcoholic liver disease and how that affects multiple aspects of his health. He is particularly at risk for bleeding, given his thrombocytopenia. We discussed his need to avoid cutting/hurting himself once he is discharged. . Consults Requesting physician: Charleen Lehman Assessment and Plan Assessment and plan (1) Palliative care patient: Status: Acute Assessment and plan: He is interested in following up as outpatient. Will have PC office contact him,. (2) COVID-19: Status: Acute Assessment and plan: Recovering. Not in crisis. Remains at risk for relapse given his overall poor health. (3) Thrombocytopenia: Status: Chronic Assessment and plan: Discussed in detail with patient. Reviewed safety precaustions he can take. (4) Alcoholic cirrhosis of liver with ascites: Status: Chronic Assessment and plan: Discussed fact that once he hits cirrhosis, he cannot repair his liver. Is followed by [facility]. Once sober for 6 mos, would like to get on transplant list. (5) Alcoholism: Status: Chronic Assessment and plan: Has struggled with this for more than 30 years. Feels that his body can't take it anymore,. (6) Esophageal varices: Status: Chronic Assessment and plan: Followed by [facility]. Had recent TIPS procedure. Qualifiers: Esophageal varices type: secondary Esophageal varices bleeding: without bleeding Qualified Code(s): I85.10 - Secondary esophageal varices without bleeding (7) Advanced hepatic cirrhosis: Status: Chronic (8) Goals of care, counseling/discussion: Status: Acute Assessment and plan: Wants to stay full code. Hoping for a liver transplant. Would like to live another 20 years, as long as they were good. (9) Desire for detoxification: Status: Acute Assessment and plan: Has detoxed as an inpatient. Wants to stay sober,. Review of Systems Constitutional Constitutional: Reports body ache(s), Reports fatigue, Reports lethargy, Reports poor appetite, Reports weakness and Reports weight loss Eyes Eyes: Reports dry eyes and Reports requires corrective lenses ENT Ears, Nose, Mouth, and Throat: Reports abnormal hearing, Reports dizziness, Reports dry mouth and Reports hoarseness Cardiovascular Cardiovascular: Reports rapid heart rate and Reports dyspnea on exertion Respiratory Respiratory: Reports cough and Reports dyspnea on exertion Gastrointestinal Gastrointestinal: Reports abdominal pain, Reports bloating, Reports early satiety and Reports heartburn Genitourinary Genitourinary: Reports difficulty urinating and Reports urinary incontinence Musculoskeletal Musculoskeletal: Reports abnormal gait, Reports atrophy and Reports muscle weakness Integumentary/Breasts Skin/Breast: Reports change in pigmentation and Reports dry skin Neurologic Neurologic: Reports abnormal hearing, Reports abnormal gait, Reports dizziness, Reports memory loss and Reports weakness Psychiatric Psychiatric: Reports anxiety, Reports change in appetite, Reports anhedonia, Reports memory loss and Reports mood swings Endocrine Endocrine: Reports fatigue [facility] Medical History (Updated 08/21/20 @ 11:31 by Ernestina Merino MD) Acute GI bleeding Advanced hepatic cirrhosis Alcohol abuse Alcohol dependence with withdrawal with complication Anxiety COVID-19 Depression Desire for detoxification wants to stay sober this time GERD (gastroesophageal reflux disease) Goals of care, counseling/discussion History of surgery Hernia repair. Vasectomy. Liver failure with hepatic coma Palliative care patient Surgical History H/O vasectomy History of colon resection due to diverticulitis; sigmoid History of esophagogastroduodenoscopy 01/2020- [facility] History of hernia repair Repair of inguinal hernia Vasectomy Family History Mother Neoplasm Father Diabetes Essential hypertension Neoplasm Son No problems noted. Daughter No problems noted. Social History (Updated 08/21/20 @ 11:34 by Ernestina Merino MD) Smoking/Tobacco Use Status: Never Smoking risk assessment performed?: Yes Alcohol Intake: current Alcohol Intake frequency: 3 or more drinks per day Alcohol type: hard liquor Drug use: Occasionally Substance use type: marijuana Details: 3 of a 5th of Vodka daily, last drink was sunday07/16/20 Caregiver/Support person: Yes Household members: children Number of Children: 2 Communication Needs: Hard of Hearing and Corrective Lenses Education Level: high school Do you need help understanding health information?: Always current occupation: applying for disability Do you think of yourself as: straight/heterosexual Current gender identity: male What is your relationship status?: How often do you talk on the phone with friends or family?: twice per week How often do you get together with friends or relatives?: three or more times per week Panel score (0-1 are the most socially isolated patients): 1 What type of physical activity do you participate in: walking and sedentary lifestyle Duration: < 15 minutes/day Frequency: daily Special radha needs: No Agree to transfusion: Yes Seatbelt use: sometimes 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 Jelani is applying for disability, for liver failure. He says that he understands that if he doesn't stop drinking, he will soon, in a year or less. He has been told this by multiple providers. Exam Narrative Exam Narrative: Jaundiced middle aged white male who is not in any respiratory distress, alert and oriented x 3 Lungs w/ bibasilar fine rales L>R, no rhonchi or wheezing Heart RRR w/ soft systolic murmur over apex, no thrill and no gallops or rubs Abdomen: soft, distended but not tesnse, slightly -tender over RUQ lower extremities w/out cyanosis or edema; skin warm and dry Neurologic: No tremors, no focal deficits, no liver flap, appears to be accurate historian, but pt new to me, no way to discover if confabulating at this time skin: jaundiced, with palmar erythema and spider angiomas psych: reports having insight into his behaviors, wishing to stop drinking, uses alcohol to treat underlying anxiety, he says Eyes: slightly icteric musc:+ muscular atrophy, thin Results Last Vital Signs Temp 97.3 F L 08/05/20 19:27 Pulse 77 08/05/20 19:27 Resp 15 08/05/20 20:00 BP 97/55 L 08/05/20 19:27 Pulse Ox 95 08/05/20 20:00 Labs Result diagrams: 08/08/20 06:54 08/08/20 06:54 Labs: Laboratory Results - last 24 hr 08/05/20 08/05/20 08/05/20 06:40 06:40 06:40 WBC 5.33 RBC 3.06 L Hgb 7.8 L D Hct 25.7 L D MCV 84.0 MCH 25.5 L MCHC 30.4 L RDW 24.4 H Plt Count 28 L* MPV Immature Gran % 0.2 Neutrophils % 78.5 Lymphocytes % 14.1 Monocytes % 6.6 Eosinophils % 0.2 Basophils % 0.4 Nucleated RBC % 0 Absolute Neutrophils 4.19 Absolute Lymphocytes 0.75 L Absolute Monocytes 0.35 Absolute Eosinophils 0.01 Absolute Basophils 0.02 RBC Morphology See below Hypochromasia 2+ Poikilocytosis 1+ Anisocytosis 3+ Microcytosis 2+ D-Dimer Sodium 140 Potassium 4.1 D Chloride 105 Carbon Dioxide 26.2 Anion Gap 8.8 BUN 4 L Creatinine 0.8 Estimated GFR/1.73 m2 >= 60.00 Glucose 106 Calcium 8.3 L Magnesium 1.3 L Ferritin 66 Ammonia Creatine Kinase 37 L C-Reactive Protein 1.03 H Vitamin B12 1570 H 25-OH Vitamin D Total Folate 19.6 Vancomycin Trough 08/05/20 08/05/20 08/05/20 06:40 06:40 06:40 WBC RBC Hgb Hct MCV MCH MCHC RDW Plt Count MPV Immature Gran % Neutrophils % Lymphocytes % Monocytes % Eosinophils % Basophils % Nucleated RBC % Absolute Neutrophils Absolute Lymphocytes Absolute Monocytes Absolute Eosinophils Absolute Basophils RBC Morphology Hypochromasia Poikilocytosis Anisocytosis Microcytosis D-Dimer 1428 H Sodium Potassium Chloride Carbon Dioxide Anion Gap BUN Creatinine Estimated GFR/1.73 m2 Glucose Calcium Magnesium Ferritin Ammonia 46 H Creatine Kinase C-Reactive Protein Vitamin B12 25-OH Vitamin D Total 12.1 L Folate Vancomycin Trough 08/05/20 08/05/20 12:58 12:58 WBC RBC Hgb 8.0 L Hct 26.8 L MCV MCH MCHC RDW Plt Count MPV Immature Gran % Neutrophils % Lymphocytes % Monocytes % Eosinophils % Basophils % Nucleated RBC % Absolute Neutrophils Absolute Lymphocytes Absolute Monocytes Absolute Eosinophils Absolute Basophils RBC Morphology Hypochromasia Poikilocytosis Anisocytosis Microcytosis D-Dimer Sodium Potassium Chloride Carbon Dioxide Anion Gap BUN Creatinine Estimated GFR/1.73 m2 Glucose Calcium Magnesium Ferritin Ammonia Creatine Kinase C-Reactive Protein Vitamin B12 25-OH Vitamin D Total Folate Vancomycin Trough 22.7 H*
[2020-08-05] MEDS: Melatonin 3 MG TAB 6 MG PO (21:44)
[2020-08-06] VITALS (20 sets, daily range): BP systolic 91–114; BP diastolic 46–59; PULSE 54–83; RESP 14–22; TEMP 36.2–37.1; O2SAT 91–98
[2020-08-06] MEDS: PIPERACILLIN/TAZO 3.375 GM in Normal Saline 50 ML IVPB ×2 (00:18→06:04)
[2020-08-06] MEDS: VANCOMYCIN/WATER (PEG) 1 GM/200 ML BAG IVPB (01:27)
[2020-08-06 07:11] LABS: Abs Immature Grans 0.02 10^3/uL (0.0-0.06); Absolute Basophil Count 0.03 10^3/uL (0.0-0.2); Absolute Eosinophil Count 0.11 10^3/uL (0.0-0.7); Absolute Lymphocyte Count 1.29 10^3/uL (1.2-3.4); Absolute Monocyte Count 0.42 10^3/uL (0.1-0.8); Absolute Neutrophil Count 3.28 10^3/uL (1.2-6.7); Basophils % 0.6; Eosinophils % 2.1; HCT 27.1 % (40.0-50.0); HGB 7.9 g/dL (13.5-17.5); Immature Grans % 0.4; MCH 25.4 pg (27.0-33.0); MCHC 29.2 % (32.0-36.0); MCV 87.1 fL (80-95); Monocytes % 8.2; Neutrophils % 63.7; Nucleated RBC 0 %; RBC 3.11 10^6/uL (4.36-5.78); RDW 25.7 % (11.8-14.1); RDW-SD 80.1 fL; WBC 5.15 10^3/uL (4.4-10.8)
[2020-08-06 07:19] LABS: INR 1.5 (0.9-1.1)
[2020-08-06 07:34] LABS: ALT 42 U/L (16-63); AST 148 U/L (15-37); Albumin 2.1 g/dL (3.4-5.0); Alkaline Phosphatase 176 U/L (46-116); Anion Gap 8.6 mmol/L (3-11); BUN 3 mg/dL (7-18); Bilirubin, Direct 3.9 mg/dL (0.0-0.2); Bilirubin, Total 6.1 mg/dL (0.2-1.0); C-Reactive Protein 0.96 mg/dL (0.0-0.3); CO2 25.4 mmol/L (21.0-32.0); Calcium 8.2 mg/dL (8.5-10.1); Chloride 106 mmol/L (98-107); Glucose 74 mg/dL (74-106); Magnesium 1.9 mg/dL (1.8-2.4); Potassium 3.6 mmol/L (3.5-5.1); Sodium 140 mmol/L (136-145); Total Protein 6.4 g/dL (6.4-8.2)
[2020-08-06] MEDS: Pantoprazole 40 MG VIAL IVP (07:35)
[2020-08-06] MEDS: Ascorbic Acid 500 MG TAB PO (07:35)
[2020-08-06] MEDS: FLUoxetine 20 MG CAP PO (07:36)
[2020-08-06] MEDS: Thiamine 100 MG TAB PO (07:36)
[2020-08-06] MEDS: Propranolol 10 MG TAB PO ×2 (07:36→21:16)
[2020-08-06] MEDS: Folic Acid 1 MG TAB PO (07:36)
[2020-08-06] MEDS: Cholecalciferol (Vitamin D3) 1,000 UNIT TAB 4000 UNITS PO (07:36)
[2020-08-06] MEDS: Tamsulosin 0.4 MG CAPCR PO (07:36)
[2020-08-06] MEDS: guaiFENesin 600 MG TABCR PO (07:36)
[2020-08-06] MEDS: Zinc Sulfate 220 MG TAB PO (07:36)
[2020-08-06] MEDS: Multivitamin TAB 1 TAB PO (07:36)
[2020-08-06] MEDS: Lactulose 20 GM/30 ML CUP PO (07:36)
[2020-08-06] MEDS: Finasteride 5 MG TAB PO (07:36)
[2020-08-06 07:41] LABS: Anisocytosis 2+; Diff Comment Diff Reviewed; Hypochromasia 2+; Macrocytosis 1+; Microcytosis 1+; Platelet Count 32 10^3/uL (130-400); Polychromasia Present
[2020-08-06 07:42] LABS: Poikilocytes 2+
--- NOTE | 2020-08-06 08:16 | PGE_ITS ---
Date of Service Date of service: 08/06/20 Time of Service: 12:27 Assessment and Plan Assessment and plan (1) Pneumonia: Status: Acute Assessment and plan: Bacterial pneumonia superimposed on COVID-19 disease. Etiology: could be due to atelectasis due to rib fractures vs HCAP after recent hospitalization vs simple superinfection on top of COVID-19. Doing much better. Transition to PO abx if tolerates PO. As he did not so far, will put on IV ceftriaxone. At this point, no indication for decadron/remdesivir, and the patient had completed a full course of remdesivir at [facility]. On Room air. Qualifiers: Pneumonia type: due to unspecified organism Laterality: bilateral Lung location: unspecified part of lung Qualified Code(s): J18.9 - Pneumonia, unspecified organism (2) Nausea and vomiting: Status: Acute Assessment and plan: Will trial phenergan. High risk of bleeding - hold transfer to [facility] at this time. (3) COVID-19: Status: Acute Assessment and plan: Completed remdesivir at [facility]. Encourage proning, IS, acapella. Discussed with Infection control: Testing for COVID on 08/07 and 08/08. If negative on both tests, can d/c precautions. (4) Alcohol withdrawal: Status: Acute Assessment and plan: Monitor on CIWA with prn ativan. (5) Advanced hepatic cirrhosis: Status: Chronic Assessment and plan: w/ encephalopathy, coagulopathy, varices, thrombocytopenia, ascites, h/o variceal bleeding, s/p TIPS procedure. The reason we are so concerned about his vomiting is that he is at high risk of bleeding with some of these sequellae. Palliative care saw patient (6) Alcoholic hepatitis without ascites: Status: Chronic Assessment and plan: This is tail end of the disease - he had much more severe form of disease at [facility]. Good prognosis based on discriminant function score. Will not start prednisolone. Monitor. (7) Jaundice: Status: Chronic Assessment and plan: Due to above. As above. (8) Esophageal varices: Status: Chronic Assessment and plan: PPI BID Close monitoring for bleeding (9) Gastroesophageal reflux disease: Status: Chronic Assessment and plan: PPI BID. (10) Thrombocytopenia: Status: Chronic Assessment and plan: at baseline. Monitor for bleeding. Low threshold for transfusion. (11) DVT prophylaxis: Status: Acute Assessment and plan: Contraindicated due to h/o recent GI bleeding, thrombocytopenia, coagulopathy, h/o esophageal varices. (12) Discharge planning issues: Status: Acute Assessment and plan: Full code Palliative care consulted. Hoping to transfer out of ICU assuming vomiting stops and no bleeding. Subjective Subjective Interval history since last seen: Vomited this morning x 1 - not nauseated now and denies abdominal pain. Had a BM today. Heme negative. Thinks he can try to have lunch and is about to. Denies dizziness, chest pain, shortness of breath, cough. Not requiring ativan. Not requiring oxygen. D/c'ing vanco today. Plan to go home tomorrow or Sunday. Transferring out of the ICU. Exam Narrative Exam Narrative: General: Pleasant jaundiced male, A&Ox3, no evidence of tremors, no dyspnea, speaking in full sentences. HEENT: EOMI, MMM, Heart: RRR, no m/r/g Lungs: CTAB Abdomen: soft, nontender, nondistended, no ascites Extremities: no edema BLE's. Objective Last Vital Signs Temp 36.3 C L 08/06/20 04:00 Pulse 62 08/06/20 06:01 Resp 20 08/06/20 07:19 BP 103/49 L 08/06/20 06:01 Pulse Ox 95 08/06/20 04:01 Laboratory Results - last 24 hr 08/05/20 08/05/20 08/06/20 12:58 12:58 06:15 WBC RBC Hgb 8.0 L Hct 26.8 L MCV MCH MCHC RDW Plt Count MPV Immature Gran % Neutrophils % Lymphocytes % Monocytes % Eosinophils % Basophils % Nucleated RBC % Absolute Neutrophils Absolute Lymphocytes Absolute Monocytes Absolute Eosinophils Absolute Basophils RBC Morphology Polychromasia Hypochromasia Poikilocytosis Anisocytosis Microcytosis Macrocytosis PT INR Sodium 140 Potassium 3.6 Chloride 106 Carbon Dioxide 25.4 Anion Gap 8.6 BUN 3 L Creatinine 1.0 Estimated GFR/1.73 m2 >= 60.00 Glucose 74 Calcium 8.2 L Magnesium 1.9 Total Bilirubin 6.1 H Conjugated Bilirubin 3.9 H AST 148 H ALT 42 Alkaline Phosphatase 176 H C-Reactive Protein 0.96 H Total Protein 6.4 Albumin 2.1 L Vancomycin Trough 22.7 H* 08/06/20 08/06/20 06:15 06:15 WBC 5.15 RBC 3.11 L Hgb 7.9 L Hct 27.1 L MCV 87.1 D MCH 25.4 L MCHC 29.2 L RDW 25.7 H Plt Count 32 L MPV Immature Gran % 0.4 Neutrophils % 63.7 Lymphocytes % 25.0 Monocytes % 8.2 Eosinophils % 2.1 Basophils % 0.6 Nucleated RBC % 0 Absolute Neutrophils 3.28 Absolute Lymphocytes 1.29 Absolute Monocytes 0.42 Absolute Eosinophils 0.11 Absolute Basophils 0.03 RBC Morphology See below Polychromasia Present Hypochromasia 2+ Poikilocytosis 2+ Anisocytosis 2+ Microcytosis 1+ Macrocytosis 1+ PT 15.0 H INR 1.5 H Sodium Potassium Chloride Carbon Dioxide Anion Gap BUN Creatinine Estimated GFR/1.73 m2 Glucose Calcium Magnesium Total Bilirubin Conjugated Bilirubin AST ALT Alkaline Phosphatase C-Reactive Protein Total Protein Albumin Vancomycin Trough
[2020-08-06] MEDS: Ferrous Gluconate 324 MG TAB PO ×3 (10:06→21:16)
[2020-08-06] MEDS: Phytonadione 5 MG TABLET PO (10:06)
[2020-08-06] MEDS: Ondansetron 4 MG/2 ML VIAL IVP ×3 (10:06→23:19)
[2020-08-06] MEDS: Cefpodoxime 200 MG TAB PO (12:11)
--- NOTE | 2020-08-06 12:36 | CMPROGNOTE_ITS ---
- If Service Date Differs Date of service: 08/06/20 Time of Service: 12:36 Care Management Progress Note S/O: CM was able to reach Jelani via phone by calling his cell phone number listed on his chart. He reported that he isn't doing very well today, as he has vomited. He expressed frustration, since he has been doing so well. CM informed him that his insurance card for [facility] will be mailed to his home, as he requested. He stated that he is receiving support from Franc (unsure of last name) to obtain MCR/disability. CM discussed options to help him quit drinking, such as a disaster recovery specialist. He declined talking to a disaster recovery specialist today, but stated that he will be agreeable to speak to the disaster recovery specialist once he is discharged from [facility]. CM will contact the disaster recovery specialist upon discharge for them to follow him outpatient. CM will continue to follow. A: Jelani is a 59 year old male admitted to [facility] on 08/03/20 with pneumonia, Covid 19, alcoholic cirrhosis. P: Jelani continues to be monitored in the ICU, although he has been transferred to M/S status. He will be seen by Palliative care during this admission. CM will request a disaster recovery specialist reach out to Jelani, upon discharge, which he is agreeable to. He will follow up with his PCP and discharge plan of care. CM will continue to follow.
[2020-08-06] MEDS: cefTRIAXone 1 GM/50 ML BAG IVPB (12:54)
--- NOTE | 2020-08-06 12:55 | W.NUTRFU ---
Date of service: 08/06/20 Time of Service: 12:55 Nutritional Follow up NOTE: 59 year old male admitted with COVID positive PNA with alcohol ascitis with liver failure and ETOH withdrawl. Meds include FeSO4, Vit C, folic acid, MVI and thiamin. Lab: Vit D low, Ammonia 46 H but trending down, HGB trending down as well. Diet advanced to regular texture. BMI wnl, stable > 1 year. At nutritional risk in view of impaired nutrient utilization in view of liver failure. Recommend switch diet to Low Sodium. Will continue to follow Time Spent in Nutritional Counseling and Treatment: 0
[2020-08-06] MEDS: LORazepam 1 MG TAB PO/SL ×2 (15:59→21:15)
[2020-08-06] MEDS: Acetaminophen 325 MG TAB 650 MG PO (17:17)
--- NOTE | 2020-08-06 17:47 | NUR.NOTE ---
Nursing Note: At 1540 on 08/06/20, this RN received report on the pt. from the [facility]. At 1546 on 08/06/20, the pt. was transferred from ICU to Med/Surg per MD order. Pt. was settled in and oriented to room 215. VS obtained; VSS. Pt. denied pain. CIWA score assessed; CIWA score of 5; medicated per the MAR per MD order. Head to toe assessment performed; see shift assessment flowsheet for more information. RN will reassess as necessary.
[2020-08-06] MEDS: Normal Saline Flush 10 ML SYR IVP ×3 (19:06→23:19)
[2020-08-06] MEDS: Melatonin 3 MG TAB 6 MG PO (21:16)
[2020-08-06] MEDS: Pantoprazole 40 MG TABCR PO (21:16)
[2020-08-07] VITALS (7 sets, daily range): BP systolic 95–114; BP diastolic 52–57; PULSE 61–76; RESP 16–18; TEMP 36.6–37.3; O2SAT 90–95
[2020-08-07 07:46] LABS: Abs Immature Grans 0.01 10^3/uL (0.0-0.06); Absolute Basophil Count 0.04 10^3/uL (0.0-0.2); Absolute Eosinophil Count 0.12 10^3/uL (0.0-0.7); Absolute Lymphocyte Count 1.22 10^3/uL (1.2-3.4); Absolute Monocyte Count 0.37 10^3/uL (0.1-0.8); Absolute Neutrophil Count 2.82 10^3/uL (1.2-6.7); Basophils % 0.9; Eosinophils % 2.6; HCT 26.6 % (40.0-50.0); HGB 7.8 g/dL (13.5-17.5); Immature Grans % 0.2; Lymphocytes % 26.6; MCH 25.5 pg (27.0-33.0); MCHC 29.3 % (32.0-36.0); MCV 86.9 fL (80-95); Monocytes % 8.1; Neutrophils % 61.6; Nucleated RBC 0 %; Platelet Count 37 10^3/uL (130-400); RBC 3.06 10^6/uL (4.36-5.78); RDW 25.9 % (11.8-14.1); RDW-SD 78.2 fL; WBC 4.58 10^3/uL (4.4-10.8)
[2020-08-07 07:53] LABS: INR 1.6 (0.9-1.1); Prothrombin Time 15.6 sec (9.3-11.0)
[2020-08-07 07:56] LABS: BUN 4 mg/dL (7-18); CREATININE 0.8 mg/dL (0.70-1.30); Calcium 8.6 mg/dL (8.5-10.1); Chloride 106 mmol/L (98-107); Glucose 84 mg/dL (74-106); Magnesium 1.6 mg/dL (1.8-2.4); Potassium 3.8 mmol/L (3.5-5.1); Sodium 140 mmol/L (136-145)
[2020-08-07 08:12] LABS: Anisocytosis 1+; Diff Comment Diff Reviewed
--- NOTE | 2020-08-07 10:02 | PDOC.CMPRO ---
- If Service Date Differs Date of service: 08/07/20 Time of Service: 10:02 Care Management Progress Note S/O: CM was able to reach Jelani via phone this afternoon. He stated that he is feeling much better today but that his chest is still a little tight. He has been OOB ambulating in the room and going to the bathroom. He shared that his bed alarm has been turned off to allow him to do this. Jelani indicated that he is still interested in meeting with a Wearing Apparel Shaker when he is close to or at discharge. CM will facilitate that process. Jelani had a repeat Covid test today which is still positive. Per provider it is difficult to interpret these results since people with Covid-19 infection often remain positive for a while after the acute process has cleared, but Jelani has a new pneumonia so he will remain isolated for the duration of his hospital stay. A: Jelani is a 59 year old male admitted to [facility] on 08/03/20 with pneumonia, Covid 19, alcoholic cirrhosis. P: Jelani continues to be monitored on the Med-Surg unit. He remains on Covid isolation. He will be seen by Palliative care during this admission. CM will request a monomer recovery operator reach out to Jelani, upon discharge, which he is agreeable to. He will follow up with his PCP and discharge plan of care. CM will continue to follow and support Jelani and his discharge needs..
[2020-08-07] MEDS: Lactulose 20 GM/30 ML CUP PO ×3 (10:07→21:31)
[2020-08-07] MEDS: Propranolol 10 MG TAB PO ×2 (10:08→21:33)
[2020-08-07] MEDS: Folic Acid 1 MG TAB PO (10:08)
[2020-08-07] MEDS: Finasteride 5 MG TAB PO (10:08)
[2020-08-07] MEDS: Pantoprazole 40 MG TABCR PO ×2 (10:08→21:33)
[2020-08-07] MEDS: Tamsulosin 0.4 MG CAPCR PO (10:09)
[2020-08-07] MEDS: FLUoxetine 20 MG CAP PO (10:09)
[2020-08-07] MEDS: Multivitamin TAB 1 TAB PO (10:09)
[2020-08-07] MEDS: Thiamine 100 MG TAB PO (10:09)
[2020-08-07] MEDS: Cholecalciferol (Vitamin D3) 1,000 UNIT TAB 4000 UNITS PO (10:09)
[2020-08-07] MEDS: Dexamethasone 10 MG/ML VIAL IVP (10:31)
[2020-08-07] MEDS: Normal Saline Flush 10 ML SYR IVP ×5 (10:32→21:31)
[2020-08-07 10:40] LABS: Bilirubin Negative (Negative); Blood Negative (Negative); Clarity Clear (Clear); Glucose Negative (Negative); Ketones Negative (Negative); Leukocyte Esterase Negative (Negative); Nitrite Negative (Negative); Urobilinogen 0.2 EU/dL (Up TO 0.2)
[2020-08-07] MEDS: Ferrous Gluconate 324 MG TAB PO ×3 (12:32→21:33)
[2020-08-07] MEDS: Sucralfate 1 GM TAB PO ×3 (12:32→21:32)
[2020-08-07] MEDS: MAGNESIUM SULFATE 4 GM/100 ML BAG IVPB (12:37)
[2020-08-07 12:47] LABS: Source Nasal/Nares
[2020-08-07] MEDS: DOXYCYCLINE 100 MG in Normal Saline 100 ML IVPB ×2 (12:58→21:31)
[2020-08-07 13:34] LABS: COVID-19 PCR POSITIVE (Negative)
[2020-08-07] MEDS: cefTRIAXone 2 GM/50 ML BAG IVPB (14:36)
--- NOTE | 2020-08-07 15:38 | W.PM.PROGNOT ---
Date of Service Date of service: 08/07/20 Time of Service: 15:39 Assessment and Plan Assessment and plan (1) Pneumonia: Status: Acute Assessment and plan: HCAP in setting of COVID-19 pneumonia. Continue w/ Ceftriaxone but dose increased to 2 gm daily. Doxycycline added for atypical pneumonia however no evidence for MRSA therefore will not reinstitute vancomycin unless he worsens. continue prn albuterol HFA. Decadron added to regimen d/t hypoxemia in setting of COVID-19. He completed a course of Remdesivir while at [facility] therefore, doubt it would be of benefit now. Qualifiers: Pneumonia type: due to unspecified organism Laterality: bilateral Lung location: unspecified part of lung Qualified Code(s): J18.9 - Pneumonia, unspecified organism (2) COVID-19: Status: Acute Assessment and plan: repeat SARS-CoV-2 test has come back positive. However in light of recent infection I am not sure how to interpret this as to whether he still has active infection since patient's can be positive for several weeks after recovery. However, clinically and radiologically he has pneumonia, therefore will treat as active infection. Continue supportive care w/ oxygen, decadron antbiotics for HCAP, pulm toiletry w/ I.S. and Acapella as well as pronining or repositioning from side to side and ambulating in room. (3) Nausea and vomiting: Status: Acute Assessment and plan: use prn phenergan. no nausea or vomiting this a.m. Qualifiers: Vomiting type: unspecified Vomiting Intractability: non-intractable Qualified Code(s): R11.2 - Nausea with vomiting, unspecified (4) Alcohol withdrawal: Status: Acute Assessment and plan: Monitor on CIWA with prn ativan. CIWA scores have been low today 1 to 2. He has not required any lorazepam Qualifiers: Complication of substance-induced condition: uncomplicated Qualified Code(s): F10.230 - Alcohol dependence with withdrawal, uncomplicated (5) Advanced hepatic cirrhosis: Status: Chronic Assessment and plan: w/ encephalopathy, coagulopathy, varices, thrombocytopenia, ascites, h/o variceal bleeding, s/p TIPS procedure. The reason we are so concerned about his vomiting is that he is at high risk of bleeding with some of these sequellae. Palliative care saw patient continue lactulose for prevention of hepatic encephalopathy (6) Alcoholic hepatitis without ascites: Status: Chronic (7) Esophageal varices: Status: Chronic Assessment and plan: s/p TIPS and esophageal banding. Carafate and bid dosing of protonix added for treatment of GERD/presumptive alcoholic esophagitis and gastritis. follow up EGD at [facility] upon discharge from [facility] Qualifiers: Esophageal varices type: secondary Esophageal varices bleeding: without bleeding Qualified Code(s): I85.10 - Secondary esophageal varices without bleeding (8) Gastroesophageal reflux disease: Status: Chronic Assessment and plan: PPI BID and carafate Qualifiers: Esophagitis presence: esophagitis presence not specified Qualified Code(s): K21.9 - Gastro-esophageal reflux disease without esophagitis (9) Thrombocytopenia: Status: Chronic Assessment and plan: at baseline. Monitor for bleeding. Low threshold for transfusion. (10) DVT prophylaxis: Status: Acute Assessment and plan: Contraindicated due to h/o recent GI bleeding, thrombocytopenia, coagulopathy, h/o esophageal varices. however can use SCD and TEDS (ordered) (11) Discharge planning issues: Status: Acute Assessment and plan: Full code Palliative care consulted. Hoping to transfer out of ICU assuming vomiting stops and no bleeding. Subjective Subjective Interval history since last seen: Patient has mild dyspnea w/ any activity but is ok at rest. Some chest tightness worsened w/ coughing. Cough initially was productive of purulent sputum but now is non-productive. He remains afebrile. He is curently on Ceftriaxone (was initially on zosyn and vancomycin). I have added doxycycline for coverage of atypicals. I have also added decadron d/t his positive COVID-19 status and bilateral patchy ground glass infiltrates c/w COVID-19 pneumonia and his mild hypoxemia (SPO2 87 to 90%). He has been trying to turn from side to side but has trouble doing proning. He received treatment w/ Remdesivir while hospitalized at [facility] (07/18-07/26) but did not receive decadron d/t concern of recent GI bleeding. He was transferred from our ED to [facility] on 07/18 primarily d/t hematemesis and concern for recurrent variceal bleeding. He did not have an EGD while at [facility] and was intially treated w/ octreotide and bid dosing of a PPI. However after his TIPS was evaluate w/ US and determined to be functional, the octreotide was stopped and he was treated w/ BID dosing of a PPI. He was set up for outpatient EGD which has yet to be completed. He had small amount of blood w/ emesis last night. I have added Carafate to his regimen. Exam Narrative Exam Narrative: Jaundiced middle aged white male who is not in any respiratory distress, alerat and oriented x 3 Lungs w/ bibasilar fine rales L>R, no rhonchi or wheezing Heart RRR w/ soft systolic murmur over apex, no thrill and no gallops or rubs Abdomen: soft, nondistended and non-tender lower extremities w/out cyanosis or edema; skin warm and dry Neurologic: No tremors, no focal deficits Objective Last Vital Signs Temp 36.8 C 08/07/20 09:56 Pulse 71 08/07/20 10:58 Resp 16 08/07/20 09:56 BP 114/55 L 08/07/20 09:56 Pulse Ox 90 L 08/07/20 09:56 Laboratory Results - last 24 hr 08/07/20 08/07/20 08/07/20 07:30 07:30 07:30 WBC 4.58 RBC 3.06 L Hgb 7.8 L Hct 26.6 L MCV 86.9 MCH 25.5 L MCHC 29.3 L RDW 25.9 H Plt Count 37 L MPV Immature Gran % 0.2 Neutrophils % 61.6 Lymphocytes % 26.6 Monocytes % 8.1 Eosinophils % 2.6 Basophils % 0.9 Nucleated RBC % 0 Absolute Neutrophils 2.82 Absolute Lymphocytes 1.22 Absolute Monocytes 0.37 Absolute Eosinophils 0.12 Absolute Basophils 0.04 RBC Morphology See below Anisocytosis 1+ PT 15.6 H INR 1.6 H Sodium 140 Potassium 3.8 Chloride 106 Carbon Dioxide 27.0 Anion Gap 7.0 BUN 4 L Creatinine 0.8 Estimated GFR/1.73 m2 >= 60.00 Glucose 84 Calcium 8.6 Magnesium 1.6 L Urine Color Urine Clarity Urine pH Ur Specific [place] Urine Protein Urine Ketones Urine Blood Urine Nitrite Urine Bilirubin Urine Urobilinogen Ur Leukocyte Esterase Urine Glucose COVID-19 Source SARS-CoV-2 (PCR) 08/07/20 08/07/20 10:12 12:38 WBC RBC Hgb Hct MCV MCH MCHC RDW Plt Count MPV Immature Gran % Neutrophils % Lymphocytes % Monocytes % Eosinophils % Basophils % Nucleated RBC % Absolute Neutrophils Absolute Lymphocytes Absolute Monocytes Absolute Eosinophils Absolute Basophils RBC Morphology Anisocytosis PT INR Sodium Potassium Chloride Carbon Dioxide Anion Gap BUN Creatinine Estimated GFR/1.73 m2 Glucose Calcium Magnesium Urine Color Yellow Urine Clarity Clear Urine pH 7.0 Ur Specific [place] 1.020 Urine Protein Negative Urine Ketones Negative Urine Blood Negative Urine Nitrite Negative Urine Bilirubin Negative Urine Urobilinogen 0.2 Ur Leukocyte Esterase Negative Urine Glucose Negative COVID-19 Source Nasal/nares SARS-CoV-2 (PCR) Positive A*
[2020-08-07] MEDS: Melatonin 3 MG TAB 6 MG PO (21:33)
[2020-08-07] MEDS: LORazepam 1 MG TAB PO/SL (23:23)
[2020-08-08 03:00] VITALS: BP 103/52; PULSE 87; RESP 18; TEMP 36.6; O2SAT 97
[2020-08-08 07:17] VITALS: PULSE 76
[2020-08-08 07:45] LABS: Abs Immature Grans 0.03 10^3/uL (0.0-0.06); Absolute Basophil Count 0.01 10^3/uL (0.0-0.2); Absolute Eosinophil Count 0.01 10^3/uL (0.0-0.7); Absolute Monocyte Count 0.33 10^3/uL (0.1-0.8); Basophils % 0.1; Eosinophils % 0.1; HCT 27.5 % (40.0-50.0); HGB 8.1 g/dL (13.5-17.5); Immature Grans % 0.3; Lymphocytes % 10.4; MCH 25.9 pg (27.0-33.0); MCHC 29.5 % (32.0-36.0); MCV 87.9 fL (80-95); Monocytes % 3.8; Neutrophils % 85.3; Nucleated RBC 0 %; RBC 3.13 10^6/uL (4.36-5.78); RDW 26.5 % (11.8-14.1); RDW-SD 79.6 fL; WBC 8.64 10^3/uL (4.4-10.8)
[2020-08-08 07:51] VITALS: BP 119/52; PULSE 70; RESP 19; TEMP 36.5; O2SAT 94
[2020-08-08 08:01] LABS: ALT 39 U/L (16-63); AST 75 U/L (15-37); Albumin 2.2 g/dL (3.4-5.0); Alkaline Phosphatase 200 U/L (46-116); Anion Gap 8.4 mmol/L (3-11); BUN 5 mg/dL (7-18); Bilirubin, Total 4.4 mg/dL (0.2-1.0); C-Reactive Protein 0.87 mg/dL (0.0-0.3); CO2 23.6 mmol/L (21.0-32.0); CREATININE 0.7 mg/dL (0.70-1.30); Calcium 8.2 mg/dL (8.5-10.1); Chloride 105 mmol/L (98-107); Glucose 115 mg/dL (74-106); LDH 148 U/L (85-227); Magnesium 1.9 mg/dL (1.8-2.4); Potassium 3.9 mmol/L (3.5-5.1); Sodium 137 mmol/L (136-145); Total Protein 6.6 g/dL (6.4-8.2)
[2020-08-08 08:27] LABS: Ferritin 53 ng/mL (26-388)
[2020-08-08 08:30] LABS: D-Dimer 523 ng/mlFEU (<500)
[2020-08-08 08:38] LABS: Absolute Neutrophil Count 7.37 10^3/uL (1.2-6.7)
[2020-08-08 08:39] LABS: Anisocytosis 3+; Diff Comment Diff Reviewed; Hypochromasia 2+; Macrocytosis 1+; Microcytosis 1+; Platelet Count 45 10^3/uL (130-400); Polychromasia Present
[2020-08-08] MEDS: Cholecalciferol (Vitamin D3) 1,000 UNIT TAB 4000 UNITS PO (08:39)
[2020-08-08 08:40] LABS: Poikilocytes 2+
[2020-08-08] MEDS: Pantoprazole 40 MG TABCR PO (08:40)
[2020-08-08] MEDS: Tamsulosin 0.4 MG CAPCR PO (08:40)
[2020-08-08] MEDS: Multivitamin TAB 1 TAB PO (08:40)
[2020-08-08] MEDS: Propranolol 10 MG TAB PO (08:40)
[2020-08-08] MEDS: Sucralfate 1 GM TAB PO ×2 (08:40→12:17)
[2020-08-08] MEDS: Finasteride 5 MG TAB PO (08:40)
[2020-08-08] MEDS: FLUoxetine 20 MG CAP PO (08:40)
[2020-08-08] MEDS: Dexamethasone 4 MG/ML VIAL 6 MG IVP (08:40)
[2020-08-08] MEDS: Folic Acid 1 MG TAB PO (08:40)
[2020-08-08] MEDS: Thiamine 100 MG TAB PO (08:40)
[2020-08-08] MEDS: Normal Saline Flush 10 ML SYR IVP (08:41)
[2020-08-08] MEDS: DOXYCYCLINE 100 MG in Normal Saline 100 ML IVPB (09:50)
[2020-08-08] MEDS: Ferrous Gluconate 324 MG TAB PO (09:50)
[2020-08-08 13:07] VITALS: PULSE 83
--- NOTE | 2020-08-08 13:40 | DSE_ITS ---
DS: Diagnosis Discharge Diagnosis (1) Pneumonia: Status: Acute Asessment and Plan: patient was treated w/ iv ceftriaxone and doxycycline while an inpatient and will be discharged on 5 days of cefdinir 300 mg bid. 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 No further testing is needed however, he will need intermediate monitoring for long term acute care registered nurse effects of COVID-19 including chronic lung disease or cardiomyopathy. He was treated briefly w/ decadron while here when he exhibited hypoxemia however his RA oxygen saturation is normal at discharge and he is not bronchospastic, therefore an Rx for steroids was not given at discharge. (3) Advanced hepatic cirrhosis: Status: Chronic (4) Alcoholic hepatitis without ascites: Status: Chronic (5) Esophageal varices: Status: Chronic (6) Gastroesophageal reflux disease: Status: Chronic Asessment and Plan: patient's GI protection was increased by adding carafate 1 gm AC/HS to his protonix 40 mg bid regimen. patient is to follow up w/ [facility] for outpatient EGD. (7) Discharge planning issues: Status: Resolved Asessment and Plan: patient did not require any home health services at discharge. He will return home for follow up w/ his PCP and [facility] Discharge Plan Disposition Patient Disposition: HOME Condition: Improving Discharge Details Reason For Visit: PNEUMONIA, ALCOHOLIC PNEUMONIA, ALCOHOLIC CIRRHOSI Admit Date/Time: 08/03/20 22:25 Admit Provider: Schuyler Goodman Attending Provider: Schuyler Goodman Primary Care Provider: [facility] Hospital Course: 59-year-old male with a history of alcoholic cirrhosis and portal hypertension requiring TIPS procedure as well as banding of esophageal varices in March 2020 who recently was hospitalized at [facility] from July 18, 2020 through July 26, 2020 due to recurrent upper GI bleeding. This was initially treated with octreotide and IV proton pump inhibitors and Pepcid. During that hospitalization he was found to have a COVID-19 infection and was treated with remdesivir but did not receive corticosteroids due to his active GI bleeding. His TIPS was a value with an ultrasound and the shunt was found to be patent. His bleeding stopped and he was discharged home on twice a day dosing of Protonix and was scheduled for follow-up with the GI service at [facility] for an EGD. He was discharged home on fluoxetine 20 mg daily for depression along with Protonix 40 mg twice a day for his upper GI bleeding. He was told to continue acamprosate for prevention of relapse of alcoholism and to continue his lactulose 3 times a day to prevent hepatic encephalopathy. His Remeron and propranolol were discontinued. He presented to [facility] emergency department on August 03, 2020 with complaints of 3 days of malaise and increasing productive cough of purulent green sputum along with increased dyspnea and fevers. Upon evaluation in the emergency department he was not found to be febrile. His admission CBC showed no leukocytosis with a white count 9300. He was found to be anemic with a hemoglobin 9.3 g and a hematocrit of 30.8 and a platelet count of 60,000. Throughout his hospital stay he never developed a leukocytosis and upon discharge his white count was 8600. His anemia waxed and waned with a peak hemoglobin of 9.9 g on August 04, 2020 and a low of 7.8 g on August 05, 2020. At the time of discharge his hemoglobin is 8.1 g and the patient did not require any transfusions. After admission he did have an episode of nausea and emesis of some dark hematemesis. But as I said his hemoglobin remained stable throughout the rest of his hospital course. Platelet ingrid was 28,000 August 05 at the time of discharge was up to 45,000. CMP on admission demonstrated hypokalemia and hypomagnesemia with a potassium of 3.1 and a magnesium of 1.5. Both of these were corrected with IV and oral supplementation. Because of his history of alcoholism he was placed on thiamine and folic acid and multivitamin. For his GI protection Carafate was added at 1 g before meals and at bedtime in addition to his twice a day dosing of Protonix. He had no further bouts of hematemesis and remained hemodynamically stable. Repeat Covid testing was performed is SARS-CoV-2 was positive on August 07, 2020. Imaging included a CT scan of his chest on admission that showed no evidence for acute pulmonary emboli but showed evidence of bilateral patchy infiltrates consistent with an infectious/inflammatory etiology. There is no pleural effusion and no adenopathy. He has bilateral multiple nonacute rib fractures. His coagulation studies were abnormal on admission with a pro time of 13.7, INR 1.4 and a D-dimer of 609. His D-dimer went up overnight to 1428 by the time of discharge was down to 523. Patient was not treated with any DVT prophylaxis other than SCDs due to his history of recent upper GI bleeding. His pneumonia was treated with IV doxycycline and IV ceftriaxone. And the patient was started on Decadron for his pneumonia as the patient demonstrated hypoxemia shortly after admission with oxygen saturations in the high 80s. This was readily corrected with low flow nasal cannula at 1 to 2 L. On the day of discharge the patient was back on room air with oxygen saturations in the mid 90s. Patient was feeling markedly better and was requesting to return home. At the time of discharge she was not having any dyspnea and not requiring any supplemental oxygen. He will be discharged home with a new prescription for Carafate 1 g before meals and at bedtime and he is to continue taking his Protonix 40 mg twice a day. Patient only had a couple days of the Decadron but at this point is not requiring any Decadron and because of his history of GI bleeding is decided that the risk does not outweigh the benefit of continuing a 10-day course of Decadron. Patient will be discharged home on Cefdnir 300 mg p.o. twice daily for 5 days. Patient is to keep his follow-up with [facility] GI service for his EGD. Home Meds and New Rx's Prescriptions: New sucralfate 1 gram tablet 1 g PO QACHS Qty: 120 RF: 1 cefdinir 300 mg capsule 300 mg PO BID 5 Days Qty: 10 RF: 0 Continued tamsulosin 0.4 mg capsule 0.4 mg PO DAILY Qty: 90 RF: 4 thiamine mononitrate (vit B1) 100 mg tablet 100 mg PO DAILY Qty: 90 RF: 4 folic acid 1 mg tablet 1 mg PO DAILY Qty: 90 RF: 4 Cerovite Advanced Formula 18-400 mg-mcg tablet 1 tab PO DAILY RF: 0 fluoxetine 20 mg capsule 20 mg PO DAILY RF: 0 pantoprazole 40 mg Tablet,Delayed Release (Dr/Ec) 40 mg PO BID RF: 0 melatonin 3 mg Tablet 6 mg PO HS RF: 0 finasteride 5 mg Tablet 5 mg PO DAILY RF: 0 acamprosate 333 mg Tablet,Delayed Release (Dr/Ec) 666 mg PO TID RF: 0 lactulose 20 gram/30 mL Solution 20 g PO BID RF: 0 Discharge Instructions Instructions: Bacterial Pneumonia (DC), COVID-19 (Coronavirus Disease 2019)(GEN) Stand Alone Forms: Nursing Discharge Form Referrals: Angella Deal VEGETABLE I FARMWORKER [Primary Care Provider] - (call the office on Sunday morning for follow up appointment in 1 week) Activity:: Activity as Tolerated Equipment/Supplies:: No Equipment Needed Diet:: Normal Diet Discharge Orders Discharge Orders: Discharge Order (Routine); Ordered 08/08/20 Ordered By: Joey Macias Discharge Data Discharge Date/Time-TO BE ENTERED AT DEPARTURE: 08/08/20 14:03 DS: Summary Time Spent with Patient providing and/or coordinating discharge services: Less than 30 minutes Status at Discharge Functional status at discharge: independent ambulation Overall status at discharge: patient is progressing back to baseline Mental Status: mental status grossly normal Speech and Movement: speech and movement normal Mood: congruent mood Affect: normal affect Exam Psych Mental Status: mental status grossly normal Speech and Movement: speech and movement normal Mood: congruent mood Affect: normal affect DS: Data Vitals/I&O Vitals and I&O: Vital Signs Temperature 36.5 C 08/08/20 07:51 Temperature Source Tympanic 08/08/20 07:51 Pulse 83 08/08/20 13:07 Pulse Rhythm Regular 08/08/20 10:05 Pulse 77 08/06/20 07:19 Respiratory Rate 19 08/08/20 07:51 Respiratory Effort 08/08/20 10:05 Respiratory Depth Normal 08/08/20 10:05 Respiratory Pattern Normal 08/08/20 10:05 Blood Pressure 119/52 L 08/08/20 07:51 Blood Pressure Mean 71 08/06/20 12:38 Blood Pressure Position Supine 08/06/20 12:38 Pulse Oximetry 94 08/08/20 07:51 Oxygen Delivery Method Room Air 08/08/20 07:51 Oxygen Flow Rate 0 08/08/20 07:51 Pain Level 0 08/08/20 07:51 Comment 08/07/20 09:56 Intake & Output 08/07/20 08/08/20 08/08/20 23:59 11:59 23:59 Intake Total 770 / 770 350 / 350 Balance 770 / 770 350 / 350 Weight 66.1 kg Intake: IV 220 / 220 100 / 100 Oral 550 / 550 250 / 250 Other: Urine Color Yellow Urine Appearance Clear Clear Comment patient is OOB and uses bathroom independently Stool Size Small Moderate Stool Characteristics Liquid Liquid Brown Voiding Methods Toilet Toilet Data Completed and Pending Labs on day of discharge: Labs from last 24 hours 08/08/20 08/08/20 08/08/20 08:00 06:54 06:54 WBC 8.64 D RBC 3.13 L Hgb 8.1 L Hct 27.5 L MCV 87.9 MCH 25.9 L MCHC 29.5 L RDW 26.5 H Plt Count 45 L MPV Immature Gran % 0.3 Neutrophils % 85.3 Lymphocytes % 10.4 Monocytes % 3.8 Eosinophils % 0.1 Basophils % 0.1 Nucleated RBC % 0 Absolute Neutrophils 7.37 H Absolute Lymphocytes 0.90 L Absolute Monocytes 0.33 Absolute Eosinophils 0.01 Absolute Basophils 0.01 RBC Morphology See below Polychromasia Present Hypochromasia 2+ Poikilocytosis 2+ Anisocytosis 3+ Microcytosis 1+ Macrocytosis 1+ D-Dimer 523 H Sodium Potassium Chloride Carbon Dioxide Anion Gap BUN Creatinine Estimated GFR/1.73 m2 Glucose Calcium Magnesium Ferritin Total Bilirubin AST ALT Alkaline Phosphatase Lactate Dehydrogenase C-Reactive Protein Total Protein Albumin COVID-19 Source Pending SARS-CoV-2 (PCR) Pending 08/08/20 06:54 WBC RBC Hgb Hct MCV MCH MCHC RDW Plt Count MPV Immature Gran % Neutrophils % Lymphocytes % Monocytes % Eosinophils % Basophils % Nucleated RBC % Absolute Neutrophils Absolute Lymphocytes Absolute Monocytes Absolute Eosinophils Absolute Basophils RBC Morphology Polychromasia Hypochromasia Poikilocytosis Anisocytosis Microcytosis Macrocytosis D-Dimer Sodium 137 Potassium 3.9 Chloride 105 Carbon Dioxide 23.6 Anion Gap 8.4 BUN 5 L Creatinine 0.7 Estimated GFR/1.73 m2 >= 60.00 Glucose 115 H Calcium 8.2 L Magnesium 1.9 Ferritin 53 Total Bilirubin 4.4 H AST 75 H ALT 39 Alkaline Phosphatase 200 H Lactate Dehydrogenase 148 C-Reactive Protein 0.87 H Total Protein 6.6 Albumin 2.2 L COVID-19 Source SARS-CoV-2 (PCR) Preliminary micro results at discharge 08/03/20 19:40 Blood Culture - Preliminary Blood NO GROWTH 96 HOURS 08/03/20 19:55 Blood Culture - Preliminary Blood NO GROWTH 96 HOURS PFS Medical History Acute GI bleeding Advanced hepatic cirrhosis Alcohol abuse Alcohol dependence with withdrawal with complication Anxiety COVID-19 Depression GERD (gastroesophageal reflux disease) History of surgery Hernia repair. Vasectomy. Liver failure with hepatic coma Surgical History H/O vasectomy History of colon resection due to diverticulitis; sigmoid History of esophagogastroduodenoscopy 01/2020- [facility] History of hernia repair Repair of inguinal hernia Vasectomy Family History Mother Neoplasm Father Diabetes Essential hypertension Neoplasm Sister No problems noted. Social History Smoking/Tobacco Use Status: Never Smoking risk assessment performed?: Yes Alcohol Intake: current Alcohol Intake frequency: 3 or more drinks per day Alcohol type: hard liquor Drug use: Occasionally Substance use type: marijuana Details: 3/4 of a 5th of Vodka daily, last drink was sunday07/16/20 Do you feel safe at home: Yes Do you feel safe in your relationship?: Yes
--- NOTE | 2020-08-08 14:37 | CMDISCH_ITS ---
- If Service Date Differs Date of service: 08/08/20 Time of Service: 14:37 LACE Index Scoring Tool - Questions: Length of Stay (in days): 4 - 6 Acuity (Admit via E.D.?): Yes Comorbidities: Liver or Renal Disease (Hepatic cirrhosis) E.D. Visits: 8 - Answers: Total Score: 16 Risk of Readmission: High Risk Care Management Discharge Reason for Hospitalization: Pneumonia, Alcoholic cirrhosis, Covid 19 Discharge Plan: Jelani is discharged home. He will follow up with his PCP, [facility], and discharge plan of care as directed. He is driven home by family via private vehicle. Patient/Family Education Needs: Discharge instructions, limitations, follow up plan of care, including Ask Me Three and self management.
== END 2020-08-08 14:03 | disposition home or self-care (01) | DRG 177 ==
LOC: ER 22:36 → ICU 08-04 00:11 → MS 08-06 15:40
PROVIDERS: Internal Medicine; Admitting Provider Family Medicine; Emergency Provider Student in an Organized Health Care Education/Training Program; PCP Nurse Practitioner; Visit Provider Family Medicine
DX: U07.1 COVID-19 (principal); J12.82 Pneumonia due to coronavirus disease 2019; J15.9 Unspecified bacterial pneumonia; K76.6 Portal hypertension; F10.239 Alcohol dependence with withdrawal, unspecified; D68.4 Acquired coagulation factor deficiency; I85.10 Secondary esophageal varices without bleeding; K70.31 Alcoholic cirrhosis of liver with ascites; F10.20 Alcohol dependence, uncomplicated; F41.9 Anxiety disorder, unspecified; K21.9 Gastro-esophageal reflux disease without esophagitis; K70.40 Alcoholic hepatic failure without coma; D69.59 Other secondary thrombocytopenia; R11.2 Nausea with vomiting, unspecified
CPT/HCPCS: 36415; 71275; 80048; 80053; 80076; 82306; 82550; 84145; 86850; 86900; 86901; 87040; 87449; 87635; 93005; 96361; 96365; 96367; 96375; 99223; 99232; 99233; 99238; 99285; 99291; 80202; 80320; 81003; 82140; 82607; 82728; 82746; 83605; 83615; 83735; 84100; 84443; 84484; 85014; 85018; 85025; 85379; 85610; 86140; 93010; 94667; 94668; J0696; J1100; J2060; J2405; J2543; J3475; J3480; J3490; J8540

== ENCOUNTER 2020-08-23 02:39 | Outpatient (CLI) | payer MEDICAID, SELFPAY ==
[2020-08-23 08:34] LABS: HCT 32.5 % (40.0-50.0); HGB 9.6 g/dL (13.5-17.5); MCH 27.4 pg (27.0-33.0); MCHC 29.5 % (32.0-36.0); MCV 92.9 fL (80-95); Platelet Count 34 10^3/uL (130-400); RDW 25.5 % (11.8-14.1); RDW-SD 86.3 fL; WBC 4.59 10^3/uL (4.4-10.8)
[2020-08-23 08:42] LABS: INR 1.3 (0.9-1.1); Prothrombin Time 12.8 sec (9.3-11.0)
[2020-08-23 09:43] LABS: ALT 29 U/L (16-63); AST 60 U/L (15-37); Albumin 2.8 g/dL (3.4-5.0); Alkaline Phosphatase 299 U/L (46-116); Anion Gap 11.6 mmol/L (3-11); BUN 6 mg/dL (7-18); Bilirubin, Total 3.6 mg/dL (0.2-1.0); CO2 23.4 mmol/L (21.0-32.0); CREATININE 0.7 mg/dL (0.70-1.30); Calcium 8.4 mg/dL (8.5-10.1); Chloride 108 mmol/L (98-107); Glucose 124 mg/dL (74-106); Potassium 3.9 mmol/L (3.5-5.1); Sodium 143 mmol/L (136-145); Total Protein 7.1 g/dL (6.4-8.2)
[2020-08-23 09:59] LABS: Folate > 20.0 ng/mL (8.6-20.0); Magnesium 1.7 mg/dL (1.8-2.4)
== END 2020-08-23 02:40 | disposition home or self-care (01) ==
LOC: LBO 02:39
PROVIDERS: PCP Nurse Practitioner; Visit Provider Emergency Medicine
DX: D62 Acute posthemorrhagic anemia (principal); I10 Essential (primary) hypertension; K70.10 Alcoholic hepatitis without ascites; K72.91 Hepatic failure, unspecified with coma
CPT/HCPCS: 36415; 80053; 85027; 82746; 83735; 85610

== ENCOUNTER 2020-08-31 09:19 | Emergency (ER) | payer MEDICAID, SELFPAY ==
[2020-08-31] VITALS (26 sets, daily range): BP systolic 142–157; BP diastolic 68–97; PULSE 82–96; RESP 9–24; TEMP 36.9; O2SAT 93–99
--- NOTE | 2020-08-31 09:30 | RT.EKG_ITS ---
APPROVED REPORT Exam: Resting ECG Reason for Exam: chest pain Patient Location: E HR:90 bpm ECG Measurements Heart Rate 90 AXIS NH 169 P 59 QRSd 92 QRS -10 QT 389 T 39 QTc 476 Conclusion Sinus rhythm...normal P axis, V-rate 60- 99
--- NOTE | 2020-08-31 09:30 | DI.CT_ITS ---
Exam(s) CT CHEST W EXAM: CT CHEST W CLINICAL HISTORY: Left side rib pain s/p fall. TECHNIQUE: Imaging Protocol: Axial CT angiography was performed with multi-slice acquisition and mu lti-planar and/or 3D reconstructions. CONTRAST MATERIAL: Intravenous: Omnipaque 350 Contrast volume:structured data in ml COMPARISON: CT CT CHEST PE CTA from 08/03/2020 FINDINGS: CT angiography of the chest was performed with intravenous infusion of 100 cc of Omnipaque 350. The lungs are clear. No pleural effusion. Tracheobronchial tree appears intact. No evidence of pulmonary embolic disease. Thoracic aorta is of normal diameter, no thoracic aortic an eurysm or dissection, major branch vessels appear intact. There are new numerous bilateral healed rib fractures. There is an apparent acute left 11th rib frac ture posteriorly. No associated pneumothorax. No mediastinal or hilar adenopathy. Images obtained through the upper abdomen show hepatic 0 splenomegaly, nodular contour of the liver c onsistent with cirrhosis, and a portal venous/systemic shunt. Visualized portions of pancreas adrena ls and kidneys are unremarkable. IMPRESSION: Left 11th rib fracture. No additional acute findings. RADIATION DOSE DELIVERED: 471.73mGy.cm Total DLP 471.73mGy.cm Total DLP DATA REPOSITORY: All CT scans at this facility are submitted to the National Radiology Data Registry (NRDR) Dose Index Registry (DIR) with the [employer] (A[employer]). RADIATION OPTIMIZATION: All CT scans at this facility use at least one of these dose optimization te chniques: automated exposure control; mA and/or kV adjustment per patient size (includes targeted exa ms where dose is matched to clinical indication); or iterative reconstruction.
--- NOTE | 2020-08-31 09:30 | DI.CT_ITS ---
Exam(s) CT HEAD CERVICAL SPINE WO EXAM: CT HEAD CERVICAL SPINE WO COMPARISON: CT CT HEAD CERVICAL SPINE WO from 03/20/2020 FINDINGS: CT examination of the cervical spine was performed without contrast administration. There is a moderate mid cervical kyphosis. There is disc space narrowing from C3-4 through C6-7. Th ere are prominent endplate osteophytes noted at these levels as well. There is no evidence of acute cervical spine fracture or dislocation. Intervertebral disc spaces are well maintained. Tracheolaryngeal structures appear intact. No cervical mass or adenopathy. Noncontrast cranial CT was performed. Ventricular system is normal in appearance. No evidence of acute intracranial hemorrhage, mass effect, or midline shift. No calvarial fracture. The orbital and temporal bone structures appear intact. Visualized mastoid air cells and paranasal sinuses appear clear. IMPRESSION: No evidence of acute cervical spine injury. No evidence of acute intracranial injury. RADIATION DOSE DELIVERED: 1,568.43mGy.cm Total DLP 1,568.43mGy.cm Total DLP DATA REPOSITORY: All CT scans at this facility are submitted to the National Radiology Data Registry (NRDR) Dose Index Registry (DIR) with the [employer] (ACR). RADIATION OPTIMIZATION: All CT scans at this facility use at least one of these dose optimization te chniques: automated exposure control; mA and/or kV adjustment per patient size (includes targeted exa ms where dose is matched to clinical indication); or iterative reconstruction.
--- NOTE | 2020-08-31 09:39 | ED.GENADUL_ITS ---
Discharge Plan Disposition Patient Disposition: HOME Condition: Stable Discharge Details Clinical Impression: Fracture of rib of left side Primary Care Provider: Angella Deal ED Provider: Priscila Castrejon Home Meds and New Rx's Prescriptions: New lidocaine 5 % adhesive patch,medicated 1 patch topical DAILY Qty: 15 RF: 0 Continued tamsulosin 0.4 mg capsule 0.4 mg PO DAILY Qty: 90 RF: 4 thiamine mononitrate (vit B1) 100 mg tablet 100 mg PO DAILY Qty: 90 RF: 4 folic acid 1 mg tablet 1 mg PO DAILY Qty: 90 RF: 4 magnesium 200 mg tablet 200 mg PO DAILY Qty: 90 RF: 0 fluoxetine 40 mg capsule 40 mg PO DAILY Qty: 30 RF: 0 Cerovite Advanced Formula 18-400 mg-mcg tablet 1 tab PO DAILY RF: 0 pantoprazole 40 mg Tablet,Delayed Release (Dr/Ec) 40 mg PO BID RF: 0 finasteride 5 mg Tablet 5 mg PO DAILY RF: 0 acamprosate 333 mg Tablet,Delayed Release (Dr/Ec) 666 mg PO TID RF: 0 lactulose 20 gram/30 mL Solution 20 g PO BID RF: 0 sucralfate 1 gram tablet 1 g PO QACHS Qty: 120 RF: 1 melatonin 3 mg tablet 6 mg PO HS PRNRF: 0 Discharge Instructions Instructions: Rib Fracture (ED) Additional Instructions: Follow up with primary care provider in 3-5 days. Return to ED sooner if any worsening or concerns. Increase oral fluids. Please take Ibuprofen with food every 4-6 hours as needed for pain and swelling. Use lidocaine patches and incentive spirometer as directed to pain. Do not drink Alcohol if possible. Referrals: Angella Deal NP [Primary Care Provider] - Discharge Data Discharge Date/Time-TO BE ENTERED AT DEPARTURE: 08/31/20 12:47 Medical Decision Making 59-year-old male presents to the ER with chief complaint of possible syncopal episode yesterday around noon while in the kitchen. Patient reports he did hit his head and did have positive loss of consciousness for unknown downtime. Patient reports that he was found lying on the floor in the kitchen by his son. He does endorse alcohol use day before yesterday. He is reporting some left ant erior rib pain, he also reports generalized headache and dizziness. He does endorse being noncompliant with his normal medication. He is alert and oriented x3 upon arrival, does have a past medical history of end-stage alcoholic cirrhosis of the liver, thrombocytopenia, alcoholism, GERD, portal hypertension, COVID-19 diagnosed August 07, he is a palliative care patient. EKG was reviewed by Dr. Jarrett Hoyt ER attending, please see his official report. At this time with the fluttering to the CBC, CMP, PT/INR, serial troponins, CT head C-spine and CT chest. CT HEAD CERVICAL SPINE WO EXAM: CT HEAD CERVICAL SPINE WO COMPARISON: CT CT HEAD CERVICAL SPINE WO from 03/20/2020 FINDINGS: CT examination of the cervical spine was performed without contrast administration. There is a moderate mid cervical kyphosis. There is disc space narrowing from C3-4 through C6-7. There are prominent endplate osteophytes noted at these levels as well. There is no evidence of acute cervical spine fracture or dislocation. Intervertebral disc spaces are well maintained. Tracheolaryngeal structures appear intact. No cervical mass or adenopathy. Noncontrast cranial CT was performed. Ventricular system is normal in appearance. No evidence of acute intracranial hemorrhage, mass effect, or midline shift. No calvarial fracture. The orbital and temporal bone structures appear intact. Visualized mastoid air cells and paranasal sinuses appear clear. IMPRESSION: No evidence of acute cervical spine injury. No evidence of acute intracranial injury. EXAM: CT CHEST W CLINICAL HISTORY: Left side rib pain s/p fall. TECHNIQUE: Imaging Protocol: Axial CT angiography was performed with multi- slice acquisition and multi-planar and/or 3D reconstructions. CONTRAST MATERIAL: Intravenous: Omnipaque 350 Contrast volume:structured data in ml COMPARISON: CT CT CHEST PE CTA from 08/03/2020 FINDINGS: CT angiography of the chest was performed with intravenous infusion of 100 cc of Omnipaque 350. The lungs are clear. No pleural effusion. Tracheobronchial tree appears intact. No evidence of pulmonary embolic disease. Thoracic aorta is of normal diameter, no thoracic aortic aneurysm or dissection, major branch vessels appear intact. There are new numerous bilateral healed rib fractures. There is an apparent acute left 11th rib fracture posteriorly. No associated pneumothorax. No mediastinal or hilar adenopathy. Images obtained through the upper abdomen show hepatic 0 splenomegaly, nodular contour of the liver consistent with cirrhosis, and a portal venous/systemic shunt. Visualized portions of pancreas adrenals and kidneys are unremarkable. IMPRESSION: Left 11th rib fracture. No additional acute findings. Discussed findings with patient, verbalized understanding, given lidocaine patch. Discussed strict return instructions and home care, verbalized understanding. This text was generated using [employer] system, please di sregard any oddities of phrase or misspellings. HPI General Mode of arrival: ambulatory . Date/Time Provider Initiated Documentation: 08/31/20 09:23 . Limitations to Documentation: no limitations . Information obtained by: patient, RN notes reviewed and old records reviewed . HPI Narrative: 59-year-old male presents to the ER with chief complaint of possible syncopal episode yesterday around noon while in the kitchen. Patient reports he did hit his head and did have positive loss of consciousness for unknown downtime. Patient reports that he was found lying on the floor in the kitchen by his son. He does endorse alcohol use day before yesterday. He is reporting some left anterior rib pain, he also reports generalized headache and dizziness. He does endorse being noncompliant with his normal medication. He is alert and oriented x3 upon arrival, does have a past medical history of end- stage alcoholic cirrhosis of the liver, thrombocytopenia, alcoholism, GERD, portal hypertension, COVID-19 diagnosed August 07, he is a palliative care patient. Related Data Home Medications Medication Instructions Recorded Confirmed folic acid 1 mg tablet 1 mg PO DAILY #90 tab 06/24/20 09/02/20 tamsulosin 0.4 mg capsule 0.4 mg PO DAILY #90 cap 06/24/20 09/02/20 thiamine mononitrate (vit B1) 100 100 mg PO DAILY #90 tab 06/24/20 09/02/20 mg tablet Cerovite Advanced Formula 1 tab PO DAILY 07/18/20 09/02/20 acamprosate 666 mg PO TID 08/04/20 09/02/20 finasteride 5 mg PO DAILY 08/04/20 09/02/20 lactulose 20 g PO BID 08/04/20 09/02/20 pantoprazole 40 mg PO BID 08/04/20 09/02/20 sucralfate 1 g PO QACHS #120 tab 08/08/20 09/02/20 fluoxetine 40 mg capsule 40 mg PO DAILY #30 cap 08/24/20 09/02/20 magnesium 200 mg tablet 200 mg PO DAILY #90 tab 08/24/20 09/02/20 melatonin 3 mg tablet 6 mg PO HS PRN 08/24/20 09/02/20 lidocaine 1 patch TOPICAL DAILY #15 ea 08/31/20 09/02/20 Previous Rx's Medication Instructions Recorded folic acid 1 mg tablet 1 mg PO DAILY #90 tab 06/24/20 tamsulosin 0.4 mg capsule 0.4 mg PO DAILY #90 cap 06/24/20 thiamine mononitrate (vit B1) 100 100 mg PO DAILY #90 tab 06/24/20 mg tablet sucralfate 1 g PO QACHS #120 tab 08/08/20 fluoxetine 40 mg capsule 40 mg PO DAILY #30 cap 08/24/20 magnesium 200 mg tablet 200 mg PO DAILY #90 tab 08/24/20 lidocaine 1 patch TOPICAL DAILY #15 ea 08/31/20 Allergies Allergy/AdvReac Type Severity Reaction Status Date / Time sertraline AdvReac Severe SEVERE Verified 09/02/20 13:49 WORSENING OF DEPRESSION General Stated Complaint: Trauma NEEMA: 3 Review of Systems All systems reviewed & are unremarkable except as noted in HPI and below Constitutional Constitutional: Reports frequent falls and Reports headache(s) ENT Ears, Nose, Mouth, and Throat: Reports headache(s) Cardiovascular Cardiovascular: Reports as per HPI and Denies dyspnea Respiratory Respiratory: Denies cough and Denies dyspnea Neurologic Neurologic: Reports frequent falls and Reports headache(s) [facility] Medical History (Updated 08/31/20 @ 12:20 by Priscila Castrejon) Acute GI bleeding Advanced hepatic cirrhosis Alcohol abuse Alcohol dependence with withdrawal with complication Anxiety COVID-19 Depression Desire for detoxification wants to stay sober this time GERD (gastroesophageal reflux disease) History of surgery Hernia repair. Vasectomy. Liver failure with hepatic coma Palliative care patient Upper GI bleed 02/2020- treating gastritis with Pantoprazol 90 days BID, then daily Surgical History H/O vasectomy History of colon resection due to diverticulitis; sigmoid [place] [facility] [place] of hernia repair Repair of inguinal hernia Vasectomy Family History Mother Neoplasm Father Diabetes Essential hypertension Neoplasm Son No problems noted. Daughter No problems noted. Social History (Updated 08/21/20 @ 11:34 by Ernestina Merino MD) Smoking/Tobacco Use Status: Never Smoking risk assessment performed?: Yes Alcohol Intake: current Alcohol Intake frequency: 3 or more drinks per day Alcohol type: hard liquor Drug use: Occasionally Substance use type: marijuana Details: 08/29/20--had 3/4 of a fifth of vodka Caregiver/Support person: Yes Household members: children Number of Children: 2 Communication Needs: Hard of Hearing and Corrective Lenses Education Level: high school Do you need help understanding health information?: Always current occupation: applying for disability Do you think of yourself as: straight/heterosexual Current gender identity: male What is your relationship status?: How often do you talk on the phone with friends or family?: twice per week How often do you get together with friends or relatives?: three or more times per week Panel score (0-1 are the most socially isolated patients): 1 What type of physical activity do you participate in: walking and sedentary lifestyle Duration: < 15 minutes/day Frequency: daily Special radha needs: No Agree to transfusion: Yes Seatbelt use: sometimes 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 Jelani is applying for disability, for liver failure. He says that he understands that if he doesn't stop drinking, he will soon, in a year or less. He has been told this by multiple providers. Exam Const General: cooperative Nutritional Appearance: average body habitus Orientation: alert, awake and oriented x3 [facility] Head: normal to inspection, no palpable skull fracture, normocephalic, abrasion left frontal 0.3 in, no Fernandez's sign, no hematomas and No periorbital ecchymosis Head images: 1. Very small superficial abrasion noted Ears: hearing grossly normal bilaterally, external ears normal and TM's normal bilaterally General nose exam: external nose normal Face and sinus: normal facial exam Teeth and gingiva: dentition normal Throat: posterior oropharynx normal Neck Neck: normal visual inspection and full ROM Chest Chest: localized rib tenderness with anteroposterior compression left mid- clavicular line involving the 9th rib and involving the 10th rib Resp Effort & Inspection: normal respiratory effort and able to speak in complete sentences Auscultation: clear to auscultation bilaterally Cardio Palpation: normal PMI Rate: regular rate Rhythm: regular rhythm Heart Sounds: S1 normal and S2 normal GI Inspection: normal to inspection Palpation: soft Auscultation: normal bowel sounds Back/Spine/Pelvis Back: no CVA tenderness Cervical Spine: normal cervical lordosis Thoracic/Lumbar Spine: thoracic and lumbar spine normal to inspection Pelvis: no pain with anterior-posterior compression and no pain with lateral compression Skin General skin exam: jaundice (Mild generalized) Lesions: no lesions Rashes: no rashes Trauma: no lacerations or abrasions Wounds: no wounds Neuro General: patient alert, patient awake, patient oriented x3, gait normal, moves all extremities and no focal motor deficits Cranial Nerves: CN's II-XI intact bilaterally, able to rotate head bilaterally and able to elevate shoulders bilaterally Speech: speech normal Motor: muscle tone normal throughout Sensory Exam: no sensory deficits noted Pupils: Normal pupillary reactivity/response: right, left and bilateral Course Vital Signs Vital signs: Vital Signs Temperature 36.9 C 08/31/20 09:28 Pulse 94 H 08/31/20 09:28 Respiratory Rate 17 08/31/20 09:28 Blood Pressure 157/97 H 08/31/20 09:28 Pulse Oximetry 99 08/31/20 09:28 Temperature 36.9 C 08/31/20 09:28 Temperature Source Temporal Artery Scan 08/31/20 09:28 Pulse 94 H 08/31/20 09:28 Respiratory Rate 17 08/31/20 09:28 Blood Pressure 157/97 H 08/31/20 09:28 Blood Pressure Position Supine 08/31/20 09:28 Pulse Oximetry 99 08/31/20 09:28 Oxygen Delivery Method Room Air 08/31/20 09:28 Oxygen Flow Rate 0 08/31/20 09:28 Pain Level 8 08/31/20 09:28
[2020-08-31 09:58] LABS: Bilirubin Negative (Negative); Blood Negative (Negative); Clarity Clear (Clear); Glucose Negative (Negative); Ketones Negative (Negative); Leukocyte Esterase Negative (Negative); Nitrite Negative (Negative); pH 7.5 (5-8)
[2020-08-31 10:01] LABS: Absolute Basophil Count 0.05 10^3/uL (0.0-0.2); Absolute Eosinophil Count 0.02 10^3/uL (0.0-0.7); Absolute Lymphocyte Count 0.86 10^3/uL (1.2-3.4); Absolute Monocyte Count 0.62 10^3/uL (0.1-0.8); Absolute Neutrophil Count 1.57 10^3/uL (1.2-6.7); Basophils % 1.6; Eosinophils % 0.6; HCT 35.6 % (40.0-50.0); Lymphocytes % 27.6; MCH 27.6 pg (27.0-33.0); MCHC 30.9 % (32.0-36.0); MCV 89.2 fL (80-95); Monocytes % 19.9; Nucleated RBC 0 %; RBC 3.99 10^6/uL (4.36-5.78); RDW 22.7 % (11.8-14.1); RDW-SD 74.9 fL; WBC 3.12 10^3/uL (4.4-10.8)
[2020-08-31] MEDS: Normal Saline 250 ML IV (10:02)
[2020-08-31] MEDS: Ondansetron 4 MG/2 ML VIAL IVP (10:02)
[2020-08-31 10:14] LABS: *AMPHETAMINES SCREEN URINE Negative (Negative); *BARBITURATES SCREEN URINE Negative (Negative); *BENZODIAZEPINES SCREEN URINE Negative (Negative); Cannabinoids THC Positive (Negative); Cocaine Screen,Urine Negative (Negative); METHADONE URINE SCREEN Negative (Negative); OPIATES URINE SCREEN Negative (Negative)
[2020-08-31 10:15] LABS: INR 1.4 (0.9-1.1); Prothrombin Time 13.8 sec (9.3-11.0)
[2020-08-31 10:16] LABS: ALT 30 U/L (16-63); AST 75 U/L (15-37); Alkaline Phosphatase 233 U/L (46-116); Anion Gap 11.9 mmol/L (3-11); BUN 2 mg/dL (7-18); Bilirubin, Total 5.5 mg/dL (0.2-1.0); CO2 23.1 mmol/L (21.0-32.0); CREATININE 0.7 mg/dL (0.70-1.30); Calcium 8.5 mg/dL (8.5-10.1); Chloride 102 mmol/L (98-107); Glucose 139 mg/dL (74-106); Magnesium 1.4 mg/dL (1.8-2.4); Potassium 3.6 mmol/L (3.5-5.1); Sodium 137 mmol/L (136-145); Total Protein 7.9 g/dL (6.4-8.2)
[2020-08-31 10:17] LABS: ETHANOL BLOOD < 3.0 mg/dL (<3); Troponin I < 0.05 ng/mL (<0.06)
[2020-08-31 10:20] LABS: Tricyclic Antidepressants Negative (Negative)
[2020-08-31 10:20] LABS: Neutrophils % 50.3; Platelet Count 34 10^3/uL (130-400)
[2020-08-31 10:21] LABS: Anisocytosis 2+; Diff Comment Diff Reviewed; Hypochromasia 1+; Poikilocytes 2+
[2020-08-31] MEDS: Omnipaque 350 MG/ML 100 ML BTL IJ (11:56)
[2020-08-31] MEDS: Normal Saline - Diluent 50 ML VIAL IV (11:57)
[2020-08-31] MEDS: Lidocaine 5% Patch 1 PATCH TP (12:18)
[2020-08-31 12:49] LABS: Troponin I < 0.05 ng/mL (<0.06)
== END 2020-08-31 12:47 | disposition home or self-care (01) ==
PROVIDERS: Emergency Provider Registered Nurse Emergency; PCP Nurse Practitioner
DX: S22.32XA Fracture of one rib, left side, initial encounter for closed fracture (principal); S00.01XA Abrasion of scalp, initial encounter; R51.9 Headache, unspecified; W19.XXXA Unspecified fall, initial encounter; Z86.16 Personal history of COVID-19; T50.906A Underdosing of unspecified drugs, medicaments and biological substances, initial encounter; Z91.128 Patient's intentional underdosing of medication regimen for other reason
CPT/HCPCS: 36415; 80053; 80307; 93005; 96361; 96374; 99285; 70450; 71260; 72125; 80320; 81003; 83735; 84484; 85025; 85610; 93010; 99284; J2405; J3490

== ENCOUNTER 2020-09-29 23:44 | Emergency (ER) | payer MEDICAID, SELFPAY ==
--- NOTE | 2020-09-29 23:44 | ED.GENADUL_ITS ---
Discharge Plan Disposition Patient Disposition: HOME Condition: Good Discharge Details Clinical Impression: Alcohol intoxication Primary Care Provider: Angella Deal ED Provider: Nathan Nolasco Home Meds and New Rx's Prescriptions: Continued tamsulosin 0.4 mg capsule 0.4 mg PO DAILY Qty: 90 RF: 4 thiamine mononitrate (vit B1) 100 mg tablet 100 mg PO DAILY Qty: 90 RF: 4 folic acid 1 mg tablet 1 mg PO DAILY Qty: 90 RF: 4 magnesium 200 mg tablet 200 mg PO DAILY Qty: 90 RF: 0 fluoxetine 40 mg capsule 40 mg PO DAILY Qty: 30 RF: 0 Cerovite Advanced Formula 18-400 mg-mcg tablet 1 tab PO DAILY RF: 0 pantoprazole 40 mg Tablet,Delayed Release (Dr/Ec) 40 mg PO BID RF: 0 acamprosate 333 mg Tablet,Delayed Release (Dr/Ec) 666 mg PO TID RF: 0 lactulose 20 gram/30 mL Solution 20 g PO BID RF: 0 melatonin 3 mg tablet 6 mg PO HS PRNRF: 0 propranolol 10 mg tablet 10 mg PO BID RF: 0 mirtazapine 15 mg Tablet 15 mg PO HS RF: 0 ondansetron 4 mg Tablet,Disintegrating 4 mg PO Q6H PRNRF: 0 spironolactone 50 mg Tablet 50 mg PO DAILY RF: 0 ferrous gluconate 324 mg (37.5 mg iron) Tablet 324 mg PO DAILY RF: 0 Discharge Instructions Instructions: Depression (ED), Alcohol Intoxication (ED) Additional Instructions: Please continue to take your antidepressant medication and do not miss any doses. Please follow-up closely with your mental health advocates. If you notice any worsening of your symptoms, or any new symptoms such as vomiting, diarrhea, fever, chills, shortness of breath, chest pain, numbness, weakness, or fainting , please return immediately to the emergency department for reeva luation. Please follow up with your primary care provider as soon as possible for reassessment and reevaluation. As always, it was a pleasure participating in your medical care today. Referrals: Angella Deal, RN HOUSE SUPERVISOR [Primary Care Provider] - Medical Decision Making 60-year-old male with past medical history of previous GI bleed, chronic alcoholism, GERD, who presents today for evaluation of depression. Patient recently got out of detox 3 days ago, he had been sober for over a week. Then today he drank 1/5 of vodka, became notably intoxicated felt unsafe at home and called EMS. Aside for the alcohol he denies any other substances. He denies any other complaints. He denies any suicidal plan. He denies any homi cidal ideations. He denies any auditory or visual hallucinations. No other complaints at this time. Physical exam is notably unremarkable. No evidence of self injury. Patient does not appear to be at this time an acute threat to himself for suicidality. We will gently rehydrate, but the patient sober up and then reassess. 5:09 AM Patient doing well. He has been reassessed and shows no signs of mental instability or hemodynamic instability. Exam is unremarkable. On reassessment patient denies any homicidal or suicidal ideations. He states that he has not been taking his Prozac religiously as he has been directed. I instructed him that the most important way for antidepressant work is for regular consistent use. He understands this. We will have mental health follow-up with the patient on an outpatient basis. He has an appointment with his PCP coming up shortly. Discussed red flags for which to return. Patient stable and appropriate for discharge at this time. The patient is able to speak clearly. There is no demonstration of any slurring of speech. There is evidence of clear decision making capacity. Patient is able to ambulate well without any difficulty. There are no signs of ataxia or stumbling motions. I have extensively reviewed the treatment plan and discharge instructions with the patient. I have addressed all patient concerns at this time. The patient was made aware of what symptoms to monitor for that would warrant a return to the emergency department. Discussed the plan with the patient, they demonstrate verbal understanding and agreement with our assessment and plan at this time. The documentation in this chart was dictated using [employer] dictation software. Please excuse any dictation errors. HPI General Date/Time Provider Initiated Documentation: 09/29/20 23:57 . HPI Narrative: 60-year-old male with past medical history of previous GI bleed, chronic alcoholism, GERD, who presents today for evaluation of depression. Patient recently got out of detox 3 days ago, he had been sober for over a week. Then today he drank 1/5 of vodka, became notably intoxicated felt unsafe at home and called EMS. Aside for the alcohol he denies any other substances. He denies any other complaints. He denies any suicidal plan. He denies any homicidal ideations. He denies any auditory or visual hallucinations. No other complaints at this time. Related Data Home Medications Medication Instructions Recorded Confirmed folic acid 1 mg tablet 1 mg PO DAILY #90 tab 06/24/20 09/29/20 tamsulosin 0.4 mg capsule 0.4 mg PO DAILY #90 cap 06/24/20 09/29/20 thiamine mononitrate (vit B1) 100 100 mg PO DAILY #90 tab 06/24/20 09/29/20 mg tablet Cerovite Advanced Formula 1 tab PO DAILY 07/18/20 09/29/20 acamprosate 666 mg PO TID 08/04/20 09/29/20 lactulose 20 g PO BID 08/04/20 09/29/20 pantoprazole 40 mg PO BID 08/04/20 09/29/20 fluoxetine 40 mg capsule 40 mg PO DAILY #30 cap 08/24/20 09/30/20 magnesium 200 mg tablet 200 mg PO DAILY #90 tab 08/24/20 09/30/20 melatonin 3 mg tablet 6 mg PO HS PRN 08/24/20 09/29/20 ferrous gluconate 324 mg PO DAILY 09/29/20 09/30/20 mirtazapine 15 mg PO HS 09/29/20 09/30/20 ondansetron 4 mg PO Q6H PRN 09/29/20 09/30/20 propranolol 10 mg PO BID 09/29/20 09/29/20 spironolactone 50 mg PO DAILY 09/29/20 09/29/20 Previous Rx's Medication Instructions Recorded folic acid 1 mg tablet 1 mg PO DAILY #90 tab 06/24/20 tamsulosin 0.4 mg capsule 0.4 mg PO DAILY #90 cap 06/24/20 thiamine mononitrate (vit B1) 100 100 mg PO DAILY #90 tab 06/24/20 mg tablet fluoxetine 40 mg capsule 40 mg PO DAILY #30 cap 08/24/20 magnesium 200 mg tablet 200 mg PO DAILY #90 tab 08/24/20 Allergies Allergy/AdvReac Type Severity Reaction Status Date / Time sertraline AdvReac Severe SEVERE Verified 09/30/20 00:04 WORSENING OF DEPRESSION General NEEMA: 3 Review of Systems All systems reviewed & are unremarkable except as noted in HPI and below PFSH Medical History Acute GI bleeding Advanced hepatic cirrhosis Alcohol abuse Alcohol dependence with withdrawal with complication Anxiety COVID-19 Depression Desire for detoxification wants to stay sober this time GERD (gastroesophageal reflux disease) History of surgery Hernia repair. Vasectomy. Liver failure with hepatic coma Palliative care patient Upper GI bleed 02/2020- treating gastritis with Pantoprazol 90 days BID, then daily Surgical History H/O vasectomy History of colon resection due to diverticulitis; sigmoid [place] [facility] [place] of hernia repair Repair of inguinal hernia Vasectomy Family History Mother Neoplasm Father Diabetes Essential hypertension Neoplasm Son No problems noted. Daughter No problems noted. Social History Smoking/Tobacco Use Status: Never Smoking risk assessment performed?: Yes Alcohol Intake: current Alcohol Intake frequency: 3 or more drinks per day Alcohol type: hard liquor Drug use: Occasionally Substance use type: marijuana Details: 08/29/20--had 3/4 of a fifth of vodka Caregiver/Support person: Yes Household members: children Number of Children: 2 Communication Needs: Hard of Hearing and Corrective Lenses Education Level: high school Do you need help understanding health information?: Always current occupation: applying for disability Do you think of yourself as: straight/heterosexual Current gender identity: male What is your relationship status?: How often do you talk on the phone with friends or family?: twice per week How often do you get together with friends or relatives?: three or more times per week Panel score (0-1 are the most socially isolated patients): 1 What type of physical activity do you participate in: walking and sedentary lifestyle Duration: < 15 minutes/day Frequency: daily Special radha needs: No Agree to transfusion: Yes Seatbelt use: sometimes 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 Jelani is applying for disability, for liver failure. He says that he understands that if he doesn't stop drinking, he will soon, in a year or less. He has been told this by multiple providers. Exam Narrative Exam Narrative: 1.Const: Well-nourished, Well-developed, appearing stated age 2.Eyes: PERRL, no conjunctival injection, and symmetrical lids. 3.ENT: Atraumatic external nose and ears. Moist MM. Neck: Symmetric, trachea midline, No thyromegaly. 4.CVS: +S1/S2, No murmurs or gallops. Peripheral pulses 2+ and equal in all extremities. Brisk capillary refill in all extremities. 5.RESP: Unlabored respiratory effort. Clear to auscultation bilaterally. No wheezes rales or rhonchi 6.GI: Soft, Nontender/Nondistended, No hepatosplenomegaly. No guarding or rebound. 7.MSK: Normocephalic/Atraumatic, Extremities w/o deformity or ttp No cyanosis or clubbing, Normal movement of all extremities 8.Skin: Warm, Dry. No rashes or lesions. 9.Neuro: inhalation therapy aide II-XII grossly intact. Sensation grossly intact, no focal neurologic deficits. 10.Psych: (AAO) x3. Appropriate mood and affect, patient does not have an overly flat affect, or show signs of immediate life-threatening suicidal behavior.
[2020-09-29 23:46] VITALS: BP 134/62; PULSE 107; RESP 18; TEMP 36.2; O2SAT 92
[2020-09-29 23:51] VITALS: BP 134/62; PULSE 106; O2SAT 90
[2020-09-29 23:52] VITALS: O2SAT 91
[2020-09-29 23:56] LABS: Abs Immature Grans 0.01 10^3/uL (0.0-0.06); Absolute Basophil Count 0.11 10^3/uL (0.0-0.2); Absolute Monocyte Count 0.91 10^3/uL (0.1-0.8); Absolute Neutrophil Count 2.81 10^3/uL (1.2-6.7); Basophils % 1.6; HCT 41.4 % (40.0-50.0); HGB 13.1 g/dL (13.5-17.5); Immature Grans % 0.1; Lymphocytes % 40.1; MCH 29.1 pg (27.0-33.0); MCHC 31.6 % (32.0-36.0); Monocytes % 13.5; Neutrophils % 41.7; Nucleated RBC 0 %; RDW 21.6 % (11.8-14.1); WBC 6.74 10^3/uL (4.4-10.8)
[2020-09-30] VITALS (22 sets, daily range): BP systolic 92–139; BP diastolic 41–107; PULSE 74–102; RESP 16; TEMP 36.2; O2SAT 83–94
[2020-09-30 00:09] LABS: Platelet Count 42 10^3/uL (130-400)
[2020-09-30 00:10] LABS: Ammonia 40 umol/L (11-32)
[2020-09-30 00:11] LABS: Anisocytosis 2+; Poikilocytes 1+; Polychromasia Present
[2020-09-30] MEDS: Normal Saline 1,000 ML 1000 ML IV (00:12)
[2020-09-30 00:16] LABS: ALT 37 U/L (16-63); AST 81 U/L (15-37); Albumin 2.8 g/dL (3.4-5.0); Alkaline Phosphatase 208 U/L (46-116); Anion Gap 8.9 mmol/L (3-11); BUN 6 mg/dL (7-18); Bilirubin, Total 3.3 mg/dL (0.2-1.0); CO2 27.1 mmol/L (21.0-32.0); CREATININE 0.9 mg/dL (0.70-1.30); Calcium 8.3 mg/dL (8.5-10.1); Chloride 110 mmol/L (98-107); ETHANOL BLOOD 255.8 mg/dL (<3); Glucose 100 mg/dL (74-106); Potassium 3.8 mmol/L (3.5-5.1); Sodium 146 mmol/L (136-145); TSH (W/Ref FT4) 1.79 uIU/mL (0.36-3.74); Total Protein 7.3 g/dL (6.4-8.2)
[2020-09-30 00:40] LABS: Acetaminophen < 2 ug/mL (10-30); Salicylate < 2.8 mg/dL (<2.8)
--- NOTE | 2020-09-30 06:18 | NUR.NOTE ---
Referral to Care Management for and authorization for RCT ride home. Arrived via [facility].Nursing Note:
== END 2020-09-30 07:31 | disposition home or self-care (01) ==
PROVIDERS: Emergency Provider Student in an Organized Health Care Education/Training Program; PCP Nurse Practitioner
DX: F10.120 Alcohol abuse with intoxication, uncomplicated (principal)
CPT/HCPCS: 80053; 80307; 96360; 99284; 80320; 80329; 82140; 84443; 85025; 99283

== ENCOUNTER 2020-10-04 14:46 | Outpatient (CLI) | payer MEDICAID, SELFPAY ==
--- NOTE | 2020-10-04 14:45 | RT.EKG_ITS ---
APPROVED REPORT Exam: Resting ECG Reason for Exam: Tacky Patient Location: O HR:103 bpm ECG Measurements Heart Rate 103 AXIS MA 173 P 49 QRSd 100 QRS -14 QT 372 T 37 QTc 488 Conclusion Sinus tachycardia...rate> 99
== END 2020-10-04 14:47 | disposition home or self-care (01) ==
LOC: DI.CM 14:46
PROVIDERS: PCP Nurse Practitioner; Visit Provider Nurse Practitioner Family
DX: R07.89 Other chest pain (principal)
CPT/HCPCS: 93010

== ENCOUNTER 2020-10-04 16:29 | Emergency (ER) | payer MEDICAID, SELFPAY ==
[2020-10-04] VITALS (110 sets, daily range): BP systolic 101–142; BP diastolic 67–89; PULSE 89–118; RESP 10–27; TEMP 36.3; O2SAT 90–98
--- NOTE | 2020-10-04 16:30 | RT.EKG_ITS ---
APPROVED REPORT Exam: Resting ECG Reason for Exam: GI bleed Patient Location: E HR:101 bpm ECG Measurements Heart Rate 101 AXIS ND 179 P 25 QRSd 100 QRS -19 QT 369 T 24 QTc 480 Conclusion Sinus tachycardia...rate> 99 Physician: no stemi, inverted t wave of V1, unchanged
--- NOTE | 2020-10-04 16:36 | W.ED.GENAD ---
Discharge Plan Disposition Patient Disposition: [facility] Condition: Serious Discharge Details Clinical Impression: GI (gastrointestinal hemorrhage), Pneumatosis of intestines Primary Care Provider: Angella Deal ED Provider: Priscila Castrejon Home Meds and New Rx's Prescriptions: No Action tamsulosin 0.4 mg capsule 0.4 mg PO DAILY Qty: 90 RF: 4 thiamine mononitrate (vit B1) 100 mg tablet 100 mg PO DAILY Qty: 90 RF: 4 folic acid 1 mg tablet 1 mg PO DAILY Qty: 90 RF: 4 magnesium 200 mg tablet 200 mg PO DAILY Qty: 90 RF: 0 fluoxetine 40 mg capsule 40 mg PO DAILY Qty: 30 RF: 0 Cerovite Advanced Formula 18-400 mg-mcg tablet 1 tab PO DAILY RF: 0 pantoprazole 40 mg Tablet,Delayed Release (Dr/Ec) 40 mg PO BID RF: 0 acamprosate 333 mg Tablet,Delayed Release (Dr/Ec) 666 mg PO TID RF: 0 lactulose 20 gram/30 mL Solution 20 g PO BID RF: 0 melatonin 3 mg tablet 6 mg PO HS PRNRF: 0 propranolol 10 mg tablet 10 mg PO BID RF: 0 mirtazapine 15 mg Tablet 15 mg PO HS RF: 0 ondansetron 4 mg Tablet,Disintegrating 4 mg PO Q6H PRNRF: 0 spironolactone 50 mg Tablet 50 mg PO DAILY RF: 0 ferrous gluconate 324 mg (37.5 mg iron) Tablet 324 mg PO DAILY RF: 0 Medical Decision Making 60-year-old male with a history of alcoholic cirrhosis with ascites, esophageal varices, alcohol abuse, status post banding and TIPS procedure in March 2020 presents to the ER with chief complaint of melena, vomited bright red blood on Sunday PM, increasing abd pain, and suicidal ideation with a plan per urgent care chart. Upon initial exam he did not denies having a plan he does endorse severe depression, he has been noncompliant with his scheduled medications he denies having any alcohol for the last 5 days. He recently got out of alcohol rehab approximately 8 days ago. Patient was sent over from [facility] for further evaluation and treatment. He reports left-sided abdominal pain intermittently. He reports taking two pantoprazole on Sunday and two pantoprazole on Sunday no medications today. GI work-up ordered including CBC, CMP, PT/INR, EKG serial troponins. EKG was reviewed by [Jose Luis Nolasco DO] ER attending, please see his official report. No STEMI sinus tachycardia RBCs 3.93 hemoglobin 11.7 hematocrit 36.3 platelets are thirty-six which seems to be at patient's baseline, PT 14.0 INR 1.4, potassium 3.2 sodium 140, BUN/creatinine within normal limits magnesium 1.4 bilirubin is 5.2 which is up from 3.3, AST 61 ALT 28 alk phos 177 ammonia is 40,initial troponin is within normal limit, albumin 3.0. 1929: Patient reevaluation, he is complaining of nausea after taking p.o. lactulose. Discussed labs and goals for patient. At this time he is requesting to be admitted. CT abdomen pelvis ordered. Protonix 80 mg IV normal saline at one fifty an hour. Lipase added onto labs Patient has declined rectal exam reported [facility] heme-negative on guaiac. Patient has had no emesis while here in department no episodes of diarrhea. Serial troponin negative. 2055: Joey with [facility] on I-pad for evaluation. 2124: evaluation complete, patient declining referral for Psych admission, he is interested in returning to [facility] rehab, Patient tells staffing clerk that if I go home I'm just going to drink until I . Awaiting CT result, will consult with hospitalist for possible admission. 2144: Spoke with Dr. Smith the [facility] radiologist regarding CT results. There is questionable active biliary hemorrhage related to portal hypertension submucosal varices, distal colonic diver reticulosis with a single diverticulum with in the distal descending colon which demonstrates hyperdense content which could represent active diverticular hemorrhage. There is pneumatosis involving the bowel wall in the cecum and the ascending colon which raises the concern for possibility of bowel necrosis. No evidence for perforation or abscess. Due to the CT findings patient may not be a candidate for admission here at [facility]. Lactate ordered on patient's labs. 2148: CT Images pushed to [facility], they are currently at bed capacity, will call me back. 2199: Lactate 0.7, Will consult with Surgery regarding patient. 2201: [facility] transfer Center called, they are not accepting urgent transfers tonight due to bed capacity. 2225: Spoke with Dr. Ramos with General Surgery who accepts patient for ED to ED transfer and evaluation. Will arrange for transfer to [facility]. Patient informed of plan of care to transfer to [facility], verbalized understanding. 2335: EMS here for transport, patient hemodynamically stable at the time of this dictation. This text was generated using [employer] dictation system, please disregard any oddities of phrase or misspellings. HPI General Date/Time Provider Initiated Documentation: 10/04/20 16:30. Information obtained by: patient, RN notes reviewed and old records reviewed. HPI Narrative: 60-year-old male with a history of alcoholic cirrhosis with ascites, esophageal varices, alcohol abuse, status post banding and TIPS procedure in March 2020 presents to the ER with chief complaint of melena, vomited bright red blood on Sunday PM, Increasing abd pain, and suicidal ideation with a plan per urgent care chart. Upon initial exam he did not denies having a plan he does endorse severe depression, he has been noncompliant with his scheduled medications he denies having any alcohol for the last 5 days. He recently got out of alcohol rehab [facility] approximately 8 days ago. Patient was sent over from [facility] for further evaluation and treatment. He reports left-sided and generalized abdominal pain intermittently. He reports taking two pantoprazole on Sunday and two pantoprazole on Sunday no medications today. Related Data Home Medications Medication Instructions Recorded Confirmed folic acid 1 mg tablet 1 mg PO DAILY #90 tab 06/24/20 10/04/20 tamsulosin 0.4 mg capsule 0.4 mg PO DAILY #90 cap 06/24/20 10/04/20 thiamine mononitrate (vit B1) 100 100 mg PO DAILY #90 tab 06/24/20 10/04/20 mg tablet Cerovite Advanced Formula 1 tab PO DAILY 07/18/20 10/04/20 acamprosate 666 mg PO TID 08/04/20 10/04/20 lactulose 20 g PO BID 08/04/20 10/04/20 pantoprazole 40 mg PO BID 08/04/20 10/04/20 fluoxetine 40 mg capsule 40 mg PO DAILY #30 cap 08/24/20 10/04/20 magnesium 200 mg tablet 200 mg PO DAILY #90 tab 08/24/20 10/04/20 melatonin 3 mg tablet 6 mg PO HS PRN 08/24/20 10/04/20 ferrous gluconate 324 mg PO DAILY 09/29/20 10/04/20 mirtazapine 15 mg PO HS 09/29/20 10/04/20 ondansetron 4 mg PO Q6H PRN 09/29/20 10/04/20 propranolol 10 mg PO BID 09/29/20 10/04/20 spironolactone 50 mg PO DAILY 09/29/20 10/04/20 Previous Rx's Medication Instructions Recorded folic acid 1 mg tablet 1 mg PO DAILY #90 tab 06/24/20 tamsulosin 0.4 mg capsule 0.4 mg PO DAILY #90 cap 06/24/20 thiamine mononitrate (vit B1) 100 100 mg PO DAILY #90 tab 06/24/20 mg tablet fluoxetine 40 mg capsule 40 mg PO DAILY #30 cap 08/24/20 magnesium 200 mg tablet 200 mg PO DAILY #90 tab 08/24/20 Allergies Allergy/AdvReac Type Severity Reaction Status Date / Time sertraline AdvReac Severe SEVERE Verified 10/04/20 16:41 WORSENING OF DEPRESSION General NEEMA: 3 Review of Systems Narrative: Constitutional: Negative for fever alert and oriented, well groomed, normal body habitus, appears comfortable. Appears sickly, scleral icterus noted. History of end-stage liver cirrhosis, esophageal varices, alcohol abuse. HEENT: Denies trauma, blurry vision, nasal discharge, sore throat, trouble swallowing. Positive headaches. Chest: Denies chest pain, palpitations, irregular rhythm, hypertension. Respiratory: Denies Shortness of breath, cough, hemoptysis. GI: Denies constipation. Positive left-sided abdominal pain, nausea, dark melena-type watery stools. Denies any hematic emesis since Sunday. : Denies dysuria, hematuria, flank pain, positive dark watery stools Neuro: Denies dizziness, blurry vision, syncope, headache or facial numbness. Hematologic: Denies easy , intolerance to heat or cold, hair loss. FOR[facility]LY [facility], [facility] Medical History Acute GI bleeding Advanced hepatic cirrhosis Alcohol abuse Alcohol dependence with withdrawal with complication Anxiety COVID-19 Depression Desire for detoxification wants to stay sober this time GERD (gastroesophageal reflux disease) History of surgery Hernia repair. Vasectomy. Liver failure with hepatic coma Palliative care patient Upper GI bleed 02/2020- treating gastritis with Pantoprazol 90 days BID, then daily Surgical History H/O vasectomy History of colon resection due to diverticulitis; sigmoid History of esophagogastroduodenoscopy 01/2020- [facility] History of hernia repair Repair of inguinal hernia Vasectomy Family History Mother Neoplasm Father Diabetes Essential hypertension Neoplasm Son No problems noted. Daughter No problems noted. Social History Smoking/Tobacco Use Status: Never Smoking risk assessment performed?: Yes Alcohol Intake: current Alcohol Intake frequency: 3 or more drinks per day Alcohol type: hard liquor Drug use: Occasionally Substance use type: marijuana Details: last ETOH Sunday Caregiver/Support person: Yes Household members: children Number of Children: 2 Communication Needs: Hard of Hearing and Corrective Lenses Education Level: high school Do you need help understanding health information?: Always current occupation: applying for disability Do you think of yourself as: straight/heterosexual Current gender identity: male What is your relationship status?: How often do you talk on the phone with friends or family?: twice per week How often do you get together with friends or relatives?: three or more times per week Panel score (0-1 are the most socially isolated patients): 1 What type of physical activity do you participate in: walking and sedentary lifestyle Duration: < 15 minutes/day Frequency: daily Special radha needs: No Agree to transfusion: Yes Seatbelt use: sometimes 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 Jelani is applying for disability, for liver failure. He says that he understands that if he doesn't stop drinking, he will soon, in a year or less. He has been told this by multiple providers. Exam Narrative Exam Narrative: Constitutional: Alert and oriented x3. Appears older than stated age. Normal body habitus. Appears sickly. Head: Normocephalic, no trauma. Eyes: Pupils PERRLA, Red reflex noted, EOM's intact. Eyelids symmetrical without lesions, discharge, or swelling. Positive scleral icterus noted. ENT: Bilateral TM's WNL, External ear normal to inspection, no mastoid TTP, swelling, or erythema, Nasal turbinates WNL, no nasal discharge. Normal dentition, Posterior pharynx WNL, no exudate. Chest: Tachycardia, normal S1, S2, distal pulses intact. Resp: Lungs clear to auscultation bilaterally, no wheezes, rales, or rhonchi. Abdomen: Nondistended, generalized tenderness with palpation all four quadrants Musculoskeletal: Normal gait, 5/5 strength to all four extremities. Skin: No suspicious rashes or lesions. Capillary refill less than 2 sec. patient is jaundiced from chest abdomen including scleral icterus. Neurologic: Cranial nerves II-XII intact. Alert and oriented x 3. DTR's intact. Hematologic/Lymphatic: No ecchymosis, no lymphadenopathy.
[2020-10-04] MEDS: Ondansetron 4 MG/2 ML VIAL IVP (17:23)
[2020-10-04] MEDS: FAMOTIDINE 20 MG/50 ML BAG 100 MG IVPB (17:25)
[2020-10-04 17:28] LABS: Abs Immature Grans 0.02 10^3/uL (0.0-0.06); Absolute Basophil Count 0.07 10^3/uL (0.0-0.2); Absolute Eosinophil Count 0.13 10^3/uL (0.0-0.7); Absolute Lymphocyte Count 1.87 10^3/uL (1.2-3.4); Absolute Monocyte Count 0.64 10^3/uL (0.1-0.8); Absolute Neutrophil Count 4.24 10^3/uL (1.2-6.7); Eosinophils % 1.9; HCT 36.3 % (40.0-50.0); HGB 11.7 g/dL (13.5-17.5); Immature Grans % 0.3; Lymphocytes % 26.8; MCH 29.8 pg (27.0-33.0); MCHC 32.2 % (32.0-36.0); MCV 92.4 fL (80-95); Monocytes % 9.2; Neutrophils % 60.8; Nucleated RBC 0 %; RBC 3.93 10^6/uL (4.36-5.78); RDW 19.8 % (11.8-14.1); RDW-SD 67.1 fL; WBC 6.97 10^3/uL (4.4-10.8)
[2020-10-04 17:38] LABS: Ammonia 40 umol/L (11-32); INR 1.4 (0.9-1.1)
[2020-10-04 17:43] LABS: ALT 28 U/L (16-63); AST 61 U/L (15-37); Alkaline Phosphatase 177 U/L (46-116); Anion Gap 11.1 mmol/L (3-11); BUN 7 mg/dL (7-18); Bilirubin, Total 5.2 mg/dL (0.2-1.0); CO2 24.9 mmol/L (21.0-32.0); Calcium 8.5 mg/dL (8.5-10.1); Chloride 104 mmol/L (98-107); Glucose 102 mg/dL (74-106); Magnesium 1.4 mg/dL (1.8-2.4); Potassium 3.2 mmol/L (3.5-5.1); Sodium 140 mmol/L (136-145); Total Protein 7.3 g/dL (6.4-8.2); Troponin I < 0.05 ng/mL (<0.06)
[2020-10-04 17:48] LABS: Platelet Count 36 10^3/uL (130-400)
[2020-10-04] MEDS: Lactulose 20 GM/30 ML CUP PO (18:18)
[2020-10-04] MEDS: MAGNESIUM SULFATE 1 GM/100 ML BAG IVPB (18:18)
--- NOTE | 2020-10-04 19:15 | DI.CT_ITS ---
Exam(s) CT ABDOMEN PELVIS W EXAM: CT ABDOMEN PELVIS W CLINICAL HISTORY: GI bleed TECHNIQUE: Imaging Protocol: Axial computed tomography images with coronal and sagittal reformatted images were created and reviewed CONTRAST MATERIAL: Intravenous: Omnipaque 350 Contrast volume:97 mL Oral: No COMPARISON: CT CT CHEST/ABD/PEL WO from 07/18/[address] CHEST PE CTA from 08/03/[address] CHEST W from 08/31/2020 FINDINGS: ABDOMEN: Lung Bases: There is a small hiatal hernia. Liver: There is a cirrhotic appearance to the liver. There is a TIPS procedure. Decreased attenuati on of the liver is seen suggesting fatty infiltration. The hypodense area in the left lobe of the li yolanda is the faintly visualized on the postcontrast examination. It appears unchanged in size compared to the prior examination from 07/18/2020. Gastroesophageal varices are present. There is a recanaliz ed periumbilical vein. Portal, Superior Mesenteric, and Splenic Veins: Patent. No portal venous gas. Gallbladder and Biliary Tract: There is now high density material layering in the gallbladder not pre sent on the prior examination. Pancreas: Normal density, no abnormal calcifications or inflammatory process. There is an adjacent du odenal diverticulum. Spleen: Splenomegaly. The spleen measures 16 cm in length. Adrenals: No masses seen. Kidneys: Normal size, contour and axis. No radiodense stones or obstructive uropathy. No masses seen. Abdominal Aorta: Abdominal portion non-dilated. Moderate atherosclerosis. Bowel: No evidence of obstruction. Mild bowel wall thickening in a few loops of proximal small bowel . Fluid filled loops of small bowel are noted. An infectious or inflammatory enteritis may be consi dered. Appendix is unremarkable. There is pneumatosis involving the cecum and ascending colon. Prio r sigmoid surgery. There are few scattered diverticuli in the sigmoid colon. Is a question of mild inflammation around the single diverticulum in the descending colon. Mild acute diverticulitis canno t be excluded. Peritoneal Cavity: No ascites, collection or mesenteric inflammatory response. No free air. Lymph Nodes: Within normal limits. Bones: Within normal limits for the patient's age. There are old healed bilateral rib fractures. St able anterior wedging of the L1 vertebral body. Soft Tissues: There are findings of a prior right inguinal hernia repair. PELVIS: Bladder: Symmetric distention, no gross wall thickening. Reproductive Organs: There is an enlarged prostate gland which impinges upon the base of the urinary bladder. Lymph Nodes: Within normal limits. Bones: Within normal limits for the patient's age. IMPRESSION: 1. Hyperdense material layering in the gallbladder neck. No prior evidence of cholelithiasis is seen . This may represent active hemorrhage. 2. Pneumatosis involving the cecum and ascending colon. This is not entirely specific. Bowel necros is should be considered. There is no evidence of free air or abscess. 3. Hepatic cirrhosis with portal hypertension. Patent TIPS. 4. Colonic diverticulosis. Question of mild inflammation around the single diverticulum in the dista l descending colon which may represent mild acute diverticulitis. No perforation or abscess. 5. No other findings to suggest active hemorrhage. RADIATION DOSE DELIVERED: 818.25mGy.cm Total DLP DATA REPOSITORY: All CT scans at this facility are submitted to the National Radiology Data Registry (NRDR) Dose Index Registry (DIR) with the [employer] (ACR). RADIATION OPTIMIZATION: All CT scans at this facility use at least one of these dose optimization te chniques: automated exposure control; mA and/or kV adjustment per patient size (includes targeted exa ms where dose is matched to clinical indication); or iterative reconstruction.
[2020-10-04] MEDS: Pantoprazole 40 MG VIAL 80 MG IVP (19:47)
[2020-10-04] MEDS: Normal Saline 1,000 ML 150 ML IV (19:48)
[2020-10-04] MEDS: Omnipaque 350 MG/ML 100 ML BTL IJ (19:56)
[2020-10-04] MEDS: Normal Saline - Diluent 50 ML VIAL IV (19:57)
[2020-10-04 19:58] LABS: Lipase 151 U/L (73-393)
[2020-10-04 20:35] LABS: Source Nasal/Nares
[2020-10-04 20:44] LABS: Troponin I < 0.05 ng/mL (<0.06)
--- NOTE | 2020-10-04 21:34 | DI.VRAD_ITS ---
PROCEDURE INFORMATION: Exam: CT Abdomen And Pelvis With Contrast Exam date and time: 10/04/2020 7:23 PM Age: 60 years old Clinical indication: Condition or disease; Other: Gi bleed; Prior surgery TECHNIQUE: Imaging protocol: Computed tomography of the abdomen and pelvis with contrast. Total images: 1222 COMPARISON: CT CHEST/ABD/PEL WO 07/18/2020 7:58 PM FINDINGS: Lungs: Mild atelectasis in the lung bases. Heart: Heart size normal. Mediastinal space: Small hiatal hernia. Liver: Irregular liver contour consistent with hepatic cirrhosis. There is a TIPS in place which is patent. No mass lesions. No intrahepatic biliary ductal dilatation. Gallbladder and bile ducts: Layering hyperdensity accumulating within the lumen of the gallbladder neck is concerning for active intraluminal hemorrhage. The source is not entirely clear however there are a few slightly prominent vessels around the gallbladder neck and biliary hemorrhage might be due to submucosal varices at the gallbladder neck. Pancreas: Mild pancreatic atrophy without acute abnormality. No pancreatic ductal dilatation. Spleen: Moderate splenomegaly measuring 17 cm craniocaudal. Adrenal glands: Normal. No adrenal mass. Kidneys and ureters: No acute abnormalities. No hydronephrosis or hydroureter. No urinary tract stones are identified. Stomach and bowel: The stomach is largely contracted. Question mild rugal fold thickening which may relate to cirrhosis and hepatic gastropathy or possibly an element of gastritis. No focal ulcer crater is identified. 2.5 cm partially aerated duodenal diverticulum noted. Nondilated small bowel. Moderate fluid content in the small bowel may indicate diarrheal state. Mild-moderate pneumatosis in the cecum and ascending colon. No gross wall thickening or pericolonic stranding. No active contrast accumulation is seen in the region of pneumatosis to suggest active hemorrhage in this region. No portal gas is evident. Mild diverticulosis involving the distal colon with mild stranding around a posterior diverticulum in the distal descending colon on series 5, image 562 suspicious for mild diverticulitis. Hyperdensity within the diverticulum is suspicious for mild active hemorrhage. Appendix: The appendix is normal in caliber and demonstrates no evidence of appendicitis. Intraperitoneal space: No free fluid or air. Vasculature: Gastroesophageal varices noted. Moderate atherosclerotic aortoiliac calcification without aneurysm. Recanalized periumbilical veins. Lymph nodes: No adenopathy. Urinary bladder: Unremarkable as visualized. Reproductive: Moderately enlarged prostate. Bones/joints: Bilateral chronic lower lateral rib fractures again noted. Osteopenia. Mild-moderate chronic inferior endplate compression deformity of L1 unchanged. Moderate-severe disc degenerative changes L2-L3. Soft tissues: Chronic scarring and fluid in the proximal right inguinal canal, possibly prior hernia repair, correlate with operative history. This is unchanged. IMPRESSION: 1. Hyperdense layering contrast accumulation in the gallbladder neck concerning for active biliary hemorrhage, possibly related to portal hypertension and submucosal varices. 2. Mild distal colonic diverticulosis with mild stranding around a single diverticulum in the posterior distal descending colon which demonstrates hyperdense content which could represent active diverticular hemorrhage. No evidence of perforation or abscess. 3. If clinically indicated, nuclear medicine GI bleeding scan could be helpful. 4. There is pneumatosis involving the bowel wall in the cecum and ascending colon. This raises concern for the possibility of bowel necrosis although not entirely specific. No evidence of perforation or abscess. 5. Hepatic cirrhosis with splenomegaly consistent with portal hypertension. Patent TIPS. Evidence of portosystemic shunting with gastroesophageal varices and recanalized periumbilical veins. 6. Question rugal fold thickening in the stomach which may relate to its contracted status or hepatic gastropathy although cannot exclude gastritis. No evidence of gastric hemorrhage. 7. Additional non-emergent findings detailed above. 8. These findings initiated a critical results reporting process. An addendum will be issued at the time of clinician notification. Dictated and Authenticated by: Salvador Xie MD. Ordering:SATYA Francois MD
--- NOTE | 2020-10-04 21:37 | DI.VRAD_ITS ---
Addendum created by Salvador Xie MD on 10/04/2020 9:37:51 PM EDT: Addendum: THIS REPORT CONTAINS FINDINGS THAT MAY BE CRITICAL TO PATIENT CARE. The findings were verbally communicated via telephone conference with DARIEL SMITH at 9:37 PM EDT on 10/04/2020. The findings were acknowledged and understood. Initial report created on 10/04/2020 9:33:46 PM EDT: PROCEDURE INFORMATION: Exam: CT Abdomen And Pelvis With Contrast Exam date and time: 10/04/2020 7:23 PM Age: 60 years old Clinical indication: Condition or disease; Other: Gi bleed; Prior surgery TECHNIQUE: Imaging protocol: Computed tomography of the abdomen and pelvis with contrast. Total images: 1222 COMPARISON: CT CHEST/ABD/PEL WO 07/18/2020 7:58 PM FINDINGS: Lungs: Mild atelectasis in the lung bases. Heart: Heart size normal. Mediastinal space: Small hiatal hernia. Liver: Irregular liver contour consistent with hepatic cirrhosis. There is a TIPS in place which is patent. No mass lesions. No intrahepatic biliary ductal dilatation. Gallbladder and bile ducts: Layering hyperdensity accumulating within the lumen of the gallbladder neck is concerning for active intraluminal hemorrhage. The source is not entirely clear however there are a few slightly prominent vessels around the gallbladder neck and biliary hemorrhage might be due to submucosal varices at the gallbladder neck. Pancreas: Mild pancreatic atrophy without acute abnormality. No pancreatic ductal dilatation. Spleen: Moderate splenomegaly measuring 17 cm craniocaudal. Adrenal glands: Normal. No adrenal mass. Kidneys and ureters: No acute abnormalities. No hydronephrosis or hydroureter. No urinary tract stones are identified. Stomach and bowel: The stomach is largely contracted. Question mild rugal fold thickening which may relate to cirrhosis and hepatic gastropathy or possibly an element of gastritis. No focal ulcer crater is identified. 2.5 cm partially aerated duodenal diverticulum noted. Nondilated small bowel. Moderate fluid content in the small bowel may indicate diarrheal state. Mild-moderate pneumatosis in the cecum and ascending colon. No gross wall thickening or pericolonic stranding. No active contrast accumulation is seen in the region of pneumatosis to suggest active hemorrhage in this region. No portal gas is evident. Mild diverticulosis involving the distal colon with mild stranding around a posterior diverticulum in the distal descending colon on series 5, image 562 suspicious for mild diverticulitis. Hyperdensity within the diverticulum is suspicious for mild active hemorrhage. Appendix: The appendix is normal in caliber and demonstrates no evidence of appendicitis. Intraperitoneal space: No free fluid or air. Vasculature: Gastroesophageal varices noted. Moderate atherosclerotic aortoiliac calcification without aneurysm. Recanalized periumbilical veins. Lymph nodes: No adenopathy. Urinary bladder: Unremarkable as visualized. Reproductive: Moderately enlarged prostate. Bones/joints: Bilateral chronic lower lateral rib fractures again noted. Osteopenia. Mild-moderate chronic inferior endplate compression deformity of L1 unchanged. Moderate-severe disc degenerative changes L2-L3. Soft tissues: Chronic scarring and fluid in the proximal right inguinal canal, possibly prior hernia repair, correlate with operative history. This is unchanged. IMPRESSION: 1. Hyperdense layering contrast accumulation in the gallbladder neck concerning for active biliary hemorrhage, possibly related to portal hypertension and submucosal varices. 2. Mild distal colonic diverticulosis with mild stranding around a single diverticulum in the posterior distal descending colon which demonstrates hyperdense content which could represent active diverticular hemorrhage. No evidence of perforation or abscess. 3. If clinically indicated, nuclear medicine GI bleeding scan could be helpful. 4. There is pneumatosis involving the bowel wall in the cecum and ascending colon. This raises concern for the possibility of bowel necrosis although not entirely specific. No evidence of perforation or abscess. 5. Hepatic cirrhosis with splenomegaly consistent with portal hypertension. Patent TIPS. Evidence of portosystemic shunting with gastroesophageal varices and recanalized periumbilical veins. 6. Question rugal fold thickening in the stomach which may relate to its contracted status or hepatic gastropathy although cannot exclude gastritis. No evidence of gastric hemorrhage. 7. Additional non-emergent findings detailed above. 8. These findings initiated a critical results reporting process. An addendum will be issued at the time of clinician notification. Dictated and Authenticated by: Salvador Xie MD. Ordering:SATYA Francois MD
[2020-10-04 21:54] LABS: Lactate 0.7 mmol/L (0.6-1.4)
[2020-10-04 22:06] LABS: ETHANOL BLOOD 4.6 mg/dL (<3)
--- NOTE | 2020-10-04 22:33 | PDOC.MHCN_ITS ---
Date of service: 10/04/20 Time of Service: 21:00 Mental Health Crisis Note Presenting Issue How did you arrive at the ED and why did you come: Client presented to [facility] ED following referral from [facility] with chief complaint of GI bleed and endorsement of severe depression with passive intermittent SI. Precipitating Factors The client presented lying down on hospital bed. Appearance was mildly disheveled with poor grooming. Fully alert and oriented with self-reported deficits in memory. Fund of knowledge appeared intact. Behaviorally cooperative and responsive to all questions. Speech was slowed, slight stammering, otherwise normal. Mood reported as depressed with congruent affect. No evidence or report o delusions, hallucinations, or psychotic thought process. Client endorsed worsening depressive symptoms, described as moderate to severe, with passive SI. He did not endorse intent or plan at time of assessment. He denied thoughts of harming others. He reported not being compliant with his scheduled fluoxetine since Sunday10.02.20 with cited reasoning as I got 13 pills to take at once. I just get kind of overwhelmed. It didn't seem to be working. I know it's a poor excuse. He reported extensive alcohol abuse history and multiple [facility] rehab placements. He stated that I just don?t feel good about myself. When I'm alone I get depressed. I don't have a plan or anything. I just need to get my act together so I can see my grandkids grow up. Client reported that his son has taken measures to remove all alcohol from the home. No additional information disclosed during interaction. Disposition BEHAVIOR: Calm, cooperative EYE CONTACT: Good MOOD: Depressed AFFECT: Congruent to stated mood APPETITE: Poor SLEEP(trouble falling/staying asleep: Dysregulated since 09.29.20 Plan The client declined referral for in-patient psychiatric admission at this time. He stated that he is interested in returning to [facility] and wishes to discuss alternative medications with his PCP at [facility] in the morning. H lynn advised that he would prefer to stay at [facility] tonight due to medical concerns and to stop himself from drinking. Client is currently a medical admit. [facility] will follow-up tomorrow and provide additional support as needed. Signature Clinician's Name/Title: Shamar Brandon, [facility] clinician / hp
[2020-10-04 23:09] LABS: COVID-19 PCR Negative (Negative)
== END 2020-10-04 23:42 | disposition short-term general hospital (02) ==
PROVIDERS: Emergency Provider Registered Nurse Emergency; PCP Nurse Practitioner
DX: K92.2 Gastrointestinal hemorrhage, unspecified (principal); K63.89 Other specified diseases of intestine
CPT/HCPCS: 36415; 80053; 83690; 87635; 93005; 96361; 96365; 96366; 96367; 96368; 96375; 99285; 74177; 80320; 82140; 83605; 83735; 84484; 85025; 85610; 93010; 99284; J2405; J3475; J3490

== ENCOUNTER 2020-11-15 19:30 | Emergency (ER) | payer MEDICAID, SELFPAY ==
[2020-11-15] VITALS (15 sets, daily range): BP systolic 109–132; BP diastolic 55–73; PULSE 103–115; RESP 16–18; TEMP 36.6; O2SAT 89–95
--- NOTE | 2020-11-15 19:41 | W.ED.GENAD ---
Discharge Plan Disposition Patient Disposition: HOME Condition: Stable Discharge Details Clinical Impression: Major depression, Alcohol intoxication, Nausea and vomiting Primary Care Provider: Angella Deal ED Provider: Beba Davila Home Meds and New Rx's Prescriptions: Continued tamsulosin 0.4 mg capsule 0.4 mg PO DAILY Qty: 90 RF: 4 thiamine mononitrate (vit B1) 100 mg tablet 100 mg PO DAILY Qty: 90 RF: 4 folic acid 1 mg tablet 1 mg PO DAILY Qty: 90 RF: 4 ihxombjokawj-lwdl-fyfcf acid 18-400 mg-mcg tablet 1 tab PO DAILY Qty: 90 RF: 4 fluoxetine 40 mg capsule 40 mg PO DAILY Qty: 90 RF: 3 magnesium 200 mg tablet 200 mg PO DAILY Qty: 90 RF: 0 pantoprazole 40 mg Tablet,Delayed Release (Dr/Ec) 40 mg PO BID RF: 0 acamprosate 333 mg Tablet,Delayed Release (Dr/Ec) 666 mg PO TID RF: 0 lactulose 20 gram/30 mL Solution 20 g PO BID RF: 0 melatonin 3 mg tablet 6 mg PO HS PRNRF: 0 ondansetron 4 mg Tablet,Disintegrating 4 mg PO Q6H PRNRF: 0 ferrous gluconate 324 mg (37.5 mg iron) Tablet 324 mg PO DAILY RF: 0 Discharge Instructions Instructions: Depression (ED), Alcohol Intoxication (ED), Acute Nausea and Vomiting (ED) Additional Instructions: Drink plenty of fluids and get plenty of rest. Take Zofran as needed and directed for nausea and vomiting. You will be contacted by [facility] for your depression and by home health for a home health evaluation. Follow-up with your primary care doctor in 1 week. Return to the emergency department with any worsening or new concerning symptoms. Discharge Data Discharge Date/Time-TO BE ENTERED AT DEPARTURE: 11/16/20 12:16 Discharge Physician: Beba Davila Medical Decision Making <Priscila Castrejon - Last Filed: 11/16/20 18:12> 60-year-old male with past medical history of alcoholic cirrhosis, GERD, TIPS procedure placed in March, anxiety depression, GI bleed presents to the ER with chief complaint of alcohol intoxication and suicidal ideation. Patient got out of rehab approximately 2 weeks ago and has been drinking daily since released from rehab. Patient endorses a half 1/5 of vodka last drink was 6 hours prior to arrival. He does appear intoxicated upon arrival, he is alert and oriented, appears jaundice. He denies any abdominal pain or GI bleed symptoms however, he does report some right side flank pain from a fall approximately 1 week ago. No abrasions bruising or signs of trauma noted. Labs are largely at baseline however, bilirubin is significantly elevated 8.3 total bilirubin does have urine urobilinogen spilling, UDS is positive for benzodiazepines, cocaine, THC ethyl alcohol is 392.5. Due to the alcohol level mental health cannot do an evaluation until alcohol is less than 0.8 per Joey with [facility], I do for see the patient not been able to have a mental health evaluation until the a.m. [facility] report Imaging protocol: XR Right ribs. Bones/joints: Chronic fractures of the right 6th, 7th and 8th rib. Subacute/chronic nondisplaced fracture of the lateral/anterior right 10th rib. Impression acute Lungs: Focal hazy opacity within the lateral left pulmonary base may be secondary to patient rotation. Atelectasis or early infiltrate cannot be completely excluded. Organs: Status post TIPS creation. Soft tissues: Normal. IMPRESSION: 1. Focal hazy opacity within the lateral left pulmonary base may be secondary to patient rotation. Atelectasis or early infiltrate cannot be completely excluded. 2. Nondisplaced subabacute (not completely healed) right 10th rib fracture. Healed fractures of the right 6th, 7th and 8th rib. FINDINGS: Lungs: Unremarkable. No consolidation. Pleural spaces: Unremarkable. No pleural effusion. No pneumothorax. Heart/Mediastinum: Unremarkable. No cardiomegaly. Bones/joints: Chronic fractures of the right 6th, 7th and 8th rib. Subacute/chronic nondisplaced fracture of the lateral/anterior right 10th rib. IMPRESSION: 1. Subacute/chronic nondisplaced fracture of the lateral/anterior right 10th rib. 2. Healed fractures of the right 6th, 7th and 8th rib. 2055: assistant softball coach at bedside speaking with patient. 2119: Patient complaining of acid reflux, had some dry heaving some nausea. Normal saline ordered, Protonix 40 mg, and Zofran 4 mg IV. 2299: Banana Bag ordered. Patient will be observed until clinically sober and until can be evaluated by Mental Health. Patient is hemodynamically stable at this time, he does intermittently desat to 89%-88% RA, but easily bounces back to 92%. 2359: Care to be handed off to ER Dr. Han Green, discussed patient case and details, pending alcohol metabolism and mental health evaluation when patient is clinically sober. At the time of this dictation patient is hemodynamically stable, calm and cooperative. <Beba Davila DO - Last Filed: 11/19/20 09:35> 0800 -- Please see previous providers notes for initial presentation, exam, course and plan. Patient is medically cleared. Based on alcohol level overnight, he is currently now below 100 and can be evaluated by mental health. [facility] called and will come to evaluate pt. Patient is complaining of nausea and dry heaving. He did recently Zofran last night and 4 AM this morning. Upon my evaluation in room, patient is sitting up clear mucus and foam. No hematemesis. He does not appear acutely in withdrawal. We will give a dose of Zofran. He does endorse feeling shaky but does not appear tremulous, diaphoretic. Will give a dose of Ativan. He admits to feeling depressed at times but does not have a plan. He is being futuristic in the fact that he states he does not want to harm himself because he wants to be here for his family and grandchildren. 0930 --patient cleared for discharge to home by mental health. Patient states he would like to stay in the hospital because his son does not help him at home because of his drinking. Patient does not appear to be in acute withdrawal. Blood pressure and heart rate within normal limits. Will do a p.o. challenge and attempt to ambulate. Will call care management to assess for home health. Care management evaluated patient at bedside for home health evaluation for medication and physical therapy assessment. Patient appears in no acute distress, he was able to eat without any vomiting and demonstrates no signs of acute alcohol withdrawal. 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 Advised to follow up with the primary care doctor for re-evaluation. Usual and customary return precautions given prior to discharge. Medical Records Medical records reviewed: Yes I reviewed the patient's medical records. HPI <Priscila Castrejon - Last Filed: 11/16/20 18:12> General Mode of arrival: EMS. Date/Time Provider Initiated Documentation: 11/15/20 19:56. Limitations to Documentation: altered mental status (Intoxicated). Information obtained by: patient, RN notes reviewed and old records reviewed. HPI Narrative: 60-year-old male with past medical history of alcoholic cirrhosis, GERD, TIPS procedure placed in March, anxiety depression, GI bleed presents to the ER with chief complaint of alcohol intoxication and suicidal ideation. Patient got out of rehab approximately 2 weeks ago and has been drinking daily since released from rehab. Patient endorses a half 1/5 of vodka last drink was 6 hours prior to arrival. He does appear intoxicated upon arrival, he is alert and oriented, appears jaundice. He denies any abdominal pain or GI bleed symptoms however, he does report some right side flank pain from a fall approximately 1 week ago. No abrasions bruising or signs of trauma noted. Related Data Home Medications Medication Instructions Recorded Confirmed folic acid 1 mg tablet 1 mg PO DAILY #90 tab 06/24/20 11/15/20 tamsulosin 0.4 mg capsule 0.4 mg PO DAILY #90 cap 06/24/20 11/15/20 thiamine mononitrate (vit B1) 100 100 mg PO DAILY #90 tab 06/24/20 11/15/20 mg tablet acamprosate 666 mg PO TID 08/04/20 11/15/20 lactulose 20 g PO BID 08/04/20 11/15/20 pantoprazole 40 mg PO BID 08/04/20 11/15/20 melatonin 3 mg tablet 6 mg PO HS PRN 08/24/20 11/15/20 ferrous gluconate 324 mg PO DAILY 09/29/20 11/15/20 ondansetron 4 mg PO Q6H PRN 09/29/20 11/15/20 fluoxetine 40 mg capsule 40 mg PO DAILY #90 cap 10/19/20 11/15/20 magnesium 200 mg tablet 200 mg PO DAILY #90 tab 10/19/20 11/15/20 multivitamin-ferrous 1 tab PO DAILY #90 tab 10/19/20 11/15/20 fumarate-folic acid 18 mg-400 mcg tablet Previous Rx's Medication Instructions Recorded folic acid 1 mg tablet 1 mg PO DAILY #90 tab 06/24/20 tamsulosin 0.4 mg capsule 0.4 mg PO DAILY #90 cap 06/24/20 thiamine mononitrate (vit B1) 100 100 mg PO DAILY #90 tab 06/24/20 mg tablet fluoxetine 40 mg capsule 40 mg PO DAILY #90 cap 10/19/20 magnesium 200 mg tablet 200 mg PO DAILY #90 tab 10/19/20 multivitamin-ferrous 1 tab PO DAILY #90 tab 10/19/20 fumarate-folic acid 18 mg-400 mcg tablet Allergies Allergy/AdvReac Type Severity Reaction Status Date / Time sertraline AdvReac Severe SEVERE Verified 11/15/20 20:06 WORSENING OF DEPRESSION General Stated Complaint: PsychEval NEEMA: 2 Review of Systems <Priscila Castrejon - Last Filed: 11/16/20 18:12> All systems reviewed & are unremarkable except as noted in HPI and below Constitutional Constitutional: Reports as per HPI and Reports frequent falls ENT Ears, Nose, Mouth, and Throat: Reports dizziness Cardiovascular Cardiovascular: Denies chest pain and Denies dyspnea Respiratory Respiratory: Denies dyspnea Musculoskeletal Musculoskeletal: Reports back pain (right Flank pain s/p Fall) Neurologic Neurologic: Denies abnormal movements, Reports behavioral changes, Reports dizziness and Reports frequent falls Psychiatric Psychiatric: Reports behavioral changes, Reports depression and Reports suicidal ideation (States I do not want to wake up) PFS <Priscila Castrejon - Last Filed: 11/16/20 18:12> Medical History Acute GI bleeding Advanced hepatic cirrhosis Alcohol abuse Alcohol dependence with withdrawal with complication Anxiety COVID-19 Depression Desire for detoxification wants to stay sober this time GERD (gastroesophageal reflux disease) History of surgery Hernia repair. Vasectomy. Liver failure with hepatic coma Palliative care patient Upper GI bleed 02/2020- treating gastritis with Pantoprazol 90 days BID, then daily Surgical History H/O vasectomy History of colon resection due to diverticulitis; sigmoid History of esophagogastroduodenoscopy 01/2020- [facility] [place] History of hernia repair Repair of inguinal hernia Vasectomy Family History Mother Neoplasm Father Diabetes Essential hypertension Neoplasm Son No problems noted. Daughter No problems noted. Social History Smoking/Tobacco Use Status: Never Smoking risk assessment performed?: Yes Alcohol Intake: current Alcohol Intake frequency: 3 or more drinks per day Alcohol type: hard liquor Drug use: Occasionally Substance use type: marijuana Details: last ETOH Sunday Caregiver/Support person: Yes Household members: children Number of Children: 2 Communication Needs: Hard of Hearing and Corrective Lenses Education Level: high school Do you need help understanding health information?: Always current occupation: applying for disability Do you think of yourself as: straight/heterosexual Current gender identity: male What is your relationship status?: How often do you talk on the phone with friends or family?: twice per week How often do you get together with friends or relatives?: three or more times per week Panel score (0-1 are the most socially isolated patients): 1 What type of physical activity do you participate in: walking and sedentary lifestyle Duration: < 15 minutes/day Frequency: daily Special radha needs: No Agree to transfusion: Yes Seatbelt use: sometimes Drive intox or ride w/intox personal driver: Yes Working smoke detector in home: Yes Fire extinguisher in home: Yes Do you feel safe at home: Yes Do you feel safe in your relationship?: Yes Additional Social history: Lives with his son. Jelani is applying for disability, for liver failure. He says that he understands that if he doesn't stop drinking, he will soon, in a year or less. He has been told this by multiple providers. Exam <Priscila Castrejon - Last Filed: 11/16/20 18:12> Narrative Exam Narrative: Constitutional: Alert and oriented x3. Appears stated age. Normal body habitus. Head: Normocephalic, no signs of trauma. Eyes: Pupils PERRLA, Red reflex noted, EOM's intact. Eyelids symmetrical without lesions, discharge, or swelling. Conjunctival icterus noted bilaterally ENT: Bilateral TM's WNL, External ear normal to inspection, no mastoid TTP, swelling, or erythema, Nasal turbinates WNL, no nasal discharge. Normal dentition, Posterior pharynx WNL, no exudate. Chest: RRR, Normal S1, S2, distal pulses intact. Resp: Lungs clear to auscultation bilaterally, no wheezes, rales, or rhonchi. Abdomen: Soft, nondistended nontender to palpation all 4 quadrants. No signs of trauma. Musculoskeletal: , 5/5 strength to all four extremities. Skin: No suspicious rashes or lesions. Capillary refill less than 2 sec. patient is jaundiced from abdomen to head. Neurologic: Cranial nerves II-XII intact. Alert and oriented x 3. No extremity tremors noted at this time. Patient is complaining of dizziness. Hematologic/Lymphatic: No ecchymosis, no lymphadenopathy. Course <Priscila Castrejon - Last Filed: 11/16/20 18:12> Vital Signs Vital signs: Vital Signs Temperature 36.6 C 11/15/20 19:28 Pulse 106 H 11/15/20 19:28 Respiratory Rate 18 11/15/20 19:28 Blood Pressure 130/72 11/15/20 19:28 Pulse Oximetry 95 11/15/20 19:28 Temperature 36.6 C 11/15/20 19:28 Temperature Source Oral 11/15/20 19:28 Pulse 106 H 11/15/20 19:28 Respiratory Rate 18 11/15/20 19:28 Respiratory Effort Non-Labored 11/15/20 19:35 Blood Pressure 130/72 11/15/20 19:28 Blood Pressure Position Sitting 11/15/20 19:28 Pulse Oximetry 95 11/15/20 19:28 Oxygen Delivery Method Room Air 11/15/20 19:28 Oxygen Flow Rate 0 11/15/20 19:28 Pain Level 8 11/15/20 19:28 Sign Out <Priscila Castrejon - Last Filed: 11/16/20 18:12> Sign Out Data: Sign Out Comment: Pending Alcohol metabolism, observation for withdrawal symptoms, and mental health evaluation for suicidal ideation. Hx of end stage Alcoholic liver cirrhosis, Esophageal varices, GERD, Tips placement at [facility] [place], GI bleed. Has been to rehab x 2 this year, last released from [facility] 2 weeks ago, has been drinking every day since release. Has been given Protonix 40mg, GI cocktail, Zofran 4mg, and Banana Bag Last updated by Priscila Castrejon at 11/16/20 00:09 Sign Out Comment: No issues overnight. Received melatonin for sleep, lidocaine patch for sciatic pain, Zofran for some nausea. He has ambulated to the bathroom a number of times without difficulty. Will have mental health evaluate but at this point is not endorsing SI or HI. Last updated by Zuhair Green MD at 11/16/20 07:45
--- NOTE | 2020-11-15 20:00 | DI.RAD_ITS ---
Exam(s) XR RIBS RT W PA LAT CHEST EXAM: XR RIBS RT W PA LAT CHEST CLINICAL HISTORY: R/O new rib fracture, fall rib pain TECHNIQUE: 2D digital imaging was performed. COMPARISON: CR XR PORTABLE CHEST AP from 04/13/2020 FINDINGS: MEDIASTINUM: Normal. HEART: Normal. PULMONARY VASCULATURE: Normal. LUNGS: Clear. PLEURAL SPACE: No pleural effusion or pneumothorax. BONE:Normal. RIGHT RIBS: Old healed rib fractures. There is a subacute/healing fracture of the anterior aspect of the right 10th rib. OTHER FINDINGS:There is a stent in the right upper quadrant of the abdomen consistent with a TIPS pro cedure. IMPRESSION: 1. No acute pulmonary findings. 2. Nondisplaced subacute, healing fracture of the anterior aspect of the right 10th rib. 3. Old healed bilateral rib fractures. DATA REPOSITORY: RADIATION DOSE DELIVERED:
[2020-11-15 20:07] LABS: Abs Immature Grans 0.02 10^3/uL (0.0-0.06); Absolute Basophil Count 0.07 10^3/uL (0.0-0.2); Absolute Eosinophil Count 0.04 10^3/uL (0.0-0.7); Absolute Lymphocyte Count 2.07 10^3/uL (1.2-3.4); Absolute Monocyte Count 0.47 10^3/uL (0.1-0.8); Absolute Neutrophil Count 4.05 10^3/uL (1.2-6.7); Eosinophils % 0.6; HCT 38.3 % (40.0-50.0); HGB 12.1 g/dL (13.5-17.5); Immature Grans % 0.3; Lymphocytes % 30.8; MCH 30.4 pg (27.0-33.0); MCHC 31.6 % (32.0-36.0); MCV 96.2 fL (80-95); Neutrophils % 60.3; Nucleated RBC 0 %; Platelet Count 42 10^3/uL (130-400); RBC 3.98 10^6/uL (4.36-5.78); RDW 21.9 % (11.8-14.1); RDW-SD 77.1 fL; WBC 6.72 10^3/uL (4.4-10.8)
[2020-11-15 20:19] LABS: ALT 43 U/L (16-63); AST 198 U/L (15-37); Albumin 2.3 g/dL (3.4-5.0); Alkaline Phosphatase 229 U/L (46-116); Anion Gap 14.6 mmol/L (3-11); BUN 5 mg/dL (7-18); Bilirubin, Total 8.3 mg/dL (0.2-1.0); CO2 23.4 mmol/L (21.0-32.0); CREATININE 0.8 mg/dL (0.70-1.30); Calcium 7.9 mg/dL (8.5-10.1); Chloride 104 mmol/L (98-107); ETHANOL BLOOD 392.5 mg/dL (<3); Glucose 93 mg/dL (74-106); INR 1.5 (0.9-1.1); Potassium 3.7 mmol/L (3.5-5.1); Prothrombin Time 14.8 sec (9.3-11.0); Sodium 142 mmol/L (136-145); Total Protein 8.5 g/dL (6.4-8.2)
[2020-11-15 20:20] LABS: Bilirubin Large (Negative); Blood Trace-intact (Negative); Clarity Clear (Clear); Glucose Negative (Negative); Ketones 15 mg/dL (Negative); Leukocyte Esterase Negative (Negative); Nitrite Negative (Negative); Specific Gravity 1.025 (1.005-1.025)
[2020-11-15 20:22] LABS: Anisocytosis 2+; Diff Comment RBC Morph Reviewed
[2020-11-15 20:27] LABS: Bacteria Negative HPF (Negative); C & S Indicated? No; Casts 3-5 Hyaline LPF (Negative); Crystals Few Amorphous HPF (Negative); Epithelial Cells Rare HPF (Negative); Mucus Trace (Negative); RBC 0-2 HPF (0-2); WBC 0-2 HPF (0-5)
[2020-11-15 20:34] LABS: Acetaminophen < 2 ug/mL (10-30); Salicylate < 2.8 mg/dL (<2.8)
[2020-11-15 20:38] LABS: *AMPHETAMINES SCREEN URINE Negative (Negative); *BARBITURATES SCREEN URINE Negative (Negative); *BENZODIAZEPINES SCREEN URINE Positive (Negative); Cannabinoids THC Positive (Negative); Cocaine Screen,Urine Positive (Negative); METHADONE URINE SCREEN Negative (Negative); OPIATES URINE SCREEN Negative (Negative)
[2020-11-15 20:42] LABS: Tricyclic Antidepressants Negative (Negative)
[2020-11-15 20:56] LABS: Source Nasal/Nares
--- NOTE | 2020-11-15 21:05 | DI.VRAD_ITS ---
PROCEDURE INFORMATION: Exam: XR Right Ribs Exam date and time: 11/15/2020 8:03 PM Age: 60 years old Clinical indication: Right-sided; Chest wall pain; Patient HX: R/O new rib fracture, fall with rib pain TECHNIQUE: Imaging protocol: XR Right ribs. Views: 2 views. COMPARISON: CT CHEST W 08/31/2020 11:47 AM FINDINGS: Bones/joints: Chronic fractures of the right 6th, 7th and 8th rib. Subacute/chronic nondisplaced fracture of the lateral/anterior right 10th rib. Impression acute Lungs: Focal hazy opacity within the lateral left pulmonary base may be secondary to patient rotation. Atelectasis or early infiltrate cannot be completely excluded. Organs: Status post TIPS creation. Soft tissues: Normal. IMPRESSION: 1. Focal hazy opacity within the lateral left pulmonary base may be secondary to patient rotation. Atelectasis or early infiltrate cannot be completely excluded. 2. Nondisplaced subacute (not completely healed) right 10th rib fracture. Healed fractures of the right 6th, 7th and 8th rib. PROCEDURE INFORMATION: Exam: XR Chest Exam date and time: 11/15/2020 8:03 PM Age: 60 years old Clinical indication: Right-sided; Chest wall pain; Patient HX: R/O new rib fracture, fall with rib pain TECHNIQUE: Imaging protocol: XR of the chest. Views: 2 views. COMPARISON: CT CHEST W 08/31/2020 11:47 AM FINDINGS: Lungs: Unremarkable. No consolidation. Pleural spaces: Unremarkable. No pleural effusion. No pneumothorax. Heart/Mediastinum: Unremarkable. No cardiomegaly. Bones/joints: Chronic fractures of the right 6th, 7th and 8th rib. Subacute/chronic nondisplaced fracture of the lateral/anterior right 10th rib. IMPRESSION: 1. Subacute/chronic nondisplaced fracture of the lateral/anterior right 10th rib. 2. Healed fractures of the right 6th, 7th and 8th rib. Dictated and Authenticated by: Luis Felipe Barroso MD. Ordering:SATYA Francois MD
[2020-11-15] MEDS: Ondansetron 4 MG/2 ML VIAL IVP (21:33)
[2020-11-15] MEDS: Normal Saline 1,000 ML 1000 ML IV (21:34)
[2020-11-15] MEDS: Pantoprazole 40 MG VIAL IVP (21:35)
[2020-11-15 22:03] LABS: COVID-19 PCR Negative (Negative)
[2020-11-15] MEDS: Sucralfate 1 GM TAB PO (22:38)
[2020-11-15 22:49] LABS: Magnesium 1.7 mg/dL (1.8-2.4)
[2020-11-16] VITALS (33 sets, daily range): BP systolic 105–134; BP diastolic 50–73; PULSE 78–106; RESP 16–24; TEMP 36.6; O2SAT 85–96
[2020-11-16] MEDS: MAGNESIUM SULFATE 8.12 MEQ, MULTIVITAMIN 10 ML, THIAMINE 100 MG, FOLIC ACID 1 MG in Nor... 168.867 MG IV (00:23)
[2020-11-16] MEDS: Thiamine 200 MG/2 ML VIAL (00:26)
[2020-11-16] MEDS: Folic Acid 50 MG/10 ML VIAL (00:28)
[2020-11-16] MEDS: Melatonin 3 MG TAB 6 MG PO (02:47)
[2020-11-16] MEDS: Lidocaine 5% Patch 1 PATCH TP (02:48)
[2020-11-16] MEDS: Ondansetron O.D.T. 4 MG TABEF PO (03:59)
[2020-11-16] MEDS: Ondansetron 4 MG/2 ML VIAL IVP (08:20)
[2020-11-16] MEDS: LORazepam 0.5 MG TAB (08:33)
--- NOTE | 2020-11-16 09:39 | PDOC.MHCN ---
Date of service: 11/16/20 Time of Service: 09:40 Mental Health Crisis Note Presenting Issue How did you arrive at the ED and why did you come: Pt arrived last night via ambulance for intoxication and SI. Precipitating Factors Pt reported passive thoughts of SI but denied having any currently. Pt denied HI. He is not showing any signs of delusions. Disposition BEHAVIOR: Pt is cooperative and engaged in the evaluation. He is hesitant to accept inpatient treatment. He reported that he his not consistent in taking his medications. EYE CONTACT: Pt's eye contact is good. MOOD: Pt presents and reports discomfort in his belly and depressed. AFFECT: Pt's affect is depressed. APPETITE: Pt reported he has not eaten anything in a few days. SLEEP(trouble falling/staying asleep: Pt reported that his sleep is not good unless he passes out. Plan This clinician will make an in house referral for counseling. Pt was encouraged to out reach to his PCP to discuss medication options. He was offered inpatient treatment as well to which he refused It's too far away from my family. He was informed of [facility] 13/11 crisis line and was given a card to have the number. Until Pt is willing to accept treatment for his drinking there is little that others can do.
[2020-11-16] MEDS: Ondansetron O.D.T. 4 MG TABEF, 3 TABS/BTL PO (11:26)
--- NOTE | 2020-11-16 12:09 | PDOC.ERCMPRO ---
- If Service Date Differs Date of service: 11/16/20 Time of Service: 12:09 Care Management Progress Note At the request of ED provider, LAVERN meets with Jelani to assess his needs and offer resources. Jelani states he lives in [place] with his son. He shares that he wants to quit drinking alcohol and says he has been inpatient at [facility] twice but alcohol use continues to be a struggle for him. Jelani also talks about how severely depressed he has been for a few years now. Jelani was assessed by Smita of [facility] this morning and was offered an inpatient psychiatric admission which he declined. Jelani reports difficulty going up the front steps of his home and says he has fallen off of the steps a few times. He also shares that he has fallen inside his home due to being unsteady on his feet. He states that he is prescribed several medications and expresses the concern that he may not be taking his medications as prescribed. Jelani is agreeable to a Home Health referral for assistance with medication compliance and for a physical therapy evaluation.
== END 2020-11-16 12:16 | disposition home or self-care (01) ==
PROVIDERS: Registered Nurse Emergency; Emergency Provider Physician Assistant; PCP Nurse Practitioner
DX: F32.9 Major depressive disorder, single episode, unspecified (principal); R11.2 Nausea with vomiting, unspecified; F10.129 Alcohol abuse with intoxication, unspecified; R45.851 Suicidal ideations; Y90.8 Blood alcohol level of 240 mg/100 ml or more
CPT/HCPCS: 36415; 80053; 80307; 87635; 96361; 96365; 96366; 96375; 96376; 99285; 71046; 71100; 80320; 80329; 81003; 81015; 83735; 85025; 85610; 99284; J2405

== ENCOUNTER 2020-12-16 03:35 | Outpatient (CLI) | payer MEDICAID, SELFPAY ==
[2020-12-16 12:45] LABS: HCT 32.1 % (40.0-50.0); HGB 10.2 g/dL (13.5-17.5); MCH 33.1 pg (27.0-33.0); MCHC 31.8 % (32.0-36.0); MCV 104.2 fL (80-95); RBC 3.08 10^6/uL (4.36-5.78); RDW 18.9 % (11.8-14.1); RDW-SD 73.1 fL; WBC 2.94 10^3/uL (4.4-10.8)
[2020-12-16 13:12] LABS: Platelet Count 20 10^3/uL (130-400)
[2020-12-16 13:20] LABS: ALT 12 U/L (16-63); AST 68 U/L (15-37); Albumin 2.1 g/dL (3.4-5.0); Alkaline Phosphatase 182 U/L (46-116); BUN 3 mg/dL (7-18); Bilirubin, Total 7.2 mg/dL (0.2-1.0); CREATININE 0.8 mg/dL (0.70-1.30); Calcium 7.9 mg/dL (8.5-10.1); Calculated LDL 105 mg/dL (<100); Chloride 102 mmol/L (98-107); Cholesterol 170 mg/dL (<200); Glucose 101 mg/dL (74-106); HDL Cholesterol 40 mg/dL (40-60); Potassium 3.2 mmol/L (3.5-5.1); Sodium 138 mmol/L (136-145); Total Protein 7.5 g/dL (6.4-8.2); Triglyceride 125 mg/dL (<150)
[2020-12-16 17:35] LABS: PSA, Screening 1.3 ng/mL (0.0-4.5)
[2020-12-17 09:31] LABS: AFP Tumor Marker <2.5 ng/mL (<8.1)
== END 2020-12-16 03:36 | disposition home or self-care (01) ==
LOC: LOS 03:36
PROVIDERS: PCP Nurse Practitioner; Visit Provider Nurse Practitioner
DX: D69.6 Thrombocytopenia, unspecified (principal); K92.2 Gastrointestinal hemorrhage, unspecified; K76.89 Other specified diseases of liver; K70.10 Alcoholic hepatitis without ascites; F10.20 Alcohol dependence, uncomplicated; Z13.1 Encounter for screening for diabetes mellitus; Z13.6 Encounter for screening for cardiovascular disorders; Z12.5 Encounter for screening for malignant neoplasm of prostate
CPT/HCPCS: 36415; 80053; 80061; 84153; 85027; 82105; 83036

== ENCOUNTER 2020-12-30 02:14 | Outpatient (CLI) | payer MEDICAID, SELFPAY ==
--- NOTE | 2020-12-30 07:15 | DI.US_ITS ---
Exam(s) US ABDOMEN LIMITED EXAM: US ABDOMEN LIMITED CLINICAL HISTORY: PREOP,ALCOHOLIC CIRRHOSIS,HEPATIC CIRRHOSIS,LIVER NODULE TECHNIQUE: Ultrasound abdomen performed using standard protocol. COMPARISON: CT CT CHEST PE CTA from 08/03/2020 FINDINGS: There is no ascites evident. LIVER: Liver appears somewhat hyperechoic indicating an element of steatosis. There are no discrete focal hepatic lesions evident on these images. GALLBLADDER/BILIARY: There are calculi in the gallbladder neck.. There is mild thickening of the gal lbladder wall and small amount of pericholecystic fluid. The common hepatic duct isnot dilated, measuring 4-5mm at the level of gene hepatis. PANCREAS: There is no evidence of pancreatic mass nor dilatation of the pancreatic duct. RIGHT KIDNEY:No evidence of solid mass, calculus, nor hydronephrosis. No cortical cysts evident. ABDOMINAL AORTA AND IVC: Not visualized IMPRESSION: 1. Cholecystitis and evidence of acute cholecystitis, as described above. The common hepatic duct i s not dilated. 2. Hepatic steatosis. This patient has had a prior TIPS procedure. 3. Pancreas appears unremarkable. DATA REPOSITORY:
== END 2020-12-30 02:34 ==
PROVIDERS: PCP Nurse Practitioner; Visit Provider Nurse Practitioner
DX: K70.31 Alcoholic cirrhosis of liver with ascites (principal); K74.60 Unspecified cirrhosis of liver; K76.89 Other specified diseases of liver; K76.0 Fatty (change of) liver, not elsewhere classified; K81.0 Acute cholecystitis
CPT/HCPCS: 76705

== ENCOUNTER 2021-02-02 03:47 | Outpatient (CLI) | payer MEDICAID, SELFPAY ==
[2021-02-02 13:04] LABS: HCT 31.3 % (40.0-50.0); MCH 35.3 pg (27.0-33.0); MCHC 31.9 % (32.0-36.0); MCV 110.6 fL (80-95); RBC 2.83 10^6/uL (4.36-5.78); RDW 15.5 % (11.8-14.1); RDW-SD 61.7 fL; WBC 3.25 10^3/uL (4.4-10.8)
[2021-02-02 13:33] LABS: Platelet Count 25 10^3/uL (130-400)
== END 2021-02-02 03:48 | disposition home or self-care (01) ==
LOC: LOS 03:47
PROVIDERS: PCP Nurse Practitioner; Visit Provider Nurse Practitioner
DX: D69.6 Thrombocytopenia, unspecified (principal)
CPT/HCPCS: 36415; 85027

== ENCOUNTER 2021-02-14 19:35 | Emergency (ER) | payer MEDICAID, SELFPAY ==
[2021-02-14] VITALS (24 sets, daily range): BP systolic 104–141; BP diastolic 60–74; PULSE 73–101; RESP 12–27; TEMP 36.8; O2SAT 87–97
--- NOTE | 2021-02-14 19:47 | ED.GENADUL_ITS ---
Discharge Plan Disposition Patient Disposition: HOME Condition: Stable Discharge Details Clinical Impression: Alcoholism, Advanced hepatic cirrhosis Primary Care Provider: Angella Deal ED Provider: Huseyin Koo Home Meds and New Rx's Prescriptions: New lactulose 20 gram packet 20 g PO BID Qty: 30 RF: 0 ondansetron 4 mg tablet,disintegrating 4 mg PO Q8H PRN (Reason: nausea and vomiting) Qty: 30 RF: 0 Continued bupropion HCl 100 mg tablet sustained-release 12 hr 100 mg PO DAILY Qty: 30 RF: 1 fluoxetine 40 mg capsule 40 mg PO DAILY Qty: 90 RF: 4 melatonin 3 mg tablet 6 mg PO HS Qty: 90 RF: 4 pantoprazole 40 mg tablet,delayed release (DR/EC) 40 mg PO BID Qty: 180 RF: 4 Discharge Instructions Instructions: Cirrhosis (ED) Additional Instructions: Try to cut back or stop drinking alcohol completely follow up with your primary care provider within 1 week if you feel more ill, have persistent vomit or fevers return to the emergency department Medical Decision Making <Indra Mnotiel MD - Last Filed: 02/14/21 21:31> 60-year-old male alcoholic, who was seen in clinic by his primary care physician today for depression, alcohol abuse, cirrhosis. He went home and drank approximately a half fifth of alcohol, had worsening depression due to staying at a local motel after being kicked out of his son's house in the [place] where he was staying. Due to his depression and intoxicated state the patient called the ambulance to transport him to the ER, requesting he be taken to the [facility], but brought per protocol to [facility]. He arrives awake and interactive. He does appear somewhat jaundiced. Medical screening examination including laboratory analysis performed. Patient is intoxicated with alcohol level of 309. He has chronic hyperbilirubinemia today 6.7. AST is 106, ALT 28. Chemistries otherwise notable sodium 144, potassium 3.2, BUN 3, creatinine 0.7. CBC reveals known thrombocytopenia today his platelets are 16. The patient's liver dysfunction is chronic. He will benefit from restarting lactulose to prevent hepatic encephalopathy. Given his depression and intoxication he will warrant further observation until sober at which point rescreening for depression can be performed. Will sign the patient out to Dr. Koo pending further observation. <Huseyin Koo MD - Last Filed: 02/15/21 02:37> pt signed out to me pending reassessment when clinically sober. He is currently sleeping, awakens to voice and I ask him currently if he is suicidal or homicidal and he says no. He is slurring his speech otherwise oriented and clinically doesn't have acute hepatic encephalopathy, no asterixis, disorientation and is following commands. Will reassess when sober, labs show no significant changes from baseline all of which are due to his chronic alcohol u se and cirrhosis. pt now clinically sober, ambulating on his own without assistance and is caox4 and denies si/hi and do not feel mental health eval indicated. He states he does suffer from almost daily nausea, no vomit, and suspect it is due to his underlying liver disease as well as alcohol abuse, will provide prn zofran prescription and also recommended resuming his lactulose given ammonia mildly elevated here today. He is stable for d/c and plan for rct to take him home this morning. He was advised to f/u with his pcp and return precautions given HPI <Indra Montiel MD - Last Filed: 02/14/21 21:31> General Mode of arrival: EMS . Date/Time Provider Initiated Documentation: 02/14/21 19:54 . Limitations to Documentation: no limitations . Information obtained by: patient and EMS . History of Present Illness 60 year old M presents to the emergency department with the chief complaint of Intoxicated and depressed, denies thoughts of suicide, described as moderate, Quality is described as constant, Patient started experiencing this day(s) and it has been constant. No relieving factors improve symptom(s), No exacerbating factors reported . Patient notes loss of appetite, weakness and other (States he has been jaundiced for approximately 2 months); denies fever/chills. Patient did receive the following treatments prior to arrival, none Related Data Home Medications Medication Instructions Recorded Confirmed fluoxetine 40 mg capsule 40 mg PO DAILY #90 cap 02/04/21 02/14/21 melatonin 3 mg tablet 6 mg PO HS #90 tab 02/04/21 02/14/21 pantoprazole 40 mg tablet,delayed 40 mg PO BID #180 tab 02/04/21 02/14/21 release bupropion HCl 100 mg tablet,12 hr 100 mg PO DAILY #30 tab 02/14/21 02/14/21 sustained-release lactulose 20 g PO BID #30 ea 02/15/21 ondansetron 4 mg PO Q8H PRN #30 tab 02/15/21 Previous Rx's Medication Instructions Recorded fluoxetine 40 mg capsule 40 mg PO DAILY #90 cap 02/04/21 melatonin 3 mg tablet 6 mg PO HS #90 tab 02/04/21 pantoprazole 40 mg tablet,delayed 40 mg PO BID #180 tab 02/04/21 release bupropion HCl 100 mg tablet,12 hr 100 mg PO DAILY #30 tab 02/14/21 sustained-release lactulose 20 g PO BID #30 ea 02/15/21 ondansetron 4 mg PO Q8H PRN #30 tab 02/15/21 Allergies Allergy/AdvReac Type Severity Reaction Status Date / Time sertraline AdvReac Severe SEVERE Verified 02/14/21 19:48 WORSENING OF DEPRESSION General Stated Complaint: ETOHWithdr NEEMA: 2 Review of Systems <Indra Montiel MD - Last Filed: 02/14/21 21:31> Narrative: Dry heaves some mornings, drank today and reports approxione fifth of alcohol use per day. Depressed without thoughts of harming himself or others. No chest pain or shortness of breath. Generally weak. 8 systems reviewed and otherwise negative. PFSH <Indra Montiel MD - Last Filed: 02/14/21 21:31> Medical History Acute GI bleeding Advanced hepatic cirrhosis Alcohol abuse Alcohol dependence with withdrawal with complication Anxiety COVID-19 Depression Desire for detoxification wants to stay sober this time GERD (gastroesophageal reflux disease) GI (gastrointestinal hemorrhage) History of surgery Hernia repair. Vasectomy. Liver failure with hepatic coma Palliative care patient Upper GI bleed 02/2020- treating gastritis with Pantoprazol 90 days BID, then daily Surgical History H/O vasectomy History of colon resection due to diverticulitis; sigmoid [place] [facility] [place] of hernia repair Repair of inguinal hernia Vasectomy Family History Mother Neoplasm Father Diabetes Essential hypertension Neoplasm Son No problems noted. Daughter No problems noted. Social History Smoking/Tobacco Use Status: Never Smoking risk assessment performed?: Yes Alcohol Intake: current Alcohol Intake frequency: 3 or more drinks per day Alcohol type: hard liquor Drug use: Occasionally Substance use type: marijuana Caregiver/Support person: Yes Household members: children Number of Children: 2 Communication Needs: Hard of Hearing and Corrective Lenses Education Level: high school Do you need help understanding health information?: Always current occupation: applying for disability Do you think of yourself as: straight/heterosexual Current gender identity: male What is your relationship status?: How often do you talk on the phone with friends or family?: twice per week How often do you get together with friends or relatives?: three or more times per week Panel score (0-1 are the most socially isolated patients): 1 What type of physical activity do you participate in: walking and sedentary lifestyle Duration: < 15 minutes/day Frequency: daily Special radha needs: No Agree to transfusion: Yes Seatbelt use: sometimes Drive 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 He has been told this by multiple providers. Exam <Indra Montiel MD - Last Filed: 02/14/21 21:31> Narrative Exam Narrative: GEN: awake, alert, oriented 3. Pleasant, well groomed, interactive. HEAD: Normocephalic, atraumatic ENT: Mucous membranes moist, oropharynx unremarkable, External ear exam unremarkable EYES: PERRL, EOMI, scleral icterus NECK: Full ROM, no RIVER, no menigismus CHEST/RESP: Nontender, clear to auscultation bilateral, no wheeze/rhonchi/rales CARDIOVASCULAR: RRR, did not appreciate murmur. 2+ Rad pulse bilateral ABDOMEN: Soft, nontender, no mass, slightly distended. +Bowel sounds EXT: Full ROM, no edema, no rash Skin: Jaundice Neuro: Grossly normal neurologic exam, conversant, interactive. Psych: Speech fluent, thoughts congruent, affect flat at times Course <Indra Montiel MD - Last Filed: 02/14/21 21:31> Vital Signs Vital signs: Vital Signs Temperature 36.8 C 02/14/21 19:40 Pulse 95 H 02/14/21 19:40 Respiratory Rate 18 02/14/21 19:40 Blood Pressure 141/68 H 02/14/21 19:40 Pulse Oximetry 95 02/14/21 19:40 Temperature 36.8 C 02/14/21 19:40 Temperature Source Temporal Artery Scan 02/14/21 19:40 Pulse 95 H 02/14/21 19:40 Respiratory Rate 18 02/14/21 19:40 Blood Pressure 141/68 H 02/14/21 19:40 Blood Pressure Position Sitting 02/14/21 19:40 Pulse Oximetry 95 02/14/21 19:40 Oxygen Delivery Method Room Air 02/14/21 19:40 Oxygen Flow Rate 0 02/14/21 19:40 Pain Level 0 02/14/21 19:40 Sign Out <Indra Montiel MD - Last Filed: 02/14/21 21:31> Sign Out Data: Sign Out Comment: EtOH abuse, depression, liver dysfunction. ED Obs and re- screen vs Obs admission Last updated by Indra Montiel MD at 02/14/21 22:25
[2021-02-14] MEDS: MAGNESIUM SULFATE 8.12 MEQ, MULTIVITAMIN 10 ML, THIAMINE 100 MG, FOLIC ACID 1 MG in Nor... 168.867 MG IV (20:19)
[2021-02-14] MEDS: LORazepam 2 MG/ML VIAL 0.5 MG IVP (20:20)
[2021-02-14] MEDS: Ondansetron 4 MG/2 ML VIAL IVP (20:23)
[2021-02-14] MEDS: Pantoprazole 40 MG VIAL IVP (20:24)
[2021-02-14 20:39] LABS: Source Nasal/Nares
[2021-02-14 20:49] LABS: Bilirubin Moderate (Negative); Blood Large (Negative); Clarity Clear (Clear); Glucose 100 mg/dL (Negative); Ketones Negative (Negative); Leukocyte Esterase Negative (Negative); Nitrite Negative (Negative)
[2021-02-14 20:54] LABS: *AMPHETAMINES SCREEN URINE Negative (Negative); *BARBITURATES SCREEN URINE Negative (Negative); *BENZODIAZEPINES SCREEN URINE Negative (Negative); Cannabinoids THC Positive (Negative); Cocaine Screen,Urine Negative (Negative); METHADONE URINE SCREEN Negative (Negative); OPIATES URINE SCREEN Negative (Negative)
[2021-02-14 20:55] LABS: Abs Immature Grans 0.01 10^3/uL (0.0-0.06); Absolute Basophil Count 0.03 10^3/uL (0.0-0.2); Absolute Eosinophil Count 0.04 10^3/uL (0.0-0.7); Absolute Lymphocyte Count 0.82 10^3/uL (1.2-3.4); Absolute Monocyte Count 0.42 10^3/uL (0.1-0.8); Absolute Neutrophil Count 1.92 10^3/uL (1.2-6.7); Basophils % 0.9; Eosinophils % 1.2; HCT 31.3 % (40.0-50.0); HGB 9.9 g/dL (13.5-17.5); Immature Grans % 0.3; Lymphocytes % 25.3; MCH 34.7 pg (27.0-33.0); MCHC 31.6 % (32.0-36.0); MCV 109.8 fL (80-95); MPV 10.6 fL (8.0-11.0); Neutrophils % 59.3; Nucleated RBC 0 %; RBC 2.85 10^6/uL (4.36-5.78); RDW 15.9 % (11.8-14.1); WBC 3.24 10^3/uL (4.4-10.8)
[2021-02-14 20:55] LABS: Tricyclic Antidepressants Negative (Negative)
[2021-02-14 21:07] LABS: Bacteria Negative HPF (Negative); C & S Indicated? No; Casts Negative LPF (Negative); Crystals Negative HPF (Negative); Epithelial Cells Negative HPF (Negative); Mucus Heavy (Negative); Other Cells Negative (Negative); WBC 0-2 HPF (0-5)
[2021-02-14 21:13] LABS: Ammonia 61 umol/L (11-32)
[2021-02-14 21:24] LABS: Acetaminophen < 2 ug/mL (10-30); Salicylate < 2.8 mg/dL (<2.8)
[2021-02-14 21:25] LABS: ALT 28 U/L (16-63); AST 106 U/L (15-37); Albumin 1.9 g/dL (3.4-5.0); Alkaline Phosphatase 187 U/L (46-116); Anion Gap 7.7 mmol/L (3-11); BUN 3 mg/dL (7-18); Bilirubin, Total 6.7 mg/dL (0.2-1.0); CO2 29.3 mmol/L (21.0-32.0); CREATININE 0.7 mg/dL (0.70-1.30); Calcium 7.6 mg/dL (8.5-10.1); Chloride 107 mmol/L (98-107); ETHANOL BLOOD 309.3 mg/dL (<10); Glucose 105 mg/dL (74-106); Potassium 3.2 mmol/L (3.5-5.1); Sodium 144 mmol/L (136-145); TSH (W/Ref FT4) 1.76 uIU/mL (0.36-3.74); Total Protein 7.6 g/dL (6.4-8.2)
[2021-02-14 21:28] LABS: Diff Comment PLT Morph Reviewed; Macrocytosis 3+
[2021-02-14 21:36] LABS: Platelet Count 16 10^3/uL (130-400)
[2021-02-14 21:48] LABS: COVID-19 PCR Negative (Negative)
[2021-02-15] MEDS: Ondansetron 4 MG/2 ML VIAL IVP (03:19)
--- NOTE | 2021-02-19 10:29 | NUR.NOTE ---
Addendum entered by Kyra Muniz 02/19/21 10:33: Accessed pt record to get address to mail result. Kyra Muniz Original Note: negative covid result mailed to pt. unable to reach by phone.Nursing Note:
== END 2021-02-15 05:04 | disposition home or self-care (01) ==
PROVIDERS: Emergency Medicine; Emergency Provider Emergency Medicine; PCP Nurse Practitioner
DX: K70.30 Alcoholic cirrhosis of liver without ascites (principal); F10.20 Alcohol dependence, uncomplicated; Y90.8 Blood alcohol level of 240 mg/100 ml or more; Z20.822 Contact with and (suspected) exposure to COVID-19
CPT/HCPCS: 80053; 80307; 87635; 96365; 96366; 96375; 96376; 99284; 80320; 80329; 81003; 81015; 82140; 84443; 85025; J2060; J2405

== ENCOUNTER 2021-04-22 02:02 | Outpatient (CLI) | payer MEDICAID, SELFPAY ==
[2021-04-22 10:21] LABS: Source Nasal/Nares
[2021-04-22 13:09] LABS: COVID-19 PCR Negative (Negative)
== END 2021-04-22 02:03 | disposition home or self-care (01) ==
LOC: LBO 02:03
PROVIDERS: PCP Nurse Practitioner; Visit Provider Ophthalmology
DX: Z20.822 Contact with and (suspected) exposure to COVID-19 (principal); Z01.818 Encounter for other preprocedural examination
CPT/HCPCS: 87635

== ENCOUNTER 2021-04-25 07:06 | Day surgery (SDC) | payer MEDICAID, SELFPAY ==
[2021-04-25 07:27] VITALS: BP 116/58; PULSE 107; RESP 16; TEMP 36.7; O2SAT 97
--- NOTE | 2021-04-25 07:36 | W.ANESPRE ---
General Info Date of Service Date Performed: 04/25/21 Height: 5 ft 7 in Weight: 64.5 kg Body Mass Index (BMI): 22.2 Surgical Procedure: Operation Date: 04/25/21 08:40 Proposed Procedures Side Surgeon p Cataract Extraction with IOL Implant Right Migue Bustamante MD Meds Allergies and Home Medications Allergies Allergy/AdvReac Type Severity Reaction Status Date / Time sertraline AdvReac Severe SEVERE Verified 04/25/21 07:24 WORSENING OF DEPRESSION Home Medication Medication Instructions Recorded fluoxetine 40 mg capsule 40 mg PO DAILY #90 cap 02/04/21 melatonin 3 mg tablet 6 mg PO HS #90 tab 02/04/21 bupropion HCl 100 mg tablet,12 hr 100 mg PO DAILY #30 tab 02/14/21 sustained-release lactulose 20 g PO BID #30 ea 02/15/21 ondansetron 4 mg PO Q8H PRN #30 tab 02/15/21 acamprosate 333 mg tablet,delayed 666 mg PO TID #90 tab 03/01/21 release ferrous gluconate 324 mg (37.5 mg 324 mg PO DAILY #1 tab 04/13/21 iron) tablet folic acid 1 mg tablet 1 mg PO DAILY #1 tab 04/13/21 pantoprazole 40 mg tablet,delayed 40 mg PO BID #180 tab 04/13/21 release tamsulosin 0.4 mg capsule 0.4 mg PO QHS #1 cap 04/13/21 thiamine HCl (vitamin B1) 100 mg 100 mg PO DAILY #1 tab 04/13/21 tablet Current Visit Medications: Current Medications Generic Name Dose Route Start Last Admin Trade Name Freq PRN Reason Stop Dose Admin Acetaminophen 1,000 mg 04/25/21 06:00 Acetaminophen 500 Mg Tab PO Q4H PRN PRN Miscellaneous Medication 0 ml 04/25/21 06:00 Prednisolone 1%, Moxifloxacin 0.5%, Nepafenac 0.1% 5ml Btl OD DIRECTED [facility] [place] Miscellaneous Medication 0 ml 04/25/21 06:00 Tropicam./Phenyleph. (1/2.5%) 5 Ml Btl OD DIRECTED [facility] [place] Tetracaine HCl 0 ml 04/25/21 06:00 Tetracaine 0.5% 4 Ml Btl OD DIRECTED [facility] Active Problems Active Problems: Problem Status Onset Code Edema R60.9 Inguinal hernia, left K40.90 Thrombocytopenia D69.6 Vision changes H53.9 Major depression F32.9 Ear canal mass H93.8X9 Pneumatosis of intestines K63.89 Liver nodule K76.89 Desire for detoxification Palliative care patient Z51.5 Alcoholic cirrhosis of liver with ascites K70.31 Jaundice R17 Alcoholism F10.20 Alcoholic hepatitis without ascites K70.10 Enlarged prostate N40.0 Portal hypertension K76.6 Esophageal varices I85.00 Advanced hepatic cirrhosis K74.60 Gastroesophageal reflux disease K21.9 Hiatal hernia K44.9 Medical History Medical History Acute GI bleeding Advanced hepatic cirrhosis Alcohol abuse Alcohol dependence with withdrawal with complication Anxiety COVID-19 Depression Desire for detoxification wants to stay sober this time GERD (gastroesophageal reflux disease) GI (gastrointestinal hemorrhage) History of surgery Hernia repair. Vasectomy. Liver failure with hepatic coma Palliative care patient Upper GI bleed 02/2020- treating gastritis with Pantoprazol 90 days BID, then daily Surgical History Surgical History H/O vasectomy History of colon resection due to diverticulitis; sigmoid History of esophagogastroduodenoscopy 01/2020[place] [facility] [place] History of hernia repair Repair of inguinal hernia Vasectomy Tobacco Smoking/Tobacco Use Status: Never Alcohol Alcohol Intake: former Substance Use Substance use: Occasionally Substance use type: marijuana Details: 7 weeks since any ETOH intake Vital Signs and Lab Results Vital Signs Most Recent Vital Signs in EMR: Most Recent Vital Signs Temp Pulse Resp BP Pulse Ox 36.7 C 107 H 16 116/58 L 97 04/25/21 07:27 04/25/21 07:27 04/25/21 07:27 04/25/21 07:27 04/25/21 07:27 Lab Results Blood Type / Crossmatch: No Data to Display Complete Blood Count: No Data to Display Complete Metabolic Panel: No Data to Display Liver Function Panel: No Data to Display Coagulation Panel: No Data to Display Cardiac Panel: No Data to Display Arterial Blood Gas: No Data to Display Venous Blood Gas: No Data to Display Pancreas Panel: No Data to Display Thyroid Panel: No Data to Display Infectious Disease: Coronavirus (COVID-19)(PCR) Negative (Negative) 04/22/21 08:53 12/31/21 Coronavirus 2019 Source Nasal/Nares 04/22/21 08:53 04/22/21 Blood Cultures: No Data to Display Toxicology Panel: No Data to Display Imaging and Studies Imaging and Studies Study information below may be from another EMR and interpreted by another provider. Please see original notes in EMR for more complete details. EKG Summary: DATE/TIME OF SERVICE: 10/04/20 1712 HR:101 bpm ECG Measurements Heart Rate 101 AXIS FL 179 P 25 QRSd 100 QRS -19 QT 369 T24 QTc 480 Conclusion Sinus tachycardia...rate> 99 Anesthesia Assessment and Plan Anesthesia History Personal History: No History of Anesthesia Complications Family History: No Family History of Anesthesia Complications Exercise Tolerance Exercise Tolerance: Metabolic Equivalents>4 Pertinent Negatives Pertinent Negatives: No Symptoms of GERD Cardiac & Pulmonary Exam Cardiac Exam: Normal S1/S2 Heart Sounds Pulmonary Exam: Clear Bilateral Breath Sounds Implantable Cardiac Device Does patient have a Pacemaker or an ICD?: No Airway Exam Known Difficult Airway: No Mallampati Class: 2 Mouth Opening: Normal (> 3cm) Thyromental Distance: Greater than 3 cm Neck Range of Motion: Full ROM Neck Circumference: Normal Teeth Condition: Normal Dentition ASA Classification ASA Score: ASA 3 Emergency Case?: No NPO Status NPO Status: NPO Clears >2 hours, Solids >8 hours Anesthesia Plan Resuscitation Status: Full Code Anesthesia Technique: MAC Anesthesia Airway Planned: Natural Airway Monitors Used: Standard Monitors
[2021-04-25] MEDS: Tropicam./Phenyleph. (1/2.5%) 5 ML BTL OD ×4 (07:42→08:23)
[2021-04-25 08:00] VITALS: BMI 22.2
[2021-04-25] MEDS: Balanced Salt Soln.-PLUS 500 ML BAG (08:23)
[2021-04-25] MEDS: Duovisc Viscoelastic System EACH 1 EACH (08:24)
[2021-04-25] MEDS: Lidocaine 2% Jelly 6 ML SYR (08:25)
[2021-04-25] MEDS: Povidone-Iodine Ophth 30 ML BTL (08:26)
[2021-04-25] MEDS: Trypan Blue 0.06% 0.5 ML SYR (08:28)
[2021-04-25] MEDS: Tetracaine 0.5% 4 ML BTL OD (08:28)
[2021-04-25 08:49] VITALS: BP 104/47; PULSE 101; RESP 16; TEMP 36.7; O2SAT 95
--- NOTE | 2021-04-25 08:49 | W.PM.DSUDISC ---
Discharge Plan Disposition Patient Disposition: HOME Condition: Good Discharge Details Attending Provider: Migue Bustamante Primary Care Provider: Angella Deal Home Meds and New Rx's Prescriptions: No Action acamprosate 333 mg tablet,delayed release (DR/EC) 666 mg PO TID Qty: 90 RF: 0 bupropion HCl 100 mg tablet sustained-release 12 hr 100 mg PO DAILY Qty: 30 RF: 1 thiamine HCl (vitamin B1) 100 mg tablet 100 mg PO DAILY Qty: 1 RF: 0 tamsulosin 0.4 mg capsule 0.4 mg PO QHS Qty: 1 RF: 0 folic acid 1 mg tablet 1 mg PO DAILY Qty: 1 RF: 0 ferrous gluconate 324 mg (37.5 mg iron) tablet 324 mg PO DAILY Qty: 1 RF: 0 pantoprazole 40 mg tablet,delayed release (DR/EC) 40 mg PO BID Qty: 180 RF: 3 fluoxetine 40 mg capsule 40 mg PO DAILY Qty: 90 RF: 4 melatonin 3 mg tablet 6 mg PO HS Qty: 90 RF: 4 lactulose 20 gram packet 20 g PO BID Qty: 30 RF: 0 ondansetron 4 mg tablet,disintegrating 4 mg PO Q8H PRN (Reason: nausea and vomiting) Qty: 30 RF: 0 Discharge Instructions Stand Alone Forms: Post-op Topical Cataract, Keisha Moreno (DSU) Discharge Orders Discharge Orders: Discharge Order (Routine); Ordered 04/25/21 Ordered By: Migue Bustamante DS: Diagnosis Discharge Diagnosis (1) Nuclear sclerotic cataract of right eye: Status: Resolved (2) Posterior subcapsular age-related cataract, right eye: Status: Resolved
--- NOTE | 2021-04-25 08:50 | ROE_ITS ---
Date of service: 04/25/21 Time of Service: 08:50 Operative Note Operative Note DATE OF PROCEDURE: 04/25/21 PRE-OP DIAGNOSIS: Nuclear/posterior subcapsular cataract, right eye Poorly dilating pupil, right eye Poor red reflex, right eye POST-OP DIAGNOSIS: same PROCEDURE: Cataract extraction using phacoemulsification with intraocular lens implant, right eye, with pupillary dilation using Malyugin Ring and capsular staining using Vision Blue SURGEON: Migue Bustamante Refer to Anesthesia Record ESTIMATED BLOOD LOSS: 0 PATHOLOGY: none sent COMPLICATIONS: None Patient was transported to: same day Patient's condition: stable Implants: Aneudy and Aneudy / [employer] Tecnis [id number] Indications: Progressive decreased vision due to cataract, right eye Procedure Description: CATARACT SURGERY OPERATIVE REPORT PREOPERATIVE DIAGNOSIS: 1. Nuclear/posterior subcapsular cataract, right eye 2. Poorly dilating pupil, right eye 3. Poor red reflex, right eye POSTOPERATIVE DIAGNOSIS: Same OPERATION: 1. Cataract extraction using phacoemulsification with posterior chamber intraocular lens implant, right eye. 2. Pupillary dilation and iris stabilization using Malyugin Ring 3. Capsular staining with VIsion Blue IOL: IOL Stretching Machine Tender Frame/Model: Aneudy & Aneudy / CHANTEL Tecnis [id number] IOL Power: + 21.0 diopters IOL Serial Number: [id number] Optic Diameter: 6.0mm Haptic/Overall Diameter: 13.0mm PHACO INFO: Mauro Centurion Vision System with OZil and Active Fluidics Cumulative Dispersed Energy (CDE): 8.21 seconds SURGEON: Migue Bustamante MD, SEPIDEH ANESTHESIA: Monitored Anesthesia Care (MAC), with local sub-tenon's anesthetic infiltration COMPLICATIONS: None SPECIMENS: None INDICATIONS FOR PROCEDURE: The patient is a 60-year-old gentleman with history of diminished visual acuity in his right eye. He is noted to have a rather dense nuclear cataract with posterior subcapsular opacity as well. The option of cataract surgery was offered to the patient and he wished to proceed. PROCEDURE: The correct surgical eye was identified and marked as the right eye and the pupil was dilated in the preoperative area using mydriatics and cycloplegics. The dilated pupil size was 4.5 mm. Oral sedation was administere d in the form of an Imprimis MKO Melt (midazolam 3mg/ketamine 25mg/ondansetron 2mg). The patient was brought to the operating room where cardiopulmonary monitoring was instituted and surgical time-out was performed, confirming the correct operative eye and IOL power. Topical anesthesia was administered and ophthalmic povidone-iodine 5% was instilled into the conjunctival fornices. Lidocaine gel was applied to the cornea and the piedad-ocular area was prepped with Betadine 10% solution and draped in the usual sterile fashion for intraocular surgery, including an aperture drape. A Tegaderm transparent film dressing was cut in half and used to cover the lashes and lid margins. Care was taken to sequester the lashes and lid margins under the Tegaderm dressing. A lid speculum was placed between the lids of the operative eye and the Alessandro-Elizabeth operating microscope was maneuvered into position. Maria Elena scissors were then used to make a conjunctival buttonhole approximately 6mm posterior to the limbus in the inferonasal quadrant. Blunt dissection was carried out to expose bare sclera, and a blunt-tipped sub-tenon?s anesthesia cannula was introduced and passed posteriorly along the globe where non- preserved plain lidocaine was injected into posterior sub-Tenon?s space. A sideport knife was used to make a paracentesis port inferiortemporally. Intraocular phenylephrine/lidocaine was injected into the anterior chamber. Air was then injected into anterior chamber, followed by Vision Blue, which was painted over the anterior capsule and then irrigated out with BSS. The anterior chamber was then filled with viscoelastic. A 2.4mm keratome knife was used to create a half-thickness groove at the limbus and then to construct a three-plane near-clear corneal tunnel extending 2.0mm into clear cornea superiortemporally. A 7.0 mm Malyugin Ring was then inserted into the pupillary space and engaged with the Kuglen hook. A flap was raised on the anterior capsule and capsulorhexi s forceps were used to complete a continuous curvilinear capsulorhexis of 5.0 mm. Capsulorhexis was challenging due to constant patient eye movement. The eye had to be fixated with the second hand during creation of the capsulorrhexis. Balanced salt solution was then used to perform cortical cleaving hydrodissection and nuclear hydrodelineation until the lens could be freely rotated within the capsular bag. The lens nucleus was then disassembled and removed within the capsular bag and iris plane using phacoemulsification. Residual cortical material was removed using the 45-degree angled silicone I/A tip with 0.3mm port. The posterior capsule was carefully polished to remove as much residual lens epithelial cells as safely possible. The capsular bag was then inflated and the anterior chamber deepened with viscoelastic. The lens implant described above was inserted into the capsular bag using the CHANTEL [place] Injector. A Kuglen hook was used to dial the IOL into position. The Malyugin Ring was removed in the reverse order of its insertion. Residual viscoelastic was then removed first from posterior to the IOL, then from the anterior chamber using the I/A handpiece. The lens implant was noted to center nicely within the capsular bag. The incisions were stromally hydrated, and the anterior chamber was reformed using BSS. Then 0.5cc of moxifloxacin 1.0mg/ml were injected into the capsular bag and anterior chamber. The incisions were checked with a Weck spear and found to be secure. Several drops of ophthalmic povidone-iodine 5% were then applied to the eye followed by two drops of Imprimis combination prednisoone/moxifloxacin/nepafenac solution. The drapes were removed and a clear plastic protective eye shield was placed over the eye. The patient was then returned to Same Day Surgery in stable condition.
--- NOTE | 2021-04-25 09:13 | W.ANESPOSTOP ---
Postoperative Evaluation Date, Time and Location Date Performed: 04/25/21 Time Performed: 08:52 Patient Location: Day Surgery Unit Vital Signs Most Recent Imported Vital Signs: Most Recent Vital Signs Temp Pulse Resp BP Pulse Ox 36.7 C 101 H 16 104/47 L 95 04/25/21 08:49 04/25/21 08:49 04/25/21 08:49 04/25/21 08:49 04/25/21 08:49 Pain Score Most Recent Pain Score: Most Recent Pain Score Pain Level 0 04/25/21 08:49 Assessment Mental Status: Awake (Alert & Oriented to Patient Baseline) Airway and Respiratory Function: Patent airway with normal (patient baseline) respiratory exam Cardiovascular Function: Hemodynamically Stable Hydration Status: Adequately Hydrated Nausea & Vomiting: No Nausea or Vomiting Pain: Pt. Denies Any Pain Peripheral Nerve Block: Patient did not receive a nerve block
[2021-04-25 09:17] VITALS: BP 97/51; PULSE 110; RESP 16; TEMP 36.7; O2SAT 95
== END 2021-04-25 09:27 | disposition home or self-care (01) ==
PROVIDERS: PCP Nurse Practitioner; Visit Provider Ophthalmology
PROC: (CPT 66982; principal; 2021-04-25 08:30)
DX: H25.041 Posterior subcapsular polar age-related cataract, right eye (principal); H57.03 Miosis; K21.9 Gastro-esophageal reflux disease without esophagitis; F10.20 Alcohol dependence, uncomplicated; K70.30 Alcoholic cirrhosis of liver without ascites
CPT/HCPCS: 66982; V2632